=== PATIENT | female | born 1930 | race African-American/Black ===

== ENCOUNTER 2016-06-29 19:37 | Inpatient (IN) | payer OTHER ==
[~2016-06-29] VITALS: Ht 157.5 cm; Wt 61.9 kg
[~2016-06-29 19:37] MED LIST: ACET325T21 PO; ACET500T33 PO; ALBU2.5V14 NEB; AMIO200T2 PO; ASPI-482 PO; ASPI81TA2 PO; ATOR40TA59 PO; BACL10TA PO; BISA10SU2 RC; CARV6.252 PO; CETI10TA16 PO; CETI10TA22 PO; CYAN1CRY MC; CYCL10TA2 PO; DEXT4TAB PO; DICL100G7 TP; DICL1PAT4 TD; DONE5TAB7 PO; ESTR42.53 VG; FLUT16SP2 NS; FLUT1DIS3 IH; FURO-68 PO; FURO40TA4 PO; GABA-585 PO; HYDR-2666 PO; HYDR-2762 PO; INSU100I11 SQ; INSU100I13 SQ; INSU100V8 SQ; LORA0.5T PO; LOSA25TA4 PO; MAG30ORA2 PO; MAG355OR30 PO; MAGN2400 PO; METO2.5T PO; METO5TAB55 PO; MIRA25TA PO; MONT10TA9 PO; MULT-91 PO; NYST1000 PO; OLOP5DRO OP; PANT40TA5 PO; POLY17PO3 PO; POTA20TA12 PO; SIMV20TA3 PO; SPIR25TA3 PO; VENTOLIN HFA18 GM IH; [UNRECOGNIZED DRUG - CODE] PO
[2016-06-29] MEDS ORDERED: PIPERACILLIN/TAZOBACTAM 3.375 GM in IV NORMAL SALINE 50ML 50 ML IV ONE (20:30)
[2016-06-29] MEDS ORDERED: IV NORMAL SALINE 1000ML BAG 1,000 ML IV ONE (20:30)
[2016-06-29] MEDS ORDERED: IPRATRPIUM/ALBUTEROL 0.5/2.5MG 3 ML NEBU. NEB ONE (20:30)
[2016-06-29 20:49] LABS: BASO # 0.1 x10^3/uL (0.0-0.2); BASO % 0 % (0-3); EOS % 0 % (0-3); HEMATOCRIT 42.8 % (36.0-47.0); HEMOGLOBIN 13.6 g/dL (12.0-15.5); LYMPH # 0.7 x10^3/uL (1.0-4.8); LYMPH % 5 % (24-48); MEAN CORPUSCULAR HEMOGLOBIN 27 pg (25-35); MEAN CORPUSCULAR HGB CONC 32 g/dL (31-37); MEAN CORPUSCULAR VOLUME 85 fL (79-100); MONO % 4 % (0-9); NEUT % 91 % (31-73); PLATELET COUNT 141 x10^3/uL (140-400); RED BLOOD COUNT 5.01 x10^6/uL (3.50-5.40); RED CELL DISTRIBUTION WIDTH 17.9 % (11.5-14.5); WHITE BLOOD COUNT 13.9 x10^3/uL (4.0-11.0)
[2016-06-29 20:58] LABS: OBC FLU VALID
[2016-06-29 21:00] LABS: BILIRUBIN,URINE NEGATIVE (NEG); GLUCOSE,URINE NEGATIVE (NEG); NITRITE,URINE NEGATIVE (NEG); PROTEIN,URINE NEGATIVE (NEG-TRACE); UROBILINOGEN,URINE 0.2 mg/dL (0.2 mg/dL)
[2016-06-29 21:07] LABS: BACTERIA,URINE MANY /HPF (0-FEW); RBC,URINE 0 /HPF (0-2); SQUAMOUS EPITHELIAL CELL,UR FEW /LPF; WBC,URINE OCC /HPF (0-4)
[2016-06-29 21:09] LABS: CALCIUM 9.2 mg/dL (8.5-10.1); GFR 28.8; POTASSIUM 4.1 mmol/L (3.5-5.1)
[2016-06-29 21:13] LABS: ALBUMIN/GLOBULIN RATIO 0.7 (1.0-1.7); TOTAL BILIRUBIN 0.8 mg/dL (0.2-1.0); TOTAL PROTEIN 7.1 g/dL (6.4-8.2)
[2016-06-29 21:14] LABS: ANISOCYTOSIS SLIGHT; PLT ESTIMATE ADEQUATE (ADEQUATE); POIKILOCYTOSIS SLIGHT; SPHEROCYTES OCC
[2016-06-29 21:15] LABS: TARGET CELLS OCC; TOXIC GRANULATION SLIGHT; TOXIC VACUOLATION SLIGHT
[2016-06-29] MEDS ORDERED: ONDANSETRON PF 4 MG/2 ML VIAL. IV PRN (21:30)
[2016-06-29] MEDS ORDERED: ACETAMINOPHEN 325 MG TABLET. PO PRN (21:30)
--- NOTE | 2016-06-29 22:19 | PHYS DOC ---
Past Medical History Past Medical History: Anxiety, CHF, COPD, Depression, Diabetes-Type II, GERD, Glaucoma, Hypertension, Hypothyroid, Renal Disease, Other Additional Past Medical Histor: DJD Past Surgical History: Hysterectomy, Pacemaker, Other Additional Past Surgical Histo: thyroidectomy, rotator cuff repair Alcohol Use: None Drug Use: None Adult General Chief Complaint Chief Complaint: MECHANICAL FALL HPI HPI 85-year-old female with multiple medical problems presents with several day history of cough congestion and malaise. Was reported that patient fell today but did not hit her head. She is just been weak. [] Review of Systems Review of Systems Constitutional: Denies fever or chills [] Eyes: Denies change in visual acuity, redness, or eye pain [] HENT: Denies nasal congestion or sore throat [] Respiratory: Per history of present illness [] Cardiovascular: No additional information not addressed in HPI [] GI: Denies abdominal pain, nausea, vomiting, bloody stools or diarrhea [] : Denies dysuria or hematuria [] Musculoskeletal: Denies back pain or joint pain [] Integument: Denies rash or skin lesions [] Neurologic: Denies headache, focal weakness or sensory changes [] Endocrine: Denies polyuria or polydipsia [] Current Medications Current Medications Current Medications Medications (Trade) Dose Ordered Sig/Priscila Start Time Stop Time Status Last Admin Dose Admin Acetaminophen (Tylenol) 650 mg PRN Q4HRS PRN 06/29/16 21:30 06/30/16 21:29 Albuterol/ Ipratropium (Duoneb) 3 ml RTQID 06/30/16 08:00 07/01/16 07:59 Albuterol/ Ipratropium 3 ml 3 ml 1X ONCE 06/29/16 20:30 06/29/16 20:31 DC 06/29/16 21:24 3 ML Methylprednisolone Sodium Succinate (Solu-Medrol 40mg Vial) 40 mg BID 06/30/16 09:00 Ondansetron HCl 4 mg 4 mg PRN Q8HRS PRN 06/29/16 21:30 06/30/16 21:29 Oseltamivir Phosphate (Tamiflu) 30 mg 1X ONCE 06/29/16 22:45 06/29/16 22:46 Piperacillin Sod/ Tazobactam Sod/ Sodium Chloride (Zosyn/Iv Sodium Chloride 0.9% 50ml) 50 ml @ 100 mls/hr 1X ONCE 06/29/16 20:30 06/29/16 20:59 DC 06/29/16 21:09 100 MLS/HR Sodium Chloride (Iv Sodium Chloride 0.9% 1000ml Bag) 1,000 ml @ 125 mls/hr Q8H 06/29/16 21:24 06/30/16 21:23 Allergies Allergies Allergies Coded Allergies Type Severity Reaction Last Updated Verified Sulfa (Sulfonamide Antibiotics) Allergy Severe 11/11/15 Yes Cephalexin Monohydrate Allergy Intermediate 11/11/15 Yes Physical Exam Physical Exam Constitutional: Well developed, well nourished, no acute distress, non-toxic appearance. [] HENT: Normocephalic, atraumatic, bilateral external ears normal, oropharynx moist, no oral exudates, nose normal. [] Eyes: PERRLA, EOMI, conjunctiva normal, no discharge. [] Neck: Normal range of motion, no tenderness, supple, no stridor. [] Cardiovascular:Heart rate regular rhythm, no murmur [] Lungs & Thorax: Bilateral breath sounds clear to auscultation [] Abdomen: Bowel sounds normal, soft, no tenderness, no masses, no pulsatile masses. [] Skin: Warm, dry, no erythema, no rash. [] Back: No tenderness, no CVA tenderness. [] Extremities: No tenderness, no cyanosis, no clubbing, ROM intact, no edema. [] Neurologic: Alert and oriented X 3, normal motor function, normal sensory function, no focal deficits noted. [] Psychologic: Affect normal, judgement normal, mood normal. [] Current Patient Data Vital Signs Vital Signs Date Time Temp Pulse Resp B/P Pulse Ox O2 Delivery O2 Flow Rate FiO2 06/29/16 21:24 95 Nasal Cannula 2.0 06/29/16 19:42 100.7 88 22 118/60 100.7 Lab Values Laboratory Tests Test 06/29/16 20:38 06/29/16 20:50 White Blood Count 13.9x10^3/uL (4.0-11.0) H Red Blood Count 5.01x10^6/uL (3.50-5.40) Hemoglobin 13.6g/dL (12.0-15.5) Hematocrit 42.8% (36.0-47.0) Mean Corpuscular Volume 85fL (79-100) Mean Corpuscular Hemoglobin 27pg (25-35) Mean Corpuscular Hemoglobin Concent 32g/dL (31-37) Red Cell Distribution Width 17.9% (11.5-14.5) H Platelet Count 141x10^3/uL (140-400) Neutrophils (%) (Auto) 91% (31-73) H Lymphocytes (%) (Auto) 5% (24-48) L Monocytes (%) (Auto) 4% (0-9) Eosinophils (%) (Auto) 0% (0-3) Basophils (%) (Auto) 0% (0-3) Neutrophils # (Auto) 12.7x10^3uL (1.8-7.7) H Lymphocytes # (Auto) 0.7x10^3/uL (1.0-4.8) L Monocytes # (Auto) 0.5x10^3/uL (0.0-1.1) Eosinophils # (Auto) 0.0x10^3/uL (0.0-0.7) Basophils # (Auto) 0.1x10^3/uL (0.0-0.2) Segmented Neutrophils % 45% (35-66) Band Neutrophils % 38% (0-9) H Lymphocytes % 12% (24-48) L Monocytes % 3% (0-10) Metamyelocytes % 2% (0-0) H Toxic Granulation Slight Toxic Vacuolation Slight Platelet Estimate Adequate (ADEQUATE) Poikilocytosis Slight Anisocytosis Slight Spherocytes Occ Target Cells Occ Sodium Level 138mmol/L (136-145) Potassium Level 4.1mmol/L (3.5-5.1) Chloride Level 101mmol/L (98-107) Carbon Dioxide Level 22mmol/L (21-32) Anion Gap 15 (6-14) H Blood Urea Nitrogen 54mg/dL (7-20) H Creatinine 2.0mg/dL (0.6-1.0) H Estimated GFR (Cockcroft-Gault) 28.8 BUN/Creatinine Ratio 27 (6-20) H Glucose Level 196mg/dL (70-99) H Calcium Level 9.2mg/dL (8.5-10.1) Total Bilirubin 0.8mg/dL (0.2-1.0) Aspartate Amino Transferase (AST) 159U/L (15-37) H Alanine Aminotransferase (ALT) 155U/L (14-59) H Alkaline Phosphatase 58U/L (46-116) UW-Mzw-D-Type Natriuretic Peptide 9923pg/mL (0-449) H Total Protein 7.1g/dL (6.4-8.2) Albumin 3.0g/dL (3.4-5.0) L Albumin/Globulin Ratio 0.7 (1.0-1.7) L Influenza Type A Antigen Negative (NEGATIVE) Influenza Type B Antigen Positive (NEGATIVE) Urine Collection Type U cath Urine Color Yellow Urine Clarity Clear Urine pH 5.0 Urine Specific [place] 1.015 Urine Protein Negativemg/dL (NEG-TRACE) Urine Glucose (UA) Negativemg/dL (NEG) Urine Ketones (Stick) Negativemg/dL (NEG) Urine Blood Trace (NEG) Urine Nitrite Negative (NEG) Urine Bilirubin Negative (NEG) Urine Urobilinogen Dipstick 0.2mg/dL (0.2 mg/dL) Urine Leukocyte Esterase Negative (NEG) Urine RBC 0/HPF (0-2) Urine WBC Occ/HPF (0-4) Urine Squamous Epithelial Cells Few/LPF Urine Amorphous Sediment Present/HPF Urine Bacteria Many/HPF (0-FEW) Urine Hyaline Casts Few/HPF Urine Mucus Slight/LPF Laboratory Tests 06/29/16 20:38 Laboratory Tests 06/29/16 20:38 EKG EKG [EKG: Normal sinus rhythm rate of 80 interventricular block] Radiology/Procedures Radiology/Procedures [] Impressions: Chest x-ray: Pacemaker in place cardiomegaly no obvious infiltrate as interpreted by wi Course & Med Decision Making Course & Med Decision Making Pertinent Labs and Imaging studies reviewed. (See chart for details) [] Dragon Disclaimer Dragon Disclaimer This electronic medical record was generated, in whole or in part, using a voice recognition dictation system. Departure Departure Impression: Primary Impression: Influenza B Additional Impression: Acute bronchospasm Disposition: 09 ADMITTED INPATIENT Condition: STABLE Referrals: ADALID WRIGHT MD (PCP) Problem Qualifiers ERNIE CRAMEN DO Jun 29, 2016 22:19
[2016-06-29] MEDS: IV NORMAL SALINE 1000ML BAG 1,000 ML IV SCH (22:41)
[2016-06-29] MEDS ORDERED: OSELTAMIVIR 30 MG CAPSULE PO ONE (22:45)
--- NOTE | 2016-06-29 23:25 | ACF ---
Admission Forms Criteria SYSTEMIC OR INFECTIOUS CONDITION Clinical Indications for Admission to Inpatient Care (Place 'X' for any and all applicable criteria): Hospital admission is needed for appropriate care of the patient because of ANY ONE of the following: []I. Hemodynamic instability indicated by ANY ONE of the following(1)(2)(3)(4 )(5): []a. Vital sign abnormality not readily corrected by appropriate treatment within 12 to 24 hours indicated by ANY ONE of the following: []i) Tachycardia that persists despite appropriate treatment []ii) Hypotension that persists despite appropriate treatment []iii) Orthostatic vital sign changes that persist despite appropriate treatment []b. Vital sign abnormality that is severe indicated by ANY ONE of the following: []i. Inadequate perfusion indicated by ANY ONE of the following: []1) Lactic acidosis (greater than 2 mmol/L) []2) New abnormal capillary refill (greater than 3 seconds) []3) Reduced urine output []4) New altered mental status []5) Myocardial Ischemia []ii. Mean arterial pressure [A] less than 60 mm Hg []iii. Mean arterial pressure[A] less than 70 mm Hg after 30 minutes of appropriate treatment (eg, fluid resuscitation) []iv. Sustained heart rate greater than 120 beats per minute in adult []v. IV inotropic or vasopressor medication required to maintain adequate blood pressure or perfusion []II. Systemic or infectious condition causing severe symptoms or findings not responsive to emergency or observation care treatment (as appropriate) indicated by ANY ONE of the following: []a. Cardiac arrhythmias of immediate concern(1)(2)(3) []b. Severe endocrine disorder (eg, thyrotoxicosis, adrenal insufficiency)(4)(5) []c. Seizures (eg, new or recurrent)(6) []d. New-onset end organ failure or dysfunction as indicated by ANY ONE of the following: []i. Acute unexplained hypoxemia (eg, not from lung infection or chronic disease)(7)(8)(9) []ii. Acute renal failure as indicated by new onset of ANY ONE of the following(10)(11)(12)(13)(14): []1) 3-fold rise in serum creatinine from baseline []2) Serum creatinine greater than 4 mg/dL (354 micromoles/L) with acute rise greater than 0.5 mg/dL (44.2 micromoles/L) []3) Reduction of more than 75% in estimated glomerular filtration rate from baseline. []4) Estimated glomerular filtration rate less than 35 mL/min/1.73m2 ( 0.59 mL/sec/1.73m2) in child younger than 18 years. []5) Cessation of urine output indicated by ALL of the following: []A. Adequate volume status []B. Inadequate urine output as indicated by ANY ONE of the following: []a. Urine output less than 0.3 mL/kg/hr for 24 hours []b. Anuria (urine output less than 0.1 mL/kg/hr) for 12 hours []iii. Acute mental status changes(15) []iv. Acute hepatic failure (eg, plasma bilirubin greater than 4 mg/ dL (68 micromoles/L), new INR greater than 2.0)(16)(17) []e. Unmanageable nausea and vomiting(18) []f. New-onset or uncontrolled central diabetes insipidus(19)(20) []g. Clinically significant dehydration(18)(21) []h. Hypoglycemia(22) []i. Acidosis (pH less than 7.35) or alkalosis (pH greater than 7.45)( 22)(23) []j. Toxic drug level that indicates need for specific monitoring or treatment(24)(25) []k. Severe electrolyte abnormalities indicated by ALL of the following( 1)(2)(3): []i. Electrolytes and associated findings are not as expected for patient baseline or acceptable treatment effects. []ii. Severe abnormalities indicated by ANY ONE of the following: []1) Sodium less than 130 mEq/L (mmol/L) (new) []2) Sodium less than 135 mEq/L (mmol/L) with ANY ONE of the following: []A. Uncorrectable (to near normal or chronic baseline) after trial of outpatient and emergency treatment []B. Altered mental status []C. Seizures []D. Severe medical etiology requiring inpatient management (eg , heart failure, hypovolemia) []3) Sodium greater than 155 mEq/L (mmol/L) []4) Sodium greater than 150 mEq/L (mmol/L) with ANY ONE of the following: []A. Uncorrectable (to near normal or chronic baseline) with outpatient and emergency treatment []B. Altered mental status []C. Seizures []D. Severe medical etiology (eg, hypovolemia, diabetes insipidus) []5) Potassium less than 2.5 mEq/L (mmol/L) despite outpatient and emergency treatment []6) Potassium less than 3 mEq/L (mmol/L) with ANY ONE of the following : []A. Weakness []B. Cardiac abnormality (eg, arrhythmia, conduction disturbance ) []C. Cardiac ischemia []D. Ileus []E. Ongoing medical cause requiring inpatient management (eg, acute renal wasting or SIADH) []F. Other severe symptoms []7) Potassium greater than 6.5 mEq/L (mmol/L) []8) Potassium greater than 5 mEq/L (mmol/L) with ANY ONE of the following: []A. Uncorrectable (to near normal or chronic baseline) with outpatient and emergency treatment []B. Severe ECG findings[A] []C. Acute worsening of renal failure (creatinine greater than 2.5 mg/dL (221 micromoles/L) or significant elevation for age and size) []D. Severe weakness []E. Severe medical etiology (eg, hemolysis, infection, drug overdose) []9) Calcium less than 7 mg/dL (1.75 mmol/L) despite outpatient and emergency treatment(5) []10) Calcium less than 8 mg/dL (2 mmol/L) with significant symptoms or findings (eg, altered mental status, muscle spasms, seizures, breathing difficulty, cardiac abnormality (eg, arrhythmia or conduction disturbance))(5) []11) Calcium greater than 14 mg/dL (3.5 mmol/L)(5) []12) Calcium greater than 12 mg/dL (3 mmol/L) with ANY ONE of the following(5): []A. Uncorrectable (to near normal or chronic baseline) with outpatient and emergency treatment []B. Significant dehydration or hypovolemia as indicated by ALL of the following(3)(6)(7): []a. Not resolved with initial treatments []b. Clinically significant dehydration as indicated by ANY ONE of the following: [](1) Vomiting refractory to outpatient treatment (ie, precluding oral rehydration) [](2) Inability to drink [](3) Hypernatremia or other electrolyte abnormality unable to be corrected with outpatient and emergency treatment [](4) Failure to remain hydrated with outpatient therapy [](5) Reduced urine output [](6) Hypotension [](7) Serious cause for dehydration requiring acute hospitalization ( eg, bowel obstruction, increased intracranial pressure, infectious cause) [](8) Child with ANY ONE of the following(8): [](i) Severe abdominal tenderness [](ii) Adequate care not available at home [](iii) Severe dehydration (greater than 9% loss of body weight) []C. Significant symptoms or findings (eg, altered mental status , cardiac abnormality (eg, arrhythmia, conduction disturbance), malignant etiology requiring inpatient treatment) []13) Phosphorus less than 1 mg/dL (0.32 mmol/L) []14) Phosphorus less than 1.5 mg/dL (0.48 mmol/L) with ANY ONE of the following: []A. Patient unresponsive to outpatient and emergency treatment []B. Significant symptoms or findings (eg, weakness, altered mental status, breathing difficulty, seizures, rhabdomyolysis) []15) Phosphorus greater than 10 mg/dL (3.2 mmol/L) []16) Phosphorus greater than 4.5 mg/dL (1.45 mmol/L) (new) with ANY ONE of the following: []A. Severe medical etiology (eg, crush injury, acute renal failure) []B. Associated hypocalcemia with significant findings (eg, neurologic symptoms, altered mental status, muscle spasms, seizures, breathing difficulty, cardiac abnormality (eg, arrhythmia, conduction disturbance)) []16) Magnesium less than 1 mg/dL (0.41 mmol/L) []17) Magnesium less than 1.5 mg/dL (0.62 mmol/L) with ANY ONE of the following: []A. Patient unresponsive to outpatient and emergency treatment []B. Associated hypocalcemia with significant findings (eg, altered mental status, muscle spasms, seizures, breathing difficulty, cardiac abnormality (eg, arrhythmia, conduction disturbance)) []C. Associated hypokalemia (potassium less than 3 mEq/L (mmol/L )) with risk of arrhythmia []18) Magnesium greater than 4 mEq/L (2 mmol/L) []19) Magnesium greater than 2.5 mEq/L (1.25 mmol/L) with significant symptoms or findings (eg, weakness, altered mental status, cardiac abnormality (eg, arrhythmia, conduction disturbance), breathing difficulty, severe medical etiology (eg, renal failure, hypovolemia)) []20) Uric acid greater than 20 mg/dL (1190 micromoles/L)(9) []21) Uric acid greater than 8 mg/dL (476 micromoles/L) with significant symptoms or findings of tumor lysis syndrome (eg, creatinine greater than 1.5 times upper limit of normal, cardiac abnormality (eg , arrhythmia, conduction disturbance), seizure)(9) []III. High fever or other high-risk infection situation as indicated by ANY ONE of the following(26)(27)(28): []a. Outpatient and observation care antimicrobial treatment unavailable, not effective, or not appropriate []b. Documented bacteremia []c. Temperature greater than 104.9 degrees F (40.5 degrees C) (oral) []d. Temperature greater than 103.1 degrees F (39.5 degrees C) (oral) or less than 96.8 degrees F (36 degrees C) (rectal) that does not respond to emergency treatment and observation care []IV. High-risk febrile neutropenia[A] as indicated by ANY ONE of the following(29)(30)(31)(32): []a. Profound neutropenia[B] anticipated to extend for more than 7 days []b. Hemodynamic instability []c. Hypoxemia []d. Tachypnea []e. Altered mental status []f. New-onset abdominal pain []g. New-onset vomiting or diarrhea []h. Oral or gastrointestinal mucositis that interferes with swallowing or causes severe diarrhea []i. Focal infection (eg, cellulitis, pneumonia, central line or catheter infection, perirectal abscess) []j. Renal insufficiency (eg, GFR of less than 30 mL/min/1.73m2 (0.5 mL/sec /1.73m2)). []k. Severe liver dysfunction (transaminase levels greater than 5 times normal) []l. Platelet count less than 50,000/mm3 (50 x109/L)(33) []m. Leukemia or lymphoma induction therapy []n. Leukemia not in complete remission or with evidence of disease progression []o. Bone marrow transplant patient []p. Alemtuzumab being used for therapy []q. [employer]in[employer] Association for Supportive Care in Cancer (MASCC) Risk Index score of less than 21[C](33)(35). []V. Isolation required (eg, tuberculosis that requires isolation, Ebola infection)[D](36)(37)(38)(39)(40) []. Gangrene that requires treatment beyond emergency or observation level care(41)(42) []VII. Antitoxin administration and ongoing observation required (eg, tetanus, botulism)(43)(44) [X]. Suspected infection with rapid progression or severe symptoms as indicated by ANY ONE of the following(45): []a. Streptococcal or staphylococcal toxic shock(46) []b. Diphtheria(47) []c. Hantavirus(48) []d. Severe acute respiratory syndrome(8)(49) []e. Anthrax(50) []f. Ebola[D](36)(37)(38) []g. Necrotizing soft tissue infection(41)(42) []h. Plague(50) [X]i. Other suspected infection that requires care beyond emergency or observation level care []VII. Severe adverse drug or systemic toxin reaction as indicated by ANY ONE of the following(24): []a. Serotonin syndrome(51)(52) []b. Neuroleptic malignant syndrome(51)(52) []c. Cholinergic syndrome with severe symptoms (eg, bronchorrhea, weakness , mental status changes, seizures)(53) []d. Anticholinergic syndrome []e. Sympathetic syndrome with severe symptoms (eg, seizures, mental status changes, cardiac dysrhythmias) []f. Other severe adverse drug or systemic toxin reaction that remains after emergency or observation level care (as appropriate) []VIII. Allergic reaction with severe symptoms (not responsive to emergency or observation care treatment as appropriate), including ANY ONE of the following(54): []a. Airway edema (pharyngeal, epiglottic, or laryngeal edema) []b. Stridor []c. Respiratory failure []d. Bronchospasm []e. Hypotension []IX. Environmental emergency (not responsive to emergency or observation care treatment as appropriate) as indicated by ANY ONE of the following(55)(56): []a. Hyperthermia []b. Heat stroke []c. Heat exhaustion []d. Hypothermia (temperature less than 95 degrees F (35 degrees C) rectal) (57) []e. Electrocution(58) []X. Complications of transplanted organ (ie, not covered elsewhere)[E] indicated by ANY ONE of the following(59): []a. Acute graft rejection (or graft vs. host disease)[F] requiring inpatient management (eg, intravenous immunosuppression)(60)(61)(62)( 63) []b. Acute failure of transplanted organ necessitating inpatient care (eg, cannot be managed in other setting) []c. Infection requiring inpatient management (eg, Hemodynamic instability, need for intravenous antimicrobial treatment)(64)(65) []d. Other complication of transplanted organ requiring inpatient management []XI. Systemic or Infectious Condition condition, symptom, or finding for which emergency and observation care have failed or are not considered appropriate. See General Criteria: Observation Care, General Admission Criteria or Pediatric General Admission Criteria guideline as appropriate. The [facility] content created by [facility] has been revised. The portions of the content which have been revised are identified through the use of italic text or in bold and [facility] has neither reviewed nor approved the modified material. All other unmodified content is copyright [facility]. Please see references footnoted in the original [facility] edition 2016 Admission Criteria Met?: Yes RICHY LR Jun 29, 2016 23:25
[2016-06-29 23:27] VITALS: BP 120/59
[2016-06-30] MEDS ORDERED: SPIR25TA3 PO (00:28)
[2016-06-30] MEDS ORDERED: TORS10TA3 PO (00:28)
[2016-06-30] MEDS ORDERED: OMEP20CA9 PO (00:28)
[2016-06-30] MEDS ORDERED: CHOL500051 PO (00:28)
[2016-06-30] MEDS: IV NORMAL SALINE 1000ML BAG 1,000 ML IV SCH (00:30)
[2016-06-30] MEDS ORDERED: INSU100I17 SQ (00:33)
[2016-06-30] MEDS ORDERED: MONT10TA6 PO (00:33)
[2016-06-30] MEDS ORDERED: CHOL2000 PO (00:33)
[2016-06-30] MEDS ORDERED: ALLO100T PO (00:33)
[2016-06-30] MEDS ORDERED: HYDROCODONE/APAP 7.5/325MG TABLET. PO PRN (00:45)
[2016-06-30] MEDS ORDERED: ACETAMINOPHEN 500 MG TABLET PO PRN (00:45)
[2016-06-30] MEDS ORDERED: DEXTROSE 50% 25 GM / 50ML DISP.SYRIN. IV PRN (00:45)
[2016-06-30] MEDS ORDERED: ALBUTEROL SULFATE 2.5 MG/3 ML NEBU. NEB PRN ×2 (01:00→08:30)
[2016-06-30 03:21] VITALS: BP 112/57
--- NOTE | 2016-06-30 06:25 | EKG ---
[facility] [address] [place] [address] Test Date: 2016-06-29 Test Time: 20:30:30 Pat Name: LESLYE GUEVARA Department: Room: [facility] Gender: F [employer] Supervisor: : [id number] Requested By: ERNIE CARMEN Order Number: [id number] Reading MD: Timothy Vasquez Measurements Intervals [place] Rate: 80 P: 58 NM: 140 QRS: -150 QRSD: 150 T: 71 QT: 456 QTc: 530 Interpretive Statements SINUS RHYTHM V PACED BEATS Electronically Signed On 07-04-2016 13:43:37 SENIOR DATA ARCHITECT by Timothy Vasquez
[2016-06-30] MEDS ORDERED: INSULIN ASPART 300 UNITS/3 ML INSULN.PEN SQ SCH (07:30)
--- NOTE | 2016-06-30 07:35 | RAD ---
Exam performed: One view chest. History: Cough for 2 days. Date of service: 06/29/16. Comparison made to a single view chest from 12/29/15. Single AP upright portable view chest findings: Study somewhat limited due to poor inspiration and positioning. Apparent cardiomegaly and central vascular congestion may be related to poor inspiration. Pacemaker. Small right pleural effusion and probable parenchymal opacity in the right lung base. Impression: 1. Poor inspiratory effort. 2. Apparent cardiomegaly and central vascular congestion. Parenchymal opacity right lung base with a small right pleural effusion. The constellation of findings could be related to infiltrate or early CHF. Correlate clinically
[2016-06-30] MEDS: IPRATRPIUM/ALBUTEROL 0.5/2.5MG 3 ML NEBU. NEB SCH ×4 (07:41→20:56)
[2016-06-30 07:55] VITALS: BP 104/52
[2016-06-30] MEDS: INSULIN ASPART 300 UNITS/3 ML INSULN.PEN SQ SCH ×3 (08:00→18:02)
[2016-06-30] MEDS ORDERED: IPRATRPIUM/ALBUTEROL 0.5/2.5MG 3 ML NEBU. NEB SCH (08:00)
[2016-06-30] MEDS ORDERED: BUDESONIDE 0.5 MG/2 ML NEBU NEB SCH (08:00)
[2016-06-30] MEDS ORDERED: IV NORMAL SALINE 1000ML BAG 1,000 ML IV SCH (08:30)
[2016-06-30] MEDS ORDERED: BISACODYL 10 MG SUPP.RECT RC PRN (08:30)
--- NOTE | 2016-06-30 08:33 | PDOC ---
Provider Note Provider Note critically ill. needs transfer to [facility]. HP pending-will do from office to allow review of EMR for accurate HP. MEL GUNN APRN Jun 30, 2016 08:33
[2016-06-30] MEDS ORDERED: methylPREDNISolone SOD SUCC PF 40 MG/ML VIAL. IV SCH (09:00)
[2016-06-30] MEDS ORDERED: OSELTAMIVIR 75 MG CAPSULE PO SCH (09:00)
[2016-06-30] MEDS ORDERED: NON FORMULARY ITEM (Cholecalciferol (Vitamin D3) (Vitamin D) 1 CAP) PO SCH (09:00)
[2016-06-30] MEDS ORDERED: NON FORMULARY ITEM (Fluticasone/Salmeterol (Advair 250-50 Diskus) 1 EACH) IH SCH (09:00)
[2016-06-30] MEDS: PIPERACILLIN/TAZOBACTAM 2.25 GM in IV NORMAL SALINE 50ML 50 ML IV SCH ×4 (09:00→23:04)
--- NOTE | 2016-06-30 09:14 | PDOC ---
Infectious Disease Note ROS ROS GEN: Denies fevers, chills, sweats HEENT: Denies blurred vision, sore throat CV: Denies chest pain RESP: Denies shortness of air, cough GI: Denies n/v/d NEURO: Denies confusion, dizziness MSK: Denies weakness, joint pain/swelling Vital Sign Vital Signs Vital Signs Date Time Temp Pulse Resp B/P Pulse Ox O2 Delivery O2 Flow Rate FiO2 06/30/16 07:55 98.9 76 22 104/52 95 Nasal Cannula 2.0 98.9 Physical Exam PHYSICAL EXAM GENERAL: NAD, Alert HEENT: PERRL, OC/OP NECK: Supple, no JVD, no LN LUNGS: Clear HEART: S1S2, no gallop, no murmur ABD: Soft, NT, no organomegaly, no rebound EXT: No edema, no cyanosis WINDOWS SYSTEM ADMIN: Alert, oriented x 3, no focal neurologic deficit SKIN: No rash IV: ok Labs Lab Laboratory Tests Test 06/29/16 20:38 06/29/16 20:50 06/30/16 08:05 White Blood Count 13.9x10^3/uL (4.0-11.0) Red Blood Count 5.01x10^6/uL (3.50-5.40) Hemoglobin 13.6g/dL (12.0-15.5) Hematocrit 42.8% (36.0-47.0) Mean Corpuscular Volume 85fL (79-100) Mean Corpuscular Hemoglobin 27pg (25-35) Mean Corpuscular Hemoglobin Concent 32g/dL (31-37) Red Cell Distribution Width 17.9% (11.5-14.5) Platelet Count 141x10^3/uL (140-400) Neutrophils (%) (Auto) 91% (31-73) Lymphocytes (%) (Auto) 5% (24-48) Monocytes (%) (Auto) 4% (0-9) Eosinophils (%) (Auto) 0% (0-3) Basophils (%) (Auto) 0% (0-3) Neutrophils # (Auto) 12.7x10^3uL (1.8-7.7) Lymphocytes # (Auto) 0.7x10^3/uL (1.0-4.8) Monocytes # (Auto) 0.5x10^3/uL (0.0-1.1) Eosinophils # (Auto) 0.0x10^3/uL (0.0-0.7) Basophils # (Auto) 0.1x10^3/uL (0.0-0.2) Segmented Neutrophils % 45% (35-66) Band Neutrophils % 38% (0-9) Lymphocytes % 12% (24-48) Monocytes % 3% (0-10) Metamyelocytes % 2% (0-0) Toxic Granulation Slight Toxic Vacuolation Slight Platelet Estimate Adequate (ADEQUATE) Poikilocytosis Slight Anisocytosis Slight Spherocytes Occ Target Cells Occ Sodium Level 138mmol/L (136-145) Potassium Level 4.1mmol/L (3.5-5.1) Chloride Level 101mmol/L (98-107) Carbon Dioxide Level 22mmol/L (21-32) Anion Gap 15 (6-14) Blood Urea Nitrogen 54mg/dL (7-20) Creatinine 2.0mg/dL (0.6-1.0) Estimated GFR (Cockcroft-Gault) 28.8 BUN/Creatinine Ratio 27 (6-20) Glucose Level 196mg/dL (70-99) Calcium Level 9.2mg/dL (8.5-10.1) Total Bilirubin 0.8mg/dL (0.2-1.0) Aspartate Amino Transf (AST/SGOT) 159U/L (15-37) Alanine Aminotransferase (ALT/SGPT) 155U/L (14-59) Alkaline Phosphatase 58U/L (46-116) VU-Gdt-Z-Type Natriuretic Peptide 9923pg/mL (0-449) Total Protein 7.1g/dL (6.4-8.2) Albumin 3.0g/dL (3.4-5.0) Albumin/Globulin Ratio 0.7 (1.0-1.7) Influenza Type A Antigen Negative (NEGATIVE) Influenza Type B Antigen Positive (NEGATIVE) Urine Collection Type U cath Urine Color Yellow Urine Clarity Clear Urine pH 5.0 Urine Specific [place] 1.015 Urine Protein Negativemg/dL (NEG-TRACE) Urine Glucose (UA) Negativemg/dL (NEG) Urine Ketones (Stick) Negativemg/dL (NEG) Urine Blood Trace (NEG) Urine Nitrite Negative (NEG) Urine Bilirubin Negative (NEG) Urine Urobilinogen Dipstick 0.2mg/dL (0.2 mg/dL) Urine Leukocyte Esterase Negative (NEG) Urine RBC 0/HPF (0-2) Urine WBC Occ/HPF (0-4) Urine Squamous Epithelial Cells Few/LPF Urine Amorphous Sediment Present/HPF Urine Bacteria Many/HPF (0-FEW) Urine Hyaline Casts Few/HPF Urine Mucus Slight/LPF Glucose (Fingerstick) 129mg/dL (70-99) Objective Assessment Fever Encephalopathy Influenza B - Tamiflu started ? UTI- POA Cephalexin/Sulfa allergies - unable to say what happens but appears to have tolerated Zosyn Transaminitis ? congestion/H/o Fatty liver CKD ? aspiration Leukocytosis - on steroids now Plan Plan of Care Cont Zosyn Add Zyvox Would have speech eval when more alert F/u labs and cults Thank you # [id number] YINKA HARDY MD Jun 30, 2016 09:14
[2016-06-30] MEDS: MULTIVITAMIN with MINERAL TABLET. PO SCH (09:23)
[2016-06-30] MEDS: ASPIRIN 81 MG TAB.CHEW PO SCH (09:23)
[2016-06-30] MEDS: PANTOPRAZOLE 40 MG TABLET. PO SCH (09:23)
[2016-06-30] MEDS: CETIRIZINE HCL 10 MG TABLET PO SCH (09:24)
[2016-06-30] MEDS: CHOLECALCIFEROL (VITAMIN D3) 1,000 UNIT TABLET PO SCH (09:24)
[2016-06-30] MEDS: FLUTICASONE 50MCG/NASAL SPRAY 16GM BOTTLE. NS SCH (09:25)
[2016-06-30] MEDS: methylPREDNISolone SOD SUCC PF 40 MG/ML VIAL. IV SCH ×2 (09:26→21:38)
--- NOTE | 2016-06-30 09:27 | PDOC2 ---
GI CONSULT Reason For Consult: Abnormal LFTs HPI: HPI: 85 y/o female from facility brought to ER w/ cough and after fall. Admitted to regular floor but plans to transfer to [facility]. Labs: +influenza B, WBC 13.9, BUN 54, Cr 2, BNP 9923, bili 0.8, AST 159, ALT 155, Alk Phos 55. GI consulted re: LFTs. Not much history from pt. Says she has some pain in her right side and has been coughing. Denies GI complaints. No h/o significant elevation in LFTs. Chart lists h/o fatty liver; normal liver on CT report from 2014. On amiodarone. GI h/o apparently significant for GERD and Lehman's esophagus; she is on PPI. PMH: PMH: from chart - CHF, CAD, HTN, COPD, CKD, hypothyroidism, DM, Lehman's esophagus/ GERD, diverticulosis, fatty liver, gout, DDD, OA, depression/anxiety, dementia, pacemaker, hysterectomy, thyroidectomy, rotator cuff repair, knee surgery, ventral hernia repair, tonsillectomy, ?bladder cancer FH: Family History: No pertinent hx Social History: Smoke: Quit ALCOHOL: none Drugs: None ROS: Difficult to obtain. RESP: +cough GI: Per HPI MSK: +weakness VItals: Vitals: Vital Signs Date Time Temp Pulse Resp B/P Pulse Ox O2 Delivery O2 Flow Rate FiO2 06/30/16 07:55 98.9 76 22 104/52 95 Nasal Cannula 2.0 98.9 Labs: Labs: Laboratory Tests Test 06/29/16 20:38 06/29/16 20:50 06/30/16 08:05 White Blood Count 13.9x10^3/uL (4.0-11.0) Red Blood Count 5.01x10^6/uL (3.50-5.40) Hemoglobin 13.6g/dL (12.0-15.5) Hematocrit 42.8% (36.0-47.0) Mean Corpuscular Volume 85fL (79-100) Mean Corpuscular Hemoglobin 27pg (25-35) Mean Corpuscular Hemoglobin Concent 32g/dL (31-37) Red Cell Distribution Width 17.9% (11.5-14.5) Platelet Count 141x10^3/uL (140-400) Neutrophils (%) (Auto) 91% (31-73) Lymphocytes (%) (Auto) 5% (24-48) Monocytes (%) (Auto) 4% (0-9) Eosinophils (%) (Auto) 0% (0-3) Basophils (%) (Auto) 0% (0-3) Neutrophils # (Auto) 12.7x10^3uL (1.8-7.7) Lymphocytes # (Auto) 0.7x10^3/uL (1.0-4.8) Monocytes # (Auto) 0.5x10^3/uL (0.0-1.1) Eosinophils # (Auto) 0.0x10^3/uL (0.0-0.7) Basophils # (Auto) 0.1x10^3/uL (0.0-0.2) Segmented Neutrophils % 45% (35-66) Band Neutrophils % 38% (0-9) Lymphocytes % 12% (24-48) Monocytes % 3% (0-10) Metamyelocytes % 2% (0-0) Toxic Granulation Slight Toxic Vacuolation Slight Platelet Estimate Adequate (ADEQUATE) Poikilocytosis Slight Anisocytosis Slight Spherocytes Occ Target Cells Occ Sodium Level 138mmol/L (136-145) Potassium Level 4.1mmol/L (3.5-5.1) Chloride Level 101mmol/L (98-107) Carbon Dioxide Level 22mmol/L (21-32) Anion Gap 15 (6-14) Blood Urea Nitrogen 54mg/dL (7-20) Creatinine 2.0mg/dL (0.6-1.0) Estimated GFR (Cockcroft-Gault) 28.8 BUN/Creatinine Ratio 27 (6-20) Glucose Level 196mg/dL (70-99) Calcium Level 9.2mg/dL (8.5-10.1) Total Bilirubin 0.8mg/dL (0.2-1.0) Aspartate Amino Transf (AST/SGOT) 159U/L (15-37) Alanine Aminotransferase (ALT/SGPT) 155U/L (14-59) Alkaline Phosphatase 58U/L (46-116) VD-Igt-F-Type Natriuretic Peptide 9923pg/mL (0-449) Total Protein 7.1g/dL (6.4-8.2) Albumin 3.0g/dL (3.4-5.0) Albumin/Globulin Ratio 0.7 (1.0-1.7) Influenza Type A Antigen Negative (NEGATIVE) Influenza Type B Antigen Positive (NEGATIVE) Urine Collection Type U cath Urine Color Yellow Urine Clarity Clear Urine pH 5.0 Urine Specific [place] 1.015 Urine Protein Negativemg/dL (NEG-TRACE) Urine Glucose (UA) Negativemg/dL (NEG) Urine Ketones (Stick) Negativemg/dL (NEG) Urine Blood Trace (NEG) Urine Nitrite Negative (NEG) Urine Bilirubin Negative (NEG) Urine Urobilinogen Dipstick 0.2mg/dL (0.2 mg/dL) Urine Leukocyte Esterase Negative (NEG) Urine RBC 0/HPF (0-2) Urine WBC Occ/HPF (0-4) Urine Squamous Epithelial Cells Few/LPF Urine Amorphous Sediment Present/HPF Urine Bacteria Many/HPF (0-FEW) Urine Hyaline Casts Few/HPF Urine Mucus Slight/LPF Glucose (Fingerstick) 129mg/dL (70-99) Allergies: Coded Allergies: Sulfa (Sulfonamide Antibiotics) (Verified Allergy, Severe, 11/11/15) Cephalexin Monohydrate (Verified Allergy, Intermediate, 11/11/15) Medications: Current Medications Medications (Trade) Dose Ordered Sig/Priscila Route PRN Reason Start Time Stop Time Status Last Admin Dose Admin Albuterol/ Ipratropium 3 ml 3 ml 1X ONCE NEB 06/29/16 20:30 06/29/16 20:31 DC 06/29/16 21:24 Sodium Chloride 1,000 ml @ 1,000 mls/hr 1X ONCE IV 06/29/16 20:30 06/29/16 21:29 DC 06/29/16 21:10 Piperacillin Sod/ Tazobactam Sod 3.375 gm/Sodium Chloride 50 ml @ 100 mls/hr 1X ONCE IV 06/29/16 20:30 06/29/16 20:59 DC 06/29/16 21:09 Sodium Chloride (Iv Sodium Chloride 0.9% 1000ml Bag) 1,000 ml @ 125 mls/hr Q8H IV 06/29/16 21:24 06/30/16 08:30 DC 06/30/16 00:30 Oseltamivir Phosphate (Tamiflu) 30 mg 1X ONCE PO 06/29/16 22:45 06/29/16 22:46 DC 06/29/16 22:26 Albuterol/ Ipratropium (Duoneb) 3 ml RTQID NEB 06/30/16 08:00 06/30/16 07:41 Budesonide (Pulmicort) 0.5 mg RTBID NEB 06/30/16 08:00 06/30/16 07:41 Imaging: Imaging: CXR 06/30/16 Impression: 1. Poor inspiratory effort. 2. Apparent cardiomegaly and central vascular congestion. Parenchymal opacity right lung base with a small right pleural effusion. The constellation of findings could be related to infiltrate or early CHF. Correlate clinically PE: GEN: NAD, feels warm HEENT: Atraumatic, PERRL LUNGS: decreased anteriorly, coarse HEART: S1S2 ABD: NABS, S/ND/NT SKIN: No rashes, no jaundice NEURO/PSYCH: alert, oriented to self A/P: A/P: Elevated AST and ALT Influenza B, encephalopathy -on Tamiflu Fever, leukocytosis, ?UTI -ID following, on IV atbx Elevated BNP H/o Lehman's esophagus, GERD -per chart, on PPI CKD -- Elevated transaminases w/ elevated BNP. To transfer to [facility] w/ other issues. Will review ?further workup/imaging w/ Dr. Noonan. FRANCIA SHAH Jun 30, 2016 09:27
--- NOTE | 2016-06-30 09:30 | PDOC1 ---
MEL GUNN [employer] 06/30/16 0930: HISTORY AND PHYSICAL Chief Complaint Chief Complaint This 85 year old female has been admitted with a chief complaint of cough, dyspnea, weakness, and malaise. She resides at [facility]. The patient is a poor historian with metabolic encephalopathy present. She reports a fall when getting out of her chair on Monday evening. She has noted increased low back pain. She developed a cough and chest congestion with acute on chronic low back pain. She is under Pain management by Dr. Lopez. She also fell yesterday but did not impact her head per ED report. In the ED: WBC 132.9, BUN 54, Cr 2.0 ALT 155, AST 159, AP 58 and BNP 9923. CXR suggestive vascular changes of CHF. EKG SR no acute changes. Influenzae B positive. CXR also revealed R lung opacity and pleural effusion. UA negative. She has been given zosyn IV x 1, solumedrol 40mg IV x 1 and admitted to medical tele. Currently she is being transferred to [facility]. . Problem List Problems Medical Problems: (1) Acute bronchospasm Status: Acute (2) Influenza B Status: Acute Past Medical History Cardiovascular: CAD (mild. stress test recent [facility] admit: fixed defect inferior wall no significant reversibility ), CHF (systolic EF 35-40 % and diastolic ICM. SCIENTIFIC LINGUIST. 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 Review of Symptoms Review of Symptoms A 14 point ROS was completed with the following noted as positive: per HPI with MS changes, acute on chronic low back pain, weakness. Other systems reviewed and negative. Medications Medications reviewed and reconciled. Allergy Allergies Coded Allergies Type Severity Reaction Last Updated Verified Sulfa (Sulfonamide Antibiotics) Allergy Severe 11/11/15 Yes Cephalexin Monohydrate Allergy Intermediate 11/11/15 Yes Physical Exam Physical Exam General appearance - lethargic, acutely ill appearing, and in no distress Mental Status - alert, oriented to person, place, lethargic Head - normal Chest - wheezing ant and post Heart - S1 and S2 normal Abdomen - soft, nontender, nondistended, BS + Neurological - lethargic no acute focal neurological deficits noted Musculoskeletal - tender LS spine Extremities - no pedal edema Skin - warm and dry VTE Prophylaxis Ordered VTE Prophylaxis Devices: Yes VTE Pharmacological Prophylaxi: No Assessment Labs Laboratory Tests Test 06/29/16 20:38 06/29/16 20:50 06/30/16 08:05 White Blood Count 13.9x10^3/uL (4.0-11.0) Red Blood Count 5.01x10^6/uL (3.50-5.40) Hemoglobin 13.6g/dL (12.0-15.5) Hematocrit 42.8% (36.0-47.0) Mean Corpuscular Volume 85fL (79-100) Mean Corpuscular Hemoglobin 27pg (25-35) Mean Corpuscular Hemoglobin Concent 32g/dL (31-37) Red Cell Distribution Width 17.9% (11.5-14.5) Platelet Count 141x10^3/uL (140-400) Neutrophils (%) (Auto) 91% (31-73) Lymphocytes (%) (Auto) 5% (24-48) Monocytes (%) (Auto) 4% (0-9) Eosinophils (%) (Auto) 0% (0-3) Basophils (%) (Auto) 0% (0-3) Neutrophils # (Auto) 12.7x10^3uL (1.8-7.7) Lymphocytes # (Auto) 0.7x10^3/uL (1.0-4.8) Monocytes # (Auto) 0.5x10^3/uL (0.0-1.1) Eosinophils # (Auto) 0.0x10^3/uL (0.0-0.7) Basophils # (Auto) 0.1x10^3/uL (0.0-0.2) Segmented Neutrophils % 45% (35-66) Band Neutrophils % 38% (0-9) Lymphocytes % 12% (24-48) Monocytes % 3% (0-10) Metamyelocytes % 2% (0-0) Toxic Granulation Slight Toxic Vacuolation Slight Platelet Estimate Adequate (ADEQUATE) Poikilocytosis Slight Anisocytosis Slight Spherocytes Occ Target Cells Occ Sodium Level 138mmol/L (136-145) Potassium Level 4.1mmol/L (3.5-5.1) Chloride Level 101mmol/L (98-107) Carbon Dioxide Level 22mmol/L (21-32) Anion Gap 15 (6-14) Blood Urea Nitrogen 54mg/dL (7-20) Creatinine 2.0mg/dL (0.6-1.0) Estimated GFR (Cockcroft-Gault) 28.8 BUN/Creatinine Ratio 27 (6-20) Glucose Level 196mg/dL (70-99) Calcium Level 9.2mg/dL (8.5-10.1) Total Bilirubin 0.8mg/dL (0.2-1.0) Aspartate Amino Transf (AST/SGOT) 159U/L (15-37) Alanine Aminotransferase (ALT/SGPT) 155U/L (14-59) Alkaline Phosphatase 58U/L (46-116) KK-Jet-Q-Type Natriuretic Peptide 9923pg/mL (0-449) Total Protein 7.1g/dL (6.4-8.2) Albumin 3.0g/dL (3.4-5.0) Albumin/Globulin Ratio 0.7 (1.0-1.7) Influenza Type A Antigen Negative (NEGATIVE) Influenza Type B Antigen Positive (NEGATIVE) Urine Collection Type U cath Urine Color Yellow Urine Clarity Clear Urine pH 5.0 Urine Specific [place] 1.015 Urine Protein Negativemg/dL (NEG-TRACE) Urine Glucose (UA) Negativemg/dL (NEG) Urine Ketones (Stick) Negativemg/dL (NEG) Urine Blood Trace (NEG) Urine Nitrite Negative (NEG) Urine Bilirubin Negative (NEG) Urine Urobilinogen Dipstick 0.2mg/dL (0.2 mg/dL) Urine Leukocyte Esterase Negative (NEG) Urine RBC 0/HPF (0-2) Urine WBC Occ/HPF (0-4) Urine Squamous Epithelial Cells Few/LPF Urine Amorphous Sediment Present/HPF Urine Bacteria Many/HPF (0-FEW) Urine Hyaline Casts Few/HPF Urine Mucus Slight/LPF Glucose (Fingerstick) 129mg/dL (70-99) Laboratory Tests Test 06/29/16 20:38 06/29/16 20:50 06/30/16 08:05 White Blood Count 13.9x10^3/uL (4.0-11.0) Red Blood Count 5.01x10^6/uL (3.50-5.40) Hemoglobin 13.6g/dL (12.0-15.5) Hematocrit 42.8% (36.0-47.0) Mean Corpuscular Volume 85fL (79-100) Mean Corpuscular Hemoglobin 27pg (25-35) Mean Corpuscular Hemoglobin Concent 32g/dL (31-37) Red Cell Distribution Width 17.9% (11.5-14.5) Platelet Count 141x10^3/uL (140-400) Neutrophils (%) (Auto) 91% (31-73) Lymphocytes (%) (Auto) 5% (24-48) Monocytes (%) (Auto) 4% (0-9) Eosinophils (%) (Auto) 0% (0-3) Basophils (%) (Auto) 0% (0-3) Neutrophils # (Auto) 12.7x10^3uL (1.8-7.7) Lymphocytes # (Auto) 0.7x10^3/uL (1.0-4.8) Monocytes # (Auto) 0.5x10^3/uL (0.0-1.1) Eosinophils # (Auto) 0.0x10^3/uL (0.0-0.7) Basophils # (Auto) 0.1x10^3/uL (0.0-0.2) Segmented Neutrophils % 45% (35-66) Band Neutrophils % 38% (0-9) Lymphocytes % 12% (24-48) Monocytes % 3% (0-10) Metamyelocytes % 2% (0-0) Toxic Granulation Slight Toxic Vacuolation Slight Platelet Estimate Adequate (ADEQUATE) Poikilocytosis Slight Anisocytosis Slight Spherocytes Occ Target Cells Occ Sodium Level 138mmol/L (136-145) Potassium Level 4.1mmol/L (3.5-5.1) Chloride Level 101mmol/L (98-107) Carbon Dioxide Level 22mmol/L (21-32) Anion Gap 15 (6-14) Blood Urea Nitrogen 54mg/dL (7-20) Creatinine 2.0mg/dL (0.6-1.0) Estimated GFR (Cockcroft-Gault) 28.8 BUN/Creatinine Ratio 27 (6-20) Glucose Level 196mg/dL (70-99) Calcium Level 9.2mg/dL (8.5-10.1) Total Bilirubin 0.8mg/dL (0.2-1.0) Aspartate Amino Transf (AST/SGOT) 159U/L (15-37) Alanine Aminotransferase (ALT/SGPT) 155U/L (14-59) Alkaline Phosphatase 58U/L (46-116) CV-Mnw-P-Type Natriuretic Peptide 9923pg/mL (0-449) Total Protein 7.1g/dL (6.4-8.2) Albumin 3.0g/dL (3.4-5.0) Albumin/Globulin Ratio 0.7 (1.0-1.7) Influenza Type A Antigen Negative (NEGATIVE) Influenza Type B Antigen Positive (NEGATIVE) Urine Collection Type U cath Urine Color Yellow Urine Clarity Clear Urine pH 5.0 Urine Specific [place] 1.015 Urine Protein Negativemg/dL (NEG-TRACE) Urine Glucose (UA) Negativemg/dL (NEG) Urine Ketones (Stick) Negativemg/dL (NEG) Urine Blood Trace (NEG) Urine Nitrite Negative (NEG) Urine Bilirubin Negative (NEG) Urine Urobilinogen Dipstick 0.2mg/dL (0.2 mg/dL) Urine Leukocyte Esterase Negative (NEG) Urine RBC 0/HPF (0-2) Urine WBC Occ/HPF (0-4) Urine Squamous Epithelial Cells Few/LPF Urine Amorphous Sediment Present/HPF Urine Bacteria Many/HPF (0-FEW) Urine Hyaline Casts Few/HPF Urine Mucus Slight/LPF Glucose (Fingerstick) 129mg/dL (70-99) Plan Plan 1. influenzae B with sepsis 2. suspect pneumonitis 3. a/c systolic diastolic CHF 4. transaminitis 5. ARF with underlying CKD III (Cr 1.59-1.87) 6. ICM systolicCHF functional class II with SCIENTIFIC LINGUIST 7. HTN 8. leukocytosis fever 9. urinary incontinence overlow 10. HH 11. gastritis 12. hyperlipidemia 13. fatty liver 14. CAD mild last eval at [facility] admit 15. hypothyroid with h/o thyroidectomy 16. severe weakness and debility 17. DM II with CKD III 18. severe PCL malnutrition 19. erosive gastritis 20. GERD 21. diverticulosis 22. chronic pain management DDD LS per Dr. Lopez PMC PLAN: Inf B with sepsis ID consult pulmonary consult suspected pneumonia Zosyn/zyvox IV per ID Solumed 40 IV q12hr wheezing nebulizer treatment oxygen supplementation Admit WBC 13.9 T 100.7F admit IV NS 125cc/hr decreased to 75cc/hr Tamiflu A/C CHF cardiology consult BNP 9923-in setting ARF CXR +vascular changes diuretics on hold with IV infusing daily wt/IO Admit wt 132# Home med: torsemide 10mg daily Coreg decreased to 3.125mg bid last appt Dr. Mosley--dizziness. ARF with CKD III nephrology consult Office: BUN 28-35 Cr 1.59-1.87 ADmit BUN 54 Cr 2.0 K 4.1 transaminitis Admit AST 159 ALT 155 AP 58 GI consult DM II FSBS/ low intensity SSI Home Lantus 29u at hs, decrease to 15u with poor oral intake, hold if NPO Hbaic 6.0 less than 3 months ago a/c back pain with recent fall Dr. Vale consult thyroidectomy h/o TSH 0.33 w/o thyroid med urinary incontinence vale for accurate IO severe weakness and debility PT OT severe PCL malnutrition supplements/monitor intake DVT/GI prophylaxis SCD/LEANDRA PPI For more details regarding further plans, please refer to the orders. ADALID WRIGHT MD 06/30/16 1006: HISTORY AND PHYSICAL Plan Plan Acute metabolic encephalopathy- pt is confused. D/w pt,family,. Check Lactic acid level. The patient was seen and examined by me. Chart reviewed and plan of care formulated. Discussed with, reviewed and agree with [employer]'s notes, plan of care and orders with modifications as necessary. For more details regarding further plans, please refer to the orders. MEL GUNN APRN Jun 30, 2016 09:30 ADALID WRIGHT MD Jun 30, 2016 10:06
[2016-06-30] MEDS: SPIRONOLACTONE 25 MG TABLET PO SCH (09:33)
[2016-06-30] MEDS: AMIODARONE HCL 200 MG TABLET PO SCH (09:34)
--- NOTE | 2016-06-30 09:41 | RAD ---
Exam performed: One view chest. History: Shortness of breath, congestion, history of CHF. Date of service: 06/30/16. Comparison: Single view chest from 06/29/16. Single AP upright portable view chest findings: Cardiomegaly. Development of hazy opacity in the right lung base with small right pleural effusion. The left lung is essentially clear. Pacemaker remains in place. Impression: Hazy opacity right lung base with pleural effusion. Findings probably reflect worsening infiltrate with increasing effusion.
[2016-06-30] MEDS ORDERED: POLYVINYL ALCOHOL 1.4% OPHTH SOLUTION 15ML BOTTLE. OU PRN (09:45)
[2016-06-30] MEDS ORDERED: CHOLECALCIFEROL (VITAMIN D3) 1,000 UNIT TABLET PO SCH (10:00)
[2016-06-30 10:20] LABS: CALCIUM 8.6 mg/dL (8.5-10.1); CREATININE 1.5 mg/dL (0.6-1.0); GFR 40.1; POTASSIUM 3.7 mmol/L (3.5-5.1)
[2016-06-30 10:37] LABS: CHOLESTEROL/HDL RATIO 4.6
[2016-06-30 10:50] VITALS: BP 123/59
--- NOTE | 2016-06-30 11:03 | PDOC2 ---
CONSULT Date of Consult Date of Consult DATE: 06/30/16 TIME: 10:58 Reason for Consult Reason for Consult: ANIKET Referring Physician Referring Physician: SINDI Identification/Chief Complaint Chief Complaint THIS IS AN 85 YR OLD ADMITTED WITH SOB AND WEAKNESS, SUBSEQUENTLY DX WITH INFLUENZA. SHE WAS NOTED TO HAVE A CR OF 1.9. OLD RECORDS SHOW CKD STAGE 3 WITH BASELINE CR OF 1.2-1.6. NO HX OF NEPHROTOXINS OR FREQUENT UTI'S, HEMATURIA DYSURIA OR FREQUENCY NOTED. SHE HAS DM II AND HTN AND HER BNP LEVEL IS ELEVATED History of Present Illness Reason for Visit: ABOVE Past Medical History Cardiovascular: CAD (mild. stress test recent [facility] admit: fixed defect inferior wall no significant reversibility ), CHF (systolic EF 35-40 % and diastolic ICM. 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) Pulmonary: COPD GI: Diverticulosis, GERD, Gastritis, Other (h/o barretts esophagus, HH ) Hepatobiliary: Other (fatty liver ) Psych: Anxiety, Depression Musculoskeletal: low back pain (DDD LS, mod spinal stenosis L3-L5), Osteoarthritis (bilateral knee), Other (RTC tear) ENT: Other (gllaucoma ) Renal/: Chronic renal insuff (C KD III ), Urinary Incontinence (overflow incontinence) Endocrine: Diabetes (Type II insulin with CKD III ) Past Surgical History Past Surgical History: Pacemaker (RETAIL MANAGER ), Cataract Removal Family History Family History: Coronary Artery Disease, Diabetes, Hypertension Social History Quit ALCOHOL: none Drugs: None Current Problem List Problem List Problems Medical Problems: (1) Acute bronchospasm Status: Acute (2) Influenza B Status: Acute Current Medications Current Medications Current Medications Albuterol/ Ipratropium 3 ml 3 ml 1X ONCE NEB Last administered on 06/29/16 21: 24; Start 06/29/16 at 20:30; Stop 06/29/16 at 20:31; Status DC Sodium Chloride 1,000 ml @ 1,000 mls/hr 1X ONCE IV Last administered on 21:10; Start 06/29/16 at 20:30; Stop 06/29/16 at 21:29; Status DC Piperacillin Sod/ Tazobactam Sod/ Sodium Chloride (Zosyn/Iv Sodium Chloride 0.9 % 50ml) 50 ml @ 100 mls/hr 1X ONCE IV Last administered on 06/29/16 21:09; Start 06/29/16 at 20:30; Stop 06/29/16 at 20:59; Status DC Ondansetron HCl 4 mg 4 mg PRN Q8HRS PRN IV NAUSEA/VOMITING; Start 06/29/16 at 21 :30; Stop 06/30/16 at 21:29 Sodium Chloride (Iv Sodium Chloride 0.9% 1000ml Bag) 1,000 ml @ 125 mls/hr Q8H IV Last administered on 06/30/16 00:30; Start 06/29/16 at 21:24; Stop 06/30/16 at 08:30; Status DC Acetaminophen (Tylenol) 650 mg PRN Q4HRS PRN PO FEVER; Start 06/29/16 at 21:30; Stop 06/30/16 at 00:52; Status DC Albuterol/ Ipratropium (Duoneb) 3 ml RTQID NEB ; Start 06/30/16 at 08:00; Stop at 08:00; Status DC Oseltamivir Phosphate (Tamiflu) 75 mg BID PO ; Start 06/30/16 at 09:00; Stop 07/05 at 08:59; Status UNV Methylprednisolone Sodium Succinate (Solu-Medrol 40mg Vial) 40 mg BID IV ; Start 06/30/16 at 09:00; Stop 06/30/16 at 09:00; Status DC Oseltamivir Phosphate (Tamiflu) 30 mg 1X ONCE PO Last administered on 22:26; Start 06/29/16 at 22:45; Stop 06/29/16 at 22:46; Status DC Oseltamivir Phosphate (Tamiflu) 30 mg QHS PO ; Start 06/30/16 at 21:00; Stop 07/03 at 21:01 Insulin Detemir (Levemir) 29 units QHS SQ ; Start 06/30/16 at 21:00; Stop at 21:00; Status DC Insulin Aspart (Novolog) 0-5 UNITS TIDWMEALS SQ ; Start 06/30/16 at 08:00 Dextrose 12.5 gm PRN Q15MIN PRN IV SEE COMMENTS; Start 06/30/16 at 00:45 Acetaminophen (Tylenol) 500 mg PRN Q8HRS PRN PO MILD PAIN / TEMP; Start at 00:45 Allopurinol (Zyloprim) 100 mg QHS PO ; Start 06/30/16 at 21:00 Amiodarone HCl (Cordarone) 200 mg DAILY PO Last administered on 06/30/16 09:34 ; Start 06/30/16 at 09:00 Aspirin (Children'S Aspirin) 81 mg DAILY PO Last administered on 06/30/16 09:23 ; Start 06/30/16 at 09:00 Cetirizine HCl (Zyrtec) 10 mg DAILY PO Last administered on 06/30/16 09:24; Start 06/30/16 at 09:00 Vitamin D (Vitamin D3) 2,000 unit DAILY PO Last administered on 06/30/16 09:24 ; Start 06/30/16 at 09:00 Diclofenac Sodium (Voltaren) 1 ld HS TP ; Start 06/30/16 at 21:00; Stop 06/30/16 at 21:00; Status DC Fluticasone Propionate (Flonase) 2 spray DAILY NS Last administered on 09:25; Start 06/30/16 at 09:00 Acetaminophen/ Hydrocodone Bitart (Lortab 7.5/325) 1 tab PRN Q6HRS PRN PO SEVERE PAIN; Start 06/30/16 at 00:45 Insulin Aspart (Novolog) 1 units TIDBFRMEAL SQ ; Start 06/30/16 at 07:30; Status UNV Montelukast Sodium (Singulair) 10 mg HS PO ; Start 06/30/16 at 21:00 Spironolactone (Aldactone) 25 mg DAILY PO Last administered on 06/30/16 09:33; Start 06/30/16 at 09:00 Albuterol Sulfate (Ventolin Neb Soln) 2.5 mg PRN QID PRN NEB SHORTNESS OF BREATH; Start 06/30/16 at 01:00; Stop 06/30/16 at 08:24; Status DC Non-Formulary Medication 1 cap DAILY PO ; Start 06/30/16 at 09:00; Status UNV Non-Formulary Medication 1 each BID IH ; Start 06/30/16 at 09:00; Status UNV Non-Formulary Medication 40 unit HS SQ ; Start 06/30/16 at 21:00; Status UNV Pantoprazole Sodium (Protonix) 40 mg DAILYAC PO Last administered on 06/30/16 09:23; Start 06/30/16 at 07:30 Albuterol/ Ipratropium (Duoneb) 3 ml RTQID NEB Last administered on 06/30/16 07 :41; Start 06/30/16 at 08:00 Budesonide (Pulmicort) 0.5 mg RTBID NEB Last administered on 06/30/16 07:41; Start 06/30/16 at 08:00 Albuterol Sulfate (Ventolin Neb Soln) 2.5 mg PRN Q2HR PRN NEB SHORTNESS OF BREATH; Start 06/30/16 at 08:30 Methylprednisolone Sodium Succinate (Solu-Medrol 40mg Vial) 40 mg Q12HR IV Last administered on 06/30/16 09:26; Start 06/30/16 at 09:00 Bisacodyl (Dulcolax Supp) 10 mg PRN DAILY PRN RC CONSTIPATION; Start 06/30/16 at 08:30 Multivitamins/ Calcium 1 tab 1 tab DAILY PO Last administered on 06/30/16 09:23 ; Start 06/30/16 at 09:00 Sodium Chloride 1,000 ml @ 75 mls/hr [id number] IV ; Start 06/30/16 at 08:30; Stop 06/30/16 at 08:34; Status DC Piperacillin Sod/ Tazobactam Sod 2.25 gm/Sodium Chloride 50 ml @ 100 mls/hr Q6HRS IV ; Start 06/30/16 at 09:00 Linezolid (Zyvox Premix) 300 ml @ 300 mls/hr Q12HR IV ; Start 06/30/16 at 10:00 Diclofenac Sodium (Voltaren) 1 ld QID TP ; Start 06/30/16 at 10:00 Insulin Detemir (Levemir) 15 units QHS SQ ; Start 06/30/16 at 21:00 Cyanocobalamin (Vitamin B-12) 1,000 mcg DAILY PO ; Start 06/30/16 at 10:00 Vitamin D (Vitamin D3) 2,000 unit DAILY PO ; Start 06/30/16 at 10:00; Status Cancel Artificial Tears (Artificial Tears) 2 drop PRN QID PRN OU DRY EYE; Start at 09:45 Carvedilol (Coreg) 3.125 mg BIDWMEALS PO ; Start 06/30/16 at 10:00 Lidocaine (Lidoderm) 1 patch DAILY TD ; Start 06/30/16 at 11:00 Active Scripts Active Lantus (Insulin Glargine,Hum.rec.anlog) 100 Unit/1 Ml Vial 40 Unit SQ HS Potassium Chloride 20 Meq Tab.er.prt 20 Meq PO EVERY OTHER DAY Lasix (Furosemide) 40 Mg Tablet 60 Mg PO DAILY Tylenol Extra Strength (Acetaminophen) 500 Mg Tablet 500 Mg PO PRN Q8HRS PRN Losartan Potassium 25 Mg Tablet 25 Mg PO DAILY Rulox Suspension (Mag Hydrox/Al Hydrox/Simeth) 355 Ml Oral.susp 60 Ml PO PRN Q2HR PRN Glucose (Dextrose) 4 Gm Tab.chew 12 Gm PO PRN PRN Bisacodyl 10 Mg Supp.rect 10 Mg RC PRN DAILY PRN Albuterol Sulfate Conc Neb Soln (Albuterol Sulfate) 2.5 Mg/0.5 Ml Vial.neb 2.5 Mg NEB PRN QID PRN Zyrtec (Cetirizine Hcl) 10 Mg Tablet 0.5 Tab PO DAILY Reported Novolog Flexpen (Insulin Aspart) 100 Unit/1 Ml Insuln.pen 1 Unit SQ Singulair Tablet (Montelukast Sodium) 10 Mg Tablet 10 Mg PO HS Allopurinol 100 Mg Tablet 100 Mg PO QHS Vitamin D (Cholecalciferol (Vitamin D3)) 2,000 Unit Capsule 1 Cap PO DAILY Vitamin D (Cholecalciferol (Vitamin D3)) 5,000 Unit Capsule 2,000 Unit PO Torsemide 10 Mg Tablet 10 Mg PO Spironolactone 25 Mg Tablet 25 Mg PO DAILY Omeprazole 20 Mg Capsule.dr 20 Mg PO DAILY Hydrocodone-Apap 7.5-325 (Hydrocodone Bit/Acetaminophen) 1 Each Tablet 1 Tab PO PRN Q6HRS PRN Aspirin 81 Mg Tab.chew 1 Tab PO DAILY Ventolin Hfa Inhaler (Albuterol Sulfate) 18 Gm Hfa.aer.ad 18 Gm IH PRN Advair 250-50 Diskus (Fluticasone/Salmeterol) 1 Each Disk.w.dev 1 Each IH BID Voltaren (Diclofenac Sodium) 100 Gm Gel..gram. 100 Gm TP One Daily (Multivitamin) 1 Each Tablet 1 Each PO Flonase (Fluticasone Propionate) 16 Gm [place].susp 16 Gm NS Amiodarone Hcl 200 Mg Tablet 200 Mg PO Allergies Allergies: Coded Allergies: Sulfa (Sulfonamide Antibiotics) (Verified Allergy, Severe, 11/11/15) Cephalexin Monohydrate (Verified Allergy, Intermediate, 11/11/15) ROS General: YES: Appetite, Fatigue, Malaise PSYCHOLOGICAL ROS: YES: Anxiety Eyes: Yes Decreased vision HEENT: YES: Heacaches Respiratory: YES: Cough, Shortness of breath Cardiovascular: yes Edema Gastrointestinal: Yes Constipation Genitourinary: YES Other (NOCTURIA) Neurological: Yes Weakness Skin: Yes Dry Skin Physical Exam General: Alert, Cooperative HEENT: Atraumatic, EOMI Lungs: Other (DECEREASE AT BASES) Heart: Regular rate, Normal S1, Normal S2 Abdomen: Normal bowel sounds, Soft Extremities: No clubbing Neuro: Normal speech Psych/Mental Status: Mental status NL, Mood NL MUSCULOSKELETAL: No deformity Vitals VITALS Vital Signs Date Time Temp Pulse Resp B/P Pulse Ox O2 Delivery O2 Flow Rate FiO2 06/30/16 09:34 76 104/52 06/30/16 07:55 98.9 22 95 Nasal Cannula 2.0 98.9 Labs Labs Laboratory Tests Test 06/29/16 20:38 06/29/16 20:50 06/30/16 08:05 06/30/16 09:40 White Blood Count 13.9x10^3/uL (4.0-11.0) Red Blood Count 5.01x10^6/uL (3.50-5.40) Hemoglobin 13.6g/dL (12.0-15.5) Hematocrit 42.8% (36.0-47.0) Mean Corpuscular Volume 85fL (79-100) Mean Corpuscular Hemoglobin 27pg (25-35) Mean Corpuscular Hemoglobin Concent 32g/dL (31-37) Red Cell Distribution Width 17.9% (11.5-14.5) Platelet Count 141x10^3/uL (140-400) Neutrophils (%) (Auto) 91% (31-73) Lymphocytes (%) (Auto) 5% (24-48) Monocytes (%) (Auto) 4% (0-9) Eosinophils (%) (Auto) 0% (0-3) Basophils (%) (Auto) 0% (0-3) Neutrophils # (Auto) 12.7x10^3uL (1.8-7.7) Lymphocytes # (Auto) 0.7x10^3/uL (1.0-4.8) Monocytes # (Auto) 0.5x10^3/uL (0.0-1.1) Eosinophils # (Auto) 0.0x10^3/uL (0.0-0.7) Basophils # (Auto) 0.1x10^3/uL (0.0-0.2) Segmented Neutrophils % 45% (35-66) Band Neutrophils % 38% (0-9) Lymphocytes % 12% (24-48) Monocytes % 3% (0-10) Metamyelocytes % 2% (0-0) Toxic Granulation Slight Toxic Vacuolation Slight Platelet Estimate Adequate (ADEQUATE) Poikilocytosis Slight Anisocytosis Slight Spherocytes Occ Target Cells Occ Sodium Level 138mmol/L (136-145) 145mmol/L (136-145) Potassium Level 4.1mmol/L (3.5-5.1) 3.7mmol/L (3.5-5.1) Chloride Level 101mmol/L (98-107) 110mmol/L (98-107) Carbon Dioxide Level 22mmol/L (21-32) 25mmol/L (21-32) Anion Gap 15 (6-14) 10 (6-14) Blood Urea Nitrogen 54mg/dL (7-20) 42mg/dL (7-20) Creatinine 2.0mg/dL (0.6-1.0) 1.5mg/dL (0.6-1.0) Estimated GFR (Cockcroft-Gault) 28.8 40.1 BUN/Creatinine Ratio 27 (6-20) Glucose Level 196mg/dL (70-99) 127mg/dL (70-99) Calcium Level 9.2mg/dL (8.5-10.1) 8.6mg/dL (8.5-10.1) Total Bilirubin 0.8mg/dL (0.2-1.0) Aspartate Amino Transf (AST/SGOT) 159U/L (15-37) Alanine Aminotransferase (ALT/SGPT) 155U/L (14-59) Alkaline Phosphatase 58U/L (46-116) OM-Vol-G-Type Natriuretic Peptide 9923pg/mL (0-449) Total Protein 7.1g/dL (6.4-8.2) Albumin 3.0g/dL (3.4-5.0) Albumin/Globulin Ratio 0.7 (1.0-1.7) Influenza Type A Antigen Negative (NEGATIVE) Influenza Type B Antigen Positive (NEGATIVE) Urine Collection Type U cath Urine Color Yellow Urine Clarity Clear Urine pH 5.0 Urine Specific [place] 1.015 Urine Protein Negativemg/dL (NEG-TRACE) Urine Glucose (UA) Negativemg/dL (NEG) Urine Ketones (Stick) Negativemg/dL (NEG) Urine Blood Trace (NEG) Urine Nitrite Negative (NEG) Urine Bilirubin Negative (NEG) Urine Urobilinogen Dipstick 0.2mg/dL (0.2 mg/dL) Urine Leukocyte Esterase Negative (NEG) Urine RBC 0/HPF (0-2) Urine WBC Occ/HPF (0-4) Urine Squamous Epithelial Cells Few/LPF Urine Amorphous Sediment Present/HPF Urine Bacteria Many/HPF (0-FEW) Urine Hyaline Casts Few/HPF Urine Mucus Slight/LPF Glucose (Fingerstick) 129mg/dL (70-99) Magnesium Level 2.0mg/dL (1.8-2.4) Triglycerides Level 104mg/dL (0-150) Cholesterol Level 143mg/dL (0-200) LDL Cholesterol, Calculated 91mg/dL (0-100) VLDL Cholesterol, Calculated 21mg/dL (0-40) HDL Cholesterol 31mg/dL (40-60) Cholesterol/HDL Ratio 4.6 Thyroid Stimulating Hormone (TSH) 0.450uIU/mL (0.358-3.74) Laboratory Tests Test 06/29/16 20:38 06/29/16 20:50 06/30/16 08:05 06/30/16 09:40 White Blood Count 13.9x10^3/uL (4.0-11.0) Red Blood Count 5.01x10^6/uL (3.50-5.40) Hemoglobin 13.6g/dL (12.0-15.5) Hematocrit 42.8% (36.0-47.0) Mean Corpuscular Volume 85fL (79-100) Mean Corpuscular Hemoglobin 27pg (25-35) Mean Corpuscular Hemoglobin Concent 32g/dL (31-37) Red Cell Distribution Width 17.9% (11.5-14.5) Platelet Count 141x10^3/uL (140-400) Neutrophils (%) (Auto) 91% (31-73) Lymphocytes (%) (Auto) 5% (24-48) Monocytes (%) (Auto) 4% (0-9) Eosinophils (%) (Auto) 0% (0-3) Basophils (%) (Auto) 0% (0-3) Neutrophils # (Auto) 12.7x10^3uL (1.8-7.7) Lymphocytes # (Auto) 0.7x10^3/uL (1.0-4.8) Monocytes # (Auto) 0.5x10^3/uL (0.0-1.1) Eosinophils # (Auto) 0.0x10^3/uL (0.0-0.7) Basophils # (Auto) 0.1x10^3/uL (0.0-0.2) Segmented Neutrophils % 45% (35-66) Band Neutrophils % 38% (0-9) Lymphocytes % 12% (24-48) Monocytes % 3% (0-10) Metamyelocytes % 2% (0-0) Toxic Granulation Slight Toxic Vacuolation Slight Platelet Estimate Adequate (ADEQUATE) Poikilocytosis Slight Anisocytosis Slight Spherocytes Occ Target Cells Occ Sodium Level 138mmol/L (136-145) 145mmol/L (136-145) Potassium Level 4.1mmol/L (3.5-5.1) 3.7mmol/L (3.5-5.1) Chloride Level 101mmol/L (98-107) 110mmol/L (98-107) Carbon Dioxide Level 22mmol/L (21-32) 25mmol/L (21-32) Anion Gap 15 (6-14) 10 (6-14) Blood Urea Nitrogen 54mg/dL (7-20) 42mg/dL (7-20) Creatinine 2.0mg/dL (0.6-1.0) 1.5mg/dL (0.6-1.0) Estimated GFR (Cockcroft-Gault) 28.8 40.1 BUN/Creatinine Ratio 27 (6-20) Glucose Level 196mg/dL (70-99) 127mg/dL (70-99) Calcium Level 9.2mg/dL (8.5-10.1) 8.6mg/dL (8.5-10.1) Total Bilirubin 0.8mg/dL (0.2-1.0) Aspartate Amino Transf (AST/SGOT) 159U/L (15-37) Alanine Aminotransferase (ALT/SGPT) 155U/L (14-59) Alkaline Phosphatase 58U/L (46-116) QO-Fwu-G-Type Natriuretic Peptide 9923pg/mL (0-449) Total Protein 7.1g/dL (6.4-8.2) Albumin 3.0g/dL (3.4-5.0) Albumin/Globulin Ratio 0.7 (1.0-1.7) Influenza Type A Antigen Negative (NEGATIVE) Influenza Type B Antigen Positive (NEGATIVE) Urine Collection Type U cath Urine Color Yellow Urine Clarity Clear Urine pH 5.0 Urine Specific [place] 1.015 Urine Protein Negativemg/dL (NEG-TRACE) Urine Glucose (UA) Negativemg/dL (NEG) Urine Ketones (Stick) Negativemg/dL (NEG) Urine Blood Trace (NEG) Urine Nitrite Negative (NEG) Urine Bilirubin Negative (NEG) Urine Urobilinogen Dipstick 0.2mg/dL (0.2 mg/dL) Urine Leukocyte Esterase Negative (NEG) Urine RBC 0/HPF (0-2) Urine WBC Occ/HPF (0-4) Urine Squamous Epithelial Cells Few/LPF Urine Amorphous Sediment Present/HPF Urine Bacteria Many/HPF (0-FEW) Urine Hyaline Casts Few/HPF Urine Mucus Slight/LPF Glucose (Fingerstick) 129mg/dL (70-99) Magnesium Level 2.0mg/dL (1.8-2.4) Triglycerides Level 104mg/dL (0-150) Cholesterol Level 143mg/dL (0-200) LDL Cholesterol, Calculated 91mg/dL (0-100) VLDL Cholesterol, Calculated 21mg/dL (0-40) HDL Cholesterol 31mg/dL (40-60) Cholesterol/HDL Ratio 4.6 Thyroid Stimulating Hormone (TSH) 0.450uIU/mL (0.358-3.74) Assessment/Plan Assessment/Plan IMP INFLUENZA MILD ANIKET WITH CR OF 1.9 CKD STAGE 3 WITH CR OF 1.2 TO 1.6 AT BASELINE MILD CHF PLAN CONT CURRENT MEDS CONT ALDACTONE START PO LASIX WILL FOLLOW LEMUEL WILLETT MD Jun 30, 2016 11:03
--- NOTE | 2016-06-30 11:26 | PDOC2 ---
CARDIAC CONSULT DATE OF CONSULT Date of Consult DATE: 06/30/16 TIME: 11:14 REASON FOR CONSULT Reason for Consult: CHF REFERRING PHYSICIAN Referring Physician: Jon Urbina APRN SOURCE Source: Chart review, Patient HISTORY OF PRESENT ILLNESS HISTORY OF PRESENT ILLNESS This is an 85 yo female who presented from [facility] secondary to fall. HPI mainly obtained from daughter as patient is a poor historian. Patient was experiencing left flank pain and nurse wanted to have further evaluate. Patient has experienced cough, weakness, fatigue, and malaise over the last week. Positive for Influenza upon arrival. Routine director of vocational guidance is Dr. Mosley with [facility]. 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 Echo conducted last month. PAST MEDICAL HISTORY Cardiovascular: CAD (stress test recent [facility] admit: fixed defect inferior wall no significant reversibility), CHF (systolic EF 35-40 % and diastolic ICM. 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-P), Hernia Repair, Total knee replacement (right ), Tonsillectomy, Hysterectomy, Other (thyroidectomy ) FAMILY HISTORY Family History: Coronary Artery Disease, Diabetes, Hypertension SOCIAL HISTORY Smoke: Quit ALCOHOL: none Drugs: None Lives: Detention ([facility] ) CURRENT MEDICATIONS CURRENT MEDICATIONS Current Medications Medications (Trade) Dose Ordered Sig/Priscila Route PRN Reason Start Time Stop Time Status Last Admin Dose Admin Albuterol/ Ipratropium 3 ml 3 ml 1X ONCE NEB 06/29/16 20:30 06/29/16 20:31 DC 06/29/16 21:24 Sodium Chloride 1,000 ml @ 1,000 mls/hr 1X ONCE IV 06/29/16 20:30 06/29/16 21:29 DC 06/29/16 21:10 Piperacillin Sod/ Tazobactam Sod 3.375 gm/Sodium Chloride 50 ml @ 100 mls/hr 1X ONCE IV 06/29/16 20:30 06/29/16 20:59 DC 06/29/16 21:09 Sodium Chloride (Iv Sodium Chloride 0.9% 1000ml Bag) 1,000 ml @ 125 mls/hr Q8H IV 06/29/16 21:24 06/30/16 08:30 DC 06/30/16 00:30 Oseltamivir Phosphate (Tamiflu) 30 mg 1X ONCE PO 06/29/16 22:45 06/29/16 22:46 DC 06/29/16 22:26 Amiodarone HCl (Cordarone) 200 mg DAILY PO 06/30/16 09:00 06/30/16 09:34 Aspirin (Children'S Aspirin) 81 mg DAILY PO 06/30/16 09:00 06/30/16 09:23 Cetirizine HCl (Zyrtec) 10 mg DAILY PO 06/30/16 09:00 06/30/16 09:24 Vitamin D (Vitamin D3) 2,000 unit DAILY PO 06/30/16 09:00 06/30/16 09:24 Fluticasone Propionate (Flonase) 2 spray DAILY NS 06/30/16 09:00 06/30/16 09:25 Spironolactone (Aldactone) 25 mg DAILY PO 06/30/16 09:00 06/30/16 09:33 Pantoprazole Sodium (Protonix) 40 mg DAILYAC PO 06/30/16 07:30 06/30/16 09:23 Albuterol/ Ipratropium (Duoneb) 3 ml RTQID NEB 06/30/16 08:00 06/30/16 07:41 Budesonide (Pulmicort) 0.5 mg RTBID NEB 06/30/16 08:00 06/30/16 07:41 Methylprednisolone Sodium Succinate (Solu-Medrol 40mg Vial) 40 mg Q12HR IV 06/30/16 09:00 06/30/16 09:26 Multivitamins/ Calcium (Thera M Plus) 1 tab DAILY PO 06/30/16 09:00 06/30/16 09:23 ALLERGIES ALLERGIES: Coded Allergies: Sulfa (Sulfonamide Antibiotics) (Verified Allergy, Severe, 11/11/15) Cephalexin Monohydrate (Verified Allergy, Intermediate, 11/11/15) ROS Review of System 14 point ROS conducted with pertinent positives noted above in HPI. PHYSICAL EXAM General: Alert, Oriented X3, Cooperative, mild distress HEENT: Atraumatic, Mucous membr. moist/pink Lungs: Other (bibasilar crackles) Heart: Regular rate, Normal S1, Normal S2, Other (2/6 systolic murmur ) Abdomen: Soft, No tenderness Extremities: Normal pulses, Other (1+ bilateral LE edema ) Skin: No breakdown, No significant lesion Neuro: Normal speech, Sensation intact Psych/Mental Status: Other (pleasant, intermittent confusion) MUSCULOSKELETAL: Osteoarthritic changes both hands VITALS VITALS Vital Signs Date Time Temp Pulse Resp B/P Pulse Ox O2 Delivery O2 Flow Rate FiO2 06/30/16 10:50 98.4 75 20 123/59 93 Nasal Cannula 2.0 98.4 LABS Lab: Laboratory Tests Test 06/29/16 20:38 06/29/16 20:50 06/30/16 08:05 06/30/16 09:40 White Blood Count 13.9x10^3/uL (4.0-11.0) Red Blood Count 5.01x10^6/uL (3.50-5.40) Hemoglobin 13.6g/dL (12.0-15.5) Hematocrit 42.8% (36.0-47.0) Mean Corpuscular Volume 85fL (79-100) Mean Corpuscular Hemoglobin 27pg (25-35) Mean Corpuscular Hemoglobin Concent 32g/dL (31-37) Red Cell Distribution Width 17.9% (11.5-14.5) Platelet Count 141x10^3/uL (140-400) Neutrophils (%) (Auto) 91% (31-73) Lymphocytes (%) (Auto) 5% (24-48) Monocytes (%) (Auto) 4% (0-9) Eosinophils (%) (Auto) 0% (0-3) Basophils (%) (Auto) 0% (0-3) Neutrophils # (Auto) 12.7x10^3uL (1.8-7.7) Lymphocytes # (Auto) 0.7x10^3/uL (1.0-4.8) Monocytes # (Auto) 0.5x10^3/uL (0.0-1.1) Eosinophils # (Auto) 0.0x10^3/uL (0.0-0.7) Basophils # (Auto) 0.1x10^3/uL (0.0-0.2) Segmented Neutrophils % 45% (35-66) Band Neutrophils % 38% (0-9) Lymphocytes % 12% (24-48) Monocytes % 3% (0-10) Metamyelocytes % 2% (0-0) Toxic Granulation Slight Toxic Vacuolation Slight Platelet Estimate Adequate (ADEQUATE) Poikilocytosis Slight Anisocytosis Slight Spherocytes Occ Target Cells Occ Sodium Level 138mmol/L (136-145) 145mmol/L (136-145) Potassium Level 4.1mmol/L (3.5-5.1) 3.7mmol/L (3.5-5.1) Chloride Level 101mmol/L (98-107) 110mmol/L (98-107) Carbon Dioxide Level 22mmol/L (21-32) 25mmol/L (21-32) Anion Gap 15 (6-14) 10 (6-14) Blood Urea Nitrogen 54mg/dL (7-20) 42mg/dL (7-20) Creatinine 2.0mg/dL (0.6-1.0) 1.5mg/dL (0.6-1.0) Estimated GFR (Cockcroft-Gault) 28.8 40.1 BUN/Creatinine Ratio 27 (6-20) Glucose Level 196mg/dL (70-99) 127mg/dL (70-99) Calcium Level 9.2mg/dL (8.5-10.1) 8.6mg/dL (8.5-10.1) Total Bilirubin 0.8mg/dL (0.2-1.0) Aspartate Amino Transf (AST/SGOT) 159U/L (15-37) Alanine Aminotransferase (ALT/SGPT) 155U/L (14-59) Alkaline Phosphatase 58U/L (46-116) HE-Kih-K-Type Natriuretic Peptide 9923pg/mL (0-449) Total Protein 7.1g/dL (6.4-8.2) Albumin 3.0g/dL (3.4-5.0) Albumin/Globulin Ratio 0.7 (1.0-1.7) Influenza Type A Antigen Negative (NEGATIVE) Influenza Type B Antigen Positive (NEGATIVE) Urine Collection Type U cath Urine Color Yellow Urine Clarity Clear Urine pH 5.0 Urine Specific [place] 1.015 Urine Protein Negativemg/dL (NEG-TRACE) Urine Glucose (UA) Negativemg/dL (NEG) Urine Ketones (Stick) Negativemg/dL (NEG) Urine Blood Trace (NEG) Urine Nitrite Negative (NEG) Urine Bilirubin Negative (NEG) Urine Urobilinogen Dipstick 0.2mg/dL (0.2 mg/dL) Urine Leukocyte Esterase Negative (NEG) Urine RBC 0/HPF (0-2) Urine WBC Occ/HPF (0-4) Urine Squamous Epithelial Cells Few/LPF Urine Amorphous Sediment Present/HPF Urine Bacteria Many/HPF (0-FEW) Urine Hyaline Casts Few/HPF Urine Mucus Slight/LPF Glucose (Fingerstick) 129mg/dL (70-99) Lactic Acid Level 2.1mmol/L (0.4-2.0) Magnesium Level 2.0mg/dL (1.8-2.4) Triglycerides Level 104mg/dL (0-150) Cholesterol Level 143mg/dL (0-200) LDL Cholesterol, Calculated 91mg/dL (0-100) VLDL Cholesterol, Calculated 21mg/dL (0-40) HDL Cholesterol 31mg/dL (40-60) Cholesterol/HDL Ratio 4.6 Thyroid Stimulating Hormone (TSH) 0.450uIU/mL (0.358-3.74) ASSESSMENT/PLAN ASSESSMENT/PLAN 1. Acute on chronic systolic HF CXR with worsening congestion mild diuresis with monitoring of labs EF 35-40 % with ICM per chart review. Will obtain cardiac records from Dr Mosley's office 2. Acute respiratory failure ? aspiration multifactorial 3. Leukocytosis/fevers/Influenza Tamiflu started per ID 4. ANIKET with CKD per nephrology 5. HTN low-normotensive hold antiHTN therapy as warranted. 6. Encephalopathy 7. Hx AFIB? on Amiodarone. Maintaining SR interrogate PPM 8. Transaminitis 9. Diabetes, II Problems: DEBBIE MOYA APRN Jun 30, 2016 11:26
[2016-06-30] MEDS: DICLOFENAC SODIUM 1% TOPICAL GEL 100GM TUBE. TP SCH ×4 (12:15→21:36)
[2016-06-30] MEDS: CYANOCOBALAMIN (VITAMIN B-12) 1,000 MCG TABLET. PO SCH (12:16)
[2016-06-30] MEDS: CARVEDILOL 3.125 MG TABLET PO SCH ×2 (12:17→17:00)
[2016-06-30] MEDS: FUROSEMIDE 40 MG TABLET PO SCH (12:17)
[2016-06-30] MEDS: LIDOCAINE (700MG/PATCH) PATCH. TD SCH (12:18)
[2016-06-30] MEDS ORDERED: POTASSIUM CHLORIDE 20 MEQ TABLET.ER. PO ONE (13:00)
[2016-06-30] MEDS ORDERED: FUROSEMIDE 40 MG/4 ML VIAL IVP ONE (14:00)
--- NOTE | 2016-06-30 14:17 | RAD ---
Lumbar spine, 3 views, 06/30/2016: History: Back pain, stiffness, limited mobility Comparison is made to a study from 10/25/2013. The lumbar vertebral heights are well-maintained. The intervertebral disc spaces are well preserved. There are mild scattered marginal spurs. There are moderate degenerative changes involving the facet joints bilaterally in the lower lumbar spine. Aortic calcific plaquing is present. IMPRESSION: 1. Moderate facet joint arthropathy in the lower lumbar spine. 2. No acute lumbar spine abnormality is detected. Thoracic spine, 3 views, 06/30/2016: There are moderate hypertrophic spurs throughout the thoracic spine. There is a slight right convexity scoliosis. No fracture or dislocation is evident. There are pulmonary infiltrates as noted on the chest radiograph of earlier today. IMPRESSION: 1. Moderate hypertrophic degenerative change. 2. No acute bony abnormality is detected.
[2016-06-30 15:00] VITALS: BP 113/59
--- NOTE | 2016-06-30 15:28 | PDOC ---
PULMONARY PROGRESS NOTES Vitals Vital Signs Date Time Temp Pulse Resp B/P Pulse Ox O2 Delivery O2 Flow Rate FiO2 06/30/16 12:17 123/59 06/30/16 10:50 98.4 75 20 93 Nasal Cannula 2.0 98.4 Labs Laboratory Tests Test 06/29/16 20:38 06/29/16 20:50 06/30/16 08:05 06/30/16 09:40 White Blood Count 13.9x10^3/uL (4.0-11.0) Red Blood Count 5.01x10^6/uL (3.50-5.40) Hemoglobin 13.6g/dL (12.0-15.5) Hematocrit 42.8% (36.0-47.0) Mean Corpuscular Volume 85fL (79-100) Mean Corpuscular Hemoglobin 27pg (25-35) Mean Corpuscular Hemoglobin Concent 32g/dL (31-37) Red Cell Distribution Width 17.9% (11.5-14.5) Platelet Count 141x10^3/uL (140-400) Neutrophils (%) (Auto) 91% (31-73) Lymphocytes (%) (Auto) 5% (24-48) Monocytes (%) (Auto) 4% (0-9) Eosinophils (%) (Auto) 0% (0-3) Basophils (%) (Auto) 0% (0-3) Neutrophils # (Auto) 12.7x10^3uL (1.8-7.7) Lymphocytes # (Auto) 0.7x10^3/uL (1.0-4.8) Monocytes # (Auto) 0.5x10^3/uL (0.0-1.1) Eosinophils # (Auto) 0.0x10^3/uL (0.0-0.7) Basophils # (Auto) 0.1x10^3/uL (0.0-0.2) Segmented Neutrophils % 45% (35-66) Band Neutrophils % 38% (0-9) Lymphocytes % 12% (24-48) Monocytes % 3% (0-10) Metamyelocytes % 2% (0-0) Toxic Granulation Slight Toxic Vacuolation Slight Platelet Estimate Adequate (ADEQUATE) Poikilocytosis Slight Anisocytosis Slight Spherocytes Occ Target Cells Occ Sodium Level 138mmol/L (136-145) 145mmol/L (136-145) Potassium Level 4.1mmol/L (3.5-5.1) 3.7mmol/L (3.5-5.1) Chloride Level 101mmol/L (98-107) 110mmol/L (98-107) Carbon Dioxide Level 22mmol/L (21-32) 25mmol/L (21-32) Anion Gap 15 (6-14) 10 (6-14) Blood Urea Nitrogen 54mg/dL (7-20) 42mg/dL (7-20) Creatinine 2.0mg/dL (0.6-1.0) 1.5mg/dL (0.6-1.0) Estimated GFR (Cockcroft-Gault) 28.8 40.1 BUN/Creatinine Ratio 27 (6-20) Glucose Level 196mg/dL (70-99) 127mg/dL (70-99) Calcium Level 9.2mg/dL (8.5-10.1) 8.6mg/dL (8.5-10.1) Total Bilirubin 0.8mg/dL (0.2-1.0) Aspartate Amino Transf (AST/SGOT) 159U/L (15-37) Alanine Aminotransferase (ALT/SGPT) 155U/L (14-59) Alkaline Phosphatase 58U/L (46-116) BC-Ame-V-Type Natriuretic Peptide 9923pg/mL (0-449) Total Protein 7.1g/dL (6.4-8.2) Albumin 3.0g/dL (3.4-5.0) Albumin/Globulin Ratio 0.7 (1.0-1.7) Influenza Type A Antigen Negative (NEGATIVE) Influenza Type B Antigen Positive (NEGATIVE) Urine Collection Type U cath Urine Color Yellow Urine Clarity Clear Urine pH 5.0 Urine Specific [place] 1.015 Urine Protein Negativemg/dL (NEG-TRACE) Urine Glucose (UA) Negativemg/dL (NEG) Urine Ketones (Stick) Negativemg/dL (NEG) Urine Blood Trace (NEG) Urine Nitrite Negative (NEG) Urine Bilirubin Negative (NEG) Urine Urobilinogen Dipstick 0.2mg/dL (0.2 mg/dL) Urine Leukocyte Esterase Negative (NEG) Urine RBC 0/HPF (0-2) Urine WBC Occ/HPF (0-4) Urine Squamous Epithelial Cells Few/LPF Urine Amorphous Sediment Present/HPF Urine Bacteria Many/HPF (0-FEW) Urine Hyaline Casts Few/HPF Urine Mucus Slight/LPF Glucose (Fingerstick) 129mg/dL (70-99) Lactic Acid Level 2.1mmol/L (0.4-2.0) Magnesium Level 2.0mg/dL (1.8-2.4) Triglycerides Level 104mg/dL (0-150) Cholesterol Level 143mg/dL (0-200) LDL Cholesterol, Calculated 91mg/dL (0-100) VLDL Cholesterol, Calculated 21mg/dL (0-40) HDL Cholesterol 31mg/dL (40-60) Cholesterol/HDL Ratio 4.6 Thyroid Stimulating Hormone (TSH) 0.450uIU/mL (0.358-3.74) Test 06/30/16 10:56 Glucose (Fingerstick) 133mg/dL (70-99) Laboratory Tests Test 06/29/16 20:38 06/29/16 20:50 06/30/16 08:05 06/30/16 09:40 White Blood Count 13.9x10^3/uL (4.0-11.0) Red Blood Count 5.01x10^6/uL (3.50-5.40) Hemoglobin 13.6g/dL (12.0-15.5) Hematocrit 42.8% (36.0-47.0) Mean Corpuscular Volume 85fL (79-100) Mean Corpuscular Hemoglobin 27pg (25-35) Mean Corpuscular Hemoglobin Concent 32g/dL (31-37) Red Cell Distribution Width 17.9% (11.5-14.5) Platelet Count 141x10^3/uL (140-400) Neutrophils (%) (Auto) 91% (31-73) Lymphocytes (%) (Auto) 5% (24-48) Monocytes (%) (Auto) 4% (0-9) Eosinophils (%) (Auto) 0% (0-3) Basophils (%) (Auto) 0% (0-3) Neutrophils # (Auto) 12.7x10^3uL (1.8-7.7) Lymphocytes # (Auto) 0.7x10^3/uL (1.0-4.8) Monocytes # (Auto) 0.5x10^3/uL (0.0-1.1) Eosinophils # (Auto) 0.0x10^3/uL (0.0-0.7) Basophils # (Auto) 0.1x10^3/uL (0.0-0.2) Segmented Neutrophils % 45% (35-66) Band Neutrophils % 38% (0-9) Lymphocytes % 12% (24-48) Monocytes % 3% (0-10) Metamyelocytes % 2% (0-0) Toxic Granulation Slight Toxic Vacuolation Slight Platelet Estimate Adequate (ADEQUATE) Poikilocytosis Slight Anisocytosis Slight Spherocytes Occ Target Cells Occ Sodium Level 138mmol/L (136-145) 145mmol/L (136-145) Potassium Level 4.1mmol/L (3.5-5.1) 3.7mmol/L (3.5-5.1) Chloride Level 101mmol/L (98-107) 110mmol/L (98-107) Carbon Dioxide Level 22mmol/L (21-32) 25mmol/L (21-32) Anion Gap 15 (6-14) 10 (6-14) Blood Urea Nitrogen 54mg/dL (7-20) 42mg/dL (7-20) Creatinine 2.0mg/dL (0.6-1.0) 1.5mg/dL (0.6-1.0) Estimated GFR (Cockcroft-Gault) 28.8 40.1 BUN/Creatinine Ratio 27 (6-20) Glucose Level 196mg/dL (70-99) 127mg/dL (70-99) Calcium Level 9.2mg/dL (8.5-10.1) 8.6mg/dL (8.5-10.1) Total Bilirubin 0.8mg/dL (0.2-1.0) Aspartate Amino Transf (AST/SGOT) 159U/L (15-37) Alanine Aminotransferase (ALT/SGPT) 155U/L (14-59) Alkaline Phosphatase 58U/L (46-116) FV-Wsy-G-Type Natriuretic Peptide 9923pg/mL (0-449) Total Protein 7.1g/dL (6.4-8.2) Albumin 3.0g/dL (3.4-5.0) Albumin/Globulin Ratio 0.7 (1.0-1.7) Influenza Type A Antigen Negative (NEGATIVE) Influenza Type B Antigen Positive (NEGATIVE) Urine Collection Type U cath Urine Color Yellow Urine Clarity Clear Urine pH 5.0 Urine Specific [place] 1.015 Urine Protein Negativemg/dL (NEG-TRACE) Urine Glucose (UA) Negativemg/dL (NEG) Urine Ketones (Stick) Negativemg/dL (NEG) Urine Blood Trace (NEG) Urine Nitrite Negative (NEG) Urine Bilirubin Negative (NEG) Urine Urobilinogen Dipstick 0.2mg/dL (0.2 mg/dL) Urine Leukocyte Esterase Negative (NEG) Urine RBC 0/HPF (0-2) Urine WBC Occ/HPF (0-4) Urine Squamous Epithelial Cells Few/LPF Urine Amorphous Sediment Present/HPF Urine Bacteria Many/HPF (0-FEW) Urine Hyaline Casts Few/HPF Urine Mucus Slight/LPF Glucose (Fingerstick) 129mg/dL (70-99) Lactic Acid Level 2.1mmol/L (0.4-2.0) Magnesium Level 2.0mg/dL (1.8-2.4) Triglycerides Level 104mg/dL (0-150) Cholesterol Level 143mg/dL (0-200) LDL Cholesterol, Calculated 91mg/dL (0-100) VLDL Cholesterol, Calculated 21mg/dL (0-40) HDL Cholesterol 31mg/dL (40-60) Cholesterol/HDL Ratio 4.6 Thyroid Stimulating Hormone (TSH) 0.450uIU/mL (0.358-3.74) Test 06/30/16 10:56 Glucose (Fingerstick) 133mg/dL (70-99) Medications Active Scripts Medications Dose Route/Sig Days Date Category Novolog Flexpen (Insulin Aspart) 100 Unit/1 Ml Insuln.pen 1 Unit SQ 06/30/16 Reported Singulair Tablet (Montelukast Sodium) 10 Mg Tablet 10 Mg PO HS 06/30/16 Reported Allopurinol 100 Mg Tablet 100 Mg PO QHS 06/30/16 Reported Vitamin D (Cholecalciferol (Vitamin D3)) 2,000 Unit Capsule 1 Cap PO DAILY 06/30/16 Reported Vitamin D (Cholecalciferol (Vitamin D3)) 5,000 Unit Capsule 2,000 Unit PO 06/30/16 Reported Torsemide 10 Mg Tablet 10 Mg PO 06/30/16 Reported Spironolactone 25 Mg Tablet 25 Mg PO DAILY 06/30/16 Reported Omeprazole 20 Mg Capsule.dr 20 Mg PO DAILY 06/30/16 Reported Lantus (Insulin Glargine,Hum.rec.anlog) 100 Unit/1 Ml Vial 40 Unit SQ HS 07/14/14 Rx Potassium Chloride 20 Meq Tab.er.prt 20 Meq PO EVERY OTHER DAY 07/14/14 Rx Lasix (Furosemide) 40 Mg Tablet 60 Mg PO DAILY 07/14/14 Rx Tylenol Extra Strength (Acetaminophen) 500 Mg Tablet 500 Mg PO PRN Q8HRS PRN 07/14/14 Rx Losartan Potassium 25 Mg Tablet 25 Mg PO DAILY 07/14/14 Rx Rulox Suspension (Mag Hydrox/Al Hydrox/Simeth) 355 Ml Oral.susp 60 Ml PO PRN Q2HR PRN 07/14/14 Rx Glucose (Dextrose) 4 Gm Tab.chew 12 Gm PO PRN PRN 07/14/14 Rx Bisacodyl 10 Mg Supp.rect 10 Mg RC PRN DAILY PRN 07/14/14 Rx Albuterol Sulfate Conc Neb Soln (Albuterol Sulfate) 2.5 Mg/0.5 Ml Vial.neb 2.5 Mg NEB PRN QID PRN 07/14/14 Rx Zyrtec (Cetirizine Hcl) 10 Mg Tablet 0.5 Tab PO DAILY 07/14/14 Rx Hydrocodone-Apap 7.5-325 (Hydrocodone Bit/Acetaminophen) 1 Each Tablet 1 Tab PO PRN Q6HRS PRN 02/21/14 Reported Aspirin 81 Mg Tab.chew 1 Tab PO DAILY 02/21/14 Reported Ventolin Hfa Inhaler (Albuterol Sulfate) 18 Gm Hfa.aer.ad 18 Gm IH PRN 06/25/13 Reported Advair 250-50 Diskus (Fluticasone/Salmeterol) 1 Each Disk.w.dev 1 Each IH BID 06/25/13 Reported Voltaren (Diclofenac Sodium) 100 Gm Gel..gram. 100 Gm TP 05/27/13 Reported One Daily (Multivitamin) 1 Each Tablet 1 Each PO 05/27/13 Reported Flonase (Fluticasone Propionate) 16 Gm [place].susp 16 Gm NS 05/27/13 Reported Amiodarone Hcl 200 Mg Tablet 200 Mg PO 05/27/13 Reported OBINNA VICENTE MD Jun 30, 2016 15:28
--- NOTE | 2016-06-30 16:25 | PDOC ---
PULMONARY PROGRESS NOTES Vitals Vital Signs Date Time Temp Pulse Resp B/P Pulse Ox O2 Delivery O2 Flow Rate FiO2 06/30/16 12:17 123/59 06/30/16 10:50 98.4 75 20 93 Nasal Cannula 2.0 98.4 Labs Laboratory Tests Test 06/29/16 20:38 06/29/16 20:50 06/30/16 08:05 06/30/16 09:40 White Blood Count 13.9x10^3/uL (4.0-11.0) Red Blood Count 5.01x10^6/uL (3.50-5.40) Hemoglobin 13.6g/dL (12.0-15.5) Hematocrit 42.8% (36.0-47.0) Mean Corpuscular Volume 85fL (79-100) Mean Corpuscular Hemoglobin 27pg (25-35) Mean Corpuscular Hemoglobin Concent 32g/dL (31-37) Red Cell Distribution Width 17.9% (11.5-14.5) Platelet Count 141x10^3/uL (140-400) Neutrophils (%) (Auto) 91% (31-73) Lymphocytes (%) (Auto) 5% (24-48) Monocytes (%) (Auto) 4% (0-9) Eosinophils (%) (Auto) 0% (0-3) Basophils (%) (Auto) 0% (0-3) Neutrophils # (Auto) 12.7x10^3uL (1.8-7.7) Lymphocytes # (Auto) 0.7x10^3/uL (1.0-4.8) Monocytes # (Auto) 0.5x10^3/uL (0.0-1.1) Eosinophils # (Auto) 0.0x10^3/uL (0.0-0.7) Basophils # (Auto) 0.1x10^3/uL (0.0-0.2) Segmented Neutrophils % 45% (35-66) Band Neutrophils % 38% (0-9) Lymphocytes % 12% (24-48) Monocytes % 3% (0-10) Metamyelocytes % 2% (0-0) Toxic Granulation Slight Toxic Vacuolation Slight Platelet Estimate Adequate (ADEQUATE) Poikilocytosis Slight Anisocytosis Slight Spherocytes Occ Target Cells Occ Sodium Level 138mmol/L (136-145) 145mmol/L (136-145) Potassium Level 4.1mmol/L (3.5-5.1) 3.7mmol/L (3.5-5.1) Chloride Level 101mmol/L (98-107) 110mmol/L (98-107) Carbon Dioxide Level 22mmol/L (21-32) 25mmol/L (21-32) Anion Gap 15 (6-14) 10 (6-14) Blood Urea Nitrogen 54mg/dL (7-20) 42mg/dL (7-20) Creatinine 2.0mg/dL (0.6-1.0) 1.5mg/dL (0.6-1.0) Estimated GFR (Cockcroft-Gault) 28.8 40.1 BUN/Creatinine Ratio 27 (6-20) Glucose Level 196mg/dL (70-99) 127mg/dL (70-99) Calcium Level 9.2mg/dL (8.5-10.1) 8.6mg/dL (8.5-10.1) Total Bilirubin 0.8mg/dL (0.2-1.0) Aspartate Amino Transf (AST/SGOT) 159U/L (15-37) Alanine Aminotransferase (ALT/SGPT) 155U/L (14-59) Alkaline Phosphatase 58U/L (46-116) YF-Ham-Y-Type Natriuretic Peptide 9923pg/mL (0-449) Total Protein 7.1g/dL (6.4-8.2) Albumin 3.0g/dL (3.4-5.0) Albumin/Globulin Ratio 0.7 (1.0-1.7) Influenza Type A Antigen Negative (NEGATIVE) Influenza Type B Antigen Positive (NEGATIVE) Urine Collection Type U cath Urine Color Yellow Urine Clarity Clear Urine pH 5.0 Urine Specific [place] 1.015 Urine Protein Negativemg/dL (NEG-TRACE) Urine Glucose (UA) Negativemg/dL (NEG) Urine Ketones (Stick) Negativemg/dL (NEG) Urine Blood Trace (NEG) Urine Nitrite Negative (NEG) Urine Bilirubin Negative (NEG) Urine Urobilinogen Dipstick 0.2mg/dL (0.2 mg/dL) Urine Leukocyte Esterase Negative (NEG) Urine RBC 0/HPF (0-2) Urine WBC Occ/HPF (0-4) Urine Squamous Epithelial Cells Few/LPF Urine Amorphous Sediment Present/HPF Urine Bacteria Many/HPF (0-FEW) Urine Hyaline Casts Few/HPF Urine Mucus Slight/LPF Glucose (Fingerstick) 129mg/dL (70-99) Lactic Acid Level 2.1mmol/L (0.4-2.0) Magnesium Level 2.0mg/dL (1.8-2.4) Triglycerides Level 104mg/dL (0-150) Cholesterol Level 143mg/dL (0-200) LDL Cholesterol, Calculated 91mg/dL (0-100) VLDL Cholesterol, Calculated 21mg/dL (0-40) HDL Cholesterol 31mg/dL (40-60) Cholesterol/HDL Ratio 4.6 Thyroid Stimulating Hormone (TSH) 0.450uIU/mL (0.358-3.74) Test 06/30/16 10:56 Glucose (Fingerstick) 133mg/dL (70-99) Laboratory Tests Test 06/29/16 20:38 06/29/16 20:50 06/30/16 08:05 06/30/16 09:40 White Blood Count 13.9x10^3/uL (4.0-11.0) Red Blood Count 5.01x10^6/uL (3.50-5.40) Hemoglobin 13.6g/dL (12.0-15.5) Hematocrit 42.8% (36.0-47.0) Mean Corpuscular Volume 85fL (79-100) Mean Corpuscular Hemoglobin 27pg (25-35) Mean Corpuscular Hemoglobin Concent 32g/dL (31-37) Red Cell Distribution Width 17.9% (11.5-14.5) Platelet Count 141x10^3/uL (140-400) Neutrophils (%) (Auto) 91% (31-73) Lymphocytes (%) (Auto) 5% (24-48) Monocytes (%) (Auto) 4% (0-9) Eosinophils (%) (Auto) 0% (0-3) Basophils (%) (Auto) 0% (0-3) Neutrophils # (Auto) 12.7x10^3uL (1.8-7.7) Lymphocytes # (Auto) 0.7x10^3/uL (1.0-4.8) Monocytes # (Auto) 0.5x10^3/uL (0.0-1.1) Eosinophils # (Auto) 0.0x10^3/uL (0.0-0.7) Basophils # (Auto) 0.1x10^3/uL (0.0-0.2) Segmented Neutrophils % 45% (35-66) Band Neutrophils % 38% (0-9) Lymphocytes % 12% (24-48) Monocytes % 3% (0-10) Metamyelocytes % 2% (0-0) Toxic Granulation Slight Toxic Vacuolation Slight Platelet Estimate Adequate (ADEQUATE) Poikilocytosis Slight Anisocytosis Slight Spherocytes Occ Target Cells Occ Sodium Level 138mmol/L (136-145) 145mmol/L (136-145) Potassium Level 4.1mmol/L (3.5-5.1) 3.7mmol/L (3.5-5.1) Chloride Level 101mmol/L (98-107) 110mmol/L (98-107) Carbon Dioxide Level 22mmol/L (21-32) 25mmol/L (21-32) Anion Gap 15 (6-14) 10 (6-14) Blood Urea Nitrogen 54mg/dL (7-20) 42mg/dL (7-20) Creatinine 2.0mg/dL (0.6-1.0) 1.5mg/dL (0.6-1.0) Estimated GFR (Cockcroft-Gault) 28.8 40.1 BUN/Creatinine Ratio 27 (6-20) Glucose Level 196mg/dL (70-99) 127mg/dL (70-99) Calcium Level 9.2mg/dL (8.5-10.1) 8.6mg/dL (8.5-10.1) Total Bilirubin 0.8mg/dL (0.2-1.0) Aspartate Amino Transf (AST/SGOT) 159U/L (15-37) Alanine Aminotransferase (ALT/SGPT) 155U/L (14-59) Alkaline Phosphatase 58U/L (46-116) [place]-Qdm-Q-Type Natriuretic Peptide 9923pg/mL (0-449) Total Protein 7.1g/dL (6.4-8.2) Albumin 3.0g/dL (3.4-5.0) Albumin/Globulin Ratio 0.7 (1.0-1.7) Influenza Type A Antigen Negative (NEGATIVE) Influenza Type B Antigen Positive (NEGATIVE) Urine Collection Type U cath Urine Color Yellow Urine Clarity Clear Urine pH 5.0 Urine Specific [place] 1.015 Urine Protein Negativemg/dL (NEG-TRACE) Urine Glucose (UA) Negativemg/dL (NEG) Urine Ketones (Stick) Negativemg/dL (NEG) Urine Blood Trace (NEG) Urine Nitrite Negative (NEG) Urine Bilirubin Negative (NEG) Urine Urobilinogen Dipstick 0.2mg/dL (0.2 mg/dL) Urine Leukocyte Esterase Negative (NEG) Urine RBC 0/HPF (0-2) Urine WBC Occ/HPF (0-4) Urine Squamous Epithelial Cells Few/LPF Urine Amorphous Sediment Present/HPF Urine Bacteria Many/HPF (0-FEW) Urine Hyaline Casts Few/HPF Urine Mucus Slight/LPF Glucose (Fingerstick) 129mg/dL (70-99) Lactic Acid Level 2.1mmol/L (0.4-2.0) Magnesium Level 2.0mg/dL (1.8-2.4) Triglycerides Level 104mg/dL (0-150) Cholesterol Level 143mg/dL (0-200) LDL Cholesterol, Calculated 91mg/dL (0-100) VLDL Cholesterol, Calculated 21mg/dL (0-40) HDL Cholesterol 31mg/dL (40-60) Cholesterol/HDL Ratio 4.6 Thyroid Stimulating Hormone (TSH) 0.450uIU/mL (0.358-3.74) Test 06/30/16 10:56 Glucose (Fingerstick) 133mg/dL (70-99) Medications Active Scripts Medications Dose Route/Sig Days Date Category Novolog Flexpen (Insulin Aspart) 100 Unit/1 Ml Insuln.pen 1 Unit SQ 06/30/16 Reported Singulair Tablet (Montelukast Sodium) 10 Mg Tablet 10 Mg PO HS 06/30/16 Reported Allopurinol 100 Mg Tablet 100 Mg PO QHS 06/30/16 Reported Vitamin D (Cholecalciferol (Vitamin D3)) 2,000 Unit Capsule 1 Cap PO DAILY 06/30/16 Reported Vitamin D (Cholecalciferol (Vitamin D3)) 5,000 Unit Capsule 2,000 Unit PO 06/30/16 Reported Torsemide 10 Mg Tablet 10 Mg PO 06/30/16 Reported Spironolactone 25 Mg Tablet 25 Mg PO DAILY 06/30/16 Reported Omeprazole 20 Mg Capsule.dr 20 Mg PO DAILY 06/30/16 Reported Lantus (Insulin Glargine,Hum.rec.anlog) 100 Unit/1 Ml Vial 40 Unit SQ HS 07/14/14 Rx Potassium Chloride 20 Meq Tab.er.prt 20 Meq PO EVERY OTHER DAY 07/14/14 Rx Lasix (Furosemide) 40 Mg Tablet 60 Mg PO DAILY 07/14/14 Rx Tylenol Extra Strength (Acetaminophen) 500 Mg Tablet 500 Mg PO PRN Q8HRS PRN 07/14/14 Rx Losartan Potassium 25 Mg Tablet 25 Mg PO DAILY 07/14/14 Rx Rulox Suspension (Mag Hydrox/Al Hydrox/Simeth) 355 Ml Oral.susp 60 Ml PO PRN Q2HR PRN 07/14/14 Rx Glucose (Dextrose) 4 Gm Tab.chew 12 Gm PO PRN PRN 07/14/14 Rx Bisacodyl 10 Mg Supp.rect 10 Mg RC PRN DAILY PRN 07/14/14 Rx Albuterol Sulfate Conc Neb Soln (Albuterol Sulfate) 2.5 Mg/0.5 Ml Vial.neb 2.5 Mg NEB PRN QID PRN 07/14/14 Rx Zyrtec (Cetirizine Hcl) 10 Mg Tablet 0.5 Tab PO DAILY 07/14/14 Rx Hydrocodone-Apap 7.5-325 (Hydrocodone Bit/Acetaminophen) 1 Each Tablet 1 Tab PO PRN Q6HRS PRN 02/21/14 Reported Aspirin 81 Mg Tab.chew 1 Tab PO DAILY 02/21/14 Reported Ventolin Hfa Inhaler (Albuterol Sulfate) 18 Gm Hfa.aer.ad 18 Gm IH PRN 06/25/13 Reported Advair 250-50 Diskus (Fluticasone/Salmeterol) 1 Each Disk.w.dev 1 Each IH BID 06/25/13 Reported Voltaren (Diclofenac Sodium) 100 Gm Gel..gram. 100 Gm TP 05/27/13 Reported One Daily (Multivitamin) 1 Each Tablet 1 Each PO 05/27/13 Reported Flonase (Fluticasone Propionate) 16 Gm [place].susp 16 Gm NS 05/27/13 Reported Amiodarone Hcl 200 Mg Tablet 200 Mg PO 05/27/13 Reported Impression . FULL NOTE DICTATED WILL CHECK CT CHEST TO RULE OUT EMPYEMA MAY NEED THORACENTESIS AGREE WITH CURRENT RX THANKS OBINNA VICENTE MD Jun 30, 2016 16:25
[2016-06-30 17:11] LABS: HCO3 ABG 23 mmol/L (21-28); PCO2 ABG 33 mmHg (35-46); PH ABG 7.45 (7.35-7.45); PO2 ABG 79 mmHg (65-108); SAT O2 ABG 96 % (92-99)
[2016-06-30 17:13] LABS: FIO2 ABG 28
--- NOTE | 2016-06-30 17:18 | RAD ---
CT of the chest without contrast, 06/30/2016: History: Congestive heart failure, pleural effusion Noncontrast scans were obtained and compared to a study from 09/07/2010. 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 The heart is enlarged. There is mild calcific plaquing of the thoracic aorta. Scattered coronary artery calcifications are present. No mediastinal adenopathy is seen. There are areas of dense and patchy consolidation in the right lower lobe with air bronchograms. There is also moderate infiltrate posteriorly in the right upper lobe. There is mild atelectasis/infiltrate posteriorly in the right middle lobe. A moderate volume of right-sided pleural fluid is present. There is mild atelectasis medially in the left lower lobe and in the posterior costophrenic angle. No significant volume of left-sided pleural fluid is seen. The anterior aspects of both lungs are better aerated and show no evidence of interlobular septal thickening or edema. There is material of medium density within the gallbladder. This may represent sludge, calculi or vicarious excretion of IV contrast if the patient has undergone recent contrast studies. There is moderate hypertrophic spurring in the spine. IMPRESSION: 1. Dense consolidation in the right lower lobe into a lesser degree in the posterior aspect of the right upper and middle lobes suggesting pneumonia. Underlying neoplasm in the right lower lobe cannot be excluded. 2. Moderate sized right pleural effusion. 3. Mild left basilar atelectasis. 4. Cardiomegaly with coronary artery calcifications. PQRS Compliance Statement: One or more of the following individualized dose reduction techniques were utilized for this examination: 1. Automated exposure control 2. Adjustment of the mA and/or kV according to patient size 3. Use of iterative reconstruction technique
[2016-06-30 19:59] VITALS: BP 102/58
[2016-06-30] MEDS: INSULIN DETEMIR 300 UNITS/3 ML INSULN.PEN. SQ SCH (21:00)
[2016-06-30] MEDS ORDERED: INSULIN DETEMIR 300 UNITS/3 ML INSULN.PEN. SQ SCH (21:00)
[2016-06-30] MEDS ORDERED: DICLOFENAC SODIUM 1% TOPICAL GEL 100GM TUBE. TP SCH (21:00)
[2016-06-30] MEDS ORDERED: INSULIN GLARGINE HUM REC ANLOG 40 UNIT SQ SCH (21:00)
[2016-06-30] MEDS: MONTELUKAST SODIUM 10 MG TABLET. PO SCH (21:36)
[2016-06-30] MEDS: OSELTAMIVIR 30 MG CAPSULE PO SCH (21:37)
[2016-06-30] MEDS: ALLOPURINOL 100 MG TABLET. PO SCH (21:37)
[2016-06-30 23:08] VITALS: BP 121/59
[2016-07-01 02:04] VITALS: BP 119/73
--- NOTE | 2016-07-01 03:21 | CONS ---
DATE OF CONSULTATION: 06/30/2016 ROOM: 560. REQUESTING PHYSICIAN: Dr. Michel Angel. REASON FOR CONSULTATION: Positive flu. HISTORY OF PRESENT ILLNESS: The patient is an 85-year-old female. Unfortunately, she is somewhat encephalopathic at this point, very weak and unable to provide any accurate history of present illness, review of systems or past medical history. It is obtained mainly from the chart. The patient was brought to [facility] on 06/29/2016 with complaints of cough, congestion and malaise. Apparently, she states she had fallen but did not hit her head according to the Emergency Room notes. On arrival, she had a temperature of 100.7 axillary. White blood cell count was 13.9 with 38% bands. Chest x-ray was obtained and showed some parenchymal opacity in the right lung base and right small effusion. In addition, she was found to have NT-ProBNP of 9923 and a creatinine of 2 with previous baseline of 1.9 back in 11/2015. She also had elevated LFTs with AST of 159, ALT of 55. Urinalysis was obtained, looks questionable for urinary tract infection. Influenza screen was positive for influenza B. She was given a dose of Zosyn and Tamiflu and admitted to the hospital. Currently, the patient is lying in bed. She is awakened. She will mumble at times, but states that she is doing okay. She denies any pain, but does state that she has had a cough. States that she is allergic to CEPHALEXIN and SULFA. She is unable to remember what these are or what reaction she has to them. Currently, she denies any headaches. No gross shortness of air. She denies any abdominal pain, does not remember to have any complications with her urine. PAST MEDICAL HISTORY: According to her note, the previous record is positive for coronary artery disease, congestive heart failure with previous EF of 10% with an AICD in place, hypertension, hyperlipidemia, COPD, gastroesophageal reflux disease, Lehman's esophagitis, fatty liver, history of rotator cuff tear in the left shoulder, glaucoma, chronic kidney disease stage III with history of acute renal failure and diabetes. PAST SURGICAL HISTORY: Positive for thyroid biopsy, cataract surgery, coronary artery disease with PTCA, AICD placement, hernia repair, rotator cuff repair. REVIEW OF SYSTEMS: Difficult to ascertain as mentioned above. ALLERGIES: Again, listed as CEPHALEXIN and SULFA. She is unable to say what happens when she takes this. FAMILY HISTORY: Noncontributory. SOCIAL HISTORY: She lives in assisted living. Does have a history of occasional cigarette. No alcohol or illicit drugs. CURRENT MEDICATIONS: Again, she received Tamiflu. She received a dose of Zosyn, albuterol, Atrovent, allopurinol, amiodarone, aspirin, Zyrtec, ____ and insulin. She is on Solu-Medrol. Other meds are available and reviewed in the chart. PHYSICAL EXAMINATION: VITAL SIGNS: T-max 100.7, currently at 98.9; pulse 76; respirations 22; blood pressure 104/52; satting 95% on 2 liters. CONSTITUTIONAL: She is arousable, does not appear to be in any acute distress. HEENT: Pupils are equal and reactive. She has normal conjunctivae. Oral cavity, pharynx was dry. NECK: Supple, no JVD. LUNGS: She had rhonchi on the right. HEART: S1, S2. AICD without complications. ABDOMEN: Soft, nontender, nondistended with positive bowel sounds. EXTREMITIES: Without clubbing or cyanosis with trace edema. SKIN: Warm to touch without signs of rash. NEUROLOGIC: She again did awaken and moved her extremities. Affect was somewhat flat. LABORATORY VALUES: White count 39, hemoglobin 13.6, and platelets of 141 with 38% bands, 45 segs, 12 lymphs. Creatinine was 2. Glucose was 196, AST 159, ALT 55. BNP again 9923. Influenza screen positive for B. Urinalysis concerning for urinary tract infection. Chest x-ray again with some right-sided findings as documented above. IMPRESSION: 1. Fever. 2. Encephalopathy. 3. Influenza B, Tamiflu started 4. Questionable urinary tract infection on present on admission. 5. CEPHALEXIN and SULFA allergies, unable to say what happens, but appears to have tolerated the Zosyn. 6. Transaminitis, questionable, secondary to congestion and history of fatty liver. 7. Chronic kidney disease. 8. Questionable aspiration. RECOMMENDATIONS: Continue Zosyn, add Zyvox would have speech evaluate her when more alert. Follow up on labs and cultures. Thank you for allowing me participate in this patient's care. If you have any questions, please do not hesitate to contact me. YINKA HARDY MD DR: PAWEL/shahnaz JOB#: [id number] / [id number]
--- NOTE | 2016-07-01 03:38 | CONS ---
DATE OF CONSULTATION: 06/30/2016 ATTENDING PHYSICIAN: Dr. Angel. The patient was seen at the request of Dr. Angel for rehab evaluation. HISTORY OF PRESENT ILLNESS: This is an 85-year-old right-handed female known to me patient with chronic lower back pain and also bilateral rotator cuff lesions with frozen shoulder left, status post left shoulder joint injection by me earlier in the week. The patient was admitted through the Emergency Room last night with back pain, cough, dyspnea, weakness and malaise. She resides at [facility], [place]. Patient had a fall when getting out of her chair. On the evening of 06/28/2016, and since then she had increased lower back pain, developed a cough and chest congestion with acute on chronic back pain. The patient is being followed by Dr. Luís Lopez about her back pain. The patient was noted in the Emergency Room with leukocytosis, BUN of 54 and creatinine of 2. The patient is being treated with a diagnosis of metabolic encephalopathy and chest x-ray showed some vascular changes and this morning, chest x-ray revealed pneumonia and also she had checked positive for influenza B. The patient admits some back pain and left shoulder pain and weakness. The patient with history of coronary artery disease, congestive heart failure, systolic ejection fraction of 35-40%, hypertension, hyperlipidemia, mild aortic and tricuspid regurgitation, chronic obstructive pulmonary disease, diverticulosis, gastroesophageal reflux disease, gastritis, Lehman's esophagus, hiatal hernia, fatty liver, anxiety, depression, degenerative disk disease of lumbar vertebrae with moderate degree of lumbar spinal stenosis, osteoarthritis of knees, status post knee arthroplasty, rotator cuff tear, glaucoma, chronic renal insufficiency, chronic kidney disease stage III, urinary incontinence overflow, diabetes mellitus type 2, status post thyroidectomy, pacemaker placement, total knee arthroplasty, cataract removal. SHE HAS KNOWN ALLERGIC TO CEPHALEXIN, SULFA. Patient usually walks using a roller walker. PHYSICAL EXAMINATION: Today revealed an elderly female, she is alert, oriented to time, place, person and circumstance and follows commands appropriately, moves all 4 extremities voluntarily. She had weakness of left rotator cuff muscles. She had tenderness to palpation at left shoulder and also over lower thoracic and lumbar spine and adjoining paraspinal muscles extending over to sacroiliac joint area and straight leg raising test is negative bilaterally. She had decreased deep tendon reflexes overall with absent knee and ankle jerks and she had equal perception of touch and pinprick sensation bilaterally. She had an indwelling Medina catheter in place and using oxygen by nasal cannula. She requires help with bed mobility. I have not tested her transfers or ambulation skills at this time. Her skin is intact at this time. ASSESSMENT: Subacute lower thoracic and lumbar sprain, superimposed on chronic lower back pain from degenerative disk disease and degenerative joint disease of lumbar vertebrae. The patient with recent fall. No clinical evidence of ongoing thoracic or lumbar radiculopathy, clinical evidence of peripheral neuropathy from her diabetes mellitus and also chronic left rotator cuff tear with associated tendinitis. The patient with known chronic obstructive pulmonary disease, coronary artery disease, gastroesophageal reflux disease, anxiety, depression, chronic renal insufficiency, recent onset pneumonia and influenza B positive. RECOMMENDATIONS: To obtain x-rays of lower thoracic and lumbar vertebrae to make sure she does not have any new compression fractures. Agree with the plan for physical therapy and occupational therapy to get her up as tolerated. Dr. Angel, I appreciate asking me to participate in care of this interesting patient. I will be glad to follow her with you as needed for her rehabilitation. KENNA NORTON MD DR: TUYET/shahnaz JOB#: [id number] / [id number]
[2016-07-01 05:17] LABS: BASO % 0 % (0-3); EOS % 0 % (0-3); HEMATOCRIT 38.9 % (36.0-47.0); HEMOGLOBIN 12.4 g/dL (12.0-15.5); LYMPH # 0.3 x10^3/uL (1.0-4.8); LYMPH % 3 % (24-48); MEAN CORPUSCULAR HEMOGLOBIN 27 pg (25-35); MEAN CORPUSCULAR HGB CONC 32 g/dL (31-37); MEAN CORPUSCULAR VOLUME 86 fL (79-100); MONO % 4 % (0-9); NEUT % 93 % (31-73); PLATELET COUNT 105 x10^3/uL (140-400); RED BLOOD COUNT 4.51 x10^6/uL (3.50-5.40); RED CELL DISTRIBUTION WIDTH 17.5 % (11.5-14.5); WHITE BLOOD COUNT 11.1 x10^3/uL (4.0-11.0)
[2016-07-01 05:23] LABS: CREATININE 1.2 mg/dL (0.6-1.0); GFR 51.9; MAGNESIUM 2.1 mg/dL (1.8-2.4); POTASSIUM 3.7 mmol/L (3.5-5.1)
[2016-07-01] MEDS: PIPERACILLIN/TAZOBACTAM 2.25 GM in IV NORMAL SALINE 50ML 50 ML IV SCH ×2 (05:29→12:39)
[2016-07-01] MEDS: IPRATRPIUM/ALBUTEROL 0.5/2.5MG 3 ML NEBU. NEB SCH ×4 (07:10→20:11)
--- NOTE | 2016-07-01 07:17 | CONS ---
DATE OF CONSULTATION: 06/30/2016 ATTENDING PHYSICIAN: Dr. Bonilla. REASON FOR CONSULTATION: The patient is seen in pulmonary consultation at the request of Dr. Angel for shortness of air and abnormal x-ray. HISTORY OF PRESENT ILLNESS: The patient is an 85-year-old that presents with congestion and malaise; reportedly she fell on the date of admission and did not strike her head. She was just weak. She was seen in the Emergency Department, evaluated and found to have a positive screen for influenza B. Her electrolytes were deranged. BUN and creatinine were elevated. White count was elevated. UA was noted. Chest x-ray was reviewed. She had initially bilateral pulmonary infiltrates. Her x-ray is actually worsened since admission. She now has right lower lobe opacity with an effusion. I was asked to see her in consultation. The patient herself is very sleepy, but arousable, but unable to provide any history. All the history is obtained by reviewing the Emergency Room records. In addition, I reviewed the H and P. She lives in [facility]; had been complaining of cough, dyspnea, weakness, and malaise. She reported she fell again out of her chair on Monday evening. No further additional history is provided by the patient herself. She has been seen by Infectious Disease Service. She is on Tamiflu along with broad-spectrum antibiotics including Zosyn and Zyvox. She has been seen by the respiratory therapist who recommended to continue Aldactone and start Lasix. She was also seen by the Cardiology Service. She has an ejection fraction of 35% to 40%. She has had previous history of ischemic cardiomyopathy. PAST MEDICAL HISTORY: 1. Ischemic cardiomyopathy with ejection fraction of 35% to 40%. 2. Chronic kidney disease. 3. Hypertension. 4. AFib. 5. COPD. 6. Diverticulosis. 7. Gastritis. 8. Anxiety. 9. Depression. 10. Type 2 diabetes. PAST SURGICAL HISTORY: Status post thyroidectomy, pacemaker implantation, and cataract removal. FAMILY HISTORY: Coronary artery disease, diabetes, and hypertension. SOCIAL HISTORY: She resides in [facility], remote history of tobacco. No history of alcoholism. REVIEW OF SYSTEMS: Unobtainable secondary to the patient's condition. PHYSICAL EXAMINATION: VITAL SIGNS: Since admission, the patient has had a T-max of 100.7. GENERAL: She is in no significant respiratory distress, very lethargic and sleepy, but arousable. She opens up her eyes and then falls right back to sleep. I asked her if she was short of breath. She did not respond or shake her head yes or no. HEENT: Eyes, the sclerae were nonicteric. NECK: Jugular venous distention was not elevated. No lymphadenopathy. CHEST: Full expansion. LUNGS: Bilateral rhonchi, diminished breath sounds on the right side of her chest. CARDIOVASCULAR: Regular rate and rhythm with S1, S2, no S3. ABDOMEN: Soft, nontender, nondistended. EXTREMITIES: No clubbing, cyanosis, or edema. NEUROLOGIC: The patient was sleepy, but arousable. A detailed neuro exam was not performed. LABORATORY DATA: Labs were reviewed. White count was elevated. Electrolytes within the range. BUN and creatinine were elevated. Albumin upon admission was low, serology was positive for influenza B. UA was positive. DIAGNOSTIC DATA: Chest x-ray as indicated above. IMPRESSION: 1. Abnormal x-ray compatible with bilateral pulmonary infiltrates compatible with combination of pneumonia and congestive heart failure. 2. Ifdhw-[id number] systolic congestive heart failure. 3. Right lower lobe consolidation and effusion, suspect pneumonia, possibly aspiration. 4. Right lower lobe effusion. 5. Metabolic toxic encephalopathy. 6. Plyig-hq-lemmxui renal failure. 7. Ischemic cardiomyopathy, ejection fraction of 40%. 8. Type 2 diabetes. 9. Protein malnutrition, present upon admission. PLAN: 1. Concur with current broad-spectrum antibiotics for both gram-negative and gram-positive organisms. 2. We will obtain CT chest to better delineate the right lower lobe consolidation and effusion. The patient may require thoracentesis. 3. Diurese per Cardiology and Nephrology. 4. Check arterial blood gas. 5. We will make further recommendations depending on the CT chest review and report. I do appreciate the privilege in sharing in the patient's care. OBINNA VICENTE MD DR: VIVIAN/shahnaz JOB#: [id number] / [id number]
[2016-07-01 07:45] VITALS: BP 121/65
--- NOTE | 2016-07-01 08:20 | PDOC ---
[facility] [employer] HOST 07/01/16 0819: IM PROGRESS NOTES- Subjective Subjective increased alertness, productive cough min/yellow scant blood tinged Objective Objective increased alertness, no distress Vitals Vital Signs Date Time Temp Pulse Resp B/P Pulse Ox O2 Delivery O2 Flow Rate FiO2 07/01/16 07:45 98.9 64 25 121/65 97 Nasal Cannula 2.0 98.9 Input & Output Intake and Output 07/01/16 07:00 Intake Total 0 ml Output Total 2200 ml Balance -2200 ml Intake Oral 0 ml Output Urine Total 2200 ml # Voids 1 Physical Exam Physical Exam General appearance - alert, acutely ill appearing, and in no distress Mental Status - alert, oriented to person, place Head - normal Chest - wheezing subsided, decreased bases Heart - S1 and S2 normal Abdomen - soft, nontender, nondistended, BS + Neurological - alert no acute focal neurological deficits noted Musculoskeletal - tender LS spine Extremities - no pedal edema Skin - warm and dry Labs Laboratory Tests Test 06/29/16 20:38 06/29/16 20:50 06/29/16 23:00 06/30/16 08:05 White Blood Count 13.9x10^3/uL (4.0-11.0) Red Blood Count 5.01x10^6/uL (3.50-5.40) Hemoglobin 13.6g/dL (12.0-15.5) Hematocrit 42.8% (36.0-47.0) Mean Corpuscular Volume 85fL (79-100) Mean Corpuscular Hemoglobin 27pg (25-35) Mean Corpuscular Hemoglobin Concent 32g/dL (31-37) Red Cell Distribution Width 17.9% (11.5-14.5) Platelet Count 141x10^3/uL (140-400) Neutrophils (%) (Auto) 91% (31-73) Lymphocytes (%) (Auto) 5% (24-48) Monocytes (%) (Auto) 4% (0-9) Eosinophils (%) (Auto) 0% (0-3) Basophils (%) (Auto) 0% (0-3) Neutrophils # (Auto) 12.7x10^3uL (1.8-7.7) Lymphocytes # (Auto) 0.7x10^3/uL (1.0-4.8) Monocytes # (Auto) 0.5x10^3/uL (0.0-1.1) Eosinophils # (Auto) 0.0x10^3/uL (0.0-0.7) Basophils # (Auto) 0.1x10^3/uL (0.0-0.2) Segmented Neutrophils % 45% (35-66) Band Neutrophils % 38% (0-9) Lymphocytes % 12% (24-48) Monocytes % 3% (0-10) Metamyelocytes % 2% (0-0) Toxic Granulation Slight Toxic Vacuolation Slight Platelet Estimate Adequate (ADEQUATE) Poikilocytosis Slight Anisocytosis Slight Spherocytes Occ Target Cells Occ Sodium Level 138mmol/L (136-145) Potassium Level 4.1mmol/L (3.5-5.1) Chloride Level 101mmol/L (98-107) Carbon Dioxide Level 22mmol/L (21-32) Anion Gap 15 (6-14) Blood Urea Nitrogen 54mg/dL (7-20) Creatinine 2.0mg/dL (0.6-1.0) Estimated GFR (Cockcroft-Gault) 28.8 BUN/Creatinine Ratio 27 (6-20) Glucose Level 196mg/dL (70-99) Calcium Level 9.2mg/dL (8.5-10.1) Total Bilirubin 0.8mg/dL (0.2-1.0) Aspartate Amino Transf (AST/SGOT) 159U/L (15-37) Alanine Aminotransferase (ALT/SGPT) 155U/L (14-59) Alkaline Phosphatase 58U/L (46-116) SX-Tec-B-Type Natriuretic Peptide 9923pg/mL (0-449) Total Protein 7.1g/dL (6.4-8.2) Albumin 3.0g/dL (3.4-5.0) Albumin/Globulin Ratio 0.7 (1.0-1.7) Influenza Type A Antigen Negative (NEGATIVE) Influenza Type B Antigen Positive (NEGATIVE) Urine Collection Type U cath Urine Color Yellow Urine Clarity Clear Urine pH 5.0 Urine Specific [place] 1.015 Urine Protein Negativemg/dL (NEG-TRACE) Urine Glucose (UA) Negativemg/dL (NEG) Urine Ketones (Stick) Negativemg/dL (NEG) Urine Blood Trace (NEG) Urine Nitrite Negative (NEG) Urine Bilirubin Negative (NEG) Urine Urobilinogen Dipstick 0.2mg/dL (0.2 mg/dL) Urine Leukocyte Esterase Negative (NEG) Urine RBC 0/HPF (0-2) Urine WBC Occ/HPF (0-4) Urine Squamous Epithelial Cells Few/LPF Urine Amorphous Sediment Present/HPF Urine Bacteria Many/HPF (0-FEW) Urine Hyaline Casts Few/HPF Urine Mucus Slight/LPF Nasal Screen MRSA (PCR) Positive (Negative) Glucose (Fingerstick) 129mg/dL (70-99) Test 06/30/16 09:40 06/30/16 10:56 06/30/16 17:00 06/30/16 17:42 Sodium Level 145mmol/L (136-145) Potassium Level 3.7mmol/L (3.5-5.1) Chloride Level 110mmol/L (98-107) Carbon Dioxide Level 25mmol/L (21-32) Anion Gap 10 (6-14) Blood Urea Nitrogen 42mg/dL (7-20) Creatinine 1.5mg/dL (0.6-1.0) Estimated GFR (Cockcroft-Gault) 40.1 Glucose Level 127mg/dL (70-99) Lactic Acid Level 2.1mmol/L (0.4-2.0) Calcium Level 8.6mg/dL (8.5-10.1) Magnesium Level 2.0mg/dL (1.8-2.4) Triglycerides Level 104mg/dL (0-150) Cholesterol Level 143mg/dL (0-200) LDL Cholesterol, Calculated 91mg/dL (0-100) VLDL Cholesterol, Calculated 21mg/dL (0-40) HDL Cholesterol 31mg/dL (40-60) Cholesterol/HDL Ratio 4.6 Thyroid Stimulating Hormone (TSH) 0.450uIU/mL (0.358-3.74) Glucose (Fingerstick) 133mg/dL (70-99) 164mg/dL (70-99) O2 Saturation 96% (92-99) Arterial Blood pH 7.45 (7.35-7.45) Arterial Blood pCO2 at Patient Temp 33mmHg (35-46) Arterial Blood pO2 at Patient Temp 79mmHg (65-108) Arterial Blood HCO3 23mmol/L (21-28) Arterial Blood Base Excess -1mmol/L (-3-3) FiO2 28 Test 06/30/16 21:05 07/01/16 04:31 Glucose (Fingerstick) 145mg/dL (70-99) White Blood Count 11.1x10^3/uL (4.0-11.0) Red Blood Count 4.51x10^6/uL (3.50-5.40) Hemoglobin 12.4g/dL (12.0-15.5) Hematocrit 38.9% (36.0-47.0) Mean Corpuscular Volume 86fL (79-100) Mean Corpuscular Hemoglobin 27pg (25-35) Mean Corpuscular Hemoglobin Concent 32g/dL (31-37) Red Cell Distribution Width 17.5% (11.5-14.5) Platelet Count 105x10^3/uL (140-400) Neutrophils (%) (Auto) 93% (31-73) Lymphocytes (%) (Auto) 3% (24-48) Monocytes (%) (Auto) 4% (0-9) Eosinophils (%) (Auto) 0% (0-3) Basophils (%) (Auto) 0% (0-3) Neutrophils # (Auto) 10.3x10^3uL (1.8-7.7) Lymphocytes # (Auto) 0.3x10^3/uL (1.0-4.8) Monocytes # (Auto) 0.4x10^3/uL (0.0-1.1) Eosinophils # (Auto) 0.0x10^3/uL (0.0-0.7) Basophils # (Auto) 0.0x10^3/uL (0.0-0.2) Sodium Level 146mmol/L (136-145) Potassium Level 3.7mmol/L (3.5-5.1) Chloride Level 110mmol/L (98-107) Carbon Dioxide Level 26mmol/L (21-32) Anion Gap 10 (6-14) Blood Urea Nitrogen 37mg/dL (7-20) Creatinine 1.2mg/dL (0.6-1.0) Estimated GFR (Cockcroft-Gault) 51.9 Glucose Level 190mg/dL (70-99) Calcium Level 9.0mg/dL (8.5-10.1) Magnesium Level 2.1mg/dL (1.8-2.4) Laboratory Tests Test 06/30/16 08:05 06/30/16 09:40 06/30/16 10:56 06/30/16 17:00 Glucose (Fingerstick) 129mg/dL (70-99) 133mg/dL (70-99) Sodium Level 145mmol/L (136-145) Potassium Level 3.7mmol/L (3.5-5.1) Chloride Level 110mmol/L (98-107) Carbon Dioxide Level 25mmol/L (21-32) Anion Gap 10 (6-14) Blood Urea Nitrogen 42mg/dL (7-20) Creatinine 1.5mg/dL (0.6-1.0) Estimated GFR (Cockcroft-Gault) 40.1 Glucose Level 127mg/dL (70-99) Lactic Acid Level 2.1mmol/L (0.4-2.0) Calcium Level 8.6mg/dL (8.5-10.1) Magnesium Level 2.0mg/dL (1.8-2.4) Triglycerides Level 104mg/dL (0-150) Cholesterol Level 143mg/dL (0-200) LDL Cholesterol, Calculated 91mg/dL (0-100) VLDL Cholesterol, Calculated 21mg/dL (0-40) HDL Cholesterol 31mg/dL (40-60) Cholesterol/HDL Ratio 4.6 Thyroid Stimulating Hormone (TSH) 0.450uIU/mL (0.358-3.74) O2 Saturation 96% (92-99) Arterial Blood pH 7.45 (7.35-7.45) Arterial Blood pCO2 at Patient Temp 33mmHg (35-46) Arterial Blood pO2 at Patient Temp 79mmHg (65-108) Arterial Blood HCO3 23mmol/L (21-28) Arterial Blood Base Excess -1mmol/L (-3-3) FiO2 28 Test 06/30/16 17:42 06/30/16 21:05 07/01/16 04:31 Glucose (Fingerstick) 164mg/dL (70-99) 145mg/dL (70-99) White Blood Count 11.1x10^3/uL (4.0-11.0) Red Blood Count 4.51x10^6/uL (3.50-5.40) Hemoglobin 12.4g/dL (12.0-15.5) Hematocrit 38.9% (36.0-47.0) Mean Corpuscular Volume 86fL (79-100) Mean Corpuscular Hemoglobin 27pg (25-35) Mean Corpuscular Hemoglobin Concent 32g/dL (31-37) Red Cell Distribution Width 17.5% (11.5-14.5) Platelet Count 105x10^3/uL (140-400) Neutrophils (%) (Auto) 93% (31-73) Lymphocytes (%) (Auto) 3% (24-48) Monocytes (%) (Auto) 4% (0-9) Eosinophils (%) (Auto) 0% (0-3) Basophils (%) (Auto) 0% (0-3) Neutrophils # (Auto) 10.3x10^3uL (1.8-7.7) Lymphocytes # (Auto) 0.3x10^3/uL (1.0-4.8) Monocytes # (Auto) 0.4x10^3/uL (0.0-1.1) Eosinophils # (Auto) 0.0x10^3/uL (0.0-0.7) Basophils # (Auto) 0.0x10^3/uL (0.0-0.2) Sodium Level 146mmol/L (136-145) Potassium Level 3.7mmol/L (3.5-5.1) Chloride Level 110mmol/L (98-107) Carbon Dioxide Level 26mmol/L (21-32) Anion Gap 10 (6-14) Blood Urea Nitrogen 37mg/dL (7-20) Creatinine 1.2mg/dL (0.6-1.0) Estimated GFR (Cockcroft-Gault) 51.9 Glucose Level 190mg/dL (70-99) Calcium Level 9.0mg/dL (8.5-10.1) Magnesium Level 2.1mg/dL (1.8-2.4) Meds Current Medications Albuterol Sulfate (Ventolin Neb Soln) 2.5 mg PRN Q2HR PRN NEB SHORTNESS OF BREATH; Start 06/30/16 at 08:30 Albuterol/ Ipratropium (Duoneb) 3 ml RTQID NEB ; Start 06/30/16 at 08:00; Stop at 08:00; Status DC Albuterol/ Ipratropium (Duoneb) 3 ml RTQID NEB Last administered on 07/01/16 07 :10; Start 06/30/16 at 08:00 Allopurinol (Zyloprim) 100 mg QHS PO Last administered on 06/30/16 21:37; Start 06/30/16 at 21:00 Amiodarone HCl (Cordarone) 200 mg DAILY PO Last administered on 06/30/16 09:34 ; Start 06/30/16 at 09:00 Artificial Tears (Artificial Tears) 2 drop PRN QID PRN OU DRY EYE; Start at 09:45 Aspirin (Children'S Aspirin) 81 mg DAILY PO Last administered on 06/30/16 09:23 ; Start 06/30/16 at 09:00 Bisacodyl (Dulcolax Supp) 10 mg PRN DAILY PRN RC CONSTIPATION; Start 06/30/16 at 08:30 Budesonide (Pulmicort) 0.5 mg RTBID NEB Last administered on 06/30/16 07:41; Start 06/30/16 at 08:00; Stop 06/30/16 at 16:24; Status DC Carvedilol (Coreg) 3.125 mg BIDWMEALS PO Last administered on 06/30/16 12:17; Start 06/30/16 at 10:00 Cetirizine HCl (Zyrtec) 10 mg DAILY PO Last administered on 06/30/16 09:24; Start 06/30/16 at 09:00 Cyanocobalamin (Vitamin B-12) 1,000 mcg DAILY PO Last administered on 06/30/16 12:16; Start 06/30/16 at 10:00 Diclofenac Sodium (Voltaren) 1 ld HS TP ; Start 06/30/16 at 21:00; Stop 06/30/16 at 21:00; Status DC Diclofenac Sodium (Voltaren) 1 ld QID TP Last administered on 06/30/16 21:36; Start 06/30/16 at 10:00 Fluticasone Propionate (Flonase) 2 spray DAILY NS Last administered on 09:25; Start 06/30/16 at 09:00 Furosemide (Lasix) 40 mg 1X ONCE IVP ; Start 06/30/16 at 14:00; Stop 06/30/16 at 14:01; Status DC Furosemide (Lasix) 40 mg DAILY PO Last administered on 06/30/16 12:17; Start at 12:00 Insulin Aspart (Novolog) 0-5 UNITS TIDWMEALS SQ Last administered on 06/30/16 18:02; Start 06/30/16 at 08:00 Insulin Detemir (Levemir) 15 units QHS SQ ; Start 06/30/16 at 21:00 Insulin Detemir (Levemir) 29 units QHS SQ ; Start 06/30/16 at 21:00; Stop at 21:00; Status DC Lidocaine (Lidoderm) 1 patch DAILY TD Last administered on 06/30/16 12:18; Start 06/30/16 at 11:00 Linezolid (Zyvox Premix) 300 ml @ 300 mls/hr Q12HR IV Last administered on 06/30 21:40; Start 06/30/16 at 10:00 Methylprednisolone Sodium Succinate (Solu-Medrol 40mg Vial) 40 mg BID IV ; Start 06/30/16 at 09:00; Stop 06/30/16 at 09:00; Status DC Methylprednisolone Sodium Succinate (Solu-Medrol 40mg Vial) 40 mg Q12HR IV Last administered on 06/30/16 21:38; Start 06/30/16 at 09:00 Montelukast Sodium (Singulair) 10 mg HS PO Last administered on 06/30/16 21:36 ; Start 06/30/16 at 21:00 Multivitamins/ Calcium 1 tab 1 tab DAILY PO Last administered on 06/30/16 09:23 ; Start 06/30/16 at 09:00 Non-Formulary Medication 1 cap DAILY PO ; Start 06/30/16 at 09:00; Status UNV Non-Formulary Medication 1 each BID IH ; Start 06/30/16 at 09:00; Status UNV Non-Formulary Medication 40 unit HS SQ ; Start 06/30/16 at 21:00; Status UNV Oseltamivir Phosphate (Tamiflu) 30 mg QHS PO Last administered on 06/30/16 21: 37; Start 06/30/16 at 21:00; Stop 07/03/16 at 21:01 Oseltamivir Phosphate (Tamiflu) 75 mg BID PO ; Start 06/30/16 at 09:00; Stop 07/05 at 08:59; Status UNV Piperacillin Sod/ Tazobactam Sod 2.25 gm/Sodium Chloride 50 ml @ 100 mls/hr Q6HRS IV Last administered on 07/01/16 05:29; Start 06/30/16 at 09:00 Potassium Chloride (Klor-Con) 20 meq 1X ONCE PO Last administered on 06/30/16 14:27; Start 06/30/16 at 13:00; Stop 06/30/16 at 13:01; Status DC Sodium Chloride 1,000 ml @ 75 mls/hr [id number] IV ; Start 06/30/16 at 08:30; Stop 06/30/16 at 08:34; Status DC Spironolactone (Aldactone) 25 mg DAILY PO Last administered on 06/30/16 09:33; Start 06/30/16 at 09:00 Vitamin D (Vitamin D3) 2,000 unit DAILY PO Last administered on 06/30/16 09:24 ; Start 06/30/16 at 09:00 Vitamin D (Vitamin D3) 2,000 unit DAILY PO ; Start 06/30/16 at 10:00; Status Cancel Assessment Assessment 1. influenzae B with sepsis 2. Secondary pneumonia gram neg/gram positive 3. a/c systolic diastolic CHF 4. transaminitis 5. ARF with underlying CKD III (Cr 1.2-1.6) 6. 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 HTN 8. leukocytosis fever 9. urinary incontinence overlow 10. HH 11. gastritis 12. hyperlipidemia 13. fatty liver 14. CAD mild last eval at [facility] admit 15. hypothyroid with h/o thyroidectomy 16. severe weakness and debility 17. DM II with CKD III 18. severe PCL malnutrition 19. erosive gastritis 20. GERD 21. diverticulosis 22. chronic pain management DDD LS per Dr. Lopez PMC 23. acute metabolic encephalopathy POA PLAN: Inf B with sepsis ID consult pulmonary consult secondary bacterial pneumonia due to influenzae B Zosyn/zyvox IV per ID Solumed 40 IV q12hr wheezing improved nebulizer treatment oxygen supplementation Admit WBC 13.9 07/01 11.1 T 100.7F admit IV NS 125cc/hr decreased to 75cc/hr-stopped 06/30/16 Tamiflu dose #2 07/01 CT chest: RLL >RML/RUL pneumonia, moderate R pleural effusion mucinex 600mg bid Lactic acid 2.1 MRSA +nares-bactroban x 7day A/C CHF cardiology consult BNP 9923-in setting ARF CXR +vascular changes diuretics on hold with IV infusing daily wt/IO Admit wt 132# 07/01 132.06# Home med: torsemide 10mg daily Lasix 40mg IV 06/30 Lasix 40mg po 07/01 Coreg decreased to 3.125mg bid last appt Dr. Mosley--dizziness. ARF ANIKET with CKD III baseline Cr 1.2-1.6 nephrology consult Office: BUN 28-35 Cr 1.59-1.87 ADmit BUN 54 07/01 37 Cr 2.0 1.2 K 4.1 3.7 KCL 20 meq oral x 1 06/30 transaminitis Admit AST 159 ALT 155 AP 58 GI consult DM II FSBS/ low intensity SSI Home Lantus 29u at hs, decrease to 15u with poor oral intake, hold if NPO Hbaic 6.0 less than 3 months ago BS 133-190 a/c back pain with recent fall Dr. Vale consult Lumbar and thoracic xray negative thyroidectomy h/o TSH 0.33 w/o thyroid med urinary incontinence vale for accurate IO severe weakness and debility PT OT severe PCL malnutrition supplements/monitor intake acute metabolic encephalopathy improved DVT/GI prophylaxis SCD/LEANDRA PPI thrombocytopenia Admit Plt 141 07/01 105 secondary to IV antibiotics monitor For more details regarding further plans, please refer to the orders. May need SNU at discharge for severe weakness/debility. Lives in [place] consult SW for SNU screening Plan Plan For more details regarding further plans, please refer to the orders. ADALID WRIGHT MD 07/01/16 1008: IM PROGRESS NOTES- Assessment Assessment improving. The patient was seen and examined by me. Chart reviewed and plan of care formulated. Discussed with, reviewed and agree with PIPE WRAPPING MACHINE OPERATOR's notes, plan of care and orders with modifications as necessary. For more details regarding further plans, please refer to the orders. MEL GUNN APRN Jul 01, 2016 08:19 ADALID WRIGHT MD Jul 01, 2016 10:08
--- NOTE | 2016-07-01 08:21 | DISCH ---
DISCHARGE FINAL DIAGNOSIS Problems Medical Problems: (1) Acute bronchospasm Status: Acute (2) Influenza B Status: Acute CONDITION ON DISCHARGE: Stable SNF STAY <30 DAYS: Yes (PTOT consult) POST DISCHARGE ORDERS ACTIVITY ORDERS: Activity as tolerated WEIGHT BEARING STATUS: Full weight bearing DIET AFTER DISCHARGE: Cardiac (no concentrated sweets ) CHECKS AFTER DISCHARGE CHECKS AFTER DISCHARGE: Check blood sugar, ac/hs (with SSI ) COMMENTS: VS per routine FOLLOW-UP PHYSICIAN FOLLOW-UP: Admit to Dr. Angel LAB ORDERS FOR FOLLOW-UP: CBC with diff, CMP, prealbumin 1st AM after admit TREATMENT/EQUIPMENT ORDERS ADAPTIVE EQUIPMENT NEEDED: Walker, Wheelchair RESPIRATORY EQUIPMENT NEEDED: Oxygen (2L NC ), Nebulizer (QID ) MEL GUNN APRN Jul 01, 2016 08:21
[2016-07-01] MEDS: ASPIRIN 81 MG TAB.CHEW PO SCH (08:30)
[2016-07-01] MEDS: MULTIVITAMIN with MINERAL TABLET. PO SCH (08:30)
[2016-07-01] MEDS: CHOLECALCIFEROL (VITAMIN D3) 1,000 UNIT TABLET PO SCH (08:30)
[2016-07-01] MEDS: FUROSEMIDE 40 MG TABLET PO SCH (08:31)
[2016-07-01] MEDS: CETIRIZINE HCL 10 MG TABLET PO SCH (08:31)
[2016-07-01] MEDS: CYANOCOBALAMIN (VITAMIN B-12) 1,000 MCG TABLET. PO SCH (08:31)
[2016-07-01] MEDS: SPIRONOLACTONE 25 MG TABLET PO SCH (08:31)
[2016-07-01] MEDS: PANTOPRAZOLE 40 MG TABLET. PO SCH (08:31)
[2016-07-01] MEDS: AMIODARONE HCL 200 MG TABLET PO SCH (08:32)
[2016-07-01] MEDS: CARVEDILOL 3.125 MG TABLET PO SCH ×2 (08:33→17:45)
[2016-07-01] MEDS: methylPREDNISolone SOD SUCC PF 40 MG/ML VIAL. IV SCH ×2 (08:33→21:13)
[2016-07-01] MEDS: FLUTICASONE 50MCG/NASAL SPRAY 16GM BOTTLE. NS SCH (08:34)
[2016-07-01] MEDS: LIDOCAINE (700MG/PATCH) PATCH. TD SCH (08:36)
[2016-07-01] MEDS: GUAIFENESIN ER 600 MG TABLET.ER PO SCH ×2 (08:45→21:14)
[2016-07-01] MEDS: INSULIN ASPART 300 UNITS/3 ML INSULN.PEN SQ SCH ×3 (08:46→17:49)
[2016-07-01] MEDS: MUPIROCIN 2 % NASAL OINTMENT 22GM TUBE. NS SCH ×2 (09:05→21:13)
[2016-07-01] MEDS: DICLOFENAC SODIUM 1% TOPICAL GEL 100GM TUBE. TP SCH ×4 (09:05→21:14)
[2016-07-01 09:13] LABS: DIRECT BILIRUBIN 0.3 mg/dL (0.0-0.2); TOTAL BILIRUBIN 0.6 mg/dL (0.2-1.0); TOTAL PROTEIN 5.9 g/dL (6.4-8.2)
--- NOTE | 2016-07-01 09:45 | PDOC ---
Infectious Disease Note Subjective Subjective Doing ok. Some back pain ROS ROS GEN: Denies fevers, chills, sweats HEENT: Denies blurred vision, sore throat CV: Denies chest pain RESP: Denies shortness of air but has occ cough GI: Denies n/v/d NEURO: Denies confusion, dizziness MSK: Denies weakness, joint pain/swelling Vital Sign Vital Signs Vital Signs Date Time Temp Pulse Resp B/P Pulse Ox O2 Delivery O2 Flow Rate FiO2 07/01/16 08:33 64 121/65 07/01/16 07:45 98.9 25 97 Nasal Cannula 2.0 98.9 Physical Exam PHYSICAL EXAM GENERAL: NAD, Alert, pleasant HEENT: PERRL, OC/OP- dry NECK: Supple, no JVD, no LN LUNGS: Clear but decreased HEART: S1S2, no gallop, no murmur ABD: Soft, NT, no organomegaly, no rebound, obese EXT: Trace edema, no cyanosis LINE STAKER: Alert, oriented, no focal neurologic deficit SKIN: No rash IV: peripheral ok Labs Lab Laboratory Tests Test 06/30/16 09:40 06/30/16 10:56 06/30/16 17:00 06/30/16 17:42 Sodium Level 145mmol/L (136-145) Potassium Level 3.7mmol/L (3.5-5.1) Chloride Level 110mmol/L (98-107) Carbon Dioxide Level 25mmol/L (21-32) Anion Gap 10 (6-14) Blood Urea Nitrogen 42mg/dL (7-20) Creatinine 1.5mg/dL (0.6-1.0) Estimated GFR (Cockcroft-Gault) 40.1 Glucose Level 127mg/dL (70-99) Lactic Acid Level 2.1mmol/L (0.4-2.0) Calcium Level 8.6mg/dL (8.5-10.1) Magnesium Level 2.0mg/dL (1.8-2.4) Triglycerides Level 104mg/dL (0-150) Cholesterol Level 143mg/dL (0-200) LDL Cholesterol, Calculated 91mg/dL (0-100) VLDL Cholesterol, Calculated 21mg/dL (0-40) HDL Cholesterol 31mg/dL (40-60) Cholesterol/HDL Ratio 4.6 Thyroid Stimulating Hormone (TSH) 0.450uIU/mL (0.358-3.74) Glucose (Fingerstick) 133mg/dL (70-99) 164mg/dL (70-99) O2 Saturation 96% (92-99) Arterial Blood pH 7.45 (7.35-7.45) Arterial Blood pCO2 at Patient Temp 33mmHg (35-46) Arterial Blood pO2 at Patient Temp 79mmHg (65-108) Arterial Blood HCO3 23mmol/L (21-28) Arterial Blood Base Excess -1mmol/L (-3-3) FiO2 28 Test 06/30/16 21:05 07/01/16 04:31 07/01/16 08:04 Glucose (Fingerstick) 145mg/dL (70-99) 171mg/dL (70-99) White Blood Count 11.1x10^3/uL (4.0-11.0) Red Blood Count 4.51x10^6/uL (3.50-5.40) Hemoglobin 12.4g/dL (12.0-15.5) Hematocrit 38.9% (36.0-47.0) Mean Corpuscular Volume 86fL (79-100) Mean Corpuscular Hemoglobin 27pg (25-35) Mean Corpuscular Hemoglobin Concent 32g/dL (31-37) Red Cell Distribution Width 17.5% (11.5-14.5) Platelet Count 105x10^3/uL (140-400) Neutrophils (%) (Auto) 93% (31-73) Lymphocytes (%) (Auto) 3% (24-48) Monocytes (%) (Auto) 4% (0-9) Eosinophils (%) (Auto) 0% (0-3) Basophils (%) (Auto) 0% (0-3) Neutrophils # (Auto) 10.3x10^3uL (1.8-7.7) Lymphocytes # (Auto) 0.3x10^3/uL (1.0-4.8) Monocytes # (Auto) 0.4x10^3/uL (0.0-1.1) Eosinophils # (Auto) 0.0x10^3/uL (0.0-0.7) Basophils # (Auto) 0.0x10^3/uL (0.0-0.2) Sodium Level 146mmol/L (136-145) Potassium Level 3.7mmol/L (3.5-5.1) Chloride Level 110mmol/L (98-107) Carbon Dioxide Level 26mmol/L (21-32) Anion Gap 10 (6-14) Blood Urea Nitrogen 37mg/dL (7-20) Creatinine 1.2mg/dL (0.6-1.0) Estimated GFR (Cockcroft-Gault) 51.9 Glucose Level 190mg/dL (70-99) Calcium Level 9.0mg/dL (8.5-10.1) Magnesium Level 2.1mg/dL (1.8-2.4) Total Bilirubin 0.6mg/dL (0.2-1.0) Direct Bilirubin 0.3mg/dL (0.0-0.2) Aspartate Amino Transf (AST/SGOT) 60U/L (15-37) Alanine Aminotransferase (ALT/SGPT) 101U/L (14-59) Alkaline Phosphatase 48U/L (46-116) Total Protein 5.9g/dL (6.4-8.2) Albumin 2.0g/dL (3.4-5.0) Objective Assessment Fever - better Encephalopathy - better Influenza B - Tamiflu started ? UTI- POA -GNR !/2 GPC in blood ? true vs contamination Cephalexin/Sulfa allergies - unable to say what happens but appears to have tolerated Zosyn Transaminitis ? congestion/H/o Fatty liver CKD ? aspiration Leukocytosis - on steroids now Plan Plan of Care Cont Zosyn d/c Zyvox Dose Vanc now Repeat Blood cult in am Needs ECHO - cardiology following Await Pulm f/u ? need for thoracentesis F/u urine cults Would have speech eval when more alert F/u labs YINKA HARDY MD Jul 01, 2016 09:45
[2016-07-01] MEDS ORDERED: VANCOMYCIN 1.5 GM in IV NORMAL SALINE 500ML BAG 500 ML IV ONE (10:30)
--- NOTE | 2016-07-01 10:36 | PDOC ---
PROGRESS NOTES Subjective Subjective She feels better. Objective Objective Vital Signs Date Time Temp Pulse Resp B/P Pulse Ox O2 Delivery O2 Flow Rate FiO2 07/01/16 08:33 64 121/65 07/01/16 07:45 98.9 25 97 Nasal Cannula 2.0 98.9 Intake and Output 07/01/16 07:00 Intake Total 0 ml Output Total 2200 ml Balance -2200 ml Intake Oral 0 ml Output Urine Total 2200 ml # Voids 1 Physical Exam Physical Exam She is supine in bed and seems to be in no acute distress bu continues with pain on ROM of lower thoracic and lumbar spine and left shoulder with weakness of left shoulder girdle muscles and tenderness to palpation at left shoulder and lower thoracic and lumbar paraspinal muscles and sacroiliac joints. SLR test is negative bilaterally. Assessment Assessment Problems Medical Problems: (1) Acute bronchospasm Status: Acute (2) Influenza B Status: Acute Plan Plan of Care To get her up as tolerated using lumbar corset. Comment Review of Relevant I have reviewed the following items janae (where applicable) has been applied. Labs Laboratory Tests Test 06/29/16 20:38 06/29/16 20:50 06/29/16 23:00 06/30/16 08:05 White Blood Count 13.9x10^3/uL (4.0-11.0) Red Blood Count 5.01x10^6/uL (3.50-5.40) Hemoglobin 13.6g/dL (12.0-15.5) Hematocrit 42.8% (36.0-47.0) Mean Corpuscular Volume 85fL (79-100) Mean Corpuscular Hemoglobin 27pg (25-35) Mean Corpuscular Hemoglobin Concent 32g/dL (31-37) Red Cell Distribution Width 17.9% (11.5-14.5) Platelet Count 141x10^3/uL (140-400) Neutrophils (%) (Auto) 91% (31-73) Lymphocytes (%) (Auto) 5% (24-48) Monocytes (%) (Auto) 4% (0-9) Eosinophils (%) (Auto) 0% (0-3) Basophils (%) (Auto) 0% (0-3) Neutrophils # (Auto) 12.7x10^3uL (1.8-7.7) Lymphocytes # (Auto) 0.7x10^3/uL (1.0-4.8) Monocytes # (Auto) 0.5x10^3/uL (0.0-1.1) Eosinophils # (Auto) 0.0x10^3/uL (0.0-0.7) Basophils # (Auto) 0.1x10^3/uL (0.0-0.2) Segmented Neutrophils % 45% (35-66) Band Neutrophils % 38% (0-9) Lymphocytes % 12% (24-48) Monocytes % 3% (0-10) Metamyelocytes % 2% (0-0) Toxic Granulation Slight Toxic Vacuolation Slight Platelet Estimate Adequate (ADEQUATE) Poikilocytosis Slight Anisocytosis Slight Spherocytes Occ Target Cells Occ Sodium Level 138mmol/L (136-145) Potassium Level 4.1mmol/L (3.5-5.1) Chloride Level 101mmol/L (98-107) Carbon Dioxide Level 22mmol/L (21-32) Anion Gap 15 (6-14) Blood Urea Nitrogen 54mg/dL (7-20) Creatinine 2.0mg/dL (0.6-1.0) Estimated GFR (Cockcroft-Gault) 28.8 BUN/Creatinine Ratio 27 (6-20) Glucose Level 196mg/dL (70-99) Calcium Level 9.2mg/dL (8.5-10.1) Total Bilirubin 0.8mg/dL (0.2-1.0) Aspartate Amino Transf (AST/SGOT) 159U/L (15-37) Alanine Aminotransferase (ALT/SGPT) 155U/L (14-59) Alkaline Phosphatase 58U/L (46-116) [id number]-Type Natriuretic Peptide 9923pg/mL (0-449) Total Protein 7.1g/dL (6.4-8.2) Albumin 3.0g/dL (3.4-5.0) Albumin/Globulin Ratio 0.7 (1.0-1.7) Influenza Type A Antigen Negative (NEGATIVE) Influenza Type B Antigen Positive (NEGATIVE) Urine Collection Type U cath Urine Color Yellow Urine Clarity Clear Urine pH 5.0 Urine Specific [place] 1.015 Urine Protein Negativemg/dL (NEG-TRACE) Urine Glucose (UA) Negativemg/dL (NEG) Urine Ketones (Stick) Negativemg/dL (NEG) Urine Blood Trace (NEG) Urine Nitrite Negative (NEG) Urine Bilirubin Negative (NEG) Urine Urobilinogen Dipstick 0.2mg/dL (0.2 mg/dL) Urine Leukocyte Esterase Negative (NEG) Urine RBC 0/HPF (0-2) Urine WBC Occ/HPF (0-4) Urine Squamous Epithelial Cells Few/LPF Urine Amorphous Sediment Present/HPF Urine Bacteria Many/HPF (0-FEW) Urine Hyaline Casts Few/HPF Urine Mucus Slight/LPF Nasal Screen MRSA (PCR) Positive (Negative) Glucose (Fingerstick) 129mg/dL (70-99) Test 06/30/16 09:40 06/30/16 10:56 06/30/16 17:00 06/30/16 17:42 Sodium Level 145mmol/L (136-145) Potassium Level 3.7mmol/L (3.5-5.1) Chloride Level 110mmol/L (98-107) Carbon Dioxide Level 25mmol/L (21-32) Anion Gap 10 (6-14) Blood Urea Nitrogen 42mg/dL (7-20) Creatinine 1.5mg/dL (0.6-1.0) Estimated GFR (Cockcroft-Gault) 40.1 Glucose Level 127mg/dL (70-99) Lactic Acid Level 2.1mmol/L (0.4-2.0) Calcium Level 8.6mg/dL (8.5-10.1) Magnesium Level 2.0mg/dL (1.8-2.4) Triglycerides Level 104mg/dL (0-150) Cholesterol Level 143mg/dL (0-200) LDL Cholesterol, Calculated 91mg/dL (0-100) VLDL Cholesterol, Calculated 21mg/dL (0-40) HDL Cholesterol 31mg/dL (40-60) Cholesterol/HDL Ratio 4.6 Thyroid Stimulating Hormone (TSH) 0.450uIU/mL (0.358-3.74) Glucose (Fingerstick) 133mg/dL (70-99) 164mg/dL (70-99) O2 Saturation 96% (92-99) Arterial Blood pH 7.45 (7.35-7.45) Arterial Blood pCO2 at Patient Temp 33mmHg (35-46) Arterial Blood pO2 at Patient Temp 79mmHg (65-108) Arterial Blood HCO3 23mmol/L (21-28) Arterial Blood Base Excess -1mmol/L (-3-3) FiO2 28 Test 06/30/16 21:05 07/01/16 04:31 07/01/16 08:04 Glucose (Fingerstick) 145mg/dL (70-99) 171mg/dL (70-99) White Blood Count 11.1x10^3/uL (4.0-11.0) Red Blood Count 4.51x10^6/uL (3.50-5.40) Hemoglobin 12.4g/dL (12.0-15.5) Hematocrit 38.9% (36.0-47.0) Mean Corpuscular Volume 86fL (79-100) Mean Corpuscular Hemoglobin 27pg (25-35) Mean Corpuscular Hemoglobin Concent 32g/dL (31-37) Red Cell Distribution Width 17.5% (11.5-14.5) Platelet Count 105x10^3/uL (140-400) Neutrophils (%) (Auto) 93% (31-73) Lymphocytes (%) (Auto) 3% (24-48) Monocytes (%) (Auto) 4% (0-9) Eosinophils (%) (Auto) 0% (0-3) Basophils (%) (Auto) 0% (0-3) Neutrophils # (Auto) 10.3x10^3uL (1.8-7.7) Lymphocytes # (Auto) 0.3x10^3/uL (1.0-4.8) Monocytes # (Auto) 0.4x10^3/uL (0.0-1.1) Eosinophils # (Auto) 0.0x10^3/uL (0.0-0.7) Basophils # (Auto) 0.0x10^3/uL (0.0-0.2) Sodium Level 146mmol/L (136-145) Potassium Level 3.7mmol/L (3.5-5.1) Chloride Level 110mmol/L (98-107) Carbon Dioxide Level 26mmol/L (21-32) Anion Gap 10 (6-14) Blood Urea Nitrogen 37mg/dL (7-20) Creatinine 1.2mg/dL (0.6-1.0) Estimated GFR (Cockcroft-Gault) 51.9 Glucose Level 190mg/dL (70-99) Calcium Level 9.0mg/dL (8.5-10.1) Magnesium Level 2.1mg/dL (1.8-2.4) Total Bilirubin 0.6mg/dL (0.2-1.0) Direct Bilirubin 0.3mg/dL (0.0-0.2) Aspartate Amino Transf (AST/SGOT) 60U/L (15-37) Alanine Aminotransferase (ALT/SGPT) 101U/L (14-59) Alkaline Phosphatase 48U/L (46-116) Total Protein 5.9g/dL (6.4-8.2) Albumin 2.0g/dL (3.4-5.0) Laboratory Tests Test 06/30/16 10:56 06/30/16 17:00 06/30/16 17:42 06/30/16 21:05 Glucose (Fingerstick) 133mg/dL (70-99) 164mg/dL (70-99) 145mg/dL (70-99) O2 Saturation 96% (92-99) Arterial Blood pH 7.45 (7.35-7.45) Arterial Blood pCO2 at Patient Temp 33mmHg (35-46) Arterial Blood pO2 at Patient Temp 79mmHg (65-108) Arterial Blood HCO3 23mmol/L (21-28) Arterial Blood Base Excess -1mmol/L (-3-3) FiO2 28 Test 07/01/16 04:31 07/01/16 08:04 White Blood Count 11.1x10^3/uL (4.0-11.0) Red Blood Count 4.51x10^6/uL (3.50-5.40) Hemoglobin 12.4g/dL (12.0-15.5) Hematocrit 38.9% (36.0-47.0) Mean Corpuscular Volume 86fL (79-100) Mean Corpuscular Hemoglobin 27pg (25-35) Mean Corpuscular Hemoglobin Concent 32g/dL (31-37) Red Cell Distribution Width 17.5% (11.5-14.5) Platelet Count 105x10^3/uL (140-400) Neutrophils (%) (Auto) 93% (31-73) Lymphocytes (%) (Auto) 3% (24-48) Monocytes (%) (Auto) 4% (0-9) Eosinophils (%) (Auto) 0% (0-3) Basophils (%) (Auto) 0% (0-3) Neutrophils # (Auto) 10.3x10^3uL (1.8-7.7) Lymphocytes # (Auto) 0.3x10^3/uL (1.0-4.8) Monocytes # (Auto) 0.4x10^3/uL (0.0-1.1) Eosinophils # (Auto) 0.0x10^3/uL (0.0-0.7) Basophils # (Auto) 0.0x10^3/uL (0.0-0.2) Sodium Level 146mmol/L (136-145) Potassium Level 3.7mmol/L (3.5-5.1) Chloride Level 110mmol/L (98-107) Carbon Dioxide Level 26mmol/L (21-32) Anion Gap 10 (6-14) Blood Urea Nitrogen 37mg/dL (7-20) Creatinine 1.2mg/dL (0.6-1.0) Estimated GFR (Cockcroft-Gault) 51.9 Glucose Level 190mg/dL (70-99) Calcium Level 9.0mg/dL (8.5-10.1) Magnesium Level 2.1mg/dL (1.8-2.4) Total Bilirubin 0.6mg/dL (0.2-1.0) Direct Bilirubin 0.3mg/dL (0.0-0.2) Aspartate Amino Transf (AST/SGOT) 60U/L (15-37) Alanine Aminotransferase (ALT/SGPT) 101U/L (14-59) Alkaline Phosphatase 48U/L (46-116) Total Protein 5.9g/dL (6.4-8.2) Albumin 2.0g/dL (3.4-5.0) Glucose (Fingerstick) 171mg/dL (70-99) Microbiology 06/29/16 Blood Culture - Preliminary, Resulted 06/29/16 Blood Culture Result 1 (MAIKOL) - Preliminary, Resulted 06/29/16 Urine Culture - Final, Complete 06/29/16 Urine Culture Result 1 (MAIKOL) - Final, Complete 06/29/16 Antimicrobic Susceptibility - Final, Complete Medications Current Medications Albuterol/ Ipratropium 3 ml 3 ml 1X ONCE NEB Last administered on 06/29/16 21: 24; Start 06/29/16 at 20:30; Stop 06/29/16 at 20:31; Status DC Sodium Chloride 1,000 ml @ 1,000 mls/hr 1X ONCE IV Last administered on 21:10; Start 06/29/16 at 20:30; Stop 06/29/16 at 21:29; Status DC Piperacillin Sod/ Tazobactam Sod/ Sodium Chloride (Zosyn/Iv Sodium Chloride 0.9 % 50ml) 50 ml @ 100 mls/hr 1X ONCE IV Last administered on 06/29/16 21:09; Start 06/29/16 at 20:30; Stop 06/29/16 at 20:59; Status DC Ondansetron HCl 4 mg 4 mg PRN Q8HRS PRN IV NAUSEA/VOMITING; Start 06/29/16 at 21 :30; Stop 06/30/16 at 21:29; Status DC Sodium Chloride (Iv Sodium Chloride 0.9% 1000ml Bag) 1,000 ml @ 125 mls/hr Q8H IV Last administered on 06/30/16 00:30; Start 06/29/16 at 21:24; Stop 06/30/16 at 08:30; Status DC Acetaminophen (Tylenol) 650 mg PRN Q4HRS PRN PO FEVER; Start 06/29/16 at 21:30; Stop 06/30/16 at 00:52; Status DC Albuterol/ Ipratropium (Duoneb) 3 ml RTQID NEB ; Start 06/30/16 at 08:00; Stop at 08:00; Status DC Oseltamivir Phosphate (Tamiflu) 75 mg BID PO ; Start 06/30/16 at 09:00; Stop 07/05 at 08:59; Status UNV Methylprednisolone Sodium Succinate (Solu-Medrol 40mg Vial) 40 mg BID IV ; Start 06/30/16 at 09:00; Stop 06/30/16 at 09:00; Status DC Oseltamivir Phosphate (Tamiflu) 30 mg 1X ONCE PO Last administered on 22:26; Start 06/29/16 at 22:45; Stop 06/29/16 at 22:46; Status DC Oseltamivir Phosphate (Tamiflu) 30 mg QHS PO Last administered on 06/30/16 21: 37; Start 06/30/16 at 21:00; Stop 07/03/16 at 21:01 Insulin Detemir (Levemir) 29 units QHS SQ ; Start 06/30/16 at 21:00; Stop at 21:00; Status DC Insulin Aspart (Novolog) 0-5 UNITS TIDWMEALS SQ Last administered on 07/01/16 08:46; Start 06/30/16 at 08:00 Dextrose 12.5 gm PRN Q15MIN PRN IV SEE COMMENTS; Start 06/30/16 at 00:45 Acetaminophen (Tylenol) 500 mg PRN Q8HRS PRN PO MILD PAIN / TEMP; Start at 00:45 Allopurinol (Zyloprim) 100 mg QHS PO Last administered on 06/30/16 21:37; Start 06/30/16 at 21:00 Amiodarone HCl (Cordarone) 200 mg DAILY PO Last administered on 07/01/16 08:32 ; Start 06/30/16 at 09:00 Aspirin (Children'S Aspirin) 81 mg DAILY PO Last administered on 07/01/16 08:30 ; Start 06/30/16 at 09:00 Cetirizine HCl (Zyrtec) 10 mg DAILY PO Last administered on 07/01/16 08:31; Start 06/30/16 at 09:00 Vitamin D (Vitamin D3) 2,000 unit DAILY PO Last administered on 07/01/16 08:30 ; Start 06/30/16 at 09:00 Diclofenac Sodium (Voltaren) 1 ld HS TP ; Start 06/30/16 at 21:00; Stop 06/30/16 at 21:00; Status DC Fluticasone Propionate (Flonase) 2 spray DAILY NS Last administered on 08:34; Start 06/30/16 at 09:00 Acetaminophen/ Hydrocodone Bitart (Lortab 7.5/325) 1 tab PRN Q6HRS PRN PO SEVERE PAIN; Start 06/30/16 at 00:45 Insulin Aspart (Novolog) 1 units TIDBFRMEAL SQ ; Start 06/30/16 at 07:30; Status UNV Montelukast Sodium (Singulair) 10 mg HS PO Last administered on 06/30/16 21:36 ; Start 06/30/16 at 21:00 Spironolactone (Aldactone) 25 mg DAILY PO Last administered on 07/01/16 08:31; Start 06/30/16 at 09:00 Albuterol Sulfate (Ventolin Neb Soln) 2.5 mg PRN QID PRN NEB SHORTNESS OF BREATH; Start 06/30/16 at 01:00; Stop 06/30/16 at 08:24; Status DC Non-Formulary Medication 1 cap DAILY PO ; Start 06/30/16 at 09:00; Status UNV Non-Formulary Medication 1 each BID IH ; Start 06/30/16 at 09:00; Status UNV Non-Formulary Medication 40 unit HS SQ ; Start 06/30/16 at 21:00; Status UNV Pantoprazole Sodium (Protonix) 40 mg DAILYAC PO Last administered on 07/01/16 08:31; Start 06/30/16 at 07:30 Albuterol/ Ipratropium (Duoneb) 3 ml RTQID NEB Last administered on 07/01/16 07 :10; Start 06/30/16 at 08:00 Budesonide (Pulmicort) 0.5 mg RTBID NEB Last administered on 06/30/16 07:41; Start 06/30/16 at 08:00; Stop 06/30/16 at 16:24; Status DC Albuterol Sulfate (Ventolin Neb Soln) 2.5 mg PRN Q2HR PRN NEB SHORTNESS OF BREATH; Start 06/30/16 at 08:30 Methylprednisolone Sodium Succinate (Solu-Medrol 40mg Vial) 40 mg Q12HR IV Last administered on 07/01/16 08:33; Start 06/30/16 at 09:00 Bisacodyl (Dulcolax Supp) 10 mg PRN DAILY PRN RC CONSTIPATION; Start 06/30/16 at 08:30 Multivitamins/ Calcium 1 tab 1 tab DAILY PO Last administered on 07/01/16 08:30 ; Start 06/30/16 at 09:00 Sodium Chloride 1,000 ml @ 75 mls/hr [id number] IV ; Start 06/30/16 at 08:30; Stop 06/30/16 at 08:34; Status DC Piperacillin Sod/ Tazobactam Sod 2.25 gm/Sodium Chloride 50 ml @ 100 mls/hr Q6HRS IV Last administered on 07/01/16 05:29; Start 06/30/16 at 09:00 Linezolid (Zyvox Premix) 300 ml @ 300 mls/hr Q12HR IV Last administered on 07/01 08:36; Start 06/30/16 at 10:00; Stop 07/01/16 at 09:44; Status DC Diclofenac Sodium (Voltaren) 1 ld QID TP Last administered on 07/01/16 09:05; Start 06/30/16 at 10:00 Insulin Detemir (Levemir) 15 units QHS SQ ; Start 06/30/16 at 21:00 Cyanocobalamin (Vitamin B-12) 1,000 mcg DAILY PO Last administered on 07/01/16 08:31; Start 06/30/16 at 10:00 Vitamin D (Vitamin D3) 2,000 unit DAILY PO ; Start 06/30/16 at 10:00; Status Cancel Artificial Tears (Artificial Tears) 2 drop PRN QID PRN OU DRY EYE; Start at 09:45 Carvedilol (Coreg) 3.125 mg BIDWMEALS PO Last administered on 07/01/16 08:33; Start 06/30/16 at 10:00 Lidocaine (Lidoderm) 1 patch DAILY TD Last administered on 07/01/16 08:36; Start 06/30/16 at 11:00 Furosemide (Lasix) 40 mg DAILY PO Last administered on 07/01/16 08:31; Start at 12:00 Furosemide (Lasix) 40 mg 1X ONCE IVP ; Start 06/30/16 at 14:00; Stop 06/30/16 at 14:01; Status DC Potassium Chloride (Klor-Con) 20 meq 1X ONCE PO Last administered on 06/30/16 14:27; Start 06/30/16 at 13:00; Stop 06/30/16 at 13:01; Status DC Guaifenesin (Mucinex) 600 mg BID PO Last administered on 07/01/16 08:45; Start 07/01/16 at 09:00 Mupirocin (Bactroban) 1 ld BID NS Last administered on 07/01/16 09:05; Start 07/01/16 at 09:00 Vancomycin HCl 1 each 1 each PRN DAILY PRN MC SEE COMMENTS; Start 07/01/16 at 09 :45 Vancomycin HCl/ Sodium Chloride (Iv Sodium Chloride 0.9% 500ml Bag) 500 ml @ 250 mls/hr 1X ONCE IV ; Start 07/01/16 at 10:30; Stop 07/01/16 at 12:29 Active Scripts Active Lantus (Insulin Glargine,Hum.rec.anlog) 100 Unit/1 Ml Vial 40 Unit SQ HS Potassium Chloride 20 Meq Tab.er.prt 20 Meq PO EVERY OTHER DAY Lasix (Furosemide) 40 Mg Tablet 60 Mg PO DAILY Tylenol Extra Strength (Acetaminophen) 500 Mg Tablet 500 Mg PO PRN Q8HRS PRN Losartan Potassium 25 Mg Tablet 25 Mg PO DAILY Rulox Suspension (Mag Hydrox/Al Hydrox/Simeth) 355 Ml Oral.susp 60 Ml PO PRN Q2HR PRN Glucose (Dextrose) 4 Gm Tab.chew 12 Gm PO PRN PRN Bisacodyl 10 Mg Supp.rect 10 Mg RC PRN DAILY PRN Albuterol Sulfate Conc Neb Soln (Albuterol Sulfate) 2.5 Mg/0.5 Ml Vial.neb 2.5 Mg NEB PRN QID PRN Zyrtec (Cetirizine Hcl) 10 Mg Tablet 0.5 Tab PO DAILY Reported Novolog Flexpen (Insulin Aspart) 100 Unit/1 Ml Insuln.pen 1 Unit SQ Singulair Tablet (Montelukast Sodium) 10 Mg Tablet 10 Mg PO HS Allopurinol 100 Mg Tablet 100 Mg PO QHS Vitamin D (Cholecalciferol (Vitamin D3)) 2,000 Unit Capsule 1 Cap PO DAILY Vitamin D (Cholecalciferol (Vitamin D3)) 5,000 Unit Capsule 2,000 Unit PO Torsemide 10 Mg Tablet 10 Mg PO Spironolactone 25 Mg Tablet 25 Mg PO DAILY Omeprazole 20 Mg Capsule.dr 20 Mg PO DAILY Hydrocodone-Apap 7.5-325 (Hydrocodone Bit/Acetaminophen) 1 Each Tablet 1 Tab PO PRN Q6HRS PRN Aspirin 81 Mg Tab.chew 1 Tab PO DAILY Ventolin Hfa Inhaler (Albuterol Sulfate) 18 Gm Hfa.aer.ad 18 Gm IH PRN Advair 250-50 Diskus (Fluticasone/Salmeterol) 1 Each Disk.w.dev 1 Each IH BID Voltaren (Diclofenac Sodium) 100 Gm Gel..gram. 100 Gm TP One Daily (Multivitamin) 1 Each Tablet 1 Each PO Flonase (Fluticasone Propionate) 16 Gm Lindsay.susp 16 Gm NS Amiodarone Hcl 200 Mg Tablet 200 Mg PO Vitals/I & O Vital Sign - Last 24 Hours 06/30/16 06/30/16 06/30/16 06/30/16 10:50 11:45 12:17 15:00 Temp 98.4 98.4 98.4 98.4 Pulse 75 64 Resp 20 20 B/P 123/59 123/59 113/59 Pulse Ox 93 O2 Delivery Nasal Cannula Nasal Cannula Nasal Cannula O2 Flow Rate 2.0 2.0 06/30/16 06/30/16 06/30/16 06/30/16 16:14 17:00 19:59 20:00 Temp 98.7 98.7 Pulse 62 63 Resp 16 B/P 104/56 102/58 Pulse Ox 96 100 O2 Delivery Nasal Cannula Nasal Cannula Nasal Cannula O2 Flow Rate 2.0 2.0 2.0 06/30/16 06/30/16 07/01/16 07/01/16 20:59 23:08 02:04 07:12 Temp 98.5 98.1 98.5 98.1 Pulse 61 64 Resp 20 16 B/P 121/59 119/73 Pulse Ox 96 94 99 98 O2 Delivery Nasal Cannula Venturi Mask Nasal Cannula Nasal Cannula O2 Flow Rate 1.0 10.0 2.0 1.0 07/01/16 07/01/16 07/01/16 07:45 08:32 08:33 Temp 98.9 98.9 Pulse 64 64 64 Resp 25 B/P 121/65 121/65 121/65 Pulse Ox 97 O2 Delivery Nasal Cannula O2 Flow Rate 2.0 Intake and Output 06/30/16 06/30/16 07/01/16 15:00 23:00 07:00 Intake Total 0 ml 0 ml Output Total 1500 ml 700 ml Balance -1500 ml -700 ml KENNA NORTON MD Jul 01, 2016 10:36
[2016-07-01 11:07] VITALS: BP 124/74
--- NOTE | 2016-07-01 11:13 | PDOC ---
CARDIO Progress Notes Date and Time Date of Service 07/01/16 Time of Evaluation 1100 Subjective Subjective: No Chest Pain, No Palpitations, No Dizziness, Other (feeling better but tired) Vitals Vitals Vital Signs Date Time Temp Pulse Resp B/P Pulse Ox O2 Delivery O2 Flow Rate FiO2 07/01/16 11:07 97.9 69 20 124/74 98 Nasal Cannula 2.0 97.9 Weight Weight [ ] Input and Output Intake and Output Intake and Output 07/01/16 07:00 Intake Total 0 ml Output Total 2200 ml Balance -2200 ml Intake Oral 0 ml Output Urine Total 2200 ml # Voids 1 Laboratory Labs Laboratory Tests Test 06/30/16 17:00 06/30/16 17:42 06/30/16 21:05 07/01/16 04:31 O2 Saturation 96% (92-99) Arterial Blood pH 7.45 (7.35-7.45) Arterial Blood pCO2 at Patient Temp 33mmHg (35-46) Arterial Blood pO2 at Patient Temp 79mmHg (65-108) Arterial Blood HCO3 23mmol/L (21-28) Arterial Blood Base Excess -1mmol/L (-3-3) FiO2 28 Glucose (Fingerstick) 164mg/dL (70-99) 145mg/dL (70-99) White Blood Count 11.1x10^3/uL (4.0-11.0) Red Blood Count 4.51x10^6/uL (3.50-5.40) Hemoglobin 12.4g/dL (12.0-15.5) Hematocrit 38.9% (36.0-47.0) Mean Corpuscular Volume 86fL (79-100) Mean Corpuscular Hemoglobin 27pg (25-35) Mean Corpuscular Hemoglobin Concent 32g/dL (31-37) Red Cell Distribution Width 17.5% (11.5-14.5) Platelet Count 105x10^3/uL (140-400) Neutrophils (%) (Auto) 93% (31-73) Lymphocytes (%) (Auto) 3% (24-48) Monocytes (%) (Auto) 4% (0-9) Eosinophils (%) (Auto) 0% (0-3) Basophils (%) (Auto) 0% (0-3) Neutrophils # (Auto) 10.3x10^3uL (1.8-7.7) Lymphocytes # (Auto) 0.3x10^3/uL (1.0-4.8) Monocytes # (Auto) 0.4x10^3/uL (0.0-1.1) Eosinophils # (Auto) 0.0x10^3/uL (0.0-0.7) Basophils # (Auto) 0.0x10^3/uL (0.0-0.2) Sodium Level 146mmol/L (136-145) Potassium Level 3.7mmol/L (3.5-5.1) Chloride Level 110mmol/L (98-107) Carbon Dioxide Level 26mmol/L (21-32) Anion Gap 10 (6-14) Blood Urea Nitrogen 37mg/dL (7-20) Creatinine 1.2mg/dL (0.6-1.0) Estimated GFR (Cockcroft-Gault) 51.9 Glucose Level 190mg/dL (70-99) Calcium Level 9.0mg/dL (8.5-10.1) Magnesium Level 2.1mg/dL (1.8-2.4) Total Bilirubin 0.6mg/dL (0.2-1.0) Direct Bilirubin 0.3mg/dL (0.0-0.2) Aspartate Amino Transf (AST/SGOT) 60U/L (15-37) Alanine Aminotransferase (ALT/SGPT) 101U/L (14-59) Alkaline Phosphatase 48U/L (46-116) Total Protein 5.9g/dL (6.4-8.2) Albumin 2.0g/dL (3.4-5.0) Test 07/01/16 08:04 Glucose (Fingerstick) 171mg/dL (70-99) Microbiology Micro Microbiology 06/29/16 Blood Culture - Preliminary, Resulted 06/29/16 Blood Culture Result 1 (MAIKOL) - Preliminary, Resulted 06/29/16 Urine Culture - Final, Complete 06/29/16 Urine Culture Result 1 (MAIKOL) - Final, Complete 06/29/16 Antimicrobic Susceptibility - Final, Complete Physical Exam HEENT: Neck Supple W Full Motion Chest: Symmetric LUNGS: Other (bibasilar crackles) Heart: S1S2, RRR, other (2/6 systolic murmur ) Abdomen: Soft N/T Extremities: No Calf Tenderness, Other (trace LE edema ) Neurology: alert, follow commands Assessment Assessment 1. Acute on chronic systolic HF received oral lasix 3/2- IV dose held. Continue diuresis with monitoring of labs EF 35-40 % with ICM per chart review. echo (complete last month) report pending from Dr. Mosley 2. Acute respiratory failure ? aspiration PNA multifactorial 3. Leukocytosis/fevers/Influenza Tamiflu started per ID 4. ANIKET with CKD per nephrology 5. HTN low-normotensive hold antiHTN therapy as warranted. 6. Encephalopathy 7. Hx AFIB Maintaining SR. Continue Amio interrogate PPM 8. Transaminitis GI consulted 9. Diabetes, II DEBBIE MOYA APRN Jul 01, 2016 11:13
--- NOTE | 2016-07-01 12:40 | PDOC ---
Renal-Progress Notes Subjective Notes Notes NONE History of Present Illness Hx of present illness LESS CONFUSED Vitals Vitals Vital Signs Date Time Temp Pulse Resp B/P Pulse Ox O2 Delivery O2 Flow Rate FiO2 07/01/16 11:30 100 Nasal Cannula 1.0 07/01/16 11:07 97.9 69 20 124/74 97.9 Weight Weight [ ] I.O. Intake and Output Intake and Output 07/01/16 07:00 Intake Total 0 ml Output Total 2200 ml Balance -2200 ml Intake Oral 0 ml Output Urine Total 2200 ml # Voids 1 Labs Labs Laboratory Tests Test 06/30/16 17:00 06/30/16 17:42 06/30/16 21:05 07/01/16 04:31 O2 Saturation 96% (92-99) Arterial Blood pH 7.45 (7.35-7.45) Arterial Blood pCO2 at Patient Temp 33mmHg (35-46) Arterial Blood pO2 at Patient Temp 79mmHg (65-108) Arterial Blood HCO3 23mmol/L (21-28) Arterial Blood Base Excess -1mmol/L (-3-3) FiO2 28 Glucose (Fingerstick) 164mg/dL (70-99) 145mg/dL (70-99) White Blood Count 11.1x10^3/uL (4.0-11.0) Red Blood Count 4.51x10^6/uL (3.50-5.40) Hemoglobin 12.4g/dL (12.0-15.5) Hematocrit 38.9% (36.0-47.0) Mean Corpuscular Volume 86fL (79-100) Mean Corpuscular Hemoglobin 27pg (25-35) Mean Corpuscular Hemoglobin Concent 32g/dL (31-37) Red Cell Distribution Width 17.5% (11.5-14.5) Platelet Count 105x10^3/uL (140-400) Neutrophils (%) (Auto) 93% (31-73) Lymphocytes (%) (Auto) 3% (24-48) Monocytes (%) (Auto) 4% (0-9) Eosinophils (%) (Auto) 0% (0-3) Basophils (%) (Auto) 0% (0-3) Neutrophils # (Auto) 10.3x10^3uL (1.8-7.7) Lymphocytes # (Auto) 0.3x10^3/uL (1.0-4.8) Monocytes # (Auto) 0.4x10^3/uL (0.0-1.1) Eosinophils # (Auto) 0.0x10^3/uL (0.0-0.7) Basophils # (Auto) 0.0x10^3/uL (0.0-0.2) Sodium Level 146mmol/L (136-145) Potassium Level 3.7mmol/L (3.5-5.1) Chloride Level 110mmol/L (98-107) Carbon Dioxide Level 26mmol/L (21-32) Anion Gap 10 (6-14) Blood Urea Nitrogen 37mg/dL (7-20) Creatinine 1.2mg/dL (0.6-1.0) Estimated GFR (Cockcroft-Gault) 51.9 Glucose Level 190mg/dL (70-99) Calcium Level 9.0mg/dL (8.5-10.1) Magnesium Level 2.1mg/dL (1.8-2.4) Total Bilirubin 0.6mg/dL (0.2-1.0) Direct Bilirubin 0.3mg/dL (0.0-0.2) Aspartate Amino Transf (AST/SGOT) 60U/L (15-37) Alanine Aminotransferase (ALT/SGPT) 101U/L (14-59) Alkaline Phosphatase 48U/L (46-116) Total Protein 5.9g/dL (6.4-8.2) Albumin 2.0g/dL (3.4-5.0) Test 07/01/16 08:04 Glucose (Fingerstick) 171mg/dL (70-99) Micro Micro Microbiology 06/29/16 Blood Culture - Preliminary, Resulted 06/29/16 Blood Culture Result 1 (MAIKOL) - Preliminary, Resulted 06/29/16 Urine Culture - Final, Complete 06/29/16 Urine Culture Result 1 (MAIKOL) - Final, Complete 06/29/16 Antimicrobic Susceptibility - Final, Complete Review of Systems Constitutional: yes: no symptom reported Ears/Nose/Throat: Yes: no symptom reported Eyes: Yes: no symptom reported Pulmonary: Yes no symptom reported Cardiovascular: Yes no symptom reported Gastrointestional: Yes: no symptom reported Genitourinary: Yes: no symptom reported Skin: Yes no symptom reported Physical Exam General Appearance: no apparent distress Skin: warm Respiratory: decreased breath sounds Heart: S1S2, RRR Abdomen: soft, bowel sounds present Extremities: pulses present Neurology: alert Musculoskeletal: low back pain, Osteoarthritis, Other (DDD) Assessment Assessment IMP INFLUENZA ANIKET-IMPROVED CKD STAGE 3 WITH CR OF ABOUT 1.5 CHF-MILD MET ENCEPHALOPATHY LEUCOCYTOSIS PLAN SUPPORTIVE CARE CONT DIURETICS LEMUEL WILLETT MD Jul 01, 2016 12:40
--- NOTE | 2016-07-01 13:32 | PDOC ---
Subjective: Subjective: Offers no GI complaints. Wants to turn up the tv and watch [facility]. Objective: Objective: No GI issues per RN. Vital Signs: Vital Signs Date Time Temp Pulse Resp B/P Pulse Ox O2 Delivery O2 Flow Rate FiO2 07/01/16 11:30 100 Nasal Cannula 1.0 07/01/16 11:07 97.9 69 20 124/74 97.9 Labs: Laboratory Tests Test 06/30/16 17:42 06/30/16 21:05 07/01/16 08:04 Glucose (Fingerstick) 164mg/dL (70-99) 145mg/dL (70-99) 171mg/dL (70-99) Imaging: Chest CT 06/30/16 IMPRESSION: 1. Dense consolidation in the right lower lobe into a lesser degree in the posterior aspect of the right upper and middle lobes suggesting pneumonia. Underlying neoplasm in the right lower lobe cannot be excluded. 2. Moderate sized right pleural effusion. 3. Mild left basilar atelectasis. 4. Cardiomegaly with coronary artery calcifications. PE: GEN: NAD, sitting up in bed eating lunch LUNGS: decreased anteriorly, nasal cannula HEART: RRR ABD: S/ND/NT NEURO/PSYCH: probably a bit confused A/P: Transaminitis - improving CHF, Influenza B, encephalopathy, fever, leukocytosis -CT chest suggestive of pneumonia (?aspiration) -followed by pulm, ID, cardiology H/o Lehman's esophagus, GERD -per chart, on PPI -- LFTs improved. Continue same per GI. FRANCIA SHAH Jul 01, 2016 13:32
[2016-07-01] MEDS: VANCOMYCIN PER PHARMACY MC PRN (14:24)
[2016-07-01 15:50] VITALS: BP 113/59
[2016-07-01] MEDS ORDERED: FUROSEMIDE 40 MG/4 ML VIAL IVP ONE (16:00)
--- NOTE | 2016-07-01 16:24 | PDOC ---
PULMONARY PROGRESS NOTES Subjective PT MORE AWAKE AND ALERT SICK FOR A WEEK Vitals Vital Signs Date Time Temp Pulse Resp B/P Pulse Ox O2 Delivery O2 Flow Rate FiO2 07/01/16 16:19 98 Nasal Cannula 1.0 07/01/16 15:50 66 20 113/59 07/01/16 11:07 97.9 97.9 ROS: No Nausea, No Chest Pain, No Abdominal Pain General: Alert Lungs: Clear Cardiovascular: S1, S2, Other (DECREASE BS ON RIGHT) Abdomen: Soft Neuro Exam: Alert Extremities: No Edema Skin: Warm Labs Laboratory Tests Test 06/29/16 20:38 06/29/16 20:50 06/29/16 23:00 06/30/16 08:05 White Blood Count 13.9x10^3/uL (4.0-11.0) Red Blood Count 5.01x10^6/uL (3.50-5.40) Hemoglobin 13.6g/dL (12.0-15.5) Hematocrit 42.8% (36.0-47.0) Mean Corpuscular Volume 85fL (79-100) Mean Corpuscular Hemoglobin 27pg (25-35) Mean Corpuscular Hemoglobin Concent 32g/dL (31-37) Red Cell Distribution Width 17.9% (11.5-14.5) Platelet Count 141x10^3/uL (140-400) Neutrophils (%) (Auto) 91% (31-73) Lymphocytes (%) (Auto) 5% (24-48) Monocytes (%) (Auto) 4% (0-9) Eosinophils (%) (Auto) 0% (0-3) Basophils (%) (Auto) 0% (0-3) Neutrophils # (Auto) 12.7x10^3uL (1.8-7.7) Lymphocytes # (Auto) 0.7x10^3/uL (1.0-4.8) Monocytes # (Auto) 0.5x10^3/uL (0.0-1.1) Eosinophils # (Auto) 0.0x10^3/uL (0.0-0.7) Basophils # (Auto) 0.1x10^3/uL (0.0-0.2) Segmented Neutrophils % 45% (35-66) Band Neutrophils % 38% (0-9) Lymphocytes % 12% (24-48) Monocytes % 3% (0-10) Metamyelocytes % 2% (0-0) Toxic Granulation Slight Toxic Vacuolation Slight Platelet Estimate Adequate (ADEQUATE) Poikilocytosis Slight Anisocytosis Slight Spherocytes Occ Target Cells Occ Sodium Level 138mmol/L (136-145) Potassium Level 4.1mmol/L (3.5-5.1) Chloride Level 101mmol/L (98-107) Carbon Dioxide Level 22mmol/L (21-32) Anion Gap 15 (6-14) Blood Urea Nitrogen 54mg/dL (7-20) Creatinine 2.0mg/dL (0.6-1.0) Estimated GFR (Cockcroft-Gault) 28.8 BUN/Creatinine Ratio 27 (6-20) Glucose Level 196mg/dL (70-99) Calcium Level 9.2mg/dL (8.5-10.1) Total Bilirubin 0.8mg/dL (0.2-1.0) Aspartate Amino Transf (AST/SGOT) 159U/L (15-37) Alanine Aminotransferase (ALT/SGPT) 155U/L (14-59) Alkaline Phosphatase 58U/L (46-116) PJ-Imi-R-Type Natriuretic Peptide 9923pg/mL (0-449) Total Protein 7.1g/dL (6.4-8.2) Albumin 3.0g/dL (3.4-5.0) Albumin/Globulin Ratio 0.7 (1.0-1.7) Influenza Type A Antigen Negative (NEGATIVE) Influenza Type B Antigen Positive (NEGATIVE) Urine Collection Type U cath Urine Color Yellow Urine Clarity Clear Urine pH 5.0 Urine Specific [place] 1.015 Urine Protein Negativemg/dL (NEG-TRACE) Urine Glucose (UA) Negativemg/dL (NEG) Urine Ketones (Stick) Negativemg/dL (NEG) Urine Blood Trace (NEG) Urine Nitrite Negative (NEG) Urine Bilirubin Negative (NEG) Urine Urobilinogen Dipstick 0.2mg/dL (0.2 mg/dL) Urine Leukocyte Esterase Negative (NEG) Urine RBC 0/HPF (0-2) Urine WBC Occ/HPF (0-4) Urine Squamous Epithelial Cells Few/LPF Urine Amorphous Sediment Present/HPF Urine Bacteria Many/HPF (0-FEW) Urine Hyaline Casts Few/HPF Urine Mucus Slight/LPF Nasal Screen MRSA (PCR) Positive (Negative) Glucose (Fingerstick) 129mg/dL (70-99) Test 06/30/16 09:40 06/30/16 10:56 06/30/16 17:00 06/30/16 17:42 Sodium Level 145mmol/L (136-145) Potassium Level 3.7mmol/L (3.5-5.1) Chloride Level 110mmol/L (98-107) Carbon Dioxide Level 25mmol/L (21-32) Anion Gap 10 (6-14) Blood Urea Nitrogen 42mg/dL (7-20) Creatinine 1.5mg/dL (0.6-1.0) Estimated GFR (Cockcroft-Gault) 40.1 Glucose Level 127mg/dL (70-99) Lactic Acid Level 2.1mmol/L (0.4-2.0) Calcium Level 8.6mg/dL (8.5-10.1) Magnesium Level 2.0mg/dL (1.8-2.4) Triglycerides Level 104mg/dL (0-150) Cholesterol Level 143mg/dL (0-200) LDL Cholesterol, Calculated 91mg/dL (0-100) VLDL Cholesterol, Calculated 21mg/dL (0-40) HDL Cholesterol 31mg/dL (40-60) Cholesterol/HDL Ratio 4.6 Thyroid Stimulating Hormone (TSH) 0.450uIU/mL (0.358-3.74) Glucose (Fingerstick) 133mg/dL (70-99) 164mg/dL (70-99) O2 Saturation 96% (92-99) Arterial Blood pH 7.45 (7.35-7.45) Arterial Blood pCO2 at Patient Temp 33mmHg (35-46) Arterial Blood pO2 at Patient Temp 79mmHg (65-108) Arterial Blood HCO3 23mmol/L (21-28) Arterial Blood Base Excess -1mmol/L (-3-3) FiO2 28 Test 06/30/16 21:05 07/01/16 04:31 07/01/16 08:04 Glucose (Fingerstick) 145mg/dL (70-99) 171mg/dL (70-99) White Blood Count 11.1x10^3/uL (4.0-11.0) Red Blood Count 4.51x10^6/uL (3.50-5.40) Hemoglobin 12.4g/dL (12.0-15.5) Hematocrit 38.9% (36.0-47.0) Mean Corpuscular Volume 86fL (79-100) Mean Corpuscular Hemoglobin 27pg (25-35) Mean Corpuscular Hemoglobin Concent 32g/dL (31-37) Red Cell Distribution Width 17.5% (11.5-14.5) Platelet Count 105x10^3/uL (140-400) Neutrophils (%) (Auto) 93% (31-73) Lymphocytes (%) (Auto) 3% (24-48) Monocytes (%) (Auto) 4% (0-9) Eosinophils (%) (Auto) 0% (0-3) Basophils (%) (Auto) 0% (0-3) Neutrophils # (Auto) 10.3x10^3uL (1.8-7.7) Lymphocytes # (Auto) 0.3x10^3/uL (1.0-4.8) Monocytes # (Auto) 0.4x10^3/uL (0.0-1.1) Eosinophils # (Auto) 0.0x10^3/uL (0.0-0.7) Basophils # (Auto) 0.0x10^3/uL (0.0-0.2) Sodium Level 146mmol/L (136-145) Potassium Level 3.7mmol/L (3.5-5.1) Chloride Level 110mmol/L (98-107) Carbon Dioxide Level 26mmol/L (21-32) Anion Gap 10 (6-14) Blood Urea Nitrogen 37mg/dL (7-20) Creatinine 1.2mg/dL (0.6-1.0) Estimated GFR (Cockcroft-Gault) 51.9 Glucose Level 190mg/dL (70-99) Calcium Level 9.0mg/dL (8.5-10.1) Magnesium Level 2.1mg/dL (1.8-2.4) Total Bilirubin 0.6mg/dL (0.2-1.0) Direct Bilirubin 0.3mg/dL (0.0-0.2) Aspartate Amino Transf (AST/SGOT) 60U/L (15-37) Alanine Aminotransferase (ALT/SGPT) 101U/L (14-59) Alkaline Phosphatase 48U/L (46-116) Total Protein 5.9g/dL (6.4-8.2) Albumin 2.0g/dL (3.4-5.0) Laboratory Tests Test 06/30/16 17:00 06/30/16 17:42 06/30/16 21:05 07/01/16 04:31 O2 Saturation 96% (92-99) Arterial Blood pH 7.45 (7.35-7.45) Arterial Blood pCO2 at Patient Temp 33mmHg (35-46) Arterial Blood pO2 at Patient Temp 79mmHg (65-108) Arterial Blood HCO3 23mmol/L (21-28) Arterial Blood Base Excess -1mmol/L (-3-3) FiO2 28 Glucose (Fingerstick) 164mg/dL (70-99) 145mg/dL (70-99) White Blood Count 11.1x10^3/uL (4.0-11.0) Red Blood Count 4.51x10^6/uL (3.50-5.40) Hemoglobin 12.4g/dL (12.0-15.5) Hematocrit 38.9% (36.0-47.0) Mean Corpuscular Volume 86fL (79-100) Mean Corpuscular Hemoglobin 27pg (25-35) Mean Corpuscular Hemoglobin Concent 32g/dL (31-37) Red Cell Distribution Width 17.5% (11.5-14.5) Platelet Count 105x10^3/uL (140-400) Neutrophils (%) (Auto) 93% (31-73) Lymphocytes (%) (Auto) 3% (24-48) Monocytes (%) (Auto) 4% (0-9) Eosinophils (%) (Auto) 0% (0-3) Basophils (%) (Auto) 0% (0-3) Neutrophils # (Auto) 10.3x10^3uL (1.8-7.7) Lymphocytes # (Auto) 0.3x10^3/uL (1.0-4.8) Monocytes # (Auto) 0.4x10^3/uL (0.0-1.1) Eosinophils # (Auto) 0.0x10^3/uL (0.0-0.7) Basophils # (Auto) 0.0x10^3/uL (0.0-0.2) Sodium Level 146mmol/L (136-145) Potassium Level 3.7mmol/L (3.5-5.1) Chloride Level 110mmol/L (98-107) Carbon Dioxide Level 26mmol/L (21-32) Anion Gap 10 (6-14) Blood Urea Nitrogen 37mg/dL (7-20) Creatinine 1.2mg/dL (0.6-1.0) Estimated GFR (Cockcroft-Gault) 51.9 Glucose Level 190mg/dL (70-99) Calcium Level 9.0mg/dL (8.5-10.1) Magnesium Level 2.1mg/dL (1.8-2.4) Total Bilirubin 0.6mg/dL (0.2-1.0) Direct Bilirubin 0.3mg/dL (0.0-0.2) Aspartate Amino Transf (AST/SGOT) 60U/L (15-37) Alanine Aminotransferase (ALT/SGPT) 101U/L (14-59) Alkaline Phosphatase 48U/L (46-116) Total Protein 5.9g/dL (6.4-8.2) Albumin 2.0g/dL (3.4-5.0) Test 07/01/16 08:04 Glucose (Fingerstick) 171mg/dL (70-99) Medications Active Scripts Medications Dose Route/Sig Days Date Category Novolog Flexpen (Insulin Aspart) 100 Unit/1 Ml Insuln.pen 1 Unit SQ 06/30/16 Reported Singulair Tablet (Montelukast Sodium) 10 Mg Tablet 10 Mg PO HS 06/30/16 Reported Allopurinol 100 Mg Tablet 100 Mg PO QHS 06/30/16 Reported Vitamin D (Cholecalciferol (Vitamin D3)) 2,000 Unit Capsule 1 Cap PO DAILY 06/30/16 Reported Vitamin D (Cholecalciferol (Vitamin D3)) 5,000 Unit Capsule 2,000 Unit PO 06/30/16 Reported Torsemide 10 Mg Tablet 10 Mg PO 06/30/16 Reported Spironolactone 25 Mg Tablet 25 Mg PO DAILY 06/30/16 Reported Omeprazole 20 Mg Capsule.dr 20 Mg PO DAILY 06/30/16 Reported Lantus (Insulin Glargine,Hum.rec.anlog) 100 Unit/1 Ml Vial 40 Unit SQ HS 07/14/14 Rx Potassium Chloride 20 Meq Tab.er.prt 20 Meq PO EVERY OTHER DAY 07/14/14 Rx Lasix (Furosemide) 40 Mg Tablet 60 Mg PO DAILY 07/14/14 Rx Tylenol Extra Strength (Acetaminophen) 500 Mg Tablet 500 Mg PO PRN Q8HRS PRN 07/14/14 Rx Losartan Potassium 25 Mg Tablet 25 Mg PO DAILY 07/14/14 Rx Rulox Suspension (Mag Hydrox/Al Hydrox/Simeth) 355 Ml Oral.susp 60 Ml PO PRN Q2HR PRN 07/14/14 Rx Glucose (Dextrose) 4 Gm Tab.chew 12 Gm PO PRN PRN 07/14/14 Rx Bisacodyl 10 Mg Supp.rect 10 Mg RC PRN DAILY PRN 07/14/14 Rx Albuterol Sulfate Conc Neb Soln (Albuterol Sulfate) 2.5 Mg/0.5 Ml Vial.neb 2.5 Mg NEB PRN QID PRN 07/14/14 Rx Zyrtec (Cetirizine Hcl) 10 Mg Tablet 0.5 Tab PO DAILY 07/14/14 Rx Hydrocodone-Apap 7.5-325 (Hydrocodone Bit/Acetaminophen) 1 Each Tablet 1 Tab PO PRN Q6HRS PRN 02/21/14 Reported Aspirin 81 Mg Tab.chew 1 Tab PO DAILY 02/21/14 Reported Ventolin Hfa Inhaler (Albuterol Sulfate) 18 Gm Hfa.aer.ad 18 Gm IH PRN 06/25/13 Reported Advair 250-50 Diskus (Fluticasone/Salmeterol) 1 Each Disk.w.dev 1 Each IH BID 06/25/13 Reported Voltaren (Diclofenac Sodium) 100 Gm Gel..gram. 100 Gm TP 05/27/13 Reported One Daily (Multivitamin) 1 Each Tablet 1 Each PO 05/27/13 Reported Flonase (Fluticasone Propionate) 16 Gm Watkins.susp 16 Gm NS 05/27/13 Reported Amiodarone Hcl 200 Mg Tablet 200 Mg PO 05/27/13 Reported Impression . 1. Abnormal x-ray compatible with bilateral pulmonary infiltrates compatible with combination of pneumonia and congestive heart failure. 2. Aazzu-cl-rpqrcur systolic congestive heart failure. 3. Right lower lobe consolidation and effusion, suspect pneumonia, possibly aspiration. 4. Right lower lobe effusion. 5. Metabolic toxic encephalopathy. 6. Jcwsh-sb-rtejcks renal failure. 7. Ischemic cardiomyopathy, ejection fraction of 40%. 8. Type 2 diabetes. 9. Protein malnutrition, present upon admission. CT REPORT IMPRESSION: 1. Dense consolidation in the right lower lobe into a lesser degree in the posterior aspect of the right upper and middle lobes suggesting pneumonia. Underlying neoplasm in the right lower lobe cannot be excluded. 2. Moderate sized right pleural effusion. 3. Mild left basilar atelectasis. 4. Cardiomegaly with coronary artery calcifications. Plan . 1. Concur with current broad-spectrum antibiotics for both gram-negative and gram-positive organisms. 2. Reviewed Ct not enough for fluid to drain, mostly pneumonia and atelectasis 3. Diurese per Cardiology and Nephrology. 4. ABG noted OBINNA VICENTE MD Jul 01, 2016 16:24
[2016-07-01] MEDS: CEFTRIAXONE SODIUM 1 GM in IV NORMAL SALINE 50ML 50 ML IV SCH (16:32)
[2016-07-01 19:15] VITALS: BP 107/60
[2016-07-01] MEDS: OSELTAMIVIR 30 MG CAPSULE PO SCH (21:14)
[2016-07-01] MEDS: MONTELUKAST SODIUM 10 MG TABLET. PO SCH (21:14)
[2016-07-01] MEDS: ALLOPURINOL 100 MG TABLET. PO SCH (21:14)
[2016-07-01] MEDS: INSULIN DETEMIR 300 UNITS/3 ML INSULN.PEN. SQ SCH (21:21)
[2016-07-01 23:15] VITALS: BP 127/63
[2016-07-02 03:20] VITALS: BP 135/79
[2016-07-02 04:43] LABS: BASO % 0 % (0-3); EOS % 0 % (0-3); HEMATOCRIT 38.9 % (36.0-47.0); HEMOGLOBIN 12.5 g/dL (12.0-15.5); LYMPH # 0.4 x10^3/uL (1.0-4.8); LYMPH % 4 % (24-48); MEAN CORPUSCULAR HEMOGLOBIN 28 pg (25-35); MEAN CORPUSCULAR HGB CONC 32 g/dL (31-37); MEAN CORPUSCULAR VOLUME 86 fL (79-100); MONO % 4 % (0-9); NEUT % 92 % (31-73); PLATELET COUNT 121 x10^3/uL (140-400); RED BLOOD COUNT 4.53 x10^6/uL (3.50-5.40); RED CELL DISTRIBUTION WIDTH 17.2 % (11.5-14.5); WHITE BLOOD COUNT 10.2 x10^3/uL (4.0-11.0)
[2016-07-02 05:38] LABS: ALBUMIN 1.9 g/dL (3.4-5.0); ALBUMIN/GLOBULIN RATIO 0.6 (1.0-1.7); CALCIUM 8.5 mg/dL (8.5-10.1); CREATININE 1.1 mg/dL (0.6-1.0); GFR 57.4; POTASSIUM 3.3 mmol/L (3.5-5.1); TOTAL BILIRUBIN 0.4 mg/dL (0.2-1.0); TOTAL PROTEIN 5.1 g/dL (6.4-8.2)
[2016-07-02] MEDS: IPRATRPIUM/ALBUTEROL 0.5/2.5MG 3 ML NEBU. NEB SCH ×4 (06:59→20:15)
[2016-07-02 07:00] VITALS: BP 140/71
[2016-07-02] MEDS: FLUTICASONE 50MCG/NASAL SPRAY 16GM BOTTLE. NS SCH (09:00)
[2016-07-02] MEDS: CETIRIZINE HCL 10 MG TABLET PO SCH (09:15)
[2016-07-02] MEDS: MULTIVITAMIN with MINERAL TABLET. PO SCH (09:16)
[2016-07-02] MEDS: PANTOPRAZOLE 40 MG TABLET. PO SCH (09:16)
[2016-07-02] MEDS: AMIODARONE HCL 200 MG TABLET PO SCH (09:16)
[2016-07-02] MEDS: SPIRONOLACTONE 25 MG TABLET PO SCH (09:17)
[2016-07-02] MEDS: FUROSEMIDE 40 MG TABLET PO SCH (09:17)
[2016-07-02] MEDS: GUAIFENESIN ER 600 MG TABLET.ER PO SCH ×2 (09:17→21:59)
[2016-07-02] MEDS: CYANOCOBALAMIN (VITAMIN B-12) 1,000 MCG TABLET. PO SCH (09:17)
[2016-07-02] MEDS: ASPIRIN 81 MG TAB.CHEW PO SCH (09:17)
[2016-07-02] MEDS: CHOLECALCIFEROL (VITAMIN D3) 1,000 UNIT TABLET PO SCH (09:17)
[2016-07-02] MEDS: methylPREDNISolone SOD SUCC PF 40 MG/ML VIAL. IV SCH ×2 (09:18→21:58)
[2016-07-02] MEDS: CARVEDILOL 3.125 MG TABLET PO SCH ×2 (09:18→17:51)
[2016-07-02] MEDS: MUPIROCIN 2 % NASAL OINTMENT 22GM TUBE. NS SCH ×2 (09:18→21:00)
[2016-07-02] MEDS: DICLOFENAC SODIUM 1% TOPICAL GEL 100GM TUBE. TP SCH ×4 (09:19→22:13)
[2016-07-02] MEDS: INSULIN ASPART 300 UNITS/3 ML INSULN.PEN SQ SCH ×3 (09:26→17:56)
[2016-07-02] MEDS: VANCOMYCIN PER PHARMACY MC PRN (09:47)
--- NOTE | 2016-07-02 09:49 | PDOC ---
PROGRESS NOTES Subjective Subjective She feels better.She admits some low back pain. Objective Objective Vital Signs Date Time Temp Pulse Resp B/P Pulse Ox O2 Delivery O2 Flow Rate FiO2 07/02/16 09:18 64 127/62 07/02/16 07:00 98.4 20 96 2.0 98.4 07/02/16 06:59 Nasal Cannula Intake and Output 07/02/16 07:00 Intake Total 1100 ml Output Total 1300 ml Balance -200 ml Intake Oral 1100 ml Output Urine Total 1300 ml Physical Exam Physical Exam She is alert and eating breakfast and she is having cough while eating and no obvious signs of aspiration.She did not have back support at home. Assessment Assessment Problems Medical Problems: (1) Acute bronchospasm Status: Acute (2) Influenza B Status: Acute Plan Plan of Care To ask speech pathology to check her swallowing. Comment Review of Relevant I have reviewed the following items janae (where applicable) has been applied. Labs Laboratory Tests Test 06/30/16 10:56 06/30/16 17:00 06/30/16 17:42 06/30/16 21:05 Glucose (Fingerstick) 133mg/dL (70-99) 164mg/dL (70-99) 145mg/dL (70-99) O2 Saturation 96% (92-99) Arterial Blood pH 7.45 (7.35-7.45) Arterial Blood pCO2 at Patient Temp 33mmHg (35-46) Arterial Blood pO2 at Patient Temp 79mmHg (65-108) Arterial Blood HCO3 23mmol/L (21-28) Arterial Blood Base Excess -1mmol/L (-3-3) FiO2 28 Test 07/01/16 04:31 07/01/16 08:04 07/01/16 11:09 07/02/16 04:30 White Blood Count 11.1x10^3/uL (4.0-11.0) 10.2x10^3/uL (4.0-11.0) Red Blood Count 4.51x10^6/uL (3.50-5.40) 4.53x10^6/uL (3.50-5.40) Hemoglobin 12.4g/dL (12.0-15.5) 12.5g/dL (12.0-15.5) Hematocrit 38.9% (36.0-47.0) 38.9% (36.0-47.0) Mean Corpuscular Volume 86fL (79-100) 86fL (79-100) Mean Corpuscular Hemoglobin 27pg (25-35) 28pg (25-35) Mean Corpuscular Hemoglobin Concent 32g/dL (31-37) 32g/dL (31-37) Red Cell Distribution Width 17.5% (11.5-14.5) 17.2% (11.5-14.5) Platelet Count 105x10^3/uL (140-400) 121x10^3/uL (140-400) Neutrophils (%) (Auto) 93% (31-73) 92% (31-73) Lymphocytes (%) (Auto) 3% (24-48) 4% (24-48) Monocytes (%) (Auto) 4% (0-9) 4% (0-9) Eosinophils (%) (Auto) 0% (0-3) 0% (0-3) Basophils (%) (Auto) 0% (0-3) 0% (0-3) Neutrophils # (Auto) 10.3x10^3uL (1.8-7.7) 9.3x10^3uL (1.8-7.7) Lymphocytes # (Auto) 0.3x10^3/uL (1.0-4.8) 0.4x10^3/uL (1.0-4.8) Monocytes # (Auto) 0.4x10^3/uL (0.0-1.1) 0.4x10^3/uL (0.0-1.1) Eosinophils # (Auto) 0.0x10^3/uL (0.0-0.7) 0.0x10^3/uL (0.0-0.7) Basophils # (Auto) 0.0x10^3/uL (0.0-0.2) 0.0x10^3/uL (0.0-0.2) Sodium Level 146mmol/L (136-145) 147mmol/L (136-145) Potassium Level 3.7mmol/L (3.5-5.1) 3.3mmol/L (3.5-5.1) Chloride Level 110mmol/L (98-107) 110mmol/L (98-107) Carbon Dioxide Level 26mmol/L (21-32) 24mmol/L (21-32) Anion Gap 10 (6-14) 13 (6-14) Blood Urea Nitrogen 37mg/dL (7-20) 43mg/dL (7-20) Creatinine 1.2mg/dL (0.6-1.0) 1.1mg/dL (0.6-1.0) Estimated GFR (Cockcroft-Gault) 51.9 57.4 Glucose Level 190mg/dL (70-99) 161mg/dL (70-99) Calcium Level 9.0mg/dL (8.5-10.1) 8.5mg/dL (8.5-10.1) Magnesium Level 2.1mg/dL (1.8-2.4) Total Bilirubin 0.6mg/dL (0.2-1.0) 0.4mg/dL (0.2-1.0) Direct Bilirubin 0.3mg/dL (0.0-0.2) Aspartate Amino Transf (AST/SGOT) 60U/L (15-37) 26U/L (15-37) Alanine Aminotransferase (ALT/SGPT) 101U/L (14-59) 70U/L (14-59) Alkaline Phosphatase 48U/L (46-116) 44U/L (46-116) Total Protein 5.9g/dL (6.4-8.2) 5.1g/dL (6.4-8.2) Albumin 2.0g/dL (3.4-5.0) 1.9g/dL (3.4-5.0) Glucose (Fingerstick) 171mg/dL (70-99) 273mg/dL (70-99) BUN/Creatinine Ratio 39 (6-20) Albumin/Globulin Ratio 0.6 (1.0-1.7) Test 07/02/16 08:14 Glucose (Fingerstick) 323mg/dL (70-99) Laboratory Tests Test 07/01/16 11:09 07/02/16 04:30 07/02/16 08:14 Glucose (Fingerstick) 273mg/dL (70-99) 323mg/dL (70-99) White Blood Count 10.2x10^3/uL (4.0-11.0) Red Blood Count 4.53x10^6/uL (3.50-5.40) Hemoglobin 12.5g/dL (12.0-15.5) Hematocrit 38.9% (36.0-47.0) Mean Corpuscular Volume 86fL (79-100) Mean Corpuscular Hemoglobin 28pg (25-35) Mean Corpuscular Hemoglobin Concent 32g/dL (31-37) Red Cell Distribution Width 17.2% (11.5-14.5) Platelet Count 121x10^3/uL (140-400) Neutrophils (%) (Auto) 92% (31-73) Lymphocytes (%) (Auto) 4% (24-48) Monocytes (%) (Auto) 4% (0-9) Eosinophils (%) (Auto) 0% (0-3) Basophils (%) (Auto) 0% (0-3) Neutrophils # (Auto) 9.3x10^3uL (1.8-7.7) Lymphocytes # (Auto) 0.4x10^3/uL (1.0-4.8) Monocytes # (Auto) 0.4x10^3/uL (0.0-1.1) Eosinophils # (Auto) 0.0x10^3/uL (0.0-0.7) Basophils # (Auto) 0.0x10^3/uL (0.0-0.2) Sodium Level 147mmol/L (136-145) Potassium Level 3.3mmol/L (3.5-5.1) Chloride Level 110mmol/L (98-107) Carbon Dioxide Level 24mmol/L (21-32) Anion Gap 13 (6-14) Blood Urea Nitrogen 43mg/dL (7-20) Creatinine 1.1mg/dL (0.6-1.0) Estimated GFR (Cockcroft-Gault) 57.4 BUN/Creatinine Ratio 39 (6-20) Glucose Level 161mg/dL (70-99) Calcium Level 8.5mg/dL (8.5-10.1) Total Bilirubin 0.4mg/dL (0.2-1.0) Aspartate Amino Transf (AST/SGOT) 26U/L (15-37) Alanine Aminotransferase (ALT/SGPT) 70U/L (14-59) Alkaline Phosphatase 44U/L (46-116) Total Protein 5.1g/dL (6.4-8.2) Albumin 1.9g/dL (3.4-5.0) Albumin/Globulin Ratio 0.6 (1.0-1.7) Microbiology 06/29/16 Blood Culture - Final, Complete 06/29/16 Blood Culture Result 1 (MAIKOL) - Final, Complete 06/29/16 Antimicrobic Susceptibility - Final, Complete 06/29/16 Urine Culture - Final, Complete 06/29/16 Urine Culture Result 1 (MAIKOL) - Final, Complete 06/29/16 Antimicrobic Susceptibility - Final, Complete Medications Current Medications Albuterol/ Ipratropium 3 ml 3 ml 1X ONCE NEB Last administered on 06/29/16 21: 24; Start 06/29/16 at 20:30; Stop 06/29/16 at 20:31; Status DC Sodium Chloride 1,000 ml @ 1,000 mls/hr 1X ONCE IV Last administered on 21:10; Start 06/29/16 at 20:30; Stop 06/29/16 at 21:29; Status DC Piperacillin Sod/ Tazobactam Sod/ Sodium Chloride (Zosyn/Iv Sodium Chloride 0.9 % 50ml) 50 ml @ 100 mls/hr 1X ONCE IV Last administered on 06/29/16 21:09; Start 06/29/16 at 20:30; Stop 06/29/16 at 20:59; Status DC Ondansetron HCl 4 mg 4 mg PRN Q8HRS PRN IV NAUSEA/VOMITING; Start 06/29/16 at 21 :30; Stop 06/30/16 at 21:29; Status DC Sodium Chloride (Iv Sodium Chloride 0.9% 1000ml Bag) 1,000 ml @ 125 mls/hr Q8H IV Last administered on 06/30/16 00:30; Start 06/29/16 at 21:24; Stop 06/30/16 at 08:30; Status DC Acetaminophen (Tylenol) 650 mg PRN Q4HRS PRN PO FEVER; Start 06/29/16 at 21:30; Stop 06/30/16 at 00:52; Status DC Albuterol/ Ipratropium (Duoneb) 3 ml RTQID NEB ; Start 06/30/16 at 08:00; Stop at 08:00; Status DC Oseltamivir Phosphate (Tamiflu) 75 mg BID PO ; Start 06/30/16 at 09:00; Stop 07/05 at 08:59; Status UNV Methylprednisolone Sodium Succinate (Solu-Medrol 40mg Vial) 40 mg BID IV ; Start 06/30/16 at 09:00; Stop 06/30/16 at 09:00; Status DC Oseltamivir Phosphate (Tamiflu) 30 mg 1X ONCE PO Last administered on 22:26; Start 06/29/16 at 22:45; Stop 06/29/16 at 22:46; Status DC Oseltamivir Phosphate (Tamiflu) 30 mg QHS PO Last administered on 07/01/16 21: 14; Start 06/30/16 at 21:00; Stop 07/03/16 at 21:01 Insulin Detemir (Levemir) 29 units QHS SQ ; Start 06/30/16 at 21:00; Stop at 21:00; Status DC Insulin Aspart (Novolog) 0-5 UNITS TIDWMEALS SQ Last administered on 07/02/16 09:26; Start 06/30/16 at 08:00 Dextrose 12.5 gm PRN Q15MIN PRN IV SEE COMMENTS; Start 06/30/16 at 00:45 Acetaminophen (Tylenol) 500 mg PRN Q8HRS PRN PO MILD PAIN / TEMP; Start at 00:45 Allopurinol (Zyloprim) 100 mg QHS PO Last administered on 07/01/16 21:14; Start 06/30/16 at 21:00 Amiodarone HCl (Cordarone) 200 mg DAILY PO Last administered on 07/02/16 09:16 ; Start 06/30/16 at 09:00 Aspirin (Children'S Aspirin) 81 mg DAILY PO Last administered on 07/02/16 09:17 ; Start 06/30/16 at 09:00 Cetirizine HCl (Zyrtec) 10 mg DAILY PO Last administered on 07/02/16 09:15; Start 06/30/16 at 09:00 Vitamin D (Vitamin D3) 2,000 unit DAILY PO Last administered on 07/02/16 09:17 ; Start 06/30/16 at 09:00 Diclofenac Sodium (Voltaren) 1 ld HS TP ; Start 06/30/16 at 21:00; Stop 06/30/16 at 21:00; Status DC Fluticasone Propionate (Flonase) 2 spray DAILY NS Last administered on 08:34; Start 06/30/16 at 09:00 Acetaminophen/ Hydrocodone Bitart (Lortab 7.5/325) 1 tab PRN Q6HRS PRN PO SEVERE PAIN; Start 06/30/16 at 00:45 Insulin Aspart (Novolog) 1 units TIDBFRMEAL SQ ; Start 06/30/16 at 07:30; Status UNV Montelukast Sodium (Singulair) 10 mg HS PO Last administered on 07/01/16 21:14 ; Start 06/30/16 at 21:00 Spironolactone (Aldactone) 25 mg DAILY PO Last administered on 07/02/16 09:17; Start 06/30/16 at 09:00 Albuterol Sulfate (Ventolin Neb Soln) 2.5 mg PRN QID PRN NEB SHORTNESS OF BREATH; Start 06/30/16 at 01:00; Stop 06/30/16 at 08:24; Status DC Non-Formulary Medication 1 cap DAILY PO ; Start 06/30/16 at 09:00; Status UNV Non-Formulary Medication 1 each BID IH ; Start 06/30/16 at 09:00; Status UNV Non-Formulary Medication 40 unit HS SQ ; Start 06/30/16 at 21:00; Status UNV Pantoprazole Sodium (Protonix) 40 mg DAILYAC PO Last administered on 07/02/16 09:16; Start 06/30/16 at 07:30 Albuterol/ Ipratropium (Duoneb) 3 ml RTQID NEB Last administered on 07/02/16 06 :59; Start 06/30/16 at 08:00 Budesonide (Pulmicort) 0.5 mg RTBID NEB Last administered on 06/30/16 07:41; Start 06/30/16 at 08:00; Stop 06/30/16 at 16:24; Status DC Albuterol Sulfate (Ventolin Neb Soln) 2.5 mg PRN Q2HR PRN NEB SHORTNESS OF BREATH; Start 06/30/16 at 08:30 Methylprednisolone Sodium Succinate (Solu-Medrol 40mg Vial) 40 mg Q12HR IV Last administered on 07/02/16 09:18; Start 06/30/16 at 09:00 Bisacodyl (Dulcolax Supp) 10 mg PRN DAILY PRN RC CONSTIPATION; Start 06/30/16 at 08:30 Multivitamins/ Calcium 1 tab 1 tab DAILY PO Last administered on 07/02/16 09:16 ; Start 06/30/16 at 09:00 Sodium Chloride 1,000 ml @ 75 mls/hr [id number] IV ; Start 06/30/16 at 08:30; Stop 06/30/16 at 08:34; Status DC Piperacillin Sod/ Tazobactam Sod 2.25 gm/Sodium Chloride 50 ml @ 100 mls/hr Q6HRS IV Last administered on 07/01/16 12:39; Start 06/30/16 at 09:00; Stop 07/01 at 14:46; Status DC Linezolid (Zyvox Premix) 300 ml @ 300 mls/hr Q12HR IV Last administered on 07/01 08:36; Start 06/30/16 at 10:00; Stop 07/01/16 at 09:44; Status DC Diclofenac Sodium (Voltaren) 1 ld QID TP Last administered on 07/02/16 09:19; Start 06/30/16 at 10:00 Insulin Detemir (Levemir) 15 units QHS SQ Last administered on 07/01/16 21:21; Start 06/30/16 at 21:00 Cyanocobalamin (Vitamin B-12) 1,000 mcg DAILY PO Last administered on 07/02/16 09:17; Start 06/30/16 at 10:00 Vitamin D (Vitamin D3) 2,000 unit DAILY PO ; Start 06/30/16 at 10:00; Status Cancel Artificial Tears (Artificial Tears) 2 drop PRN QID PRN OU DRY EYE; Start at 09:45 Carvedilol (Coreg) 3.125 mg BIDWMEALS PO Last administered on 07/02/16 09:18; Start 06/30/16 at 10:00 Lidocaine (Lidoderm) 1 patch DAILY TD Last administered on 07/01/16 08:36; Start 06/30/16 at 11:00 Furosemide (Lasix) 40 mg DAILY PO Last administered on 07/02/16 09:17; Start at 12:00 Furosemide (Lasix) 40 mg 1X ONCE IVP ; Start 06/30/16 at 14:00; Stop 06/30/16 at 14:01; Status DC Potassium Chloride (Klor-Con) 20 meq 1X ONCE PO Last administered on 06/30/16 14:27; Start 06/30/16 at 13:00; Stop 06/30/16 at 13:01; Status DC Guaifenesin (Mucinex) 600 mg BID PO Last administered on 07/02/16 09:17; Start 07/01/16 at 09:00 Mupirocin (Bactroban) 1 ld BID NS Last administered on 07/02/16 09:18; Start 07/01/16 at 09:00 Vancomycin HCl 1 each 1 each PRN DAILY PRN MC SEE COMMENTS Last administered on 07/01/16 14:24; Start 07/01/16 at 09:45 Vancomycin HCl/ Sodium Chloride (Iv Sodium Chloride 0.9% 500ml Bag) 500 ml @ 250 mls/hr 1X ONCE IV Last administered on 07/01/16 10:53; Start 07/01/16 at 10 :30; Stop 07/01/16 at 12:29; Status DC Furosemide 40 mg 40 mg 1X ONCE IVP Last administered on 07/01/16 16:32; Start 07/01/16 at 16:00; Stop 07/01/16 at 16:01; Status DC Vancomycin HCl/ Sodium Chloride (Iv Sodium Chloride 0.9% 250ml) 250 ml @ 250 mls/hr Q24H IV ; Start 07/02/16 at 11:00 Vancomycin HCl 1 each 1 each 1X ONCE MC ; Start 07/03/16 at 10:30; Stop 07/03/16 at 10:31 Ceftriaxone Sodium/Sodium Chloride (Rocephin/Iv Sodium Chloride 0.9% 50ml) 50 ml @ 100 mls/hr Q24H IV Last administered on 3/3/17at 16:32; Start 07/01/16 at 15:00 Active Scripts Active Lantus (Insulin Glargine,Hum.rec.anlog) 100 Unit/1 Ml Vial 40 Unit SQ HS Potassium Chloride 20 Meq Tab.er.prt 20 Meq PO EVERY OTHER DAY Lasix (Furosemide) 40 Mg Tablet 60 Mg PO DAILY Tylenol Extra Strength (Acetaminophen) 500 Mg Tablet 500 Mg PO PRN Q8HRS PRN Losartan Potassium 25 Mg Tablet 25 Mg PO DAILY Rulox Suspension (Mag Hydrox/Al Hydrox/Simeth) 355 Ml Oral.susp 60 Ml PO PRN Q2HR PRN Glucose (Dextrose) 4 Gm Tab.chew 12 Gm PO PRN PRN Bisacodyl 10 Mg Supp.rect 10 Mg RC PRN DAILY PRN Albuterol Sulfate Conc Neb Soln (Albuterol Sulfate) 2.5 Mg/0.5 Ml Vial.neb 2.5 Mg NEB PRN QID PRN Zyrtec (Cetirizine Hcl) 10 Mg Tablet 0.5 Tab PO DAILY Reported Novolog Flexpen (Insulin Aspart) 100 Unit/1 Ml Insuln.pen 1 Unit SQ Singulair Tablet (Montelukast Sodium) 10 Mg Tablet 10 Mg PO HS Allopurinol 100 Mg Tablet 100 Mg PO QHS Vitamin D (Cholecalciferol (Vitamin D3)) 2,000 Unit Capsule 1 Cap PO DAILY Vitamin D (Cholecalciferol (Vitamin D3)) 5,000 Unit Capsule 2,000 Unit PO Torsemide 10 Mg Tablet 10 Mg PO Spironolactone 25 Mg Tablet 25 Mg PO DAILY Omeprazole 20 Mg Capsule.dr 20 Mg PO DAILY Hydrocodone-Apap 7.5-325 (Hydrocodone Bit/Acetaminophen) 1 Each Tablet 1 Tab PO PRN Q6HRS PRN Aspirin 81 Mg Tab.chew 1 Tab PO DAILY Ventolin Hfa Inhaler (Albuterol Sulfate) 18 Gm Hfa.aer.ad 18 Gm IH PRN Advair 250-50 Diskus (Fluticasone/Salmeterol) 1 Each Disk.w.dev 1 Each IH BID Voltaren (Diclofenac Sodium) 100 Gm Gel..gram. 100 Gm TP One Daily (Multivitamin) 1 Each Tablet 1 Each PO Flonase (Fluticasone Propionate) 16 Gm [place].susp 16 Gm NS Amiodarone Hcl 200 Mg Tablet 200 Mg PO Vitals/I & O Vital Sign - Last 24 Hours 07/01/16 07/01/16 07/01/16 07/01/16 11:07 11:30 15:50 16:19 Temp 97.9 97.9 Pulse 69 66 Resp 20 20 B/P 124/74 113/59 Pulse Ox 98 100 99 98 O2 Delivery Nasal Cannula Nasal Cannula Nasal Cannula Nasal Cannula O2 Flow Rate 2.0 1.0 2.0 1.0 07/01/16 07/01/16 07/01/16 07/01/16 17:45 19:15 20:04 20:13 Temp 98.7 98.7 Pulse 63 64 Resp 34 B/P 107/60 Pulse Ox 98 99 O2 Delivery Nasal Cannula Nasal Cannula Nasal Cannula O2 Flow Rate 2.0 2.0 1.0 07/01/16 07/02/16 07/02/16 07/02/16 23:15 03:20 06:59 07:00 Temp 98.1 98.7 98.4 98.1 98.7 98.4 Pulse 61 60 66 Resp 16 20 20 B/P 127/63 135/79 140/71 Pulse Ox 97 98 99 96 O2 Delivery Nasal Cannula O2 Flow Rate 2.0 2.0 1.0 2.0 07/02/16 07/02/16 09:16 09:18 Pulse 66 64 B/P 127/62 127/62 Intake and Output 07/01/16 07/01/16 07/02/16 15:00 23:00 07:00 Intake Total 800 ml 300 ml Output Total 1000 ml 300 ml Balance -200 ml 0 ml KENNA NORTON MD Jul 02, 2016 09:49
[2016-07-02] MEDS: LIDOCAINE (700MG/PATCH) PATCH. TD SCH (10:06)
[2016-07-02] MEDS: OSELTAMIVIR 30 MG CAPSULE PO SCH ×2 (10:07→21:59)
[2016-07-02 11:00] VITALS: BP 140/72
[2016-07-02] MEDS ORDERED: VANCOMYCIN 1 GM in IV NORMAL SALINE 250ML 250 ML IV SCH (11:00)
--- NOTE | 2016-07-02 11:03 | PDOC ---
PROGRESS NOTES Subjective Subjective feels slightly better Objective Objective Vital Signs Date Time Temp Pulse Resp B/P Pulse Ox O2 Delivery O2 Flow Rate FiO2 07/02/16 09:18 64 127/62 07/02/16 07:00 98.4 20 96 2.0 98.4 07/02/16 06:59 Nasal Cannula Intake and Output 07/02/16 07:00 Intake Total 1100 ml Output Total 1300 ml Balance -200 ml Intake Oral 1100 ml Output Urine Total 1300 ml Physical Exam Abdomen: Soft, No tenderness Heart: Regular rate, Normal S1, Normal S2, Other (2/6 systolic murmur ) Extremities: Normal pulses, Other (1+ bilateral LE edema ) General: Alert, Oriented X3, Cooperative, mild distress HEENT: Atraumatic, Mucous membr. moist/pink Lungs: Other (bibasilar crackles) MUSCULOSKELETAL: Osteoarthritic changes both hands Neuro: Normal speech, Sensation intact Psych/Mental Status: Other (pleasant, intermittent confusion) Skin: No breakdown, No significant lesion Diagnosis Problem List Problems Medical Problems: (1) Acute bronchospasm Status: Acute (2) Influenza B Status: Acute Assessment Assessment Assessment 1. influenzae B with sepsis 2. Secondary pneumonia gram neg/gram positive 3. a/c systolic diastolic CHF 4. transaminitis 5. 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 HTN 8. leukocytosis fever 9. urinary incontinence overlow 10. HH 11. gastritis 12. hyperlipidemia 13. fatty liver 14. CAD mild last eval at [facility] admit 15. hypothyroid with h/o thyroidectomy 16. severe weakness and debility 17. DM II with CKD III 18. severe PCL malnutrition 19. erosive gastritis 20. GERD 21. diverticulosis 22. chronic pain management DDD LS per Dr. Lopez PMC 23. acute metabolic encephalopathy POA PLAN: iv zosyn+zyvox. pot 3.[address] scan noted pneumonia mrsa in blood +e coli in urine Inf B with sepsis ID consult pulmonary consult secondary bacterial pneumonia due to influenzae B Zosyn/zyvox IV per ID Solumed 40 IV q12hr wheezing improved nebulizer treatment oxygen supplementation Admit WBC 13.9 07/01 11.1 T 100.7F admit IV NS 125cc/hr decreased to 75cc/hr-stopped 06/30/16 Tamiflu dose #2 07/01 CT chest: RLL >RML/RUL pneumonia, moderate R pleural effusion mucinex 600mg bid Lactic acid 2.1 MRSA +nares-bactroban x 7day A/C CHF cardiology consult BNP 9923-in setting ARF CXR +vascular changes diuretics on hold with IV infusing daily wt/IO Admit wt 132# 07/01 132.06# Home med: torsemide 10mg daily Lasix 40mg IV 06/30 Lasix 40mg po 07/01 Coreg decreased to 3.125mg bid last appt Dr. Mosley--dizziness. ARF ANIKET with CKD III baseline Cr 1.2-1.6 nephrology consult Office: BUN 28-35 Cr 1.59-1.87 ADmit BUN 54 07/01 37 Cr 2.0 1.2 K 4.1 3.7 KCL 20 meq oral x 1 06/30 transaminitis Admit AST 159 ALT 155 AP 58 GI consult DM II FSBS/ low intensity SSI Home Lantus 29u at hs, decrease to 15u with poor oral intake, hold if NPO Hbaic 6.0 less than 3 months ago BS 133-190 a/c back pain with recent fall Dr. Vale consult Lumbar and thoracic xray negative thyroidectomy h/o TSH 0.33 w/o thyroid med urinary incontinence vale for accurate IO severe weakness and debility PT OT severe PCL malnutrition supplements/monitor intake acute metabolic encephalopathy Problems: Plan Plan of Care Problems Medical Problems: (1) Acute bronchospasm Status: Acute (2) Influenza B Status: Acute Comment Review of Relevant I have reviewed the following items janae (where applicable) has been applied. Labs Laboratory Tests Test 07/01/16 11:09 07/02/16 04:30 07/02/16 08:14 Glucose (Fingerstick) 273mg/dL (70-99) 323mg/dL (70-99) White Blood Count 10.2x10^3/uL (4.0-11.0) Red Blood Count 4.53x10^6/uL (3.50-5.40) Hemoglobin 12.5g/dL (12.0-15.5) Hematocrit 38.9% (36.0-47.0) Mean Corpuscular Volume 86fL (79-100) Mean Corpuscular Hemoglobin 28pg (25-35) Mean Corpuscular Hemoglobin Concent 32g/dL (31-37) Red Cell Distribution Width 17.2% (11.5-14.5) Platelet Count 121x10^3/uL (140-400) Neutrophils (%) (Auto) 92% (31-73) Lymphocytes (%) (Auto) 4% (24-48) Monocytes (%) (Auto) 4% (0-9) Eosinophils (%) (Auto) 0% (0-3) Basophils (%) (Auto) 0% (0-3) Neutrophils # (Auto) 9.3x10^3uL (1.8-7.7) Lymphocytes # (Auto) 0.4x10^3/uL (1.0-4.8) Monocytes # (Auto) 0.4x10^3/uL (0.0-1.1) Eosinophils # (Auto) 0.0x10^3/uL (0.0-0.7) Basophils # (Auto) 0.0x10^3/uL (0.0-0.2) Sodium Level 147mmol/L (136-145) Potassium Level 3.3mmol/L (3.5-5.1) Chloride Level 110mmol/L (98-107) Carbon Dioxide Level 24mmol/L (21-32) Anion Gap 13 (6-14) Blood Urea Nitrogen 43mg/dL (7-20) Creatinine 1.1mg/dL (0.6-1.0) Estimated GFR (Cockcroft-Gault) 57.4 BUN/Creatinine Ratio 39 (6-20) Glucose Level 161mg/dL (70-99) Calcium Level 8.5mg/dL (8.5-10.1) Total Bilirubin 0.4mg/dL (0.2-1.0) Aspartate Amino Transf (AST/SGOT) 26U/L (15-37) Alanine Aminotransferase (ALT/SGPT) 70U/L (14-59) Alkaline Phosphatase 44U/L (46-116) Total Protein 5.1g/dL (6.4-8.2) Albumin 1.9g/dL (3.4-5.0) Albumin/Globulin Ratio 0.6 (1.0-1.7) Microbiology 06/29/16 Blood Culture - Final, Complete 06/29/16 Blood Culture Result 1 (MAIKOL) - Final, Complete 06/29/16 Antimicrobic Susceptibility - Final, Complete 06/29/16 Urine Culture - Final, Complete 06/29/16 Urine Culture Result 1 (MAIKOL) - Final, Complete 06/29/16 Antimicrobic Susceptibility - Final, Complete Medications Current Medications Ceftriaxone Sodium/Sodium Chloride (Rocephin/Iv Sodium Chloride 0.9% 50ml) 50 ml @ 100 mls/hr Q24H IV Last administered on 07/01/16 16:32; Start 07/01/16 at 15:00 Furosemide 40 mg 40 mg 1X ONCE IVP Last administered on 07/01/16 16:32; Start 07/01/16 at 16:00; Stop 07/01/16 at 16:01; Status DC Oseltamivir Phosphate (Tamiflu) 30 mg BID PO Last administered on 07/02/16 10: 07; Start 07/02/16 at 10:00; Stop 07/03/16 at 21:01 Vancomycin HCl 1 each 1 each 1X ONCE MC ; Start 07/03/16 at 10:30; Stop 07/03/16 at 10:31 Vancomycin HCl/ Sodium Chloride (Iv Sodium Chloride 0.9% 250ml) 250 ml @ 250 mls/hr Q24H IV ; Start 07/02/16 at 11:00 Vitals/I & O Vital Sign - Last 24 Hours 07/01/16 07/01/16 07/01/16 07/01/16 11:07 11:30 15:50 16:19 Temp 97.9 97.9 Pulse 69 66 Resp 20 20 B/P 124/74 113/59 Pulse Ox 98 100 99 98 O2 Delivery Nasal Cannula Nasal Cannula Nasal Cannula Nasal Cannula O2 Flow Rate 2.0 1.0 2.0 1.0 07/01/16 07/01/16 07/01/16 07/01/16 17:45 19:15 20:04 20:13 Temp 98.7 98.7 Pulse 63 64 Resp 34 B/P 107/60 Pulse Ox 98 99 O2 Delivery Nasal Cannula Nasal Cannula Nasal Cannula O2 Flow Rate 2.0 2.0 1.0 07/01/16 07/02/16 07/02/16 07/02/16 23:15 03:20 06:59 07:00 Temp 98.1 98.7 98.4 98.1 98.7 98.4 Pulse 61 60 66 Resp 16 20 20 B/P 127/63 135/79 140/71 Pulse Ox 97 98 99 96 O2 Delivery Nasal Cannula O2 Flow Rate 2.0 2.0 1.0 2.0 07/02/16 07/02/16 09:16 09:18 Pulse 66 64 B/P 127/62 127/62 Intake and Output 07/01/16 07/01/16 07/02/16 15:00 23:00 07:00 Intake Total 800 ml 300 ml Output Total 1000 ml 300 ml Balance -200 ml 0 ml MARIVEL DELONG MD Jul 02, 2016 11:03
[2016-07-02] MEDS ORDERED: POTASSIUM CHLORIDE 20 MEQ TABLET.ER. PO ONE (11:15)
--- NOTE | 2016-07-02 11:22 | PDOC ---
Infectious Disease Note Subjective Subjective + cough. Denies difficulty breathing. 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 appropriately SKIN: No rash IV: ok Labs Lab Laboratory Tests Test 07/02/16 04:30 07/02/16 08:14 White Blood Count 10.2x10^3/uL (4.0-11.0) Red Blood Count 4.53x10^6/uL (3.50-5.40) Hemoglobin 12.5g/dL (12.0-15.5) Hematocrit 38.9% (36.0-47.0) Mean Corpuscular Volume 86fL (79-100) Mean Corpuscular Hemoglobin 28pg (25-35) Mean Corpuscular Hemoglobin Concent 32g/dL (31-37) Red Cell Distribution Width 17.2% (11.5-14.5) Platelet Count 121x10^3/uL (140-400) Neutrophils (%) (Auto) 92% (31-73) Lymphocytes (%) (Auto) 4% (24-48) Monocytes (%) (Auto) 4% (0-9) Eosinophils (%) (Auto) 0% (0-3) Basophils (%) (Auto) 0% (0-3) Neutrophils # (Auto) 9.3x10^3uL (1.8-7.7) Lymphocytes # (Auto) 0.4x10^3/uL (1.0-4.8) Monocytes # (Auto) 0.4x10^3/uL (0.0-1.1) Eosinophils # (Auto) 0.0x10^3/uL (0.0-0.7) Basophils # (Auto) 0.0x10^3/uL (0.0-0.2) Sodium Level 147mmol/L (136-145) Potassium Level 3.3mmol/L (3.5-5.1) Chloride Level 110mmol/L (98-107) Carbon Dioxide Level 24mmol/L (21-32) Anion Gap 13 (6-14) Blood Urea Nitrogen 43mg/dL (7-20) Creatinine 1.1mg/dL (0.6-1.0) Estimated GFR (Cockcroft-Gault) 57.4 BUN/Creatinine Ratio 39 (6-20) Glucose Level 161mg/dL (70-99) Calcium Level 8.5mg/dL (8.5-10.1) Total Bilirubin 0.4mg/dL (0.2-1.0) Aspartate Amino Transf (AST/SGOT) 26U/L (15-37) Alanine Aminotransferase (ALT/SGPT) 70U/L (14-59) Alkaline Phosphatase 44U/L (46-116) Total Protein 5.1g/dL (6.4-8.2) Albumin 1.9g/dL (3.4-5.0) Albumin/Globulin Ratio 0.6 (1.0-1.7) Glucose (Fingerstick) 323mg/dL (70-99) Micro 3/1. BLOOD CULT RESULT 1 Final Staphylococcus aureus. MRSA MICS are expressed in micrograms per mL Antibiotic RSLT#1 Ciprofloxacin S<=0.5 Gentamicin S<=0.5 Levofloxacin S<=0.12 Linezolid S =2 Nitrofurantoin S<=16 Oxacillin R>=4 Penicillin R>=0.5 Rifampin S<=0.5 Tetracycline S<=1 Trimethoprim/Sulfa S<=10 Vancomycin S<=0.5 3/1. URINE CULTURE RES 1 Final Escherichia coli MICS are expressed in micrograms per mL Antibiotic RSLT#1 Amoxicillin/Clavulanic Acid I =16 Ampicillin R>=32 Cefepime S<=1 Ceftriaxone S<=1 Cefuroxime S =8 Cephalothin I =16 Ciprofloxacin S<=0.25 Ertapenem S<=0.5 Gentamicin S<=1 Imipenem S<=1 Levofloxacin S<=0.12 Nitrofurantoin S<=16 Piperacillin R>=128 Tetracycline R>=16 Tobramycin S<=1 Trimethoprim/Sulfa S<=20 Objective Assessment MRSA bacteremia, POA -Repeat BC 07/02 pending E. coli UTI. POA Influenza B Encephalopathy - better Cephalexin/Sulfa allergies Leukocytosis - on steroids now Transaminitis ? congestion/H/o Fatty liver CKD ? aspiration Plan Plan of Care Vanc and Rocephin f/u repeat BC Needs ECHO - cardiology following Rec speech eval Monitor labs Attending Co-Sign The patient was seen and interviewed as well as examined at the bedside. The chart was reviewed. The case was discussed. Agree with the plan of care. KATHY CONTRERAS APRN Jul 02, 2016 11:22 HAYDEN LAKHANI MD Jul 02, 2016 14:38
[2016-07-02 15:00] VITALS: BP 105/55
[2016-07-02] MEDS: CEFTRIAXONE SODIUM 1 GM in IV NORMAL SALINE 50ML 50 ML IV SCH (15:24)
--- NOTE | 2016-07-02 16:59 | PDOC ---
PULMONARY PROGRESS NOTES Subjective PT NOT MORE SOA Vitals Vital Signs Date Time Temp Pulse Resp B/P Pulse Ox O2 Delivery O2 Flow Rate FiO2 07/02/16 16:02 Nasal Cannula 1.0 07/02/16 15:00 97.9 60 20 105/55 94 97.9 ROS: No Nausea, No Chest Pain, No Abdominal Pain General: Alert Lungs: Clear Cardiovascular: S1, S2, Other (DECREASE BS ON RIGHT) Abdomen: Soft Neuro Exam: Alert Extremities: No Edema Skin: Warm Labs Laboratory Tests Test 06/30/16 17:00 06/30/16 17:42 06/30/16 21:05 07/01/16 04:31 O2 Saturation 96% (92-99) Arterial Blood pH 7.45 (7.35-7.45) Arterial Blood pCO2 at Patient Temp 33mmHg (35-46) Arterial Blood pO2 at Patient Temp 79mmHg (65-108) Arterial Blood HCO3 23mmol/L (21-28) Arterial Blood Base Excess -1mmol/L (-3-3) FiO2 28 Glucose (Fingerstick) 164mg/dL (70-99) 145mg/dL (70-99) White Blood Count 11.1x10^3/uL (4.0-11.0) Red Blood Count 4.51x10^6/uL (3.50-5.40) Hemoglobin 12.4g/dL (12.0-15.5) Hematocrit 38.9% (36.0-47.0) Mean Corpuscular Volume 86fL (79-100) Mean Corpuscular Hemoglobin 27pg (25-35) Mean Corpuscular Hemoglobin Concent 32g/dL (31-37) Red Cell Distribution Width 17.5% (11.5-14.5) Platelet Count 105x10^3/uL (140-400) Neutrophils (%) (Auto) 93% (31-73) Lymphocytes (%) (Auto) 3% (24-48) Monocytes (%) (Auto) 4% (0-9) Eosinophils (%) (Auto) 0% (0-3) Basophils (%) (Auto) 0% (0-3) Neutrophils # (Auto) 10.3x10^3uL (1.8-7.7) Lymphocytes # (Auto) 0.3x10^3/uL (1.0-4.8) Monocytes # (Auto) 0.4x10^3/uL (0.0-1.1) Eosinophils # (Auto) 0.0x10^3/uL (0.0-0.7) Basophils # (Auto) 0.0x10^3/uL (0.0-0.2) Sodium Level 146mmol/L (136-145) Potassium Level 3.7mmol/L (3.5-5.1) Chloride Level 110mmol/L (98-107) Carbon Dioxide Level 26mmol/L (21-32) Anion Gap 10 (6-14) Blood Urea Nitrogen 37mg/dL (7-20) Creatinine 1.2mg/dL (0.6-1.0) Estimated GFR (Cockcroft-Gault) 51.9 Glucose Level 190mg/dL (70-99) Calcium Level 9.0mg/dL (8.5-10.1) Magnesium Level 2.1mg/dL (1.8-2.4) Total Bilirubin 0.6mg/dL (0.2-1.0) Direct Bilirubin 0.3mg/dL (0.0-0.2) Aspartate Amino Transf (AST/SGOT) 60U/L (15-37) Alanine Aminotransferase (ALT/SGPT) 101U/L (14-59) Alkaline Phosphatase 48U/L (46-116) Total Protein 5.9g/dL (6.4-8.2) Albumin 2.0g/dL (3.4-5.0) Test 07/01/16 08:04 07/01/16 11:09 07/02/16 04:30 07/02/16 08:14 Glucose (Fingerstick) 171mg/dL (70-99) 273mg/dL (70-99) 323mg/dL (70-99) White Blood Count 10.2x10^3/uL (4.0-11.0) Red Blood Count 4.53x10^6/uL (3.50-5.40) Hemoglobin 12.5g/dL (12.0-15.5) Hematocrit 38.9% (36.0-47.0) Mean Corpuscular Volume 86fL (79-100) Mean Corpuscular Hemoglobin 28pg (25-35) Mean Corpuscular Hemoglobin Concent 32g/dL (31-37) Red Cell Distribution Width 17.2% (11.5-14.5) Platelet Count 121x10^3/uL (140-400) Neutrophils (%) (Auto) 92% (31-73) Lymphocytes (%) (Auto) 4% (24-48) Monocytes (%) (Auto) 4% (0-9) Eosinophils (%) (Auto) 0% (0-3) Basophils (%) (Auto) 0% (0-3) Neutrophils # (Auto) 9.3x10^3uL (1.8-7.7) Lymphocytes # (Auto) 0.4x10^3/uL (1.0-4.8) Monocytes # (Auto) 0.4x10^3/uL (0.0-1.1) Eosinophils # (Auto) 0.0x10^3/uL (0.0-0.7) Basophils # (Auto) 0.0x10^3/uL (0.0-0.2) Sodium Level 147mmol/L (136-145) Potassium Level 3.3mmol/L (3.5-5.1) Chloride Level 110mmol/L (98-107) Carbon Dioxide Level 24mmol/L (21-32) Anion Gap 13 (6-14) Blood Urea Nitrogen 43mg/dL (7-20) Creatinine 1.1mg/dL (0.6-1.0) Estimated GFR (Cockcroft-Gault) 57.4 BUN/Creatinine Ratio 39 (6-20) Glucose Level 161mg/dL (70-99) Calcium Level 8.5mg/dL (8.5-10.1) Total Bilirubin 0.4mg/dL (0.2-1.0) Aspartate Amino Transf (AST/SGOT) 26U/L (15-37) Alanine Aminotransferase (ALT/SGPT) 70U/L (14-59) Alkaline Phosphatase 44U/L (46-116) Total Protein 5.1g/dL (6.4-8.2) Albumin 1.9g/dL (3.4-5.0) Albumin/Globulin Ratio 0.6 (1.0-1.7) Test 07/02/16 11:55 Glucose (Fingerstick) 183mg/dL (70-99) Laboratory Tests Test 07/02/16 04:30 07/02/16 08:14 07/02/16 11:55 White Blood Count 10.2x10^3/uL (4.0-11.0) Red Blood Count 4.53x10^6/uL (3.50-5.40) Hemoglobin 12.5g/dL (12.0-15.5) Hematocrit 38.9% (36.0-47.0) Mean Corpuscular Volume 86fL (79-100) Mean Corpuscular Hemoglobin 28pg (25-35) Mean Corpuscular Hemoglobin Concent 32g/dL (31-37) Red Cell Distribution Width 17.2% (11.5-14.5) Platelet Count 121x10^3/uL (140-400) Neutrophils (%) (Auto) 92% (31-73) Lymphocytes (%) (Auto) 4% (24-48) Monocytes (%) (Auto) 4% (0-9) Eosinophils (%) (Auto) 0% (0-3) Basophils (%) (Auto) 0% (0-3) Neutrophils # (Auto) 9.3x10^3uL (1.8-7.7) Lymphocytes # (Auto) 0.4x10^3/uL (1.0-4.8) Monocytes # (Auto) 0.4x10^3/uL (0.0-1.1) Eosinophils # (Auto) 0.0x10^3/uL (0.0-0.7) Basophils # (Auto) 0.0x10^3/uL (0.0-0.2) Sodium Level 147mmol/L (136-145) Potassium Level 3.3mmol/L (3.5-5.1) Chloride Level 110mmol/L (98-107) Carbon Dioxide Level 24mmol/L (21-32) Anion Gap 13 (6-14) Blood Urea Nitrogen 43mg/dL (7-20) Creatinine 1.1mg/dL (0.6-1.0) Estimated GFR (Cockcroft-Gault) 57.4 BUN/Creatinine Ratio 39 (6-20) Glucose Level 161mg/dL (70-99) Calcium Level 8.5mg/dL (8.5-10.1) Total Bilirubin 0.4mg/dL (0.2-1.0) Aspartate Amino Transf (AST/SGOT) 26U/L (15-37) Alanine Aminotransferase (ALT/SGPT) 70U/L (14-59) Alkaline Phosphatase 44U/L (46-116) Total Protein 5.1g/dL (6.4-8.2) Albumin 1.9g/dL (3.4-5.0) Albumin/Globulin Ratio 0.6 (1.0-1.7) Glucose (Fingerstick) 323mg/dL (70-99) 183mg/dL (70-99) Medications Active Scripts Medications Dose Route/Sig Days Date Category Novolog Flexpen (Insulin Aspart) 100 Unit/1 Ml Insuln.pen 1 Unit SQ 06/30/16 Reported Singulair Tablet (Montelukast Sodium) 10 Mg Tablet 10 Mg PO HS 06/30/16 Reported Allopurinol 100 Mg Tablet 100 Mg PO QHS 06/30/16 Reported Vitamin D (Cholecalciferol (Vitamin D3)) 2,000 Unit Capsule 1 Cap PO DAILY 06/30/16 Reported Vitamin D (Cholecalciferol (Vitamin D3)) 5,000 Unit Capsule 2,000 Unit PO 06/30/16 Reported Torsemide 10 Mg Tablet 10 Mg PO 06/30/16 Reported Spironolactone 25 Mg Tablet 25 Mg PO DAILY 06/30/16 Reported Omeprazole 20 Mg Capsule.dr 20 Mg PO DAILY 06/30/16 Reported Lantus (Insulin Glargine,Hum.rec.anlog) 100 Unit/1 Ml Vial 40 Unit SQ HS 07/14/14 Rx Potassium Chloride 20 Meq Tab.er.prt 20 Meq PO EVERY OTHER DAY 07/14/14 Rx Lasix (Furosemide) 40 Mg Tablet 60 Mg PO DAILY 07/14/14 Rx Tylenol Extra Strength (Acetaminophen) 500 Mg Tablet 500 Mg PO PRN Q8HRS PRN 07/14/14 Rx Losartan Potassium 25 Mg Tablet 25 Mg PO DAILY 07/14/14 Rx Rulox Suspension (Mag Hydrox/Al Hydrox/Simeth) 355 Ml Oral.susp 60 Ml PO PRN Q2HR PRN 07/14/14 Rx Glucose (Dextrose) 4 Gm Tab.chew 12 Gm PO PRN PRN 07/14/14 Rx Bisacodyl 10 Mg Supp.rect 10 Mg RC PRN DAILY PRN 07/14/14 Rx Albuterol Sulfate Conc Neb Soln (Albuterol Sulfate) 2.5 Mg/0.5 Ml Vial.neb 2.5 Mg NEB PRN QID PRN 07/14/14 Rx Zyrtec (Cetirizine Hcl) 10 Mg Tablet 0.5 Tab PO DAILY 07/14/14 Rx Hydrocodone-Apap 7.5-325 (Hydrocodone Bit/Acetaminophen) 1 Each Tablet 1 Tab PO PRN Q6HRS PRN 02/21/14 Reported Aspirin 81 Mg Tab.chew 1 Tab PO DAILY 02/21/14 Reported Ventolin Hfa Inhaler (Albuterol Sulfate) 18 Gm Hfa.aer.ad 18 Gm IH PRN 06/25/13 Reported Advair 250-50 Diskus (Fluticasone/Salmeterol) 1 Each Disk.w.dev 1 Each IH BID 06/25/13 Reported Voltaren (Diclofenac Sodium) 100 Gm Gel..gram. 100 Gm TP 05/27/13 Reported One Daily (Multivitamin) 1 Each Tablet 1 Each PO 05/27/13 Reported Flonase (Fluticasone Propionate) 16 Gm [place].susp 16 Gm NS 05/27/13 Reported Amiodarone Hcl 200 Mg Tablet 200 Mg PO 05/27/13 Reported Impression . 1. Abnormal x-ray compatible with bilateral pulmonary infiltrates compatible with combination of pneumonia and congestive heart failure. 2. Huuoh-[id number] systolic congestive heart failure. 3. Right lower lobe consolidation and effusion, suspect pneumonia, possibly aspiration. 4. Right lower lobe effusion. 5. Metabolic toxic encephalopathy. 6. [id number] renal failure. 7. Ischemic cardiomyopathy, ejection fraction of 40%. 8. Type 2 diabetes. 9. Protein malnutrition, present upon admission. CT REPORT IMPRESSION: 1. Dense consolidation in the right lower lobe into a lesser degree in the posterior aspect of the right upper and middle lobes suggesting pneumonia. Underlying neoplasm in the right lower lobe cannot be excluded. 2. Moderate sized right pleural effusion. 3. Mild left basilar atelectasis. 4. Cardiomegaly with coronary artery calcifications. Plan . IMPROVING 1. Concur with current broad-spectrum antibiotics for both gram-negative and gram-positive organisms. 2. Reviewed Ct not enough for fluid to drain, mostly pneumonia and atelectasis 3. Diurese per Cardiology and Nephrology. 4. ABG noted OBINNA VICENTE MD Jul 02, 2016 16:59
[2016-07-02 19:30] VITALS: BP 131/75
[2016-07-02] MEDS: MONTELUKAST SODIUM 10 MG TABLET. PO SCH (21:59)
[2016-07-02] MEDS: ALLOPURINOL 100 MG TABLET. PO SCH (21:59)
[2016-07-02] MEDS: INSULIN DETEMIR 300 UNITS/3 ML INSULN.PEN. SQ SCH (22:12)
[2016-07-02 23:30] VITALS: BP 131/74
[2016-07-03 03:20] VITALS: BP 128/64
[2016-07-03 07:53] VITALS: BP 131/73
[2016-07-03] MEDS: INSULIN ASPART 300 UNITS/3 ML INSULN.PEN SQ SCH ×3 (08:00→17:41)
--- NOTE | 2016-07-03 08:01 | PDOC ---
PROGRESS NOTES Subjective Subjective Patient seen and examined Objective Objective Vital Signs Date Time Temp Pulse Resp B/P Pulse Ox O2 Delivery O2 Flow Rate FiO2 07/03/16 07:53 98.1 60 23 131/73 95 Nasal Cannula 2.0 98.1 Intake and Output 07/03/16 07:00 Intake Total 935 ml Output Total 1300 ml Balance -365 ml Intake Oral 935 ml Output Urine Total 1300 ml Stool Total 0 ml # Bowel Movements 1 Physical Exam Abdomen: Normal bowel sounds Heart: Regular rate General: mild distress Lungs: Other (decreased breath sounds) Assessment Assessment Problems Medical Problems: (1) Acute bronchospasm Status: Acute (2) Influenza B Status: Acute Assessment 1. Acute on chronic systolic HF Improved. Continue diuresis with monitoring of labs EF 35-40 % with ICM per chart review. echo (complete last month) report pending from Dr. Mosley 2. Acute respiratory failure ? aspiration PNA multifactorial 3. Leukocytosis/fevers/Influenza Tamiflu started per ID 4. ANIKET with CKD per nephrology 5. HTN low-normotensive hold antiHTN therapy as warranted. 6. Encephalopathy 7. Hx AFIB Maintaining SR. Continue Amio interrogate PPM Comment Review of Relevant I have reviewed the following items janae (where applicable) has been applied. Labs Laboratory Tests Test 07/01/16 08:04 07/01/16 11:09 07/02/16 04:30 07/02/16 08:14 Glucose (Fingerstick) 171mg/dL (70-99) 273mg/dL (70-99) 323mg/dL (70-99) White Blood Count 10.2x10^3/uL (4.0-11.0) Red Blood Count 4.53x10^6/uL (3.50-5.40) Hemoglobin 12.5g/dL (12.0-15.5) Hematocrit 38.9% (36.0-47.0) Mean Corpuscular Volume 86fL (79-100) Mean Corpuscular Hemoglobin 28pg (25-35) Mean Corpuscular Hemoglobin Concent 32g/dL (31-37) Red Cell Distribution Width 17.2% (11.5-14.5) Platelet Count 121x10^3/uL (140-400) Neutrophils (%) (Auto) 92% (31-73) Lymphocytes (%) (Auto) 4% (24-48) Monocytes (%) (Auto) 4% (0-9) Eosinophils (%) (Auto) 0% (0-3) Basophils (%) (Auto) 0% (0-3) Neutrophils # (Auto) 9.3x10^3uL (1.8-7.7) Lymphocytes # (Auto) 0.4x10^3/uL (1.0-4.8) Monocytes # (Auto) 0.4x10^3/uL (0.0-1.1) Eosinophils # (Auto) 0.0x10^3/uL (0.0-0.7) Basophils # (Auto) 0.0x10^3/uL (0.0-0.2) Sodium Level 147mmol/L (136-145) Potassium Level 3.3mmol/L (3.5-5.1) Chloride Level 110mmol/L (98-107) Carbon Dioxide Level 24mmol/L (21-32) Anion Gap 13 (6-14) Blood Urea Nitrogen 43mg/dL (7-20) Creatinine 1.1mg/dL (0.6-1.0) Estimated GFR (Cockcroft-Gault) 57.4 BUN/Creatinine Ratio 39 (6-20) Glucose Level 161mg/dL (70-99) Calcium Level 8.5mg/dL (8.5-10.1) Total Bilirubin 0.4mg/dL (0.2-1.0) Aspartate Amino Transf (AST/SGOT) 26U/L (15-37) Alanine Aminotransferase (ALT/SGPT) 70U/L (14-59) Alkaline Phosphatase 44U/L (46-116) Total Protein 5.1g/dL (6.4-8.2) Albumin 1.9g/dL (3.4-5.0) Albumin/Globulin Ratio 0.6 (1.0-1.7) Test 07/02/16 11:55 07/02/16 17:00 07/02/16 20:58 Glucose (Fingerstick) 183mg/dL (70-99) 234mg/dL (70-99) 111mg/dL (70-99) Laboratory Tests Test 07/02/16 08:14 07/02/16 11:55 07/02/16 17:00 07/02/16 20:58 Glucose (Fingerstick) 323mg/dL (70-99) 183mg/dL (70-99) 234mg/dL (70-99) 111mg/dL (70-99) Microbiology 07/02/16 Blood Culture - Preliminary, Resulted NO GROWTH AFTER 1 DAY 06/29/16 Urine Culture - Final, Complete 06/29/16 Urine Culture Result 1 (MAIKOL) - Final, Complete 06/29/16 Antimicrobic Susceptibility - Final, Complete Medications Current Medications Albuterol/ Ipratropium 3 ml 3 ml 1X ONCE NEB Last administered on 06/29/16 21: 24; Start 06/29/16 at 20:30; Stop 06/29/16 at 20:31; Status DC Sodium Chloride 1,000 ml @ 1,000 mls/hr 1X ONCE IV Last administered on 21:10; Start 06/29/16 at 20:30; Stop 06/29/16 at 21:29; Status DC Piperacillin Sod/ Tazobactam Sod/ Sodium Chloride (Zosyn/Iv Sodium Chloride 0.9 % 50ml) 50 ml @ 100 mls/hr 1X ONCE IV Last administered on 06/29/16 21:09; Start 06/29/16 at 20:30; Stop 06/29/16 at 20:59; Status DC Ondansetron HCl 4 mg 4 mg PRN Q8HRS PRN IV NAUSEA/VOMITING; Start 06/29/16 at 21 :30; Stop 06/30/16 at 21:29; Status DC Sodium Chloride (Iv Sodium Chloride 0.9% 1000ml Bag) 1,000 ml @ 125 mls/hr Q8H IV Last administered on 06/30/16 00:30; Start 06/29/16 at 21:24; Stop 06/30/16 at 08:30; Status DC Acetaminophen (Tylenol) 650 mg PRN Q4HRS PRN PO FEVER; Start 06/29/16 at 21:30; Stop 06/30/16 at 00:52; Status DC Albuterol/ Ipratropium (Duoneb) 3 ml RTQID NEB ; Start 06/30/16 at 08:00; Stop at 08:00; Status DC Oseltamivir Phosphate (Tamiflu) 75 mg BID PO ; Start 06/30/16 at 09:00; Stop 07/05 at 08:59; Status UNV Methylprednisolone Sodium Succinate (Solu-Medrol 40mg Vial) 40 mg BID IV ; Start 06/30/16 at 09:00; Stop 06/30/16 at 09:00; Status DC Oseltamivir Phosphate (Tamiflu) 30 mg 1X ONCE PO Last administered on 22:26; Start 06/29/16 at 22:45; Stop 06/29/16 at 22:46; Status DC Oseltamivir Phosphate (Tamiflu) 30 mg QHS PO Last administered on 07/01/16 21: 14; Start 06/30/16 at 21:00; Stop 07/02/16 at 09:44; Status DC Insulin Detemir (Levemir) 29 units QHS SQ ; Start 06/30/16 at 21:00; Stop at 21:00; Status DC Insulin Aspart (Novolog) 0-5 UNITS TIDWMEALS SQ Last administered on 07/02/16 17:56; Start 06/30/16 at 08:00 Dextrose 12.5 gm PRN Q15MIN PRN IV SEE COMMENTS; Start 06/30/16 at 00:45 Acetaminophen (Tylenol) 500 mg PRN Q8HRS PRN PO MILD PAIN / TEMP; Start at 00:45 Allopurinol (Zyloprim) 100 mg QHS PO Last administered on 07/02/16 21:59; Start 06/30/16 at 21:00 Amiodarone HCl (Cordarone) 200 mg DAILY PO Last administered on 07/02/16 09:16 ; Start 06/30/16 at 09:00 Aspirin (Children'S Aspirin) 81 mg DAILY PO Last administered on 07/02/16 09:17 ; Start 06/30/16 at 09:00 Cetirizine HCl (Zyrtec) 10 mg DAILY PO Last administered on 07/02/16 09:15; Start 06/30/16 at 09:00 Vitamin D (Vitamin D3) 2,000 unit DAILY PO Last administered on 07/02/16 09:17 ; Start 06/30/16 at 09:00 Diclofenac Sodium (Voltaren) 1 ld HS TP ; Start 06/30/16 at 21:00; Stop 06/30/16 at 21:00; Status DC Fluticasone Propionate (Flonase) 2 spray DAILY NS Last administered on 09:00; Start 06/30/16 at 09:00 Acetaminophen/ Hydrocodone Bitart (Lortab 7.5/325) 1 tab PRN Q6HRS PRN PO SEVERE PAIN; Start 06/30/16 at 00:45 Insulin Aspart (Novolog) 1 units TIDBFRMEAL SQ ; Start 06/30/16 at 07:30; Status UNV Montelukast Sodium (Singulair) 10 mg HS PO Last administered on 07/02/16 21:59 ; Start 06/30/16 at 21:00 Spironolactone (Aldactone) 25 mg DAILY PO Last administered on 07/02/16 09:17; Start 06/30/16 at 09:00 Albuterol Sulfate (Ventolin Neb Soln) 2.5 mg PRN QID PRN NEB SHORTNESS OF BREATH; Start 06/30/16 at 01:00; Stop 06/30/16 at 08:24; Status DC Non-Formulary Medication 1 cap DAILY PO ; Start 06/30/16 at 09:00; Status UNV Non-Formulary Medication 1 each BID IH ; Start 06/30/16 at 09:00; Status UNV Non-Formulary Medication 40 unit HS SQ ; Start 06/30/16 at 21:00; Status UNV Pantoprazole Sodium (Protonix) 40 mg DAILYAC PO Last administered on 07/02/16 09:16; Start 06/30/16 at 07:30 Albuterol/ Ipratropium (Duoneb) 3 ml RTQID NEB Last administered on 07/02/16 20 :15; Start 06/30/16 at 08:00 Budesonide (Pulmicort) 0.5 mg RTBID NEB Last administered on 06/30/16 07:41; Start 06/30/16 at 08:00; Stop 06/30/16 at 16:24; Status DC Albuterol Sulfate (Ventolin Neb Soln) 2.5 mg PRN Q2HR PRN NEB SHORTNESS OF BREATH; Start 06/30/16 at 08:30 Methylprednisolone Sodium Succinate (Solu-Medrol 40mg Vial) 40 mg Q12HR IV Last administered on 07/02/16 21:58; Start 06/30/16 at 09:00 Bisacodyl (Dulcolax Supp) 10 mg PRN DAILY PRN RC CONSTIPATION; Start 06/30/16 at 08:30 Multivitamins/ Calcium 1 tab 1 tab DAILY PO Last administered on 07/02/16 09:16 ; Start 06/30/16 at 09:00 Sodium Chloride 1,000 ml @ 75 mls/hr [id number] IV ; Start 06/30/16 at 08:30; Stop 06/30/16 at 08:34; Status DC Piperacillin Sod/ Tazobactam Sod 2.25 gm/Sodium Chloride 50 ml @ 100 mls/hr Q6HRS IV Last administered on 07/01/16 12:39; Start 06/30/16 at 09:00; Stop 07/01 at 14:46; Status DC Linezolid (Zyvox Premix) 300 ml @ 300 mls/hr Q12HR IV Last administered on 07/01 08:36; Start 06/30/16 at 10:00; Stop 07/01/16 at 09:44; Status DC Diclofenac Sodium (Voltaren) 1 ld QID TP Last administered on 07/02/16 22:13; Start 06/30/16 at 10:00 Insulin Detemir (Levemir) 15 units QHS SQ Last administered on 07/02/16 22:12; Start 06/30/16 at 21:00 Cyanocobalamin (Vitamin B-12) 1,000 mcg DAILY PO Last administered on 07/02/16 09:17; Start 06/30/16 at 10:00 Vitamin D (Vitamin D3) 2,000 unit DAILY PO ; Start 06/30/16 at 10:00; Status Cancel Artificial Tears (Artificial Tears) 2 drop PRN QID PRN OU DRY EYE; Start at 09:45 Carvedilol (Coreg) 3.125 mg BIDWMEALS PO Last administered on 07/02/16 17:51; Start 06/30/16 at 10:00 Lidocaine (Lidoderm) 1 patch DAILY TD Last administered on 07/02/16 10:06; Start 06/30/16 at 11:00 Furosemide (Lasix) 40 mg DAILY PO Last administered on 07/02/16 09:17; Start at 12:00 Furosemide (Lasix) 40 mg 1X ONCE IVP ; Start 06/30/16 at 14:00; Stop 06/30/16 at 14:01; Status DC Potassium Chloride (Klor-Con) 20 meq 1X ONCE PO Last administered on 06/30/16 14:27; Start 06/30/16 at 13:00; Stop 06/30/16 at 13:01; Status DC Guaifenesin (Mucinex) 600 mg BID PO Last administered on 07/02/16 21:59; Start 07/01/16 at 09:00 Mupirocin (Bactroban) 1 ld BID NS Last administered on 07/02/16 21:00; Start 07/01/16 at 09:00 Vancomycin HCl 1 each 1 each PRN DAILY PRN MC SEE COMMENTS Last administered on 07/02/16 09:47; Start 07/01/16 at 09:45 Vancomycin HCl/ Sodium Chloride (Iv Sodium Chloride 0.9% 500ml Bag) 500 ml @ 250 mls/hr 1X ONCE IV Last administered on 07/01/16 10:53; Start 07/01/16 at 10 :30; Stop 07/01/16 at 12:29; Status DC Furosemide 40 mg 40 mg 1X ONCE IVP Last administered on 07/01/16 16:32; Start 07/01/16 at 16:00; Stop 07/01/16 at 16:01; Status DC Vancomycin HCl/ Sodium Chloride (Iv Sodium Chloride 0.9% 250ml) 250 ml @ 250 mls/hr Q24H IV Last administered on 07/02/16 11:52; Start 07/02/16 at 11:00 Vancomycin HCl 1 each 1 each 1X ONCE MC ; Start 07/03/16 at 10:30; Stop 07/03/16 at 10:31 Ceftriaxone Sodium/Sodium Chloride (Rocephin/Iv Sodium Chloride 0.9% 50ml) 50 ml @ 100 mls/hr Q24H IV Last administered on 07/02/16 15:24; Start 07/01/16 at 15:00 Oseltamivir Phosphate (Tamiflu) 30 mg BID PO Last administered on 07/02/16 21: 59; Start 07/02/16 at 10:00; Stop 07/03/16 at 21:01 Potassium Chloride (Klor-Con) 40 meq 1X ONCE PO Last administered on 07/02/16t 11:53; Start 07/02/16 at 11:15; Stop 07/02/16 at 11:16; Status DC Active Scripts Active Lantus (Insulin Glargine,Hum.rec.anlog) 100 Unit/1 Ml Vial 40 Unit SQ HS Potassium Chloride 20 Meq Tab.er.prt 20 Meq PO EVERY OTHER DAY Lasix (Furosemide) 40 Mg Tablet 60 Mg PO DAILY Tylenol Extra Strength (Acetaminophen) 500 Mg Tablet 500 Mg PO PRN Q8HRS PRN Losartan Potassium 25 Mg Tablet 25 Mg PO DAILY Rulox Suspension (Mag Hydrox/Al Hydrox/Simeth) 355 Ml Oral.susp 60 Ml PO PRN Q2HR PRN Glucose (Dextrose) 4 Gm Tab.chew 12 Gm PO PRN PRN Bisacodyl 10 Mg Supp.rect 10 Mg RC PRN DAILY PRN Albuterol Sulfate Conc Neb Soln (Albuterol Sulfate) 2.5 Mg/0.5 Ml Vial.neb 2.5 Mg NEB PRN QID PRN Zyrtec (Cetirizine Hcl) 10 Mg Tablet 0.5 Tab PO DAILY Reported Novolog Flexpen (Insulin Aspart) 100 Unit/1 Ml Insuln.pen 1 Unit SQ Singulair Tablet (Montelukast Sodium) 10 Mg Tablet 10 Mg PO HS Allopurinol 100 Mg Tablet 100 Mg PO QHS Vitamin D (Cholecalciferol (Vitamin D3)) 2,000 Unit Capsule 1 Cap PO DAILY Vitamin D (Cholecalciferol (Vitamin D3)) 5,000 Unit Capsule 2,000 Unit PO Torsemide 10 Mg Tablet 10 Mg PO Spironolactone 25 Mg Tablet 25 Mg PO DAILY Omeprazole 20 Mg Capsule.dr 20 Mg PO DAILY Hydrocodone-Apap 7.5-325 (Hydrocodone Bit/Acetaminophen) 1 Each Tablet 1 Tab PO PRN Q6HRS PRN Aspirin 81 Mg Tab.chew 1 Tab PO DAILY Ventolin Hfa Inhaler (Albuterol Sulfate) 18 Gm Hfa.aer.ad 18 Gm IH PRN Advair 250-50 Diskus (Fluticasone/Salmeterol) 1 Each Disk.w.dev 1 Each IH BID Voltaren (Diclofenac Sodium) 100 Gm Gel..gram. 100 Gm TP One Daily (Multivitamin) 1 Each Tablet 1 Each PO Flonase (Fluticasone Propionate) 16 Gm Godd[place].susp 16 Gm NS Amiodarone Hcl 200 Mg Tablet 200 Mg PO Vitals/I & O Vital Sign - Last 24 Hours 07/02/16 07/02/16 07/02/16 07/02/16 08:00 09:16 09:18 11:00 Temp 98.6 98.6 Pulse 66 64 66 Resp 20 B/P 127/62 127/62 140/72 Pulse Ox 94 O2 Delivery Nasal Cannula O2 Flow Rate 2.0 2.0 07/02/16 07/02/16 07/02/16 07/02/16 11:02 15:00 16:02 17:51 Temp 97.9 97.9 Pulse 60 60 Resp 20 B/P 105/55 105/55 Pulse Ox 99 94 O2 Delivery Nasal Cannula Nasal Cannula O2 Flow Rate 1.0 2.0 1.0 07/02/16 07/02/16 07/02/16 07/02/16 19:30 20:00 20:15 23:30 Temp 96.7 97.0 96.7 97.0 Pulse 60 60 Resp 22 20 B/P 131/75 131/74 Pulse Ox 98 98 98 O2 Delivery Nasal Cannula Nasal Cannula Nasal Cannula Nasal Cannula O2 Flow Rate 1.0 2.0 1.0 1.0 07/03/16 07/03/16 03:20 07:53 Temp 98.7 98.1 98.7 98.1 Pulse 66 60 Resp 17 23 B/P 128/64 131/73 Pulse Ox 98 95 O2 Delivery Nasal Cannula Nasal Cannula O2 Flow Rate 2.0 2.0 Intake and Output 07/02/16 07/02/16 07/03/16 15:00 23:00 07:00 Intake Total 875 ml 60 ml Output Total 1000 ml 300 ml Balance -125 ml -240 ml IRMA GUNTER MD Jul 03, 2016 08:01
[2016-07-03] MEDS: CYANOCOBALAMIN (VITAMIN B-12) 1,000 MCG TABLET. PO SCH (08:49)
[2016-07-03] MEDS: LIDOCAINE (700MG/PATCH) PATCH. TD SCH (08:49)
[2016-07-03] MEDS: OSELTAMIVIR 30 MG CAPSULE PO SCH ×2 (08:49→20:48)
[2016-07-03] MEDS: CARVEDILOL 3.125 MG TABLET PO SCH ×2 (08:50→17:37)
[2016-07-03] MEDS: GUAIFENESIN ER 600 MG TABLET.ER PO SCH ×2 (08:50→20:48)
[2016-07-03] MEDS: FUROSEMIDE 40 MG TABLET PO SCH (08:50)
[2016-07-03] MEDS: CETIRIZINE HCL 10 MG TABLET PO SCH (08:50)
[2016-07-03] MEDS: AMIODARONE HCL 200 MG TABLET PO SCH (08:51)
[2016-07-03] MEDS: SPIRONOLACTONE 25 MG TABLET PO SCH (08:51)
[2016-07-03] MEDS: ASPIRIN 81 MG TAB.CHEW PO SCH (08:51)
[2016-07-03] MEDS: PANTOPRAZOLE 40 MG TABLET. PO SCH (08:51)
[2016-07-03] MEDS: MULTIVITAMIN with MINERAL TABLET. PO SCH (08:51)
[2016-07-03] MEDS: CHOLECALCIFEROL (VITAMIN D3) 1,000 UNIT TABLET PO SCH (08:52)
[2016-07-03] MEDS: FLUTICASONE 50MCG/NASAL SPRAY 16GM BOTTLE. NS SCH (08:52)
[2016-07-03] MEDS: methylPREDNISolone SOD SUCC PF 40 MG/ML VIAL. IV SCH ×2 (08:52→20:46)
[2016-07-03] MEDS: DICLOFENAC SODIUM 1% TOPICAL GEL 100GM TUBE. TP SCH ×4 (08:53→20:48)
[2016-07-03] MEDS: MUPIROCIN 2 % NASAL OINTMENT 22GM TUBE. NS SCH ×2 (08:53→20:47)
[2016-07-03] MEDS: IPRATRPIUM/ALBUTEROL 0.5/2.5MG 3 ML NEBU. NEB SCH ×4 (09:19→19:35)
--- NOTE | 2016-07-03 09:22 | PDOC ---
Infectious Disease Note Subjective Subjective + cough. Denies difficulty breathing. O2 supplementation, 1LNC c/o RUQ/flank discomfort and mild nausea ROS ROS GEN: Denies fevers, chills, sweats CV: Denies chest pain RESP: Denies shortness of air GI: Denies n/v/d Vital Sign Vital Signs Vital Signs Date Time Temp Pulse Resp B/P Pulse Ox O2 Delivery O2 Flow Rate FiO2 07/03/16 08:51 60 131/73 07/03/16 07:53 98.1 23 95 Nasal Cannula 2.0 98.1 Physical Exam PHYSICAL EXAM GENERAL: Propped up in bed, NAD LUNGS: Clear anteriorly, nonlabored HEART: S1S2 ABD: BS present, soft, NT, no rebound EXT: No edema, no cyanosis BENEFITS SPECIALIST: Alert, responds appropriately SKIN: No rash IV: ok Labs Lab Laboratory Tests Test 07/02/16 11:55 07/02/16 17:00 07/02/16 20:58 Glucose (Fingerstick) 183mg/dL (70-99) 234mg/dL (70-99) 111mg/dL (70-99) Micro 07/02. BLOOD CULTURE Preliminary NO GROWTH AFTER 1 DAY 06/29. BLOOD CULT RESULT 1 Final Staphylococcus aureus. MRSA 06/29. URINE CULTURE RES 1 Final Escherichia coli Objective Assessment MRSA bacteremia, POA -Repeat BC 07/02 NGTD E. coli UTI. POA Influenza B Encephalopathy - better Cephalexin/Sulfa allergies Leukocytosis - on steroids now Transaminitis ? congestion/H/o Fatty liver CKD ? aspiration Dysphagia. Plan Plan of Care Vanc and Rocephin Repeat BC NGTD Await ECHO - cardiology following Monitor labs Hold PICC Attending Co-Sign The patient was seen and interviewed as well as examined at the bedside. The chart was reviewed. The case was discussed. Agree with the plan of care. KATHY CONTRERAS APRN Jul 03, 2016 09:22 HAYDEN LAKHANI MD Jul 03, 2016 13:09
[2016-07-03 10:39] VITALS: BP 126/84
[2016-07-03 11:03] LABS: BASO % 0 % (0-3); EOS % 0 % (0-3); HEMATOCRIT 39.3 % (36.0-47.0); HEMOGLOBIN 12.9 g/dL (12.0-15.5); LYMPH # 0.4 x10^3/uL (1.0-4.8); LYMPH % 4 % (24-48); MEAN CORPUSCULAR HEMOGLOBIN 28 pg (25-35); MEAN CORPUSCULAR HGB CONC 33 g/dL (31-37); MEAN CORPUSCULAR VOLUME 85 fL (79-100); MONO % 4 % (0-9); NEUT % 92 % (31-73); PLATELET COUNT 129 x10^3/uL (140-400); RED BLOOD COUNT 4.65 x10^6/uL (3.50-5.40); RED CELL DISTRIBUTION WIDTH 16.9 % (11.5-14.5); WHITE BLOOD COUNT 8.6 x10^3/uL (4.0-11.0)
[2016-07-03 11:19] LABS: ALBUMIN 1.8 g/dL (3.4-5.0); ALBUMIN/GLOBULIN RATIO 0.5 (1.0-1.7); CALCIUM 8.8 mg/dL (8.5-10.1); CREATININE 1.1 mg/dL (0.6-1.0); GFR 57.4; TOTAL BILIRUBIN 0.4 mg/dL (0.2-1.0); TOTAL PROTEIN 5.7 g/dL (6.4-8.2)
[2016-07-03] MEDS: VANCOMYCIN PER PHARMACY MC PRN (11:52)
[2016-07-03] MEDS: VANCOMYCIN 1.25 GM in IV NORMAL SALINE 250ML 250 ML IV SCH (12:06)
--- NOTE | 2016-07-03 12:59 | PDOC ---
PROGRESS NOTES Subjective Subjective feels better Objective Objective Vital Signs Date Time Temp Pulse Resp B/P Pulse Ox O2 Delivery O2 Flow Rate FiO2 07/03/16 11:24 Nasal Cannula 1.0 07/03/16 10:39 97.7 59 24 126/84 95 97.7 Intake and Output 07/03/16 07:00 Intake Total 935 ml Output Total 1300 ml Balance -365 ml Intake Oral 935 ml Output Urine Total 1300 ml Stool Total 0 ml # Bowel Movements 1 Physical Exam Abdomen: Normal bowel sounds Heart: Regular rate Extremities: Normal pulses, Other (1+ bilateral LE edema ) General: mild distress HEENT: Atraumatic, Mucous membr. moist/pink Lungs: Other (decreased breath sounds) MUSCULOSKELETAL: Osteoarthritic changes both hands Neuro: Normal speech, Sensation intact Psych/Mental Status: Other (pleasant, intermittent confusion) Skin: No breakdown, No significant lesion Diagnosis Problem List Problems Medical Problems: (1) Acute bronchospasm Status: Acute (2) Influenza B Status: Acute Assessment Assessment Assessment 1. influenzae B with sepsis 2. Secondary pneumonia gram neg/gram positive 3. a/c systolic diastolic CHF 4. transaminitis 5. ARF with underlying CKD III (Cr 1.2-1.6) 6. 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 HTN 8. leukocytosis fever 9. urinary incontinence overlow 10. HH 11. gastritis 12. hyperlipidemia 13. fatty liver PLAN:doing well. d/c vale iv zosyn+zyvox. pot replaced. ct scan noted pneumonia mrsa in blood +e coli in urine Inf B with sepsis Problems: Plan Plan of Care Problems Medical Problems: (1) Acute bronchospasm Status: Acute (2) Influenza B Status: Acute Comment Review of Relevant I have reviewed the following items janae (where applicable) has been applied. Labs Laboratory Tests Test 07/02/16 17:00 07/02/16 20:58 07/03/16 10:30 Glucose (Fingerstick) 234mg/dL (70-99) 111mg/dL (70-99) White Blood Count 8.6x10^3/uL (4.0-11.0) Red Blood Count 4.65x10^6/uL (3.50-5.40) Hemoglobin 12.9g/dL (12.0-15.5) Hematocrit 39.3% (36.0-47.0) Mean Corpuscular Volume 85fL (79-100) Mean Corpuscular Hemoglobin 28pg (25-35) Mean Corpuscular Hemoglobin Concent 33g/dL (31-37) Red Cell Distribution Width 16.9% (11.5-14.5) Platelet Count 129x10^3/uL (140-400) Neutrophils (%) (Auto) 92% (31-73) Lymphocytes (%) (Auto) 4% (24-48) Monocytes (%) (Auto) 4% (0-9) Eosinophils (%) (Auto) 0% (0-3) Basophils (%) (Auto) 0% (0-3) Neutrophils # (Auto) 7.9x10^3uL (1.8-7.7) Lymphocytes # (Auto) 0.4x10^3/uL (1.0-4.8) Monocytes # (Auto) 0.3x10^3/uL (0.0-1.1) Eosinophils # (Auto) 0.0x10^3/uL (0.0-0.7) Basophils # (Auto) 0.0x10^3/uL (0.0-0.2) Sodium Level 148mmol/L (136-145) Potassium Level 4.0mmol/L (3.5-5.1) Chloride Level 112mmol/L (98-107) Carbon Dioxide Level 27mmol/L (21-32) Anion Gap 9 (6-14) Blood Urea Nitrogen 42mg/dL (7-20) Creatinine 1.1mg/dL (0.6-1.0) Estimated GFR (Cockcroft-Gault) 57.4 BUN/Creatinine Ratio 38 (6-20) Glucose Level 178mg/dL (70-99) Calcium Level 8.8mg/dL (8.5-10.1) Total Bilirubin 0.4mg/dL (0.2-1.0) Aspartate Amino Transf (AST/SGOT) 17U/L (15-37) Alanine Aminotransferase (ALT/SGPT) 45U/L (14-59) Alkaline Phosphatase 46U/L (46-116) Total Protein 5.7g/dL (6.4-8.2) Albumin 1.8g/dL (3.4-5.0) Albumin/Globulin Ratio 0.5 (1.0-1.7) Vancomycin Level Trough 10.4mcg/mL (10.0-20.0) Vancomycin Last Dose Date 07/02/16 Vancomycin Last Dose Time 1100 Microbiology 07/02/16 Blood Culture - Preliminary, Resulted NO GROWTH AFTER 1 DAY 06/29/16 Urine Culture - Final, Complete 06/29/16 Urine Culture Result 1 (MAIKOL) - Final, Complete 06/29/16 Antimicrobic Susceptibility - Final, Complete Medications Current Medications Vancomycin HCl 1 each 1 each 1X ONCE MC Last administered on 07/03/16 10:30; Start 07/03/16 at 10:30; Stop 07/03/16 at 10:31; Status DC Vancomycin HCl/ Sodium Chloride (Iv Sodium Chloride 0.9% 250ml) 250 ml @ 167 mls/hr Q24H IV Last administered on 07/03/16 12:06; Start 07/03/16 at 12:00 Vitals/I & O Vital Sign - Last 24 Hours 07/02/16 07/02/16 07/02/16 07/02/16 15:00 16:02 17:51 19:30 Temp 97.9 96.7 97.9 96.7 Pulse 60 60 60 Resp 20 22 B/P 105/55 105/55 131/75 Pulse Ox 94 98 O2 Delivery Nasal Cannula Nasal Cannula O2 Flow Rate 2.0 1.0 1.0 07/02/16 07/02/16 07/02/16 07/03/16 20:00 20:15 23:30 03:20 Temp 97.0 98.7 97.0 98.7 Pulse 60 66 Resp 20 17 B/P 131/74 128/64 Pulse Ox 98 98 98 O2 Delivery Nasal Cannula Nasal Cannula Nasal Cannula Nasal Cannula O2 Flow Rate 2.0 1.0 1.0 2.0 07/03/16 07/03/16 07/03/16 07/03/16 07:53 08:00 08:50 08:51 Temp 98.1 98.1 Pulse 60 60 60 Resp 23 B/P 131/73 131/73 131/73 Pulse Ox 95 O2 Delivery Nasal Cannula Nasal Cannula O2 Flow Rate 2.0 1.0 07/03/16 07/03/16 07/03/16 09:21 10:39 11:24 Temp 97.7 97.7 Pulse 59 Resp 24 B/P 126/84 Pulse Ox 98 95 O2 Delivery Nasal Cannula Nasal Cannula Nasal Cannula O2 Flow Rate 1.0 2.0 1.0 Intake and Output 07/02/16 07/02/16 07/03/16 15:00 23:00 07:00 Intake Total 875 ml 60 ml Output Total 1000 ml 300 ml Balance -125 ml -240 ml MARIVEL DELONG MD Jul 03, 2016 12:58
--- NOTE | 2016-07-03 14:18 | PDOC ---
PULMONARY PROGRESS NOTES Subjective PT NOT MORE SOA, MORE ALERT Vitals Vital Signs Date Time Temp Pulse Resp B/P Pulse Ox O2 Delivery O2 Flow Rate FiO2 07/03/16 11:24 Nasal Cannula 1.0 07/03/16 10:39 97.7 59 24 126/84 95 97.7 ROS: No Nausea, No Chest Pain, No Abdominal Pain General: Alert Lungs: Clear Cardiovascular: S1, S2, Other (DECREASE BS ON RIGHT) Abdomen: Soft Neuro Exam: Alert Extremities: No Edema Skin: Warm Labs Laboratory Tests Test 07/02/16 04:30 07/02/16 08:14 07/02/16 11:55 07/02/16 17:00 White Blood Count 10.2x10^3/uL (4.0-11.0) Red Blood Count 4.53x10^6/uL (3.50-5.40) Hemoglobin 12.5g/dL (12.0-15.5) Hematocrit 38.9% (36.0-47.0) Mean Corpuscular Volume 86fL (79-100) Mean Corpuscular Hemoglobin 28pg (25-35) Mean Corpuscular Hemoglobin Concent 32g/dL (31-37) Red Cell Distribution Width 17.2% (11.5-14.5) Platelet Count 121x10^3/uL (140-400) Neutrophils (%) (Auto) 92% (31-73) Lymphocytes (%) (Auto) 4% (24-48) Monocytes (%) (Auto) 4% (0-9) Eosinophils (%) (Auto) 0% (0-3) Basophils (%) (Auto) 0% (0-3) Neutrophils # (Auto) 9.3x10^3uL (1.8-7.7) Lymphocytes # (Auto) 0.4x10^3/uL (1.0-4.8) Monocytes # (Auto) 0.4x10^3/uL (0.0-1.1) Eosinophils # (Auto) 0.0x10^3/uL (0.0-0.7) Basophils # (Auto) 0.0x10^3/uL (0.0-0.2) Sodium Level 147mmol/L (136-145) Potassium Level 3.3mmol/L (3.5-5.1) Chloride Level 110mmol/L (98-107) Carbon Dioxide Level 24mmol/L (21-32) Anion Gap 13 (6-14) Blood Urea Nitrogen 43mg/dL (7-20) Creatinine 1.1mg/dL (0.6-1.0) Estimated GFR (Cockcroft-Gault) 57.4 BUN/Creatinine Ratio 39 (6-20) Glucose Level 161mg/dL (70-99) Calcium Level 8.5mg/dL (8.5-10.1) Total Bilirubin 0.4mg/dL (0.2-1.0) Aspartate Amino Transf (AST/SGOT) 26U/L (15-37) Alanine Aminotransferase (ALT/SGPT) 70U/L (14-59) Alkaline Phosphatase 44U/L (46-116) Total Protein 5.1g/dL (6.4-8.2) Albumin 1.9g/dL (3.4-5.0) Albumin/Globulin Ratio 0.6 (1.0-1.7) Glucose (Fingerstick) 323mg/dL (70-99) 183mg/dL (70-99) 234mg/dL (70-99) Test 07/02/16 20:58 07/03/16 10:30 Glucose (Fingerstick) 111mg/dL (70-99) White Blood Count 8.6x10^3/uL (4.0-11.0) Red Blood Count 4.65x10^6/uL (3.50-5.40) Hemoglobin 12.9g/dL (12.0-15.5) Hematocrit 39.3% (36.0-47.0) Mean Corpuscular Volume 85fL (79-100) Mean Corpuscular Hemoglobin 28pg (25-35) Mean Corpuscular Hemoglobin Concent 33g/dL (31-37) Red Cell Distribution Width 16.9% (11.5-14.5) Platelet Count 129x10^3/uL (140-400) Neutrophils (%) (Auto) 92% (31-73) Lymphocytes (%) (Auto) 4% (24-48) Monocytes (%) (Auto) 4% (0-9) Eosinophils (%) (Auto) 0% (0-3) Basophils (%) (Auto) 0% (0-3) Neutrophils # (Auto) 7.9x10^3uL (1.8-7.7) Lymphocytes # (Auto) 0.4x10^3/uL (1.0-4.8) Monocytes # (Auto) 0.3x10^3/uL (0.0-1.1) Eosinophils # (Auto) 0.0x10^3/uL (0.0-0.7) Basophils # (Auto) 0.0x10^3/uL (0.0-0.2) Sodium Level 148mmol/L (136-145) Potassium Level 4.0mmol/L (3.5-5.1) Chloride Level 112mmol/L (98-107) Carbon Dioxide Level 27mmol/L (21-32) Anion Gap 9 (6-14) Blood Urea Nitrogen 42mg/dL (7-20) Creatinine 1.1mg/dL (0.6-1.0) Estimated GFR (Cockcroft-Gault) 57.4 BUN/Creatinine Ratio 38 (6-20) Glucose Level 178mg/dL (70-99) Calcium Level 8.8mg/dL (8.5-10.1) Total Bilirubin 0.4mg/dL (0.2-1.0) Aspartate Amino Transf (AST/SGOT) 17U/L (15-37) Alanine Aminotransferase (ALT/SGPT) 45U/L (14-59) Alkaline Phosphatase 46U/L (46-116) Total Protein 5.7g/dL (6.4-8.2) Albumin 1.8g/dL (3.4-5.0) Albumin/Globulin Ratio 0.5 (1.0-1.7) Vancomycin Level Trough 10.4mcg/mL (10.0-20.0) Vancomycin Last Dose Date 07/02/16 Vancomycin Last Dose Time 1100 Laboratory Tests Test 07/02/16 17:00 07/02/16 20:58 07/03/16 10:30 Glucose (Fingerstick) 234mg/dL (70-99) 111mg/dL (70-99) White Blood Count 8.6x10^3/uL (4.0-11.0) Red Blood Count 4.65x10^6/uL (3.50-5.40) Hemoglobin 12.9g/dL (12.0-15.5) Hematocrit 39.3% (36.0-47.0) Mean Corpuscular Volume 85fL (79-100) Mean Corpuscular Hemoglobin 28pg (25-35) Mean Corpuscular Hemoglobin Concent 33g/dL (31-37) Red Cell Distribution Width 16.9% (11.5-14.5) Platelet Count 129x10^3/uL (140-400) Neutrophils (%) (Auto) 92% (31-73) Lymphocytes (%) (Auto) 4% (24-48) Monocytes (%) (Auto) 4% (0-9) Eosinophils (%) (Auto) 0% (0-3) Basophils (%) (Auto) 0% (0-3) Neutrophils # (Auto) 7.9x10^3uL (1.8-7.7) Lymphocytes # (Auto) 0.4x10^3/uL (1.0-4.8) Monocytes # (Auto) 0.3x10^3/uL (0.0-1.1) Eosinophils # (Auto) 0.0x10^3/uL (0.0-0.7) Basophils # (Auto) 0.0x10^3/uL (0.0-0.2) Sodium Level 148mmol/L (136-145) Potassium Level 4.0mmol/L (3.5-5.1) Chloride Level 112mmol/L (98-107) Carbon Dioxide Level 27mmol/L (21-32) Anion Gap 9 (6-14) Blood Urea Nitrogen 42mg/dL (7-20) Creatinine 1.1mg/dL (0.6-1.0) Estimated GFR (Cockcroft-Gault) 57.4 BUN/Creatinine Ratio 38 (6-20) Glucose Level 178mg/dL (70-99) Calcium Level 8.8mg/dL (8.5-10.1) Total Bilirubin 0.4mg/dL (0.2-1.0) Aspartate Amino Transf (AST/SGOT) 17U/L (15-37) Alanine Aminotransferase (ALT/SGPT) 45U/L (14-59) Alkaline Phosphatase 46U/L (46-116) Total Protein 5.7g/dL (6.4-8.2) Albumin 1.8g/dL (3.4-5.0) Albumin/Globulin Ratio 0.5 (1.0-1.7) Vancomycin Level Trough 10.4mcg/mL (10.0-20.0) Vancomycin Last Dose Date 07/02/16 Vancomycin Last Dose Time 1100 Medications Active Scripts Medications Dose Route/Sig Days Date Category Novolog Flexpen (Insulin Aspart) 100 Unit/1 Ml Insuln.pen 1 Unit SQ 06/30/16 Reported Singulair Tablet (Montelukast Sodium) 10 Mg Tablet 10 Mg PO HS 06/30/16 Reported Allopurinol 100 Mg Tablet 100 Mg PO QHS 06/30/16 Reported Vitamin D (Cholecalciferol (Vitamin D3)) 2,000 Unit Capsule 1 Cap PO DAILY 06/30/16 Reported Vitamin D (Cholecalciferol (Vitamin D3)) 5,000 Unit Capsule 2,000 Unit PO 06/30/16 Reported Torsemide 10 Mg Tablet 10 Mg PO 06/30/16 Reported Spironolactone 25 Mg Tablet 25 Mg PO DAILY 06/30/16 Reported Omeprazole 20 Mg Capsule.dr 20 Mg PO DAILY 06/30/16 Reported Lantus (Insulin Glargine,Hum.rec.anlog) 100 Unit/1 Ml Vial 40 Unit SQ HS 07/14/14 Rx Potassium Chloride 20 Meq Tab.er.prt 20 Meq PO EVERY OTHER DAY 07/14/14 Rx Lasix (Furosemide) 40 Mg Tablet 60 Mg PO DAILY 07/14/14 Rx Tylenol Extra Strength (Acetaminophen) 500 Mg Tablet 500 Mg PO PRN Q8HRS PRN 07/14/14 Rx Losartan Potassium 25 Mg Tablet 25 Mg PO DAILY 07/14/14 Rx Rulox Suspension (Mag Hydrox/Al Hydrox/Simeth) 355 Ml Oral.susp 60 Ml PO PRN Q2HR PRN 07/14/14 Rx Glucose (Dextrose) 4 Gm Tab.chew 12 Gm PO PRN PRN 07/14/14 Rx Bisacodyl 10 Mg Supp.rect 10 Mg RC PRN DAILY PRN 07/14/14 Rx Albuterol Sulfate Conc Neb Soln (Albuterol Sulfate) 2.5 Mg/0.5 Ml Vial.neb 2.5 Mg NEB PRN QID PRN 07/14/14 Rx Zyrtec (Cetirizine Hcl) 10 Mg Tablet 0.5 Tab PO DAILY 07/14/14 Rx Hydrocodone-Apap 7.5-325 (Hydrocodone Bit/Acetaminophen) 1 Each Tablet 1 Tab PO PRN Q6HRS PRN 02/21/14 Reported Aspirin 81 Mg Tab.chew 1 Tab PO DAILY 02/21/14 Reported Ventolin Hfa Inhaler (Albuterol Sulfate) 18 Gm Hfa.aer.ad 18 Gm IH PRN 06/25/13 Reported Advair 250-50 Diskus (Fluticasone/Salmeterol) 1 Each Disk.w.dev 1 Each IH BID 06/25/13 Reported Voltaren (Diclofenac Sodium) 100 Gm Gel..gram. 100 Gm TP 05/27/13 Reported One Daily (Multivitamin) 1 Each Tablet 1 Each PO 05/27/13 Reported Flonase (Fluticasone Propionate) 16 Gm Rowdy.susp 16 Gm NS 05/27/13 Reported Amiodarone Hcl 200 Mg Tablet 200 Mg PO 05/27/13 Reported Impression . 1. Abnormal x-ray compatible with bilateral pulmonary infiltrates compatible with combination of pneumonia and congestive heart failure. 2. Mcxfw-xz-dlotenn systolic congestive heart failure. 3. Right lower lobe consolidation and effusion, suspect pneumonia, possibly aspiration. 4. Right lower lobe effusion. 5. Metabolic toxic encephalopathy. 6. Xzjhv-oa-udwfmqc renal failure. 7. Ischemic cardiomyopathy, ejection fraction of 40%. 8. Type 2 diabetes. 9. Protein malnutrition, present upon admission. CT REPORT IMPRESSION: 1. Dense consolidation in the right lower lobe into a lesser degree in the posterior aspect of the right upper and middle lobes suggesting pneumonia. Underlying neoplasm in the right lower lobe cannot be excluded. 2. Moderate sized right pleural effusion. 3. Mild left basilar atelectasis. 4. Cardiomegaly with coronary artery calcifications. Plan . AGREE WITH CURRENT RX HOME WHEN OK TO SWITCH TO ORAL ANTIBX 1. Concur with current broad-spectrum antibiotics for both gram-negative and gram-positive organisms., PER ID 2. Reviewed Ct not enough for fluid to drain, mostly pneumonia and atelectasis 3. Diurese per Cardiology and Nephrology. 4. ABG noted OBINNA VICENTE MD Jul 03, 2016 14:18
[2016-07-03 14:33] VITALS: BP 128/66
[2016-07-03] MEDS: CEFTRIAXONE SODIUM 1 GM in IV NORMAL SALINE 50ML 50 ML IV SCH (16:13)
[2016-07-03 19:40] VITALS: BP 119/64
[2016-07-03] MEDS: ALLOPURINOL 100 MG TABLET. PO SCH (20:48)
[2016-07-03] MEDS: MONTELUKAST SODIUM 10 MG TABLET. PO SCH (20:48)
[2016-07-03] MEDS: INSULIN DETEMIR 300 UNITS/3 ML INSULN.PEN. SQ SCH (21:05)
[2016-07-03 22:10] VITALS: BP 123/66
[2016-07-04 03:35] VITALS: BP 146/80
[2016-07-04 03:47] LABS: BASO % 0 % (0-3); EOS % 0 % (0-3); HEMATOCRIT 38.5 % (36.0-47.0); HEMOGLOBIN 12.3 g/dL (12.0-15.5); LYMPH # 0.3 x10^3/uL (1.0-4.8); LYMPH % 3 % (24-48); MEAN CORPUSCULAR HEMOGLOBIN 28 pg (25-35); MEAN CORPUSCULAR HGB CONC 32 g/dL (31-37); MEAN CORPUSCULAR VOLUME 86 fL (79-100); MONO % 3 % (0-9); NEUT % 94 % (31-73); PLATELET COUNT 132 x10^3/uL (140-400); RED BLOOD COUNT 4.48 x10^6/uL (3.50-5.40); RED CELL DISTRIBUTION WIDTH 17.2 % (11.5-14.5); WHITE BLOOD COUNT 9.4 x10^3/uL (4.0-11.0)
[2016-07-04 04:20] LABS: ALBUMIN 1.8 g/dL (3.4-5.0); ALBUMIN/GLOBULIN RATIO 0.5 (1.0-1.7); CALCIUM 8.8 mg/dL (8.5-10.1); CREATININE 1.1 mg/dL (0.6-1.0); GFR 57.4; TOTAL BILIRUBIN 0.4 mg/dL (0.2-1.0); TOTAL PROTEIN 5.7 g/dL (6.4-8.2)
[2016-07-04 07:00] VITALS: BP 158/87
[2016-07-04 07:19] LABS: ANISOCYTOSIS SLIGHT; PLT ESTIMATE DECREASED (ADEQUATE); TOXIC VACUOLATION PRESENT
[2016-07-04] MEDS: IPRATRPIUM/ALBUTEROL 0.5/2.5MG 3 ML NEBU. NEB SCH ×4 (08:13→19:55)
--- NOTE | 2016-07-04 08:20 | PDOC3 ---
MEL GUNN STITCH WHEELER 07/04/16 0820: IM DISCHARGE & PROGRESS NOTES Date of Admission Date of Admission Date of Admission: Jun 29, 2016 at 22:05 Date of Discharge Date of Discharge 07/04/16 Primary Diagnosis Primary Diagnosis Assessment 1. influenzae B with sepsis 2. Secondary pneumonia gram neg/gram positive 3. a/c systolic diastolic CHF 4. transaminitis 5. ARF with underlying CKD III (Cr 1.2-1.6) 6. ICM systolicCHF functional class II with [employer] 7. HTN 8. leukocytosis fever 9. urinary incontinence overlow 10. HH 11. gastritis 12. hyperlipidemia 13. fatty liver 14. CAD mild last eval at [facility] admit 15. hypothyroid with h/o thyroidectomy 16. severe weakness and debility 17. DM II with CKD III 18. severe PCL malnutrition 19. erosive gastritis 20. GERD 21. diverticulosis 22. chronic pain management DDD LS per Dr. Lopez PMC 23. acute metabolic encephalopathy POA 24. UTI E coli POA 25. MRSA bacteremia POA Consults Consults Bishop Shankar MD, Dr., Dr., Dr., Dr., Dr. Procedures Procedures None Labs Labs Laboratory Tests Test 07/01/16 11:09 07/01/16 17:26 07/01/16 20:39 07/02/16 04:30 Glucose (Fingerstick) 273mg/dL (70-99) 234mg/dL (70-99) 212mg/dL (70-99) White Blood Count 10.2x10^3/uL (4.0-11.0) Red Blood Count 4.53x10^6/uL (3.50-5.40) Hemoglobin 12.5g/dL (12.0-15.5) Hematocrit 38.9% (36.0-47.0) Mean Corpuscular Volume 86fL (79-100) Mean Corpuscular Hemoglobin 28pg (25-35) Mean Corpuscular Hemoglobin Concent 32g/dL (31-37) Red Cell Distribution Width 17.2% (11.5-14.5) Platelet Count 121x10^3/uL (140-400) Neutrophils (%) (Auto) 92% (31-73) Lymphocytes (%) (Auto) 4% (24-48) Monocytes (%) (Auto) 4% (0-9) Eosinophils (%) (Auto) 0% (0-3) Basophils (%) (Auto) 0% (0-3) Neutrophils # (Auto) 9.3x10^3uL (1.8-7.7) Lymphocytes # (Auto) 0.4x10^3/uL (1.0-4.8) Monocytes # (Auto) 0.4x10^3/uL (0.0-1.1) Eosinophils # (Auto) 0.0x10^3/uL (0.0-0.7) Basophils # (Auto) 0.0x10^3/uL (0.0-0.2) Sodium Level 147mmol/L (136-145) Potassium Level 3.3mmol/L (3.5-5.1) Chloride Level 110mmol/L (98-107) Carbon Dioxide Level 24mmol/L (21-32) Anion Gap 13 (6-14) Blood Urea Nitrogen 43mg/dL (7-20) Creatinine 1.1mg/dL (0.6-1.0) Estimated GFR (Cockcroft-Gault) 57.4 BUN/Creatinine Ratio 39 (6-20) Glucose Level 161mg/dL (70-99) Calcium Level 8.5mg/dL (8.5-10.1) Total Bilirubin 0.4mg/dL (0.2-1.0) Aspartate Amino Transf (AST/SGOT) 26U/L (15-37) Alanine Aminotransferase (ALT/SGPT) 70U/L (14-59) Alkaline Phosphatase 44U/L (46-116) Total Protein 5.1g/dL (6.4-8.2) Albumin 1.9g/dL (3.4-5.0) Albumin/Globulin Ratio 0.6 (1.0-1.7) Test 07/02/16 08:14 07/02/16 11:55 07/02/16 17:00 07/02/16 20:58 Glucose (Fingerstick) 323mg/dL (70-99) 183mg/dL (70-99) 234mg/dL (70-99) 111mg/dL (70-99) Test 07/03/16 07:55 07/03/16 10:30 07/03/16 12:00 07/03/16 17:09 Glucose (Fingerstick) 143mg/dL (70-99) 153mg/dL (70-99) 164mg/dL (70-99) White Blood Count 8.6x10^3/uL (4.0-11.0) Red Blood Count 4.65x10^6/uL (3.50-5.40) Hemoglobin 12.9g/dL (12.0-15.5) Hematocrit 39.3% (36.0-47.0) Mean Corpuscular Volume 85fL (79-100) Mean Corpuscular Hemoglobin 28pg (25-35) Mean Corpuscular Hemoglobin Concent 33g/dL (31-37) Red Cell Distribution Width 16.9% (11.5-14.5) Platelet Count 129x10^3/uL (140-400) Neutrophils (%) (Auto) 92% (31-73) Lymphocytes (%) (Auto) 4% (24-48) Monocytes (%) (Auto) 4% (0-9) Eosinophils (%) (Auto) 0% (0-3) Basophils (%) (Auto) 0% (0-3) Neutrophils # (Auto) 7.9x10^3uL (1.8-7.7) Lymphocytes # (Auto) 0.4x10^3/uL (1.0-4.8) Monocytes # (Auto) 0.3x10^3/uL (0.0-1.1) Eosinophils # (Auto) 0.0x10^3/uL (0.0-0.7) Basophils # (Auto) 0.0x10^3/uL (0.0-0.2) Sodium Level 148mmol/L (136-145) Potassium Level 4.0mmol/L (3.5-5.1) Chloride Level 112mmol/L (98-107) Carbon Dioxide Level 27mmol/L (21-32) Anion Gap 9 (6-14) Blood Urea Nitrogen 42mg/dL (7-20) Creatinine 1.1mg/dL (0.6-1.0) Estimated GFR (Cockcroft-Gault) 57.4 BUN/Creatinine Ratio 38 (6-20) Glucose Level 178mg/dL (70-99) Calcium Level 8.8mg/dL (8.5-10.1) Total Bilirubin 0.4mg/dL (0.2-1.0) Aspartate Amino Transf (AST/SGOT) 17U/L (15-37) Alanine Aminotransferase (ALT/SGPT) 45U/L (14-59) Alkaline Phosphatase 46U/L (46-116) Total Protein 5.7g/dL (6.4-8.2) Albumin 1.8g/dL (3.4-5.0) Albumin/Globulin Ratio 0.5 (1.0-1.7) Vancomycin Level Trough 10.4mcg/mL (10.0-20.0) Vancomycin Last Dose Date 07/02/16 Vancomycin Last Dose Time 1100 Test 07/03/16 20:42 07/04/16 02:52 07/04/16 07:39 Glucose (Fingerstick) 265mg/dL (70-99) 188mg/dL (70-99) White Blood Count 9.4x10^3/uL (4.0-11.0) Red Blood Count 4.48x10^6/uL (3.50-5.40) Hemoglobin 12.3g/dL (12.0-15.5) Hematocrit 38.5% (36.0-47.0) Mean Corpuscular Volume 86fL (79-100) Mean Corpuscular Hemoglobin 28pg (25-35) Mean Corpuscular Hemoglobin Concent 32g/dL (31-37) Red Cell Distribution Width 17.2% (11.5-14.5) Platelet Count 132x10^3/uL (140-400) Neutrophils (%) (Auto) 94% (31-73) Lymphocytes (%) (Auto) 3% (24-48) Monocytes (%) (Auto) 3% (0-9) Eosinophils (%) (Auto) 0% (0-3) Basophils (%) (Auto) 0% (0-3) Neutrophils # (Auto) 8.8x10^3uL (1.8-7.7) Lymphocytes # (Auto) 0.3x10^3/uL (1.0-4.8) Monocytes # (Auto) 0.3x10^3/uL (0.0-1.1) Eosinophils # (Auto) 0.0x10^3/uL (0.0-0.7) Basophils # (Auto) 0.0x10^3/uL (0.0-0.2) Segmented Neutrophils % 87% (35-66) Band Neutrophils % 5% (0-9) Lymphocytes % 4% (24-48) Monocytes % 4% (0-10) Toxic Vacuolation Present Platelet Estimate Decreased (ADEQUATE) Anisocytosis Slight Sodium Level 146mmol/L (136-145) Potassium Level 4.0mmol/L (3.5-5.1) Chloride Level 110mmol/L (98-107) Carbon Dioxide Level 27mmol/L (21-32) Anion Gap 9 (6-14) Blood Urea Nitrogen 39mg/dL (7-20) Creatinine 1.1mg/dL (0.6-1.0) Estimated GFR (Cockcroft-Gault) 57.4 BUN/Creatinine Ratio 35 (6-20) Glucose Level 254mg/dL (70-99) Calcium Level 8.8mg/dL (8.5-10.1) Total Bilirubin 0.4mg/dL (0.2-1.0) Aspartate Amino Transf (AST/SGOT) 22U/L (15-37) Alanine Aminotransferase (ALT/SGPT) 42U/L (14-59) Alkaline Phosphatase 46U/L (46-116) Total Protein 5.7g/dL (6.4-8.2) Albumin 1.8g/dL (3.4-5.0) Albumin/Globulin Ratio 0.5 (1.0-1.7) Medications Medications Medications reviewed and reconciled for discharge. Brief hospital course Brief hospital course This 85 year old female who presented with influenzae B was admitted. The following is summary of her treatment: PLAN: Inf B with sepsis ID consult pulmonary consult secondary bacterial pneumonia due to influenzae B Zosyn/zyvox IV per ID DC Solumed 40 IV q12hr wheezing improved nebulizer treatment oxygen supplementation Admit WBC 13.9 07/04 7.4 T 100.7F admit IV NS 125cc/hr decreased to 75cc/hr-stopped 06/30/16 Tamiflu completed 07/03 CT chest: RLL >RML/RUL pneumonia, moderate R pleural effusion mucinex 600mg bid Lactic acid 2.1 MRSA +nares-bactroban x 7day-ends 07/08 UTI Ecoli MRSA bacteremia IV antibiotics changed to Rocephin/ Vanco IV Prednisone oral initiated 07/04 ID to order antibiotics at discharge A/C CHF cardiology consult BNP 9923-in setting ARF CXR +vascular changes diuretics on hold with IV infusing daily wt/IO Admit wt 132# 07/04 135.44 Home med: torsemide 10mg daily Lasix 40mg IV 06/30 Lasix 40mg po 07/01 Coreg decreased to 3.125mg bid last appt Dr. Mosley--dizziness. ARF ANIKET ATN with CKD III baseline Cr 1.2-1.6 dehydration/diuretic nephrology consult Office: BUN 28-35 Cr 1.59-1.87 ADmit BUN 54 07/04 39 Cr 2.0 1.0 K 4.1 4.0 KCL 20 meq oral x 1 06/30 transaminitis congestive secondary to a/c systolic CHF Admit AST 159 07/04 22 ALT 155 42 AP 58 46 GI consult DM II steroid induced hyperglycemia FSBS/ low intensity SSI Home Lantus 29u at hs, decrease to 15u with poor oral intake, hold if NPO-07/04 Lantus increased to 20 U at hs. Hbaic 6.0 less than 3 months ago BS 153-254 a/c back pain with recent fall Dr. Vale consult Lumbar and thoracic xray negative Lidoderm patch thyroidectomy h/o TSH 0.33 w/o thyroid med urinary incontinence vale for accurate IO severe weakness and debility PT OT severe PCL malnutrition supplements/monitor intake acute metabolic encephalopathy improved DVT/GI prophylaxis SCD/LEANDRA PPI thrombocytopenia Admit Plt 141 07/04 132 secondary to IV antibiotics monitor dysphagia speech eval dysphagia II diet, thin liquids, no straws For more details regarding the past history, family history, social history, surgical history and other details, please refer to History and Physical. Remains very weak. Mental status improved but not at baseline regarding alertness. Agrees to SNU at discharge. Please see discharge orders. Subjective sleepy today Objective no distress, sleepy Vitals Vital Signs Date Time Temp Pulse Resp B/P Pulse Ox O2 Delivery O2 Flow Rate FiO2 07/04/16 03:35 98.0 62 22 146/80 99 Nasal Cannula 2.0 98.0 Physical Exam General appearance - alert, ill appearing, and in no distress Mental Status - sleepy, oriented x 3 Head - normal Chest - CTA decreased in bases Heart - S1 and S2 normal Abdomen - soft, nontender, nondistended, BS + Neurological - sleepy no acute focal neurological deficits noted Musculoskeletal - tender LS spine Extremities - no pedal edema Skin - warm and dry Medications Medications reviewed. Allergy Allergies Coded Allergies Type Severity Reaction Last Updated Verified Sulfa (Sulfonamide Antibiotics) Allergy Severe 11/11/15 Yes Cephalexin Monohydrate Allergy Intermediate 11/11/15 Yes I S O L A T I O N *CONTACT* Allergy Unknown 07/01/16 Yes Follow up Admit to Dr. Angel Disposition: Longterm facility (PT OT consult. ) Comments Discharge Management - 35 minutes. For other details please refer to discharge instructions ADALID ANGEL MD 07/04/16 0958: IM DISCHARGE & PROGRESS NOTES Brief hospital course Brief hospital course The patient was seen and examined by me. Chart reviewed and plan of care formulated. Discussed with, reviewed and agree with [employer]'s notes, plan of care and orders with modifications as necessary. For more details regarding further plans, please refer to the orders. Start new PICC line,IV Vancomycin for 4 more weeks. MEL GUNN APRN Jul 04, 2016 08:20 ADALID ANGEL MD Jul 04, 2016 09:58
[2016-07-04] MEDS ORDERED: POLY15DR27 OU (08:40)
[2016-07-04] MEDS ORDERED: HYDR-2762 PO (08:40)
[2016-07-04] MEDS ORDERED: GUAI600T38 PO (08:40)
[2016-07-04] MEDS ORDERED: Bisacodyl RC (08:40)
[2016-07-04] MEDS ORDERED: PRED20TA PO (08:40)
[2016-07-04] MEDS ORDERED: MUPI22OI2 NS (08:40)
[2016-07-04] MEDS ORDERED: CYAN10005 PO (08:40)
[2016-07-04] MEDS ORDERED: LIDO700A4 TD (08:40)
[2016-07-04] MEDS ORDERED: IPRA3AMP NEB (08:40)
[2016-07-04] MEDS ORDERED: CARV3.122 PO (08:40)
[2016-07-04] MEDS ORDERED: DICL100G7 TP (08:40)
[2016-07-04] MEDS ORDERED: CHOL10002 PO (08:40)
[2016-07-04] MEDS ORDERED: MULT1TAB90 PO (08:40)
[2016-07-04] MEDS ORDERED: FURO40TA4 PO (08:40)
[2016-07-04] MEDS ORDERED: INSU100I17 SQ (08:40)
[2016-07-04] MEDS ORDERED: INSU100I27 SQ (08:40)
--- NOTE | 2016-07-04 08:40 | PDOC ---
Infectious Disease Note Subjective Subjective + cough. Denies difficulty breathing. O2 supplementation, 1LNC c/o RUQ/flank discomfort and mild nausea ROS ROS GEN: Denies fevers, chills, sweats HEENT: Denies blurred vision, sore throat CV: Denies chest pain RESP: Denies shortness of air, cough GI: Denies n/v/d NEURO: Denies confusion, dizziness MSK: Denies weakness, joint pain/swelling Vital Sign Vital Signs Vital Signs Date Time Temp Pulse Resp B/P Pulse Ox O2 Delivery O2 Flow Rate FiO2 07/04/16 08:15 99 Nasal Cannula 1.0 07/04/16 03:35 98.0 62 22 146/80 98.0 Physical Exam PHYSICAL EXAM GENERAL: NAD, Alert HEENT: PERRL, OC/OP NECK: Supple, no JVD, no LN LUNGS: Clear HEART: S1S2, no gallop, no murmur ABD: Soft, NT, no organomegaly, no rebound EXT: No edema, no cyanosis 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: Alert, oriented x 3, no focal neurologic deficit SKIN: No rash IV: ok Labs Lab Laboratory Tests Test 07/03/16 10:30 07/03/16 12:00 07/03/16 17:09 07/03/16 20:42 White Blood Count 8.6x10^3/uL (4.0-11.0) Red Blood Count 4.65x10^6/uL (3.50-5.40) Hemoglobin 12.9g/dL (12.0-15.5) Hematocrit 39.3% (36.0-47.0) Mean Corpuscular Volume 85fL (79-100) Mean Corpuscular Hemoglobin 28pg (25-35) Mean Corpuscular Hemoglobin Concent 33g/dL (31-37) Red Cell Distribution Width 16.9% (11.5-14.5) Platelet Count 129x10^3/uL (140-400) Neutrophils (%) (Auto) 92% (31-73) Lymphocytes (%) (Auto) 4% (24-48) Monocytes (%) (Auto) 4% (0-9) Eosinophils (%) (Auto) 0% (0-3) Basophils (%) (Auto) 0% (0-3) Neutrophils # (Auto) 7.9x10^3uL (1.8-7.7) Lymphocytes # (Auto) 0.4x10^3/uL (1.0-4.8) Monocytes # (Auto) 0.3x10^3/uL (0.0-1.1) Eosinophils # (Auto) 0.0x10^3/uL (0.0-0.7) Basophils # (Auto) 0.0x10^3/uL (0.0-0.2) Sodium Level 148mmol/L (136-145) Potassium Level 4.0mmol/L (3.5-5.1) Chloride Level 112mmol/L (98-107) Carbon Dioxide Level 27mmol/L (21-32) Anion Gap 9 (6-14) Blood Urea Nitrogen 42mg/dL (7-20) Creatinine 1.1mg/dL (0.6-1.0) Estimated GFR (Cockcroft-Gault) 57.4 BUN/Creatinine Ratio 38 (6-20) Glucose Level 178mg/dL (70-99) Calcium Level 8.8mg/dL (8.5-10.1) Total Bilirubin 0.4mg/dL (0.2-1.0) Aspartate Amino Transf (AST/SGOT) 17U/L (15-37) Alanine Aminotransferase (ALT/SGPT) 45U/L (14-59) Alkaline Phosphatase 46U/L (46-116) Total Protein 5.7g/dL (6.4-8.2) Albumin 1.8g/dL (3.4-5.0) Albumin/Globulin Ratio 0.5 (1.0-1.7) Vancomycin Level Trough 10.4mcg/mL (10.0-20.0) Vancomycin Last Dose Date 07/02/16 Vancomycin Last Dose Time 1100 Glucose (Fingerstick) 153mg/dL (70-99) 164mg/dL (70-99) 265mg/dL (70-99) Test 07/04/16 02:52 07/04/16 07:39 White Blood Count 9.4x10^3/uL (4.0-11.0) Red Blood Count 4.48x10^6/uL (3.50-5.40) Hemoglobin 12.3g/dL (12.0-15.5) Hematocrit 38.5% (36.0-47.0) Mean Corpuscular Volume 86fL (79-100) Mean Corpuscular Hemoglobin 28pg (25-35) Mean Corpuscular Hemoglobin Concent 32g/dL (31-37) Red Cell Distribution Width 17.2% (11.5-14.5) Platelet Count 132x10^3/uL (140-400) Neutrophils (%) (Auto) 94% (31-73) Lymphocytes (%) (Auto) 3% (24-48) Monocytes (%) (Auto) 3% (0-9) Eosinophils (%) (Auto) 0% (0-3) Basophils (%) (Auto) 0% (0-3) Neutrophils # (Auto) 8.8x10^3uL (1.8-7.7) Lymphocytes # (Auto) 0.3x10^3/uL (1.0-4.8) Monocytes # (Auto) 0.3x10^3/uL (0.0-1.1) Eosinophils # (Auto) 0.0x10^3/uL (0.0-0.7) Basophils # (Auto) 0.0x10^3/uL (0.0-0.2) Segmented Neutrophils % 87% (35-66) Band Neutrophils % 5% (0-9) Lymphocytes % 4% (24-48) Monocytes % 4% (0-10) Toxic Vacuolation Present Platelet Estimate Decreased (ADEQUATE) Anisocytosis Slight Sodium Level 146mmol/L (136-145) Potassium Level 4.0mmol/L (3.5-5.1) Chloride Level 110mmol/L (98-107) Carbon Dioxide Level 27mmol/L (21-32) Anion Gap 9 (6-14) Blood Urea Nitrogen 39mg/dL (7-20) Creatinine 1.1mg/dL (0.6-1.0) Estimated GFR (Cockcroft-Gault) 57.4 BUN/Creatinine Ratio 35 (6-20) Glucose Level 254mg/dL (70-99) Calcium Level 8.8mg/dL (8.5-10.1) Total Bilirubin 0.4mg/dL (0.2-1.0) Aspartate Amino Transf (AST/SGOT) 22U/L (15-37) Alanine Aminotransferase (ALT/SGPT) 42U/L (14-59) Alkaline Phosphatase 46U/L (46-116) Total Protein 5.7g/dL (6.4-8.2) Albumin 1.8g/dL (3.4-5.0) Albumin/Globulin Ratio 0.5 (1.0-1.7) Glucose (Fingerstick) 188mg/dL (70-99) Objective Assessment MRSA bacteremia, POA -Repeat BC 3/4 NGTD E. coli UTI. POA Influenza B Encephalopathy - better Cephalexin/Sulfa allergies Leukocytosis - on steroids now Transaminitis ? congestion/H/o Fatty liver CKD ? aspiration Dysphagia. Plan Plan of Care Vanc and d/c Rocephin Repeat BC NGTD Await ECHO - cardiology following Monitor labs PICC d/w Primary HAYDEN BONE MD Jul 04, 2016 08:40
[2016-07-04] MEDS ORDERED: PRED-220 PO (08:48)
[2016-07-04] MEDS: ASPIRIN 81 MG TAB.CHEW PO SCH (09:51)
[2016-07-04] MEDS: MULTIVITAMIN with MINERAL TABLET. PO SCH (09:53)
[2016-07-04] MEDS: FUROSEMIDE 40 MG TABLET PO SCH (09:54)
[2016-07-04] MEDS: PANTOPRAZOLE 40 MG TABLET. PO SCH (09:55)
[2016-07-04] MEDS: CARVEDILOL 3.125 MG TABLET PO SCH ×2 (09:58→17:25)
[2016-07-04] MEDS: CHOLECALCIFEROL (VITAMIN D3) 1,000 UNIT TABLET PO SCH (09:59)
[2016-07-04] MEDS: SPIRONOLACTONE 25 MG TABLET PO SCH (09:59)
[2016-07-04] MEDS: CETIRIZINE HCL 10 MG TABLET PO SCH (09:59)
--- NOTE | 2016-07-04 09:59 | PDOC ---
PROGRESS NOTES Subjective Subjective She still admits low back and left shoulder pain and stiffness. 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 Assessment Assessment Problems Medical Problems: (1) Acute bronchospasm Status: Acute (2) Influenza B Status: Acute Plan Plan of Care Agree with plans for transfer to SNF when medically stable. Comment Review of Relevant I have reviewed the following items janae (where applicable) has been applied. Labs Laboratory Tests Test 07/02/16 11:55 07/02/16 17:00 07/02/16 20:58 07/03/16 07:55 Glucose (Fingerstick) 183mg/dL (70-99) 234mg/dL (70-99) 111mg/dL (70-99) 143mg/dL (70-99) Test 07/03/16 10:30 07/03/16 12:00 07/03/16 17:09 07/03/16 20:42 White Blood Count 8.6x10^3/uL (4.0-11.0) Red Blood Count 4.65x10^6/uL (3.50-5.40) Hemoglobin 12.9g/dL (12.0-15.5) Hematocrit 39.3% (36.0-47.0) Mean Corpuscular Volume 85fL (79-100) Mean Corpuscular Hemoglobin 28pg (25-35) Mean Corpuscular Hemoglobin Concent 33g/dL (31-37) Red Cell Distribution Width 16.9% (11.5-14.5) Platelet Count 129x10^3/uL (140-400) Neutrophils (%) (Auto) 92% (31-73) Lymphocytes (%) (Auto) 4% (24-48) Monocytes (%) (Auto) 4% (0-9) Eosinophils (%) (Auto) 0% (0-3) Basophils (%) (Auto) 0% (0-3) Neutrophils # (Auto) 7.9x10^3uL (1.8-7.7) Lymphocytes # (Auto) 0.4x10^3/uL (1.0-4.8) Monocytes # (Auto) 0.3x10^3/uL (0.0-1.1) Eosinophils # (Auto) 0.0x10^3/uL (0.0-0.7) Basophils # (Auto) 0.0x10^3/uL (0.0-0.2) Sodium Level 148mmol/L (136-145) Potassium Level 4.0mmol/L (3.5-5.1) Chloride Level 112mmol/L (98-107) Carbon Dioxide Level 27mmol/L (21-32) Anion Gap 9 (6-14) Blood Urea Nitrogen 42mg/dL (7-20) Creatinine 1.1mg/dL (0.6-1.0) Estimated GFR (Cockcroft-Gault) 57.4 BUN/Creatinine Ratio 38 (6-20) Glucose Level 178mg/dL (70-99) Calcium Level 8.8mg/dL (8.5-10.1) Total Bilirubin 0.4mg/dL (0.2-1.0) Aspartate Amino Transf (AST/SGOT) 17U/L (15-37) Alanine Aminotransferase (ALT/SGPT) 45U/L (14-59) Alkaline Phosphatase 46U/L (46-116) Total Protein 5.7g/dL (6.4-8.2) Albumin 1.8g/dL (3.4-5.0) Albumin/Globulin Ratio 0.5 (1.0-1.7) Vancomycin Level Trough 10.4mcg/mL (10.0-20.0) Vancomycin Last Dose Date 07/02/16 Vancomycin Last Dose Time 1100 Glucose (Fingerstick) 153mg/dL (70-99) 164mg/dL (70-99) 265mg/dL (70-99) Test 07/04/16 02:52 07/04/16 07:39 White Blood Count 9.4x10^3/uL (4.0-11.0) Red Blood Count 4.48x10^6/uL (3.50-5.40) Hemoglobin 12.3g/dL (12.0-15.5) Hematocrit 38.5% (36.0-47.0) Mean Corpuscular Volume 86fL (79-100) Mean Corpuscular Hemoglobin 28pg (25-35) Mean Corpuscular Hemoglobin Concent 32g/dL (31-37) Red Cell Distribution Width 17.2% (11.5-14.5) Platelet Count 132x10^3/uL (140-400) Neutrophils (%) (Auto) 94% (31-73) Lymphocytes (%) (Auto) 3% (24-48) Monocytes (%) (Auto) 3% (0-9) Eosinophils (%) (Auto) 0% (0-3) Basophils (%) (Auto) 0% (0-3) Neutrophils # (Auto) 8.8x10^3uL (1.8-7.7) Lymphocytes # (Auto) 0.3x10^3/uL (1.0-4.8) Monocytes # (Auto) 0.3x10^3/uL (0.0-1.1) Eosinophils # (Auto) 0.0x10^3/uL (0.0-0.7) Basophils # (Auto) 0.0x10^3/uL (0.0-0.2) Segmented Neutrophils % 87% (35-66) Band Neutrophils % 5% (0-9) Lymphocytes % 4% (24-48) Monocytes % 4% (0-10) Toxic Vacuolation Present Platelet Estimate Decreased (ADEQUATE) Anisocytosis Slight Sodium Level 146mmol/L (136-145) Potassium Level 4.0mmol/L (3.5-5.1) Chloride Level 110mmol/L (98-107) Carbon Dioxide Level 27mmol/L (21-32) Anion Gap 9 (6-14) Blood Urea Nitrogen 39mg/dL (7-20) Creatinine 1.1mg/dL (0.6-1.0) Estimated GFR (Cockcroft-Gault) 57.4 BUN/Creatinine Ratio 35 (6-20) Glucose Level 254mg/dL (70-99) Calcium Level 8.8mg/dL (8.5-10.1) Total Bilirubin 0.4mg/dL (0.2-1.0) Aspartate Amino Transf (AST/SGOT) 22U/L (15-37) Alanine Aminotransferase (ALT/SGPT) 42U/L (14-59) Alkaline Phosphatase 46U/L (46-116) Total Protein 5.7g/dL (6.4-8.2) Albumin 1.8g/dL (3.4-5.0) Albumin/Globulin Ratio 0.5 (1.0-1.7) Glucose (Fingerstick) 188mg/dL (70-99) Laboratory Tests Test 07/03/16 10:30 07/03/16 12:00 07/03/16 17:09 07/03/16 20:42 White Blood Count 8.6x10^3/uL (4.0-11.0) Red Blood Count 4.65x10^6/uL (3.50-5.40) Hemoglobin 12.9g/dL (12.0-15.5) Hematocrit 39.3% (36.0-47.0) Mean Corpuscular Volume 85fL (79-100) Mean Corpuscular Hemoglobin 28pg (25-35) Mean Corpuscular Hemoglobin Concent 33g/dL (31-37) Red Cell Distribution Width 16.9% (11.5-14.5) Platelet Count 129x10^3/uL (140-400) Neutrophils (%) (Auto) 92% (31-73) Lymphocytes (%) (Auto) 4% (24-48) Monocytes (%) (Auto) 4% (0-9) Eosinophils (%) (Auto) 0% (0-3) Basophils (%) (Auto) 0% (0-3) Neutrophils # (Auto) 7.9x10^3uL (1.8-7.7) Lymphocytes # (Auto) 0.4x10^3/uL (1.0-4.8) Monocytes # (Auto) 0.3x10^3/uL (0.0-1.1) Eosinophils # (Auto) 0.0x10^3/uL (0.0-0.7) Basophils # (Auto) 0.0x10^3/uL (0.0-0.2) Sodium Level 148mmol/L (136-145) Potassium Level 4.0mmol/L (3.5-5.1) Chloride Level 112mmol/L (98-107) Carbon Dioxide Level 27mmol/L (21-32) Anion Gap 9 (6-14) Blood Urea Nitrogen 42mg/dL (7-20) Creatinine 1.1mg/dL (0.6-1.0) Estimated GFR (Cockcroft-Gault) 57.4 BUN/Creatinine Ratio 38 (6-20) Glucose Level 178mg/dL (70-99) Calcium Level 8.8mg/dL (8.5-10.1) Total Bilirubin 0.4mg/dL (0.2-1.0) Aspartate Amino Transf (AST/SGOT) 17U/L (15-37) Alanine Aminotransferase (ALT/SGPT) 45U/L (14-59) Alkaline Phosphatase 46U/L (46-116) Total Protein 5.7g/dL (6.4-8.2) Albumin 1.8g/dL (3.4-5.0) Albumin/Globulin Ratio 0.5 (1.0-1.7) Vancomycin Level Trough 10.4mcg/mL (10.0-20.0) Vancomycin Last Dose Date 07/02/16 Vancomycin Last Dose Time 1100 Glucose (Fingerstick) 153mg/dL (70-99) 164mg/dL (70-99) 265mg/dL (70-99) Test 07/04/16 02:52 07/04/16 07:39 White Blood Count 9.4x10^3/uL (4.0-11.0) Red Blood Count 4.48x10^6/uL (3.50-5.40) Hemoglobin 12.3g/dL (12.0-15.5) Hematocrit 38.5% (36.0-47.0) Mean Corpuscular Volume 86fL (79-100) Mean Corpuscular Hemoglobin 28pg (25-35) Mean Corpuscular Hemoglobin Concent 32g/dL (31-37) Red Cell Distribution Width 17.2% (11.5-14.5) Platelet Count 132x10^3/uL (140-400) Neutrophils (%) (Auto) 94% (31-73) Lymphocytes (%) (Auto) 3% (24-48) Monocytes (%) (Auto) 3% (0-9) Eosinophils (%) (Auto) 0% (0-3) Basophils (%) (Auto) 0% (0-3) Neutrophils # (Auto) 8.8x10^3uL (1.8-7.7) Lymphocytes # (Auto) 0.3x10^3/uL (1.0-4.8) Monocytes # (Auto) 0.3x10^3/uL (0.0-1.1) Eosinophils # (Auto) 0.0x10^3/uL (0.0-0.7) Basophils # (Auto) 0.0x10^3/uL (0.0-0.2) Segmented Neutrophils % 87% (35-66) Band Neutrophils % 5% (0-9) Lymphocytes % 4% (24-48) Monocytes % 4% (0-10) Toxic Vacuolation Present Platelet Estimate Decreased (ADEQUATE) Anisocytosis Slight Sodium Level 146mmol/L (136-145) Potassium Level 4.0mmol/L (3.5-5.1) Chloride Level 110mmol/L (98-107) Carbon Dioxide Level 27mmol/L (21-32) Anion Gap 9 (6-14) Blood Urea Nitrogen 39mg/dL (7-20) Creatinine 1.1mg/dL (0.6-1.0) Estimated GFR (Cockcroft-Gault) 57.4 BUN/Creatinine Ratio 35 (6-20) Glucose Level 254mg/dL (70-99) Calcium Level 8.8mg/dL (8.5-10.1) Total Bilirubin 0.4mg/dL (0.2-1.0) Aspartate Amino Transf (AST/SGOT) 22U/L (15-37) Alanine Aminotransferase (ALT/SGPT) 42U/L (14-59) Alkaline Phosphatase 46U/L (46-116) Total Protein 5.7g/dL (6.4-8.2) Albumin 1.8g/dL (3.4-5.0) Albumin/Globulin Ratio 0.5 (1.0-1.7) Glucose (Fingerstick) 188mg/dL (70-99) Microbiology 07/02/16 Blood Culture - Preliminary, Resulted NO GROWTH AFTER 2 DAYS 06/29/16 Urine Culture - Final, Complete 06/29/16 Urine Culture Result 1 (MAIKOL) - Final, Complete 06/29/16 Antimicrobic Susceptibility - Final, Complete Medications Current Medications Albuterol/ Ipratropium 3 ml 3 ml 1X ONCE NEB Last administered on 06/29/16 21: 24; Start 06/29/16 at 20:30; Stop 06/29/16 at 20:31; Status DC Sodium Chloride 1,000 ml @ 1,000 mls/hr 1X ONCE IV Last administered on 21:10; Start 06/29/16 at 20:30; Stop 06/29/16 at 21:29; Status DC Piperacillin Sod/ Tazobactam Sod/ Sodium Chloride (Zosyn/Iv Sodium Chloride 0.9 % 50ml) 50 ml @ 100 mls/hr 1X ONCE IV Last administered on 06/29/16 21:09; Start 06/29/16 at 20:30; Stop 06/29/16 at 20:59; Status DC Ondansetron HCl 4 mg 4 mg PRN Q8HRS PRN IV NAUSEA/VOMITING; Start 06/29/16 at 21 :30; Stop 06/30/16 at 21:29; Status DC Sodium Chloride (Iv Sodium Chloride 0.9% 1000ml Bag) 1,000 ml @ 125 mls/hr Q8H IV Last administered on 06/30/16 00:30; Start 06/29/16 at 21:24; Stop 06/30/16 at 08:30; Status DC Acetaminophen (Tylenol) 650 mg PRN Q4HRS PRN PO FEVER; Start 06/29/16 at 21:30; Stop 06/30/16 at 00:52; Status DC Albuterol/ Ipratropium (Duoneb) 3 ml RTQID NEB ; Start 06/30/16 at 08:00; Stop at 08:00; Status DC Oseltamivir Phosphate (Tamiflu) 75 mg BID PO ; Start 06/30/16 at 09:00; Stop 07/05 at 08:59; Status UNV Methylprednisolone Sodium Succinate (Solu-Medrol 40mg Vial) 40 mg BID IV ; Start 06/30/16 at 09:00; Stop 06/30/16 at 09:00; Status DC Oseltamivir Phosphate (Tamiflu) 30 mg 1X ONCE PO Last administered on 22:26; Start 06/29/16 at 22:45; Stop 06/29/16 at 22:46; Status DC Oseltamivir Phosphate (Tamiflu) 30 mg QHS PO Last administered on 07/01/16 21: 14; Start 06/30/16 at 21:00; Stop 07/02/16 at 09:44; Status DC Insulin Detemir (Levemir) 29 units QHS SQ ; Start 06/30/16 at 21:00; Stop at 21:00; Status DC Insulin Aspart (Novolog) 0-5 UNITS TIDWMEALS SQ Last administered on 07/03/16 17:41; Start 06/30/16 at 08:00 Dextrose 12.5 gm PRN Q15MIN PRN IV SEE COMMENTS; Start 06/30/16 at 00:45 Acetaminophen (Tylenol) 500 mg PRN Q8HRS PRN PO MILD PAIN / TEMP; Start at 00:45 Allopurinol (Zyloprim) 100 mg QHS PO Last administered on 07/03/16 20:48; Start 06/30/16 at 21:00 Amiodarone HCl (Cordarone) 200 mg DAILY PO Last administered on 07/03/16 08:51 ; Start 06/30/16 at 09:00 Aspirin (Children'S Aspirin) 81 mg DAILY PO Last administered on 07/03/16 08:51 ; Start 06/30/16 at 09:00 Cetirizine HCl (Zyrtec) 10 mg DAILY PO Last administered on 07/03/16 08:50; Start 06/30/16 at 09:00 Vitamin D (Vitamin D3) 2,000 unit DAILY PO Last administered on 07/03/16 08:52 ; Start 06/30/16 at 09:00 Diclofenac Sodium (Voltaren) 1 nohemy HS TP ; Start 06/30/16 at 21:00; Stop 06/30/16 at 21:00; Status DC Fluticasone Propionate (Flonase) 2 spray DAILY NS Last administered on 08:52; Start 06/30/16 at 09:00 Acetaminophen/ Hydrocodone Bitart (Lortab 7.5/325) 1 tab PRN Q6HRS PRN PO SEVERE PAIN; Start 06/30/16 at 00:45 Insulin Aspart (Novolog) 1 units TIDBFRMEAL SQ ; Start 06/30/16 at 07:30; Status UNV Montelukast Sodium (Singulair) 10 mg HS PO Last administered on 07/03/16 20:48 ; Start 06/30/16 at 21:00 Spironolactone (Aldactone) 25 mg DAILY PO Last administered on 07/03/16 08:51; Start 06/30/16 at 09:00 Albuterol Sulfate (Ventolin Neb Soln) 2.5 mg PRN QID PRN NEB SHORTNESS OF BREATH; Start 06/30/16 at 01:00; Stop 06/30/16 at 08:24; Status DC Non-Formulary Medication 1 cap DAILY PO ; Start 06/30/16 at 09:00; Status UNV Non-Formulary Medication 1 each BID IH ; Start 06/30/16 at 09:00; Status UNV Non-Formulary Medication 40 unit HS SQ ; Start 06/30/16 at 21:00; Status UNV Pantoprazole Sodium (Protonix) 40 mg DAILYAC PO Last administered on 07/03/16 08:51; Start 06/30/16 at 07:30 Albuterol/ Ipratropium (Duoneb) 3 ml RTQID NEB Last administered on 07/04/16 08 :13; Start 06/30/16 at 08:00 Budesonide (Pulmicort) 0.5 mg RTBID NEB Last administered on 06/30/16 07:41; Start 06/30/16 at 08:00; Stop 06/30/16 at 16:24; Status DC Albuterol Sulfate (Ventolin Neb Soln) 2.5 mg PRN Q2HR PRN NEB SHORTNESS OF BREATH; Start 06/30/16 at 08:30 Methylprednisolone Sodium Succinate (Solu-Medrol 40mg Vial) 40 mg Q12HR IV Last administered on 07/03/16 20:46; Start 06/30/16 at 09:00; Stop 07/04/16 at 08: 25; Status DC Bisacodyl (Dulcolax Supp) 10 mg PRN DAILY PRN RC CONSTIPATION; Start 06/30/16 at 08:30 Multivitamins/ Calcium 1 tab 1 tab DAILY PO Last administered on 07/03/16 08:51 ; Start 06/30/16 at 09:00 Sodium Chloride 1,000 ml @ 75 mls/hr [id number] IV ; Start 06/30/16 at 08:30; Stop 06/30/16 at 08:34; Status DC Piperacillin Sod/ Tazobactam Sod 2.25 gm/Sodium Chloride 50 ml @ 100 mls/hr Q6HRS IV Last administered on 07/01/16 12:39; Start 06/30/16 at 09:00; Stop 07/01 at 14:46; Status DC Linezolid (Zyvox Premix) 300 ml @ 300 mls/hr Q12HR IV Last administered on 07/01 08:36; Start 06/30/16 at 10:00; Stop 07/01/16 at 09:44; Status DC Diclofenac Sodium (Voltaren) 1 nohemy QID TP Last administered on 07/03/16 20:48; Start 06/30/16 at 10:00 Insulin Detemir (Levemir) 15 units QHS SQ Last administered on 07/03/16 21:05; Start 06/30/16 at 21:00; Stop 07/04/16 at 08:25; Status DC Cyanocobalamin (Vitamin B-12) 1,000 mcg DAILY PO Last administered on 07/03/16 08:49; Start 06/30/16 at 10:00 Vitamin D (Vitamin D3) 2,000 unit DAILY PO ; Start 06/30/16 at 10:00; Status Cancel Artificial Tears (Artificial Tears) 2 drop PRN QID PRN OU DRY EYE; Start at 09:45 Carvedilol (Coreg) 3.125 mg BIDWMEALS PO Last administered on 07/03/16 17:37; Start 06/30/16 at 10:00 Lidocaine (Lidoderm) 1 patch DAILY TD Last administered on 07/03/16 08:49; Start 06/30/16 at 11:00 Furosemide (Lasix) 40 mg DAILY PO Last administered on 07/03/16 08:50; Start at 12:00 Furosemide (Lasix) 40 mg 1X ONCE IVP ; Start 06/30/16 at 14:00; Stop 06/30/16 at 14:01; Status DC Potassium Chloride (Klor-Con) 20 meq 1X ONCE PO Last administered on 06/30/16 14:27; Start 06/30/16 at 13:00; Stop 06/30/16 at 13:01; Status DC Guaifenesin (Mucinex) 600 mg BID PO Last administered on 07/03/16 20:48; Start 07/01/16 at 09:00 Mupirocin (Bactroban) 1 nohemy BID NS Last administered on 07/03/16 20:47; Start 07/01/16 at 09:00 Vancomycin HCl 1 each 1 each PRN DAILY PRN MC SEE COMMENTS Last administered on 07/03/16 11:52; Start 07/01/16 at 09:45 Vancomycin HCl/ Sodium Chloride (Iv Sodium Chloride 0.9% 500ml Bag) 500 ml @ 250 mls/hr 1X ONCE IV Last administered on 07/01/16 10:53; Start 07/01/16 at 10 :30; Stop 07/01/16 at 12:29; Status DC Furosemide 40 mg 40 mg 1X ONCE IVP Last administered on 07/01/16 16:32; Start 07/01/16 at 16:00; Stop 07/01/16 at 16:01; Status DC Vancomycin HCl/ Sodium Chloride (Iv Sodium Chloride 0.9% 250ml) 250 ml @ 250 mls/hr Q24H IV Last administered on 07/02/16 11:52; Start 07/02/16 at 11:00; Stop 07/03/16 at 11:36; Status DC Vancomycin HCl 1 each 1 each 1X ONCE MC Last administered on 07/03/16 10:30; Start 07/03/16 at 10:30; Stop 07/03/16 at 10:31; Status DC Ceftriaxone Sodium/Sodium Chloride (Rocephin/Iv Sodium Chloride 0.9% 50ml) 50 ml @ 100 mls/hr Q24H IV Last administered on 07/03/16 16:13; Start 07/01/16 at 15:00 Oseltamivir Phosphate (Tamiflu) 30 mg BID PO Last administered on 07/03/16 20: 48; Start 07/02/16 at 10:00; Stop 07/03/16 at 21:01; Status DC Potassium Chloride 40 meq 40 meq 1X ONCE PO Last administered on 07/02/16 11: 53; Start 07/02/16 at 11:15; Stop 07/02/16 at 11:16; Status DC Vancomycin HCl/ Sodium Chloride (Iv Sodium Chloride 0.9% 250ml) 250 ml @ 167 mls/hr Q24H IV Last administered on 07/03/16 12:06; Start 07/03/16 at 12:00 Insulin Detemir (Levemir) 20 units QHS SQ ; Start 07/04/16 at 21:00 Prednisone (Prednisone) 40 mg DAILY PO ; Start 07/04/16 at 09:00 Active Scripts Active Prednisone 10 Mg Tablet 10 Mg PO DIRECTED Prednisone 20 Mg Tablet 40 Mg PO DAILY Artificial Tears (Polyvinyl Alcohol) 15 Ml Drops 2 Drop OU PRN QID PRN Mupirocin Ointment (Mupirocin) 22 Gm Oint...g. 1 Nohemy NS BID Thera-M Tablet (Multivits,Ca,Minerals/Iron/Fa) 1 Each Tablet 1 Tab PO DAILY Lidoderm (Lidocaine) 700 Mg Adh..patch 1 Patch TD DAILY Levemir Flextouch (Insulin Detemir) 100 Unit/1 Ml Insuln.pen 20 Units SQ QHS Duoneb 0.5-3(2.5) Mg/3 Ml (Albuterol/Ipratropium) 3 Ml Ampul.neb 3 Ml NEB RTQID Novolog Flexpen (Insulin Aspart) 100 Unit/1 Ml Insuln.pen 0 Units SQ TIDWMEALS Hydrocodone-Apap 7.5-325 (Hydrocodone Bit/Acetaminophen) 1 Each Tablet 1 Tab PO PRN Q6HRS PRN Mucinex (Guaifenesin) 600 Mg Tablet.er 600 Mg PO BID Furosemide 40 Mg Tablet 40 Mg PO DAILY Voltaren (Diclofenac Sodium) 100 Gm Gel..gram. 1 Nohemy TP QID Vitamin B-12 (Cyanocobalamin (Vitamin B-12)) 1,000 Mcg Tablet 1,000 Mcg PO DAILY Vitamin D (Cholecalciferol (Vitamin D3)) 1,000 Unit Tablet 2,000 Unit PO DAILY Carvedilol 3.125 Mg Tablet 3.125 Mg PO BIDWMEALS [Bisacodyl] 10 MG Supp.rect 10 Mg RC PRN DAILY PRN Tylenol Extra Strength (Acetaminophen) 500 Mg Tablet 500 Mg PO PRN Q8HRS PRN Glucose (Dextrose) 4 Gm Tab.chew 12 Gm PO PRN PRN Zyrtec (Cetirizine Hcl) 10 Mg Tablet 0.5 Tab PO DAILY Reported Singulair Tablet (Montelukast Sodium) 10 Mg Tablet 10 Mg PO HS Allopurinol 100 Mg Tablet 100 Mg PO QHS Spironolactone 25 Mg Tablet 25 Mg PO DAILY Omeprazole 20 Mg Capsule.dr 20 Mg PO DAILY Aspirin 81 Mg Tab.chew 1 Tab PO DAILY Ventolin Hfa Inhaler (Albuterol Sulfate) 18 Gm Hfa.aer.ad 18 Gm IH PRN Advair 250-50 Diskus (Fluticasone/Salmeterol) 1 Each Disk.w.dev 1 Each IH BID Flonase (Fluticasone Propionate) 16 Gm Hazen.susp 16 Gm NS Amiodarone Hcl 200 Mg Tablet 200 Mg PO Vitals/I & O Vital Sign - Last 24 Hours 07/03/16 07/03/16 07/03/16 07/03/16 10:39 11:24 14:33 15:43 Temp 97.7 98.3 97.7 98.3 Pulse 59 60 Resp 25 B/P 126/84 128/66 Pulse Ox 95 96 O2 Delivery Nasal Cannula Nasal Cannula Nasal Cannula Nasal Cannula O2 Flow Rate 2.0 1.0 2.0 1.0 07/03/16 07/03/16 07/03/16 07/03/16 17:37 19:37 19:40 20:00 Temp 97.4 97.4 Pulse 60 59 Resp 22 B/P 128/66 119/64 Pulse Ox 100 100 O2 Delivery Nasal Cannula Nasal Cannula Nasal Cannula O2 Flow Rate 1.0 2.0 2.0 07/03/16 07/04/16 07/04/16 07/04/16 22:10 03:35 07:00 08:15 Temp 98.1 98.0 98.5 98.1 98.0 98.5 Pulse 61 62 64 Resp 22 18 B/P 123/66 146/80 158/87 Pulse Ox 98 99 100 99 O2 Delivery Nasal Cannula Nasal Cannula Nasal Cannula Nasal Cannula O2 Flow Rate 2.0 2.0 2.0 1.0 Intake and Output 07/03/16 07/03/16 07/04/16 15:00 23:00 07:00 Intake Total 980 ml 450 ml Output Total 200 ml Balance 780 ml 450 ml KENNA NORTON MD Jul 04, 2016 09:59
[2016-07-04] MEDS: CYANOCOBALAMIN (VITAMIN B-12) 1,000 MCG TABLET. PO SCH (10:01)
[2016-07-04] MEDS: LIDOCAINE (700MG/PATCH) PATCH. TD SCH (10:01)
[2016-07-04] MEDS: PREDNISONE 20 MG TABLET PO SCH (10:02)
[2016-07-04] MEDS: GUAIFENESIN ER 600 MG TABLET.ER PO SCH ×2 (10:02→20:11)
[2016-07-04] MEDS: AMIODARONE HCL 200 MG TABLET PO SCH (10:03)
[2016-07-04] MEDS: INSULIN ASPART 300 UNITS/3 ML INSULN.PEN SQ SCH ×3 (10:26→17:26)
--- NOTE | 2016-07-04 11:58 | PDOC ---
Objective: Objective: Was having PICC placed when I came by. Per RN, no GI issues, possible DC today. Vital Signs: Vital Signs Date Time Temp Pulse Resp B/P Pulse Ox O2 Delivery O2 Flow Rate FiO2 07/04/16 10:03 65 158/87 07/04/16 08:15 99 Nasal Cannula 1.0 07/04/16 07:00 98.5 18 98.5 Labs: Laboratory Tests Test 07/03/16 12:00 07/03/16 17:09 07/03/16 20:42 07/04/16 02:52 Glucose (Fingerstick) 153mg/dL 164mg/dL 265mg/dL White Blood Count 9.4x10^3/uL Red Blood Count 4.48x10^6/uL Hemoglobin 12.3g/dL Hematocrit 38.5% Mean Corpuscular Volume 86fL Mean Corpuscular Hemoglobin 28pg Mean Corpuscular Hemoglobin Concent 32g/dL Red Cell Distribution Width 17.2% Platelet Count 132x10^3/uL Neutrophils (%) (Auto) 94% Lymphocytes (%) (Auto) 3% Monocytes (%) (Auto) 3% Eosinophils (%) (Auto) 0% Basophils (%) (Auto) 0% Neutrophils # (Auto) 8.8x10^3uL Lymphocytes # (Auto) 0.3x10^3/uL Monocytes # (Auto) 0.3x10^3/uL Eosinophils # (Auto) 0.0x10^3/uL Basophils # (Auto) 0.0x10^3/uL Segmented Neutrophils % 87% Band Neutrophils % 5% Lymphocytes % 4% Monocytes % 4% Toxic Vacuolation Present Platelet Estimate Decreased Anisocytosis Slight Sodium Level 146mmol/L Potassium Level 4.0mmol/L Chloride Level 110mmol/L Carbon Dioxide Level 27mmol/L Anion Gap 9 Blood Urea Nitrogen 39mg/dL Creatinine 1.1mg/dL Estimated GFR (Cockcroft-Gault) 57.4 BUN/Creatinine Ratio 35 Glucose Level 254mg/dL Calcium Level 8.8mg/dL Total Bilirubin 0.4mg/dL Aspartate Amino Transf (AST/SGOT) 22U/L Alanine Aminotransferase (ALT/SGPT) 42U/L Alkaline Phosphatase 46U/L Total Protein 5.7g/dL Albumin 1.8g/dL Albumin/Globulin Ratio 0.5 Test 07/04/16 07:39 Glucose (Fingerstick) 188mg/dL PE: no exam A/P: Transaminitis - resolved H/o Lehman's esophagus, GERD -per chart, on PPI -- Possible DC today. No new GI recs. FRANCIA SHAH Jul 04, 2016 11:58
[2016-07-04] MEDS: DICLOFENAC SODIUM 1% TOPICAL GEL 100GM TUBE. TP SCH ×4 (13:00→20:11)
--- NOTE | 2016-07-04 13:18 | PDOC ---
PULMONARY PROGRESS NOTES Subjective PT NOT MORE SOA, MORE ALERT Vitals Vital Signs Date Time Temp Pulse Resp B/P Pulse Ox O2 Delivery O2 Flow Rate FiO2 07/04/16 12:20 Nasal Cannula 1.0 07/04/16 10:03 65 158/87 07/04/16 08:15 99 07/04/16 07:00 98.5 18 98.5 ROS: No Nausea, No Chest Pain, No Abdominal Pain General: Alert Lungs: Clear Cardiovascular: S1, S2, Other (DECREASE BS ON RIGHT) Abdomen: Soft Neuro Exam: Alert Extremities: No Edema Skin: Warm Labs Laboratory Tests Test 07/02/16 17:00 07/02/16 20:58 07/03/16 07:55 07/03/16 10:30 Glucose (Fingerstick) 234mg/dL (70-99) 111mg/dL (70-99) 143mg/dL (70-99) White Blood Count 8.6x10^3/uL (4.0-11.0) Red Blood Count 4.65x10^6/uL (3.50-5.40) Hemoglobin 12.9g/dL (12.0-15.5) Hematocrit 39.3% (36.0-47.0) Mean Corpuscular Volume 85fL (79-100) Mean Corpuscular Hemoglobin 28pg (25-35) Mean Corpuscular Hemoglobin Concent 33g/dL (31-37) Red Cell Distribution Width 16.9% (11.5-14.5) Platelet Count 129x10^3/uL (140-400) Neutrophils (%) (Auto) 92% (31-73) Lymphocytes (%) (Auto) 4% (24-48) Monocytes (%) (Auto) 4% (0-9) Eosinophils (%) (Auto) 0% (0-3) Basophils (%) (Auto) 0% (0-3) Neutrophils # (Auto) 7.9x10^3uL (1.8-7.7) Lymphocytes # (Auto) 0.4x10^3/uL (1.0-4.8) Monocytes # (Auto) 0.3x10^3/uL (0.0-1.1) Eosinophils # (Auto) 0.0x10^3/uL (0.0-0.7) Basophils # (Auto) 0.0x10^3/uL (0.0-0.2) Sodium Level 148mmol/L (136-145) Potassium Level 4.0mmol/L (3.5-5.1) Chloride Level 112mmol/L (98-107) Carbon Dioxide Level 27mmol/L (21-32) Anion Gap 9 (6-14) Blood Urea Nitrogen 42mg/dL (7-20) Creatinine 1.1mg/dL (0.6-1.0) Estimated GFR (Cockcroft-Gault) 57.4 BUN/Creatinine Ratio 38 (6-20) Glucose Level 178mg/dL (70-99) Calcium Level 8.8mg/dL (8.5-10.1) Total Bilirubin 0.4mg/dL (0.2-1.0) Aspartate Amino Transf (AST/SGOT) 17U/L (15-37) Alanine Aminotransferase (ALT/SGPT) 45U/L (14-59) Alkaline Phosphatase 46U/L (46-116) Total Protein 5.7g/dL (6.4-8.2) Albumin 1.8g/dL (3.4-5.0) Albumin/Globulin Ratio 0.5 (1.0-1.7) Vancomycin Level Trough 10.4mcg/mL (10.0-20.0) Vancomycin Last Dose Date 07/02/16 Vancomycin Last Dose Time 1100 Test 07/03/16 12:00 07/03/16 17:09 07/03/16 20:42 07/04/16 02:52 Glucose (Fingerstick) 153mg/dL (70-99) 164mg/dL (70-99) 265mg/dL (70-99) White Blood Count 9.4x10^3/uL (4.0-11.0) Red Blood Count 4.48x10^6/uL (3.50-5.40) Hemoglobin 12.3g/dL (12.0-15.5) Hematocrit 38.5% (36.0-47.0) Mean Corpuscular Volume 86fL (79-100) Mean Corpuscular Hemoglobin 28pg (25-35) Mean Corpuscular Hemoglobin Concent 32g/dL (31-37) Red Cell Distribution Width 17.2% (11.5-14.5) Platelet Count 132x10^3/uL (140-400) Neutrophils (%) (Auto) 94% (31-73) Lymphocytes (%) (Auto) 3% (24-48) Monocytes (%) (Auto) 3% (0-9) Eosinophils (%) (Auto) 0% (0-3) Basophils (%) (Auto) 0% (0-3) Neutrophils # (Auto) 8.8x10^3uL (1.8-7.7) Lymphocytes # (Auto) 0.3x10^3/uL (1.0-4.8) Monocytes # (Auto) 0.3x10^3/uL (0.0-1.1) Eosinophils # (Auto) 0.0x10^3/uL (0.0-0.7) Basophils # (Auto) 0.0x10^3/uL (0.0-0.2) Segmented Neutrophils % 87% (35-66) Band Neutrophils % 5% (0-9) Lymphocytes % 4% (24-48) Monocytes % 4% (0-10) Toxic Vacuolation Present Platelet Estimate Decreased (ADEQUATE) Anisocytosis Slight Sodium Level 146mmol/L (136-145) Potassium Level 4.0mmol/L (3.5-5.1) Chloride Level 110mmol/L (98-107) Carbon Dioxide Level 27mmol/L (21-32) Anion Gap 9 (6-14) Blood Urea Nitrogen 39mg/dL (7-20) Creatinine 1.1mg/dL (0.6-1.0) Estimated GFR (Cockcroft-Gault) 57.4 BUN/Creatinine Ratio 35 (6-20) Glucose Level 254mg/dL (70-99) Calcium Level 8.8mg/dL (8.5-10.1) Total Bilirubin 0.4mg/dL (0.2-1.0) Aspartate Amino Transf (AST/SGOT) 22U/L (15-37) Alanine Aminotransferase (ALT/SGPT) 42U/L (14-59) Alkaline Phosphatase 46U/L (46-116) Total Protein 5.7g/dL (6.4-8.2) Albumin 1.8g/dL (3.4-5.0) Albumin/Globulin Ratio 0.5 (1.0-1.7) Test 07/04/16 07:39 07/04/16 13:03 Glucose (Fingerstick) 188mg/dL (70-99) 199mg/dL (70-99) Laboratory Tests Test 07/03/16 17:09 07/03/16 20:42 07/04/16 02:52 07/04/16 07:39 Glucose (Fingerstick) 164mg/dL (70-99) 265mg/dL (70-99) 188mg/dL (70-99) White Blood Count 9.4x10^3/uL (4.0-11.0) Red Blood Count 4.48x10^6/uL (3.50-5.40) Hemoglobin 12.3g/dL (12.0-15.5) Hematocrit 38.5% (36.0-47.0) Mean Corpuscular Volume 86fL (79-100) Mean Corpuscular Hemoglobin 28pg (25-35) Mean Corpuscular Hemoglobin Concent 32g/dL (31-37) Red Cell Distribution Width 17.2% (11.5-14.5) Platelet Count 132x10^3/uL (140-400) Neutrophils (%) (Auto) 94% (31-73) Lymphocytes (%) (Auto) 3% (24-48) Monocytes (%) (Auto) 3% (0-9) Eosinophils (%) (Auto) 0% (0-3) Basophils (%) (Auto) 0% (0-3) Neutrophils # (Auto) 8.8x10^3uL (1.8-7.7) Lymphocytes # (Auto) 0.3x10^3/uL (1.0-4.8) Monocytes # (Auto) 0.3x10^3/uL (0.0-1.1) Eosinophils # (Auto) 0.0x10^3/uL (0.0-0.7) Basophils # (Auto) 0.0x10^3/uL (0.0-0.2) Segmented Neutrophils % 87% (35-66) Band Neutrophils % 5% (0-9) Lymphocytes % 4% (24-48) Monocytes % 4% (0-10) Toxic Vacuolation Present Platelet Estimate Decreased (ADEQUATE) Anisocytosis Slight Sodium Level 146mmol/L (136-145) Potassium Level 4.0mmol/L (3.5-5.1) Chloride Level 110mmol/L (98-107) Carbon Dioxide Level 27mmol/L (21-32) Anion Gap 9 (6-14) Blood Urea Nitrogen 39mg/dL (7-20) Creatinine 1.1mg/dL (0.6-1.0) Estimated GFR (Cockcroft-Gault) 57.4 BUN/Creatinine Ratio 35 (6-20) Glucose Level 254mg/dL (70-99) Calcium Level 8.8mg/dL (8.5-10.1) Total Bilirubin 0.4mg/dL (0.2-1.0) Aspartate Amino Transf (AST/SGOT) 22U/L (15-37) Alanine Aminotransferase (ALT/SGPT) 42U/L (14-59) Alkaline Phosphatase 46U/L (46-116) Total Protein 5.7g/dL (6.4-8.2) Albumin 1.8g/dL (3.4-5.0) Albumin/Globulin Ratio 0.5 (1.0-1.7) Test 07/04/16 13:03 Glucose (Fingerstick) 199mg/dL (70-99) Medications Active Scripts Medications Dose Route/Sig Days Date Category Novolog Flexpen (Insulin Aspart) 100 Unit/1 Ml Insuln.pen 1 Unit SQ 06/30/16 Reported Singulair Tablet (Montelukast Sodium) 10 Mg Tablet 10 Mg PO HS 06/30/16 Reported Allopurinol 100 Mg Tablet 100 Mg PO QHS 06/30/16 Reported Vitamin D (Cholecalciferol (Vitamin D3)) 2,000 Unit Capsule 1 Cap PO DAILY 06/30/16 Reported Vitamin D (Cholecalciferol (Vitamin D3)) 5,000 Unit Capsule 2,000 Unit PO 06/30/16 Reported Torsemide 10 Mg Tablet 10 Mg PO 06/30/16 Reported Spironolactone 25 Mg Tablet 25 Mg PO DAILY 06/30/16 Reported Omeprazole 20 Mg Capsule.dr 20 Mg PO DAILY 06/30/16 Reported Lantus (Insulin Glargine,Hum.rec.anlog) 100 Unit/1 Ml Vial 40 Unit SQ HS 07/14/14 Rx Potassium Chloride 20 Meq Tab.er.prt 20 Meq PO EVERY OTHER DAY 07/14/14 Rx Lasix (Furosemide) 40 Mg Tablet 60 Mg PO DAILY 07/14/14 Rx Tylenol Extra Strength (Acetaminophen) 500 Mg Tablet 500 Mg PO PRN Q8HRS PRN 07/14/14 Rx Losartan Potassium 25 Mg Tablet 25 Mg PO DAILY 07/14/14 Rx Rulox Suspension (Mag Hydrox/Al Hydrox/Simeth) 355 Ml Oral.susp 60 Ml PO PRN Q2HR PRN 07/14/14 Rx Glucose (Dextrose) 4 Gm Tab.chew 12 Gm PO PRN PRN 07/14/14 Rx Bisacodyl 10 Mg Supp.rect 10 Mg RC PRN DAILY PRN 07/14/14 Rx Albuterol Sulfate Conc Neb Soln (Albuterol Sulfate) 2.5 Mg/0.5 Ml Vial.neb 2.5 Mg NEB PRN QID PRN 07/14/14 Rx Zyrtec (Cetirizine Hcl) 10 Mg Tablet 0.5 Tab PO DAILY 07/14/14 Rx Hydrocodone-Apap 7.5-325 (Hydrocodone Bit/Acetaminophen) 1 Each Tablet 1 Tab PO PRN Q6HRS PRN 02/21/14 Reported Aspirin 81 Mg Tab.chew 1 Tab PO DAILY 02/21/14 Reported Ventolin Hfa Inhaler (Albuterol Sulfate) 18 Gm Hfa.aer.ad 18 Gm IH PRN 06/25/13 Reported Advair 250-50 Diskus (Fluticasone/Salmeterol) 1 Each Disk.w.dev 1 Each IH BID 06/25/13 Reported Voltaren (Diclofenac Sodium) 100 Gm Gel..gram. 100 Gm TP 05/27/13 Reported One Daily (Multivitamin) 1 Each Tablet 1 Each PO 05/27/13 Reported Flonase (Fluticasone Propionate) 16 Gm [place].susp 16 Gm NS 05/27/13 Reported Amiodarone Hcl 200 Mg Tablet 200 Mg PO 05/27/13 Reported Impression . 1. Abnormal x-ray compatible with bilateral pulmonary infiltrates compatible with combination of pneumonia and congestive heart failure. 2. Jsuaw-zh-jwavdqf systolic congestive heart failure. 3. Right lower lobe consolidation and effusion, due to pneumonia, 4. Right lower lobe effusion. 5. Metabolic toxic encephalopathy. 6. Dxjac-ny-txovwns renal failure. 7. Ischemic cardiomyopathy, ejection fraction of 40%. 8. Type 2 diabetes. 9. Protein malnutrition, present upon admission. 10. MRSA bacteremia Plan . 1. Concur with current broad-spectrum antibiotics PER ID 2. Reviewed Ct not enough for fluid to drain, mostly pneumonia and atelectasis 3. Diurese per Cardiology and Nephrology. 4. ABG noted 5. ok with transfer to LTAC for 4 weeks of antibiotics PJ SANDERS MD Jul 04, 2016 13:18
--- NOTE | 2016-07-04 13:27 | CARD ---
APPROVED REPORT EXAM: Two-dimensional and M-mode echocardiogram with Doppler and color Doppler. Other Information Quality : Good INDICATION Cardiomyopathy 2D DIMENSIONS RVDd2.2 (2.9-3.5cm)Left Atrium(2D)2.5 (1.6-4.0cm) IVSd0.8 (0.7-1.1cm)Aortic Root(2D)2.3 (2.0-3.7cm) LVDd5.1 (3.9-5.9cm)LVOT Diameter2.0 (1.8-2.4cm) PWd0.8 (0.7-1.1cm)LVDs4.4 (2.5-4.0cm) FS (%) 7.5 %SV35.6 ml M-Mode DIMENSIONS MV EPSS2.1 (<0.5cm) Aortic Valve AoV Peak Garfield.142.4cm/sAoV VTI26.5cm AO Peak GR.8.1mmHgLVOT VTI 10.97cm AO Mean GR.4mmHg Mitral Valve MV E Tiwoebnk61.2cm/sMV E Peak Gr.7mmHg MV DECEL [id number] A Eexorars879.2cm/s MV E Mean Gr.2mmHgE/A Ratio0.7 TDI Lateral E' P. V3.54cm/sMedial E' P. V7.79cm/s E/Lateral E'25.2E/Medial E'11.5 Tricuspid Valve TR P. [id number]/sRAP [id number] TR Peak Gr.[id number] LEFT VENTRICLE The Left Ventricle is mildly dilated. There is normal left ventricular wall thickness. Left ventricle systolic function is severely impaired. The Ejection Fraction is estimated at 20%. There is severe g lobal hypokinesis of the left ventricle. Transmitral Doppler flow pattern is Grade I-abnormal relaxat ion pattern. RIGHT VENTRICLE The right ventricle is normal size. The right ventricular systolic function is normal. There are patricia ce leads in the right heart. ATRIA The left atrium size is normal. The right atrium size is normal. The interatrial septum is intact wit h no evidence for an atrial septal defect or patent foramen ovale as noted on 2-D or Doppler imaging. AORTIC VALVE The aortic valve is calcified but opens well. Doppler and Color Flow revealed mild aortic regurgitati on. There is no significant aortic valvular stenosis. MITRAL VALVE The mitral valve is calcified but opens well. There is no evidence of mitral valve prolapse. There is no mitral valve stenosis. Doppler and Color-flow revealed mild mitral regurgitation. TRICUSPID VALVE The tricuspid valve is normal in structure and function. Doppler and Color Flow revealed mild tricusp id regurgitation. The PA pressure was estimated at 36 mmHg. There is no tricuspid valve stenosis. PULMONIC VALVE The pulmonary valve is normal in structure and function. Doppler and Color Flow revealed trace to mil d pulmonic valvular regurgitation. There is no pulmonic valvular stenosis. GREAT VESSELS The aortic root is normal in size. The ascending aorta is normal in size. The IVC is normal in size a nd collapses >50% with inspiration. PERICARDIAL EFFUSION There is no evidence of significant pericardial effusion. Critical Notification Critical Value: No <Conclusion> The Left Ventricle is mildly dilated. Left ventricle systolic function is severely impaired. The Ejection Fraction is estimated at 20%. There is no significant aortic valvular stenosis. Doppler and Color Flow revealed mild aortic regurgitation. Doppler and Color-flow revealed mild mitral regurgitation. Doppler and Color Flow revealed mild tricuspid regurgitation. The PA pressure was estimated at 36 mmHg.
--- NOTE | 2016-07-04 13:36 | PDOC ---
SUBJECTIVE ROS F/up for Aniket/ CKD III with^ Na doing oK OBJECTIVE Vital Signs Vital Signs Date Time Temp Pulse Resp B/P Pulse Ox O2 Delivery O2 Flow Rate FiO2 07/04/16 12:20 Nasal Cannula 1.0 07/04/16 10:03 65 158/87 07/04/16 08:15 99 07/04/16 07:00 98.5 18 98.5 I & 0 Intake and Output 07/04/16 07:00 Intake Total 1430 ml Output Total 200 ml Balance 1230 ml Intake Oral 1430 ml Output Urine Total 200 ml # Voids 3 PHYSICAL EXAM Physical Exam General Appearance: Awake: Alert Oriented x 1 Neck: No JVD or JVP Chest: CTA Sarath Heart: S1 S2 Abdomen - Soft NTND Extremities - No Edema DIAGNOSIS/ASSESSMENT Assessment & Plan ANIKET - now improved ^Na - encourage Free water as nighat PO or IV if needed. Did not start IVF pending D/c today Problems: COMMENT/RELEVANT DATA Meds Current Medications Medications (Trade) Dose Ordered Sig/Priscila Start Time Stop Time Status Last Admin Dose Admin Acetaminophen (Tylenol) 500 mg PRN Q8HRS PRN 06/30/16 00:45 Acetaminophen/ Hydrocodone Bitart (Lortab 7.5/325) 1 tab PRN Q6HRS PRN 06/30/16 00:45 Albuterol Sulfate (Ventolin Neb Soln) 2.5 mg PRN Q2HR PRN 06/30/16 08:30 Albuterol/ Ipratropium (Duoneb) 3 ml RTQID 06/30/16 08:00 07/04/16 12:17 3 ML Albuterol/ Ipratropium 3 ml 3 ml 1X ONCE 06/29/16 20:30 06/29/16 20:31 DC 06/29/16 21:24 3 ML Allopurinol (Zyloprim) 100 mg QHS 06/30/16 21:00 07/03/16 20:48 100 MG Amiodarone HCl (Cordarone) 200 mg DAILY 06/30/16 09:00 07/04/16 10:03 200 MG Artificial Tears (Artificial Tears) 2 drop PRN QID PRN 06/30/16 09:45 Aspirin (Children'S Aspirin) 81 mg DAILY 06/30/16 09:00 07/04/16 09:51 81 MG Bisacodyl (Dulcolax Supp) 10 mg PRN DAILY PRN 06/30/16 08:30 Budesonide (Pulmicort) 0.5 mg RTBID 06/30/16 08:00 06/30/16 16:24 DC 06/30/16 07:41 0.5 MG Carvedilol (Coreg) 3.125 mg BIDWMEALS 06/30/16 10:00 07/04/16 09:58 3.125 MG Ceftriaxone Sodium/Sodium Chloride (Rocephin/Iv Sodium Chloride 0.9% 50ml) 50 ml @ 100 mls/hr Q24H 07/01/16 15:00 07/04/16 11:14 DC 07/03/16 16:13 100 MLS/HR Cetirizine HCl (Zyrtec) 10 mg DAILY 06/30/16 09:00 07/04/16 09:59 10 MG Cyanocobalamin (Vitamin B-12) 1,000 mcg DAILY 06/30/16 10:00 07/04/16 10:01 1,000 MCG Dextrose 12.5 gm PRN Q15MIN PRN 06/30/16 00:45 Diclofenac Sodium (Voltaren) 1 ld QID 06/30/16 10:00 07/03/16 20:48 1 LD Fluticasone Propionate (Flonase) 2 spray DAILY 06/30/16 09:00 07/03/16 08:52 2 SPRAY Furosemide (Lasix) 40 mg 1X ONCE 07/01/16 16:00 07/01/16 16:01 DC 07/01/16 16:32 40 MG Guaifenesin (Mucinex) 600 mg BID 07/01/16 09:00 07/04/16 10:02 600 MG Insulin Aspart (Novolog) 1 units [id number] 06/30/16 07:30 UNV Insulin Detemir (Levemir) 20 units QHS 07/04/16 21:00 Lidocaine (Lidoderm) 1 patch DAILY 06/30/16 11:00 07/04/16 10:01 1 PATCH Linezolid (Zyvox Premix) 300 ml @ 300 mls/hr Q12HR 06/30/16 10:00 07/01/16 09:44 DC 07/01/16 08:36 300 MLS/HR Methylprednisolone Sodium Succinate (Solu-Medrol 40mg Vial) 40 mg Q12HR 06/30/16 09:00 07/04/16 08:25 DC 07/03/16 20:46 40 MG Montelukast Sodium (Singulair) 10 mg HS 06/30/16 21:00 07/03/16 20:48 10 MG Multivitamins/ Calcium 1 tab 1 tab DAILY 06/30/16 09:00 07/04/16 09:53 1 TAB Mupirocin 1 ld 1 ld BID 07/01/16 09:00 07/03/16 20:47 1 LD Non-Formulary Medication 40 unit HS 06/30/16 21:00 UNV Ondansetron HCl 4 mg 4 mg PRN Q8HRS PRN 06/29/16 21:30 06/30/16 21:29 DC Oseltamivir Phosphate (Tamiflu) 30 mg BID 07/02/16 10:00 07/03/16 21:01 DC 07/03/16 20:48 30 MG Pantoprazole Sodium (Protonix) 40 mg DAILYAC 06/30/16 07:30 07/04/16 09:55 40 MG Piperacillin Sod/ Tazobactam Sod 2.25 gm/Sodium Chloride 50 ml @ 100 mls/hr Q6HRS 06/30/16 09:00 07/01/16 14:46 DC 07/01/16 12:39 100 MLS/HR Piperacillin Sod/ Tazobactam Sod/ Sodium Chloride (Zosyn/Iv Sodium Chloride 0.9% 50ml) 50 ml @ 100 mls/hr 1X ONCE 06/29/16 20:30 06/29/16 20:59 DC 06/29/16 21:09 100 MLS/HR Potassium Chloride 40 meq 40 meq 1X ONCE 07/02/16 11:15 07/02/16 11:16 DC 07/02/16 11:53 40 MEQ Potassium Chloride (Klor-Con) 20 meq 1X ONCE 06/30/16 13:00 06/30/16 13:01 DC 06/30/16 14:27 20 MEQ Prednisone (Prednisone) 40 mg DAILY 07/04/16 09:00 07/04/16 10:02 40 MG Sodium Chloride 1,000 ml @ 75 mls/hr [id number] 06/30/16 08:30 06/30/16 08:34 DC Sodium Chloride (Iv Sodium Chloride 0.9% 1000ml Bag) 1,000 ml @ 125 mls/hr Q8H 06/29/16 21:24 06/30/16 08:30 DC 06/30/16 00:30 125 MLS/HR Spironolactone (Aldactone) 25 mg DAILY 06/30/16 09:00 07/04/16 09:59 25 MG Vancomycin HCl 1 each 1 each 1X ONCE 07/03/16 10:30 07/03/16 10:31 DC 07/03/16 10:30 1 EACH Vancomycin HCl/ Sodium Chloride (Iv Sodium Chloride 0.9% 250ml) 250 ml @ 167 mls/hr Q24H 07/03/16 12:00 07/03/16 12:06 167 MLS/HR Vancomycin HCl/ Sodium Chloride (Iv Sodium Chloride 0.9% 500ml Bag) 500 ml @ 250 mls/hr 1X ONCE 07/01/16 10:30 07/01/16 12:29 DC 07/01/16 10:53 250 MLS/HR Vitamin D (Vitamin D3) 2,000 unit DAILY 06/30/16 10:00 Cancel Lab Laboratory Tests Test 07/03/16 17:09 07/03/16 20:42 07/04/16 02:52 07/04/16 07:39 Glucose (Fingerstick) 164mg/dL (70-99) 265mg/dL (70-99) 188mg/dL (70-99) White Blood Count 9.4x10^3/uL (4.0-11.0) Red Blood Count 4.48x10^6/uL (3.50-5.40) Hemoglobin 12.3g/dL (12.0-15.5) Hematocrit 38.5% (36.0-47.0) Mean Corpuscular Volume 86fL (79-100) Mean Corpuscular Hemoglobin 28pg (25-35) Mean Corpuscular Hemoglobin Concent 32g/dL (31-37) Red Cell Distribution Width 17.2% (11.5-14.5) Platelet Count 132x10^3/uL (140-400) Neutrophils (%) (Auto) 94% (31-73) Lymphocytes (%) (Auto) 3% (24-48) Monocytes (%) (Auto) 3% (0-9) Eosinophils (%) (Auto) 0% (0-3) Basophils (%) (Auto) 0% (0-3) Neutrophils # (Auto) 8.8x10^3uL (1.8-7.7) Lymphocytes # (Auto) 0.3x10^3/uL (1.0-4.8) Monocytes # (Auto) 0.3x10^3/uL (0.0-1.1) Eosinophils # (Auto) 0.0x10^3/uL (0.0-0.7) Basophils # (Auto) 0.0x10^3/uL (0.0-0.2) Segmented Neutrophils % 87% (35-66) Band Neutrophils % 5% (0-9) Lymphocytes % 4% (24-48) Monocytes % 4% (0-10) Toxic Vacuolation Present Platelet Estimate Decreased (ADEQUATE) Anisocytosis Slight Sodium Level 146mmol/L (136-145) Potassium Level 4.0mmol/L (3.5-5.1) Chloride Level 110mmol/L (98-107) Carbon Dioxide Level 27mmol/L (21-32) Anion Gap 9 (6-14) Blood Urea Nitrogen 39mg/dL (7-20) Creatinine 1.1mg/dL (0.6-1.0) Estimated GFR (Cockcroft-Gault) 57.4 BUN/Creatinine Ratio 35 (6-20) Glucose Level 254mg/dL (70-99) Calcium Level 8.8mg/dL (8.5-10.1) Total Bilirubin 0.4mg/dL (0.2-1.0) Aspartate Amino Transf (AST/SGOT) 22U/L (15-37) Alanine Aminotransferase (ALT/SGPT) 42U/L (14-59) Alkaline Phosphatase 46U/L (46-116) Total Protein 5.7g/dL (6.4-8.2) Albumin 1.8g/dL (3.4-5.0) Albumin/Globulin Ratio 0.5 (1.0-1.7) Test 07/04/16 13:03 Glucose (Fingerstick) 199mg/dL (70-99) GERMAIN LAKHANI MD Jul 04, 2016 13:36
[2016-07-04] MEDS: FLUTICASONE 50MCG/NASAL SPRAY 16GM BOTTLE. NS SCH (13:48)
[2016-07-04] MEDS: MUPIROCIN 2 % NASAL OINTMENT 22GM TUBE. NS SCH ×2 (13:48→20:11)
[2016-07-04] MEDS: VANCOMYCIN 1.25 GM in IV NORMAL SALINE 250ML 250 ML IV SCH (13:49)
[2016-07-04 15:00] VITALS: BP 119/62
[2016-07-04 20:00] VITALS: BP 119/62
[2016-07-04] MEDS: MONTELUKAST SODIUM 10 MG TABLET. PO SCH (20:10)
[2016-07-04] MEDS: ALLOPURINOL 100 MG TABLET. PO SCH (20:11)
[2016-07-04] MEDS ORDERED: INSULIN DETEMIR 300 UNITS/3 ML INSULN.PEN. SQ SCH (21:00)
[2016-07-04 23:05] VITALS: BP 140/70
[2016-07-05 03:45] VITALS: BP 124/70
[2016-07-05 05:38] LABS: ALBUMIN 1.6 g/dL (3.4-5.0); ALBUMIN/GLOBULIN RATIO 0.4 (1.0-1.7); CALCIUM 8.4 mg/dL (8.5-10.1); CREATININE 0.9 mg/dL (0.6-1.0); GFR 72.4; TOTAL BILIRUBIN 0.4 mg/dL (0.2-1.0); TOTAL PROTEIN 5.3 g/dL (6.4-8.2)
[2016-07-05 07:00] VITALS: BP 140/70
[2016-07-05] MEDS: IPRATRPIUM/ALBUTEROL 0.5/2.5MG 3 ML NEBU. NEB SCH ×2 (07:41→11:43)
--- NOTE | 2016-07-05 08:36 | PDOC ---
Infectious Disease Note Subjective Subjective says feeling ok, ready to go to rehab ROS ROS no n/v/d/pain Vital Sign Vital Signs Vital Signs Date Time Temp Pulse Resp B/P Pulse Ox O2 Delivery O2 Flow Rate FiO2 07/05/16 07:45 97 Nasal Cannula 1.0 07/05/16 07:00 98.3 60 20 140/70 98.3 Physical Exam PHYSICAL EXAM GENERAL: NAD, Alert HEENT: PERRL, OC/OP NECK: Supple, no JVD, no LN LUNGS: Clear HEART: S1S2, no gallop, no murmur ABD: Soft, NT, no organomegaly, no rebound EXT: No edema, no cyanosis E [employer]ER[employer] STRATEGIST: Alert, oriented x 3, no focal neurologic deficit SKIN: No rash IV: ok Labs Lab Laboratory Tests Test 07/04/16 13:03 07/04/16 16:51 07/04/16 20:54 07/05/16 05:00 Glucose (Fingerstick) 199mg/dL (70-99) 245mg/dL (70-99) 323mg/dL (70-99) Sodium Level 145mmol/L (136-145) Potassium Level 4.0mmol/L (3.5-5.1) Chloride Level 110mmol/L (98-107) Carbon Dioxide Level 30mmol/L (21-32) Anion Gap 5 (6-14) Blood Urea Nitrogen 32mg/dL (7-20) Creatinine 0.9mg/dL (0.6-1.0) Estimated GFR (Cockcroft-Gault) 72.4 BUN/Creatinine Ratio 36 (6-20) Glucose Level 203mg/dL (70-99) Calcium Level 8.4mg/dL (8.5-10.1) Total Bilirubin 0.4mg/dL (0.2-1.0) Aspartate Amino Transf (AST/SGOT) 25U/L (15-37) Alanine Aminotransferase (ALT/SGPT) 38U/L (14-59) Alkaline Phosphatase 44U/L (46-116) Total Protein 5.3g/dL (6.4-8.2) Albumin 1.6g/dL (3.4-5.0) Albumin/Globulin Ratio 0.4 (1.0-1.7) Micro repeat culture neg Objective Assessment MRSA bacteremia, POA -Repeat BC 07/02 NGTD E. coli UTI. POA Influenza B Encephalopathy - better CKD ? aspiration Dysphagia. Plan Plan of Care Vanc Repeat BC NGTD echo done ? neg Monitor labs PICC HAYDEN LAKHANI MD Jul 05, 2016 08:36
[2016-07-05] MEDS: SPIRONOLACTONE 25 MG TABLET PO SCH (09:13)
[2016-07-05] MEDS: AMIODARONE HCL 200 MG TABLET PO SCH (09:13)
[2016-07-05] MEDS: PREDNISONE 20 MG TABLET PO SCH (09:13)
[2016-07-05] MEDS: ASPIRIN 81 MG TAB.CHEW PO SCH (09:13)
[2016-07-05] MEDS: MULTIVITAMIN with MINERAL TABLET. PO SCH (09:13)
[2016-07-05] MEDS: PANTOPRAZOLE 40 MG TABLET. PO SCH (09:13)
[2016-07-05] MEDS: CETIRIZINE HCL 10 MG TABLET PO SCH (09:13)
[2016-07-05] MEDS: FUROSEMIDE 40 MG TABLET PO SCH (09:13)
[2016-07-05] MEDS: GUAIFENESIN ER 600 MG TABLET.ER PO SCH (09:13)
[2016-07-05] MEDS: CYANOCOBALAMIN (VITAMIN B-12) 1,000 MCG TABLET. PO SCH (09:13)
[2016-07-05] MEDS: CARVEDILOL 3.125 MG TABLET PO SCH (09:14)
[2016-07-05] MEDS: CHOLECALCIFEROL (VITAMIN D3) 1,000 UNIT TABLET PO SCH (09:14)
[2016-07-05] MEDS: DICLOFENAC SODIUM 1% TOPICAL GEL 100GM TUBE. TP SCH ×2 (09:16→12:46)
[2016-07-05] MEDS: LIDOCAINE (700MG/PATCH) PATCH. TD SCH (09:21)
[2016-07-05] MEDS: FLUTICASONE 50MCG/NASAL SPRAY 16GM BOTTLE. NS SCH (09:22)
[2016-07-05] MEDS: MUPIROCIN 2 % NASAL OINTMENT 22GM TUBE. NS SCH (09:22)
[2016-07-05] MEDS: INSULIN ASPART 300 UNITS/3 ML INSULN.PEN SQ SCH ×2 (09:31→13:01)
--- NOTE | 2016-07-05 10:27 | PDOC ---
PROGRESS NOTES Subjective Subjective No new complaints. 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 Assessment Assessment Problems Medical Problems: (1) Acute bronchospasm Status: Acute (2) Influenza B Status: Acute Plan Plan of Care Agree with plans for transfer to SNF when stable and she needs to have abdominal binder as lumbar corset while up. Comment Review of Relevant I have reviewed the following items janae (where applicable) has been applied. Labs Laboratory Tests Test 07/03/16 10:30 07/03/16 12:00 07/03/16 17:09 07/03/16 20:42 White Blood Count 8.6x10^3/uL (4.0-11.0) Red Blood Count 4.65x10^6/uL (3.50-5.40) Hemoglobin 12.9g/dL (12.0-15.5) Hematocrit 39.3% (36.0-47.0) Mean Corpuscular Volume 85fL (79-100) Mean Corpuscular Hemoglobin 28pg (25-35) Mean Corpuscular Hemoglobin Concent 33g/dL (31-37) Red Cell Distribution Width 16.9% (11.5-14.5) Platelet Count 129x10^3/uL (140-400) Neutrophils (%) (Auto) 92% (31-73) Lymphocytes (%) (Auto) 4% (24-48) Monocytes (%) (Auto) 4% (0-9) Eosinophils (%) (Auto) 0% (0-3) Basophils (%) (Auto) 0% (0-3) Neutrophils # (Auto) 7.9x10^3uL (1.8-7.7) Lymphocytes # (Auto) 0.4x10^3/uL (1.0-4.8) Monocytes # (Auto) 0.3x10^3/uL (0.0-1.1) Eosinophils # (Auto) 0.0x10^3/uL (0.0-0.7) Basophils # (Auto) 0.0x10^3/uL (0.0-0.2) Sodium Level 148mmol/L (136-145) Potassium Level 4.0mmol/L (3.5-5.1) Chloride Level 112mmol/L (98-107) Carbon Dioxide Level 27mmol/L (21-32) Anion Gap 9 (6-14) Blood Urea Nitrogen 42mg/dL (7-20) Creatinine 1.1mg/dL (0.6-1.0) Estimated GFR (Cockcroft-Gault) 57.4 BUN/Creatinine Ratio 38 (6-20) Glucose Level 178mg/dL (70-99) Calcium Level 8.8mg/dL (8.5-10.1) Total Bilirubin 0.4mg/dL (0.2-1.0) Aspartate Amino Transf (AST/SGOT) 17U/L (15-37) Alanine Aminotransferase (ALT/SGPT) 45U/L (14-59) Alkaline Phosphatase 46U/L (46-116) Total Protein 5.7g/dL (6.4-8.2) Albumin 1.8g/dL (3.4-5.0) Albumin/Globulin Ratio 0.5 (1.0-1.7) Vancomycin Level Trough 10.4mcg/mL (10.0-20.0) Vancomycin Last Dose Date 07/02/16 Vancomycin Last Dose Time 1100 Glucose (Fingerstick) 153mg/dL (70-99) 164mg/dL (70-99) 265mg/dL (70-99) Test 07/04/16 02:52 07/04/16 07:39 07/04/16 13:03 07/04/16 16:51 White Blood Count 9.4x10^3/uL (4.0-11.0) Red Blood Count 4.48x10^6/uL (3.50-5.40) Hemoglobin 12.3g/dL (12.0-15.5) Hematocrit 38.5% (36.0-47.0) Mean Corpuscular Volume 86fL (79-100) Mean Corpuscular Hemoglobin 28pg (25-35) Mean Corpuscular Hemoglobin Concent 32g/dL (31-37) Red Cell Distribution Width 17.2% (11.5-14.5) Platelet Count 132x10^3/uL (140-400) Neutrophils (%) (Auto) 94% (31-73) Lymphocytes (%) (Auto) 3% (24-48) Monocytes (%) (Auto) 3% (0-9) Eosinophils (%) (Auto) 0% (0-3) Basophils (%) (Auto) 0% (0-3) Neutrophils # (Auto) 8.8x10^3uL (1.8-7.7) Lymphocytes # (Auto) 0.3x10^3/uL (1.0-4.8) Monocytes # (Auto) 0.3x10^3/uL (0.0-1.1) Eosinophils # (Auto) 0.0x10^3/uL (0.0-0.7) Basophils # (Auto) 0.0x10^3/uL (0.0-0.2) Segmented Neutrophils % 87% (35-66) Band Neutrophils % 5% (0-9) Lymphocytes % 4% (24-48) Monocytes % 4% (0-10) Toxic Vacuolation Present Platelet Estimate Decreased (ADEQUATE) Anisocytosis Slight Sodium Level 146mmol/L (136-145) Potassium Level 4.0mmol/L (3.5-5.1) Chloride Level 110mmol/L (98-107) Carbon Dioxide Level 27mmol/L (21-32) Anion Gap 9 (6-14) Blood Urea Nitrogen 39mg/dL (7-20) Creatinine 1.1mg/dL (0.6-1.0) Estimated GFR (Cockcroft-Gault) 57.4 BUN/Creatinine Ratio 35 (6-20) Glucose Level 254mg/dL (70-99) Calcium Level 8.8mg/dL (8.5-10.1) Total Bilirubin 0.4mg/dL (0.2-1.0) Aspartate Amino Transf (AST/SGOT) 22U/L (15-37) Alanine Aminotransferase (ALT/SGPT) 42U/L (14-59) Alkaline Phosphatase 46U/L (46-116) Total Protein 5.7g/dL (6.4-8.2) Albumin 1.8g/dL (3.4-5.0) Albumin/Globulin Ratio 0.5 (1.0-1.7) Glucose (Fingerstick) 188mg/dL (70-99) 199mg/dL (70-99) 245mg/dL (70-99) Test 07/04/16 20:54 07/05/16 05:00 Glucose (Fingerstick) 323mg/dL (70-99) Sodium Level 145mmol/L (136-145) Potassium Level 4.0mmol/L (3.5-5.1) Chloride Level 110mmol/L (98-107) Carbon Dioxide Level 30mmol/L (21-32) Anion Gap 5 (6-14) Blood Urea Nitrogen 32mg/dL (7-20) Creatinine 0.9mg/dL (0.6-1.0) Estimated GFR (Cockcroft-Gault) 72.4 BUN/Creatinine Ratio 36 (6-20) Glucose Level 203mg/dL (70-99) Calcium Level 8.4mg/dL (8.5-10.1) Total Bilirubin 0.4mg/dL (0.2-1.0) Aspartate Amino Transf (AST/SGOT) 25U/L (15-37) Alanine Aminotransferase (ALT/SGPT) 38U/L (14-59) Alkaline Phosphatase 44U/L (46-116) Total Protein 5.3g/dL (6.4-8.2) Albumin 1.6g/dL (3.4-5.0) Albumin/Globulin Ratio 0.4 (1.0-1.7) Laboratory Tests Test 07/04/16 13:03 07/04/16 16:51 07/04/16 20:54 07/05/16 05:00 Glucose (Fingerstick) 199mg/dL (70-99) 245mg/dL (70-99) 323mg/dL (70-99) Sodium Level 145mmol/L (136-145) Potassium Level 4.0mmol/L (3.5-5.1) Chloride Level 110mmol/L (98-107) Carbon Dioxide Level 30mmol/L (21-32) Anion Gap 5 (6-14) Blood Urea Nitrogen 32mg/dL (7-20) Creatinine 0.9mg/dL (0.6-1.0) Estimated GFR (Cockcroft-Gault) 72.4 BUN/Creatinine Ratio 36 (6-20) Glucose Level 203mg/dL (70-99) Calcium Level 8.4mg/dL (8.5-10.1) Total Bilirubin 0.4mg/dL (0.2-1.0) Aspartate Amino Transf (AST/SGOT) 25U/L (15-37) Alanine Aminotransferase (ALT/SGPT) 38U/L (14-59) Alkaline Phosphatase 44U/L (46-116) Total Protein 5.3g/dL (6.4-8.2) Albumin 1.6g/dL (3.4-5.0) Albumin/Globulin Ratio 0.4 (1.0-1.7) Microbiology 07/02/16 Blood Culture - Preliminary, Resulted NO GROWTH AFTER 3 DAYS 06/29/16 Urine Culture - Final, Complete 06/29/16 Urine Culture Result 1 (MAIKOL) - Final, Complete 06/29/16 Antimicrobic Susceptibility - Final, Complete Medications Current Medications Albuterol/ Ipratropium 3 ml 3 ml 1X ONCE NEB Last administered on 06/29/16 21: 24; Start 06/29/16 at 20:30; Stop 06/29/16 at 20:31; Status DC Sodium Chloride 1,000 ml @ 1,000 mls/hr 1X ONCE IV Last administered on 21:10; Start 06/29/16 at 20:30; Stop 06/29/16 at 21:29; Status DC Piperacillin Sod/ Tazobactam Sod/ Sodium Chloride (Zosyn/Iv Sodium Chloride 0.9 % 50ml) 50 ml @ 100 mls/hr 1X ONCE IV Last administered on 06/29/16 21:09; Start 06/29/16 at 20:30; Stop 06/29/16 at 20:59; Status DC Ondansetron HCl 4 mg 4 mg PRN Q8HRS PRN IV NAUSEA/VOMITING; Start 06/29/16 at 21 :30; Stop 06/30/16 at 21:29; Status DC Sodium Chloride (Iv Sodium Chloride 0.9% 1000ml Bag) 1,000 ml @ 125 mls/hr Q8H IV Last administered on 06/30/16 00:30; Start 06/29/16 at 21:24; Stop 06/30/16 at 08:30; Status DC Acetaminophen (Tylenol) 650 mg PRN Q4HRS PRN PO FEVER; Start 06/29/16 at 21:30; Stop 06/30/16 at 00:52; Status DC Albuterol/ Ipratropium (Duoneb) 3 ml RTQID NEB ; Start 06/30/16 at 08:00; Stop at 08:00; Status DC Oseltamivir Phosphate (Tamiflu) 75 mg BID PO ; Start 06/30/16 at 09:00; Stop 07/05 at 08:59; Status UNV Methylprednisolone Sodium Succinate (Solu-Medrol 40mg Vial) 40 mg BID IV ; Start 06/30/16 at 09:00; Stop 06/30/16 at 09:00; Status DC Oseltamivir Phosphate (Tamiflu) 30 mg 1X ONCE PO Last administered on 22:26; Start 06/29/16 at 22:45; Stop 06/29/16 at 22:46; Status DC Oseltamivir Phosphate (Tamiflu) 30 mg QHS PO Last administered on 07/01/16 21: 14; Start 06/30/16 at 21:00; Stop 07/02/16 at 09:44; Status DC Insulin Detemir (Levemir) 29 units QHS SQ ; Start 06/30/16 at 21:00; Stop at 21:00; Status DC Insulin Aspart (Novolog) 0-5 UNITS TIDWMEALS SQ Last administered on 07/05/16 09:31; Start 06/30/16 at 08:00 Dextrose 12.5 gm PRN Q15MIN PRN IV SEE COMMENTS; Start 06/30/16 at 00:45 Acetaminophen (Tylenol) 500 mg PRN Q8HRS PRN PO MILD PAIN / TEMP; Start at 00:45 Allopurinol (Zyloprim) 100 mg QHS PO Last administered on 07/04/16 20:11; Start 06/30/16 at 21:00 Amiodarone HCl (Cordarone) 200 mg DAILY PO Last administered on 07/05/16 09:13 ; Start 06/30/16 at 09:00 Aspirin (Children'S Aspirin) 81 mg DAILY PO Last administered on 07/05/16 09:13 ; Start 06/30/16 at 09:00 Cetirizine HCl (Zyrtec) 10 mg DAILY PO Last administered on 07/05/16 09:13; Start 06/30/16 at 09:00 Vitamin D (Vitamin D3) 2,000 unit DAILY PO Last administered on 07/05/16 09:14 ; Start 06/30/16 at 09:00 Diclofenac Sodium (Voltaren) 1 nohemy HS TP ; Start 06/30/16 at 21:00; Stop 06/30/16 at 21:00; Status DC Fluticasone Propionate (Flonase) 2 spray DAILY NS Last administered on 09:22; Start 06/30/16 at 09:00 Acetaminophen/ Hydrocodone Bitart (Lortab 7.5/325) 1 tab PRN Q6HRS PRN PO SEVERE PAIN; Start 06/30/16 at 00:45 Insulin Aspart (Novolog) 1 units TIDBFRMEAL SQ ; Start 06/30/16 at 07:30; Status UNV Montelukast Sodium (Singulair) 10 mg HS PO Last administered on 07/04/16 20:10 ; Start 06/30/16 at 21:00 Spironolactone (Aldactone) 25 mg DAILY PO Last administered on 07/05/16 09:13; Start 06/30/16 at 09:00 Albuterol Sulfate (Ventolin Neb Soln) 2.5 mg PRN QID PRN NEB SHORTNESS OF BREATH; Start 06/30/16 at 01:00; Stop 06/30/16 at 08:24; Status DC Non-Formulary Medication 1 cap DAILY PO ; Start 06/30/16 at 09:00; Status UNV Non-Formulary Medication 1 each BID IH ; Start 06/30/16 at 09:00; Status UNV Non-Formulary Medication 40 unit HS SQ ; Start 06/30/16 at 21:00; Status UNV Pantoprazole Sodium (Protonix) 40 mg DAILYAC PO Last administered on 07/05/16 09:13; Start 06/30/16 at 07:30 Albuterol/ Ipratropium (Duoneb) 3 ml RTQID NEB Last administered on 07/05/16 07 :41; Start 06/30/16 at 08:00 Budesonide (Pulmicort) 0.5 mg RTBID NEB Last administered on 06/30/16 07:41; Start 06/30/16 at 08:00; Stop 06/30/16 at 16:24; Status DC Albuterol Sulfate (Ventolin Neb Soln) 2.5 mg PRN Q2HR PRN NEB SHORTNESS OF BREATH; Start 06/30/16 at 08:30 Methylprednisolone Sodium Succinate (Solu-Medrol 40mg Vial) 40 mg Q12HR IV Last administered on 07/03/16 20:46; Start 06/30/16 at 09:00; Stop 07/04/16 at 08: 25; Status DC Bisacodyl (Dulcolax Supp) 10 mg PRN DAILY PRN RC CONSTIPATION; Start 06/30/16 at 08:30 Multivitamins/ Calcium 1 tab 1 tab DAILY PO Last administered on 07/05/16 09:13 ; Start 06/30/16 at 09:00 Sodium Chloride 1,000 ml @ 75 mls/hr [id number] IV ; Start 06/30/16 at 08:30; Stop 06/30/16 at 08:34; Status DC Piperacillin Sod/ Tazobactam Sod 2.25 gm/Sodium Chloride 50 ml @ 100 mls/hr Q6HRS IV Last administered on 07/01/16 12:39; Start 06/30/16 at 09:00; Stop 07/01 at 14:46; Status DC Linezolid (Zyvox Premix) 300 ml @ 300 mls/hr Q12HR IV Last administered on 07/01 08:36; Start 06/30/16 at 10:00; Stop 07/01/16 at 09:44; Status DC Diclofenac Sodium (Voltaren) 1 nohemy QID TP Last administered on 07/05/16 09:16; Start 06/30/16 at 10:00 Insulin Detemir (Levemir) 15 units QHS SQ Last administered on 07/03/16 21:05; Start 06/30/16 at 21:00; Stop 07/04/16 at 08:25; Status DC Cyanocobalamin (Vitamin B-12) 1,000 mcg DAILY PO Last administered on 07/05/16 09:13; Start 06/30/16 at 10:00 Vitamin D (Vitamin D3) 2,000 unit DAILY PO ; Start 06/30/16 at 10:00; Status Cancel Artificial Tears (Artificial Tears) 2 drop PRN QID PRN OU DRY EYE; Start at 09:45 Carvedilol (Coreg) 3.125 mg BIDWMEALS PO Last administered on 07/05/16 09:14; Start 06/30/16 at 10:00 Lidocaine (Lidoderm) 1 patch DAILY TD Last administered on 07/05/16 09:21; Start 06/30/16 at 11:00 Furosemide (Lasix) 40 mg DAILY PO Last administered on 07/05/16 09:13; Start at 12:00 Furosemide (Lasix) 40 mg 1X ONCE IVP ; Start 06/30/16 at 14:00; Stop 06/30/16 at 14:01; Status DC Potassium Chloride (Klor-Con) 20 meq 1X ONCE PO Last administered on 06/30/16 14:27; Start 06/30/16 at 13:00; Stop 06/30/16 at 13:01; Status DC Guaifenesin (Mucinex) 600 mg BID PO Last administered on 07/05/16 09:13; Start 07/01/16 at 09:00 Mupirocin (Bactroban) 1 nohemy BID NS Last administered on 07/05/16 09:22; Start 07/01/16 at 09:00 Vancomycin HCl 1 each 1 each PRN DAILY PRN MC SEE COMMENTS Last administered on 07/03/16 11:52; Start 07/01/16 at 09:45 Vancomycin HCl/ Sodium Chloride (Iv Sodium Chloride 0.9% 500ml Bag) 500 ml @ 250 mls/hr 1X ONCE IV Last administered on 07/01/16 10:53; Start 07/01/16 at 10 :30; Stop 07/01/16 at 12:29; Status DC Furosemide 40 mg 40 mg 1X ONCE IVP Last administered on 07/01/16 16:32; Start 07/01/16 at 16:00; Stop 07/01/16 at 16:01; Status DC Vancomycin HCl/ Sodium Chloride (Iv Sodium Chloride 0.9% 250ml) 250 ml @ 250 mls/hr Q24H IV Last administered on 07/02/16 11:52; Start 07/02/16 at 11:00; Stop 07/03/16 at 11:36; Status DC Vancomycin HCl 1 each 1 each 1X ONCE MC Last administered on 07/03/16 10:30; Start 07/03/16 at 10:30; Stop 07/03/16 at 10:31; Status DC Ceftriaxone Sodium/Sodium Chloride (Rocephin/Iv Sodium Chloride 0.9% 50ml) 50 ml @ 100 mls/hr Q24H IV Last administered on 07/03/16 16:13; Start 07/01/16 at 15:00; Stop 07/04/16 at 11:14; Status DC Oseltamivir Phosphate (Tamiflu) 30 mg BID PO Last administered on 07/03/16 20: 48; Start 07/02/16 at 10:00; Stop 07/03/16 at 21:01; Status DC Potassium Chloride 40 meq 40 meq 1X ONCE PO Last administered on 07/02/16 11: 53; Start 07/02/16 at 11:15; Stop 07/02/16 at 11:16; Status DC Vancomycin HCl/ Sodium Chloride (Iv Sodium Chloride 0.9% 250ml) 250 ml @ 167 mls/hr Q24H IV Last administered on 07/04/16 13:49; Start 07/03/16 at 12:00 Insulin Detemir (Levemir) 20 units QHS SQ Last administered on 07/04/16 21:23; Start 07/04/16 at 21:00 Prednisone (Prednisone) 40 mg DAILY PO Last administered on 07/05/16 09:13; Start 07/04/16 at 09:00 Active Scripts Active Prednisone 10 Mg Tablet 10 Mg PO DIRECTED Prednisone 20 Mg Tablet 40 Mg PO DAILY Artificial Tears (Polyvinyl Alcohol) 15 Ml Drops 2 Drop OU PRN QID PRN Mupirocin Ointment (Mupirocin) 22 Gm Oint...g. 1 Nohemy NS BID Thera-M Tablet (Multivits,Ca,Minerals/Iron/Fa) 1 Each Tablet 1 Tab PO DAILY Lidoderm (Lidocaine) 700 Mg Adh..patch 1 Patch TD DAILY Levemir Flextouch (Insulin Detemir) 100 Unit/1 Ml Insuln.pen 20 Units SQ QHS Duoneb 0.5-3(2.5) Mg/3 Ml (Albuterol/Ipratropium) 3 Ml Ampul.neb 3 Ml NEB RTQID Novolog Flexpen (Insulin Aspart) 100 Unit/1 Ml Insuln.pen 0 Units SQ TIDWMEALS Hydrocodone-Apap 7.5-325 (Hydrocodone Bit/Acetaminophen) 1 Each Tablet 1 Tab PO PRN Q6HRS PRN Mucinex (Guaifenesin) 600 Mg Tablet.er 600 Mg PO BID Furosemide 40 Mg Tablet 40 Mg PO DAILY Voltaren (Diclofenac Sodium) 100 Gm Gel..gram. 1 Nohemy TP QID Vitamin B-12 (Cyanocobalamin (Vitamin B-12)) 1,000 Mcg Tablet 1,000 Mcg PO DAILY Vitamin D (Cholecalciferol (Vitamin D3)) 1,000 Unit Tablet 2,000 Unit PO DAILY Carvedilol 3.125 Mg Tablet 3.125 Mg PO BIDWMEALS [Bisacodyl] 10 MG Supp.rect 10 Mg RC PRN DAILY PRN Tylenol Extra Strength (Acetaminophen) 500 Mg Tablet 500 Mg PO PRN Q8HRS PRN Glucose (Dextrose) 4 Gm Tab.chew 12 Gm PO PRN PRN Zyrtec (Cetirizine Hcl) 10 Mg Tablet 0.5 Tab PO DAILY Reported Singulair Tablet (Montelukast Sodium) 10 Mg Tablet 10 Mg PO HS Allopurinol 100 Mg Tablet 100 Mg PO QHS Spironolactone 25 Mg Tablet 25 Mg PO DAILY Omeprazole 20 Mg Capsule.dr 20 Mg PO DAILY Aspirin 81 Mg Tab.chew 1 Tab PO DAILY Ventolin Hfa Inhaler (Albuterol Sulfate) 18 Gm Hfa.aer.ad 18 Gm IH PRN Advair 250-50 Diskus (Fluticasone/Salmeterol) 1 Each Disk.w.dev 1 Each IH BID Flonase (Fluticasone Propionate) 16 Gm Barrow.susp 16 Gm NS Amiodarone Hcl 200 Mg Tablet 200 Mg PO Vitals/I & O Vital Sign - Last 24 Hours 07/04/16 07/04/16 07/04/16 07/04/16 12:20 15:00 16:11 17:25 Temp 98.2 98.2 Pulse 68 60 Resp 18 B/P 119/62 138/74 Pulse Ox 97 O2 Delivery Nasal Cannula Nasal Cannula Nasal Cannula O2 Flow Rate 1.0 2.0 1.0 07/04/16 07/04/16 07/04/16 07/04/16 19:57 19:59 20:00 23:05 Temp 98.1 98.4 98.1 98.4 Pulse 60 83 Resp 20 20 B/P 119/62 140/70 Pulse Ox 97 100 98 O2 Delivery Nasal Cannula Nasal Cannula Nasal Cannula Nasal Cannula O2 Flow Rate 1.0 1.0 2.0 2.0 07/05/16 07/05/16 07/05/16 07/05/16 03:45 07:00 07:45 09:13 Temp 98.4 98.3 98.4 98.3 Pulse 59 60 61 Resp 20 20 B/P 124/70 140/70 140/70 Pulse Ox 98 97 97 O2 Delivery Nasal Cannula Nasal Cannula Nasal Cannula O2 Flow Rate 2.0 2.0 1.0 07/05/16 09:14 Pulse 61 B/P 140/70 Intake and Output 07/04/16 07/04/16 07/05/16 15:00 23:00 07:00 Intake Total 450 ml 240 ml 540 ml Output Total 450 ml 200 ml Balance 0 ml 40 ml 540 ml KENNA NORTON MD Jul 05, 2016 10:26
[2016-07-05 11:00] VITALS: BP 107/59
--- NOTE | 2016-07-05 11:46 | PDOC ---
CARDIO Progress Notes Date and Time Date of Service 07/05/2016 Time of Evaluation 1139 Subjective Subjective: No Chest Pain, No Palpitations, No Dizziness, Other (seated in chair) Vitals Vitals Vital Signs Date Time Temp Pulse Resp B/P Pulse Ox O2 Delivery O2 Flow Rate FiO2 07/05/16 09:14 61 140/70 07/05/16 08:00 Nasal Cannula 1.0 07/05/16 07:45 97 07/05/16 07:00 98.3 20 98.3 Weight Weight [ ] Input and Output Intake and Output Intake and Output 07/05/16 07:00 Intake Total 1230 ml Output Total 650 ml Balance 580 ml Intake Oral 980 ml IV Total 250 ml Output Urine Total 650 ml # Bowel Movements 3 Laboratory Labs Laboratory Tests Test 07/04/16 13:03 07/04/16 16:51 07/04/16 20:54 07/05/16 05:00 Glucose (Fingerstick) 199mg/dL (70-99) 245mg/dL (70-99) 323mg/dL (70-99) Sodium Level 145mmol/L (136-145) Potassium Level 4.0mmol/L (3.5-5.1) Chloride Level 110mmol/L (98-107) Carbon Dioxide Level 30mmol/L (21-32) Anion Gap 5 (6-14) Blood Urea Nitrogen 32mg/dL (7-20) Creatinine 0.9mg/dL (0.6-1.0) Estimated GFR (Cockcroft-Gault) 72.4 BUN/Creatinine Ratio 36 (6-20) Glucose Level 203mg/dL (70-99) Calcium Level 8.4mg/dL (8.5-10.1) Total Bilirubin 0.4mg/dL (0.2-1.0) Aspartate Amino Transf (AST/SGOT) 25U/L (15-37) Alanine Aminotransferase (ALT/SGPT) 38U/L (14-59) Alkaline Phosphatase 44U/L (46-116) Total Protein 5.3g/dL (6.4-8.2) Albumin 1.6g/dL (3.4-5.0) Albumin/Globulin Ratio 0.4 (1.0-1.7) Microbiology Micro Microbiology 07/02/16 Blood Culture - Preliminary, Resulted NO GROWTH AFTER 3 DAYS 06/29/16 Urine Culture - Final, Complete 06/29/16 Urine Culture Result 1 (MAIKOL) - Final, Complete 06/29/16 Antimicrobic Susceptibility - Final, Complete Review of Systems Constitutional: yes: no symptom reported Ears/Nose/Throat: Yes: no symptom reported Eyes: Yes: no symptom reported Pulmonary: Yes no symptom reported Cardiovascular: Yes no symptom reported Gastrointestional: Yes: no symptom reported Genitourinary: Yes: no symptom reported Skin: Yes no symptom reported Physical Exam HEENT: Neck Supple W Full Motion Chest: Symmetric, Other (well healed ICD site in left pectoral region ) LUNGS: Other (bibasilar crackles) Heart: S1S2, RRR, murmurs (2/6 systolic ), other (tele: bi-V paced with intermittent atrial pacing) Abdomen: Soft N/T Extremities: No Calf Tenderness, Other (trace LE edema ) Neurology: alert, follow commands Assessment Assessment 1. Acute on chronic systolic HF stable on oral diuretic therapy and aldosterone agonist echo with LVEF depressed @ 20% with mild diastolic dysfunction continue beta-blockers and would try to uptitrate in the outpatient setting ? 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 Acute respiratory failure influenza B pneumonia per pulm 3. ANIKET with CKD per nephrology 4. HTN labile readings continue meds 7. Hx AFIB Maintaining SR. Continue Amio Agreeable with transfer to [facility] Follow up with Dr. Mosley in about 2 weeks LAMONT GILLESPIE APRN Jul 05, 2016 11:46
--- NOTE | 2016-07-05 12:00 | PDOC ---
PULMONARY PROGRESS NOTES Subjective PT NOT MORE SOA, MORE ALERT Vitals Vital Signs Date Time Temp Pulse Resp B/P Pulse Ox O2 Delivery O2 Flow Rate FiO2 07/05/16 11:45 97 Room Air 07/05/16 09:14 61 140/70 07/05/16 08:00 1.0 07/05/16 07:00 98.3 20 98.3 ROS: No Nausea, No Chest Pain, No Abdominal Pain General: Alert Lungs: Clear Cardiovascular: S1, S2, Other (DECREASE BS ON RIGHT) Abdomen: Soft Neuro Exam: Alert Extremities: No Edema Skin: Warm Labs Laboratory Tests Test 07/03/16 12:00 07/03/16 17:09 07/03/16 20:42 07/04/16 02:52 Glucose (Fingerstick) 153mg/dL (70-99) 164mg/dL (70-99) 265mg/dL (70-99) White Blood Count 9.4x10^3/uL (4.0-11.0) Red Blood Count 4.48x10^6/uL (3.50-5.40) Hemoglobin 12.3g/dL (12.0-15.5) Hematocrit 38.5% (36.0-47.0) Mean Corpuscular Volume 86fL (79-100) Mean Corpuscular Hemoglobin 28pg (25-35) Mean Corpuscular Hemoglobin Concent 32g/dL (31-37) Red Cell Distribution Width 17.2% (11.5-14.5) Platelet Count 132x10^3/uL (140-400) Neutrophils (%) (Auto) 94% (31-73) Lymphocytes (%) (Auto) 3% (24-48) Monocytes (%) (Auto) 3% (0-9) Eosinophils (%) (Auto) 0% (0-3) Basophils (%) (Auto) 0% (0-3) Neutrophils # (Auto) 8.8x10^3uL (1.8-7.7) Lymphocytes # (Auto) 0.3x10^3/uL (1.0-4.8) Monocytes # (Auto) 0.3x10^3/uL (0.0-1.1) Eosinophils # (Auto) 0.0x10^3/uL (0.0-0.7) Basophils # (Auto) 0.0x10^3/uL (0.0-0.2) Segmented Neutrophils % 87% (35-66) Band Neutrophils % 5% (0-9) Lymphocytes % 4% (24-48) Monocytes % 4% (0-10) Toxic Vacuolation Present Platelet Estimate Decreased (ADEQUATE) Anisocytosis Slight Sodium Level 146mmol/L (136-145) Potassium Level 4.0mmol/L (3.5-5.1) Chloride Level 110mmol/L (98-107) Carbon Dioxide Level 27mmol/L (21-32) Anion Gap 9 (6-14) Blood Urea Nitrogen 39mg/dL (7-20) Creatinine 1.1mg/dL (0.6-1.0) Estimated GFR (Cockcroft-Gault) 57.4 BUN/Creatinine Ratio 35 (6-20) Glucose Level 254mg/dL (70-99) Calcium Level 8.8mg/dL (8.5-10.1) Total Bilirubin 0.4mg/dL (0.2-1.0) Aspartate Amino Transf (AST/SGOT) 22U/L (15-37) Alanine Aminotransferase (ALT/SGPT) 42U/L (14-59) Alkaline Phosphatase 46U/L (46-116) Total Protein 5.7g/dL (6.4-8.2) Albumin 1.8g/dL (3.4-5.0) Albumin/Globulin Ratio 0.5 (1.0-1.7) Test 07/04/16 07:39 07/04/16 13:03 07/04/16 16:51 07/04/16 20:54 Glucose (Fingerstick) 188mg/dL (70-99) 199mg/dL (70-99) 245mg/dL (70-99) 323mg/dL (70-99) Test 07/05/16 05:00 Sodium Level 145mmol/L (136-145) Potassium Level 4.0mmol/L (3.5-5.1) Chloride Level 110mmol/L (98-107) Carbon Dioxide Level 30mmol/L (21-32) Anion Gap 5 (6-14) Blood Urea Nitrogen 32mg/dL (7-20) Creatinine 0.9mg/dL (0.6-1.0) Estimated GFR (Cockcroft-Gault) 72.4 BUN/Creatinine Ratio 36 (6-20) Glucose Level 203mg/dL (70-99) Calcium Level 8.4mg/dL (8.5-10.1) Total Bilirubin 0.4mg/dL (0.2-1.0) Aspartate Amino Transf (AST/SGOT) 25U/L (15-37) Alanine Aminotransferase (ALT/SGPT) 38U/L (14-59) Alkaline Phosphatase 44U/L (46-116) Total Protein 5.3g/dL (6.4-8.2) Albumin 1.6g/dL (3.4-5.0) Albumin/Globulin Ratio 0.4 (1.0-1.7) Laboratory Tests Test 07/04/16 13:03 07/04/16 16:51 07/04/16 20:54 07/05/16 05:00 Glucose (Fingerstick) 199mg/dL (70-99) 245mg/dL (70-99) 323mg/dL (70-99) Sodium Level 145mmol/L (136-145) Potassium Level 4.0mmol/L (3.5-5.1) Chloride Level 110mmol/L (98-107) Carbon Dioxide Level 30mmol/L (21-32) Anion Gap 5 (6-14) Blood Urea Nitrogen 32mg/dL (7-20) Creatinine 0.9mg/dL (0.6-1.0) Estimated GFR (Cockcroft-Gault) 72.4 BUN/Creatinine Ratio 36 (6-20) Glucose Level 203mg/dL (70-99) Calcium Level 8.4mg/dL (8.5-10.1) Total Bilirubin 0.4mg/dL (0.2-1.0) Aspartate Amino Transf (AST/SGOT) 25U/L (15-37) Alanine Aminotransferase (ALT/SGPT) 38U/L (14-59) Alkaline Phosphatase 44U/L (46-116) Total Protein 5.3g/dL (6.4-8.2) Albumin 1.6g/dL (3.4-5.0) Albumin/Globulin Ratio 0.4 (1.0-1.7) Medications Active Scripts Medications Dose Route/Sig Days Date Category Novolog Flexpen (Insulin Aspart) 100 Unit/1 Ml Insuln.pen 1 Unit SQ 06/30/16 Reported Singulair Tablet (Montelukast Sodium) 10 Mg Tablet 10 Mg PO HS 06/30/16 Reported Allopurinol 100 Mg Tablet 100 Mg PO QHS 06/30/16 Reported Vitamin D (Cholecalciferol (Vitamin D3)) 2,000 Unit Capsule 1 Cap PO DAILY 06/30/16 Reported Vitamin D (Cholecalciferol (Vitamin D3)) 5,000 Unit Capsule 2,000 Unit PO 06/30/16 Reported Torsemide 10 Mg Tablet 10 Mg PO 06/30/16 Reported Spironolactone 25 Mg Tablet 25 Mg PO DAILY 06/30/16 Reported Omeprazole 20 Mg Capsule.dr 20 Mg PO DAILY 06/30/16 Reported Lantus (Insulin Glargine,Hum.rec.anlog) 100 Unit/1 Ml Vial 40 Unit SQ HS 07/14/14 Rx Potassium Chloride 20 Meq Tab.er.prt 20 Meq PO EVERY OTHER DAY 07/14/14 Rx Lasix (Furosemide) 40 Mg Tablet 60 Mg PO DAILY 07/14/14 Rx Tylenol Extra Strength (Acetaminophen) 500 Mg Tablet 500 Mg PO PRN Q8HRS PRN 07/14/14 Rx Losartan Potassium 25 Mg Tablet 25 Mg PO DAILY 07/14/14 Rx Rulox Suspension (Mag Hydrox/Al Hydrox/Simeth) 355 Ml Oral.susp 60 Ml PO PRN Q2HR PRN 07/14/14 Rx Glucose (Dextrose) 4 Gm Tab.chew 12 Gm PO PRN PRN 07/14/14 Rx Bisacodyl 10 Mg Supp.rect 10 Mg RC PRN DAILY PRN 07/14/14 Rx Albuterol Sulfate Conc Neb Soln (Albuterol Sulfate) 2.5 Mg/0.5 Ml Vial.neb 2.5 Mg NEB PRN QID PRN 07/14/14 Rx Zyrtec (Cetirizine Hcl) 10 Mg Tablet 0.5 Tab PO DAILY 07/14/14 Rx Hydrocodone-Apap 7.5-325 (Hydrocodone Bit/Acetaminophen) 1 Each Tablet 1 Tab PO PRN Q6HRS PRN 02/21/14 Reported Aspirin 81 Mg Tab.chew 1 Tab PO DAILY 02/21/14 Reported Ventolin Hfa Inhaler (Albuterol Sulfate) 18 Gm Hfa.aer.ad 18 Gm IH PRN 06/25/13 Reported Advair 250-50 Diskus (Fluticasone/Salmeterol) 1 Each Disk.w.dev 1 Each IH BID 06/25/13 Reported Voltaren (Diclofenac Sodium) 100 Gm Gel..gram. 100 Gm TP 05/27/13 Reported One Daily (Multivitamin) 1 Each Tablet 1 Each PO 05/27/13 Reported Flonase (Fluticasone Propionate) 16 Gm [place].susp 16 Gm NS 05/27/13 Reported Amiodarone Hcl 200 Mg Tablet 200 Mg PO 05/27/13 Reported Impression . 1. Abnormal x-ray compatible with bilateral pulmonary infiltrates compatible with combination of pneumonia and congestive heart failure. 2. Hirai-vo-jchgxpg systolic congestive heart failure. 3. Right lower lobe consolidation and effusion, due to pneumonia, 4. Right lower lobe effusion. 5. Metabolic toxic encephalopathy. 6. Unqsj-jc-bieimjv renal failure. 7. Ischemic cardiomyopathy, ejection fraction of 40%. 8. Type 2 diabetes. 9. Protein malnutrition, present upon admission. 10. MRSA bacteremia Plan . 1. Concur with current broad-spectrum antibiotics PER ID 2. Reviewed Ct not enough for fluid to drain, mostly pneumonia and atelectasis 3. Diurese per Cardiology and Nephrology. 4. ABG noted 5. ok with transfer to LTAC for 4 weeks of antibiotics 6. speech eval today d/w family PJ SANDERS MD Jul 05, 2016 12:00
[2016-07-05] MEDS: VANCOMYCIN 1.25 GM in IV NORMAL SALINE 250ML 250 ML IV SCH (12:46)
== END 2016-07-05 14:00 | DRG 871 ==
LOC: ER 19:37 → 5 SOUTH 22:05 → 2 SOUTH 06-30 10:25 → 2 NORTH 06-30 15:27
PROVIDERS: ADMIT Internal Medicine; ATTEND Internal Medicine
DX: A41.9 Sepsis, unspecified organism (principal); J18.9 Pneumonia, unspecified organism; G92 Toxic encephalopathy; I50.41 Acute combined systolic (congestive) and diastolic (congestive) heart failure; J10.08 Influenza due to other identified influenza virus with other specified pneumonia; J15.6 Pneumonia due to other Gram-negative bacteria; J96.00 Acute respiratory failure, unspecified whether with hypoxia or hypercapnia; E43 Unspecified severe protein-calorie malnutrition; I13.0 Hypertensive heart and chronic kidney disease with heart failure and stage 1 through stage 4 chronic kidney disease, or unspecified chronic kidney disease; J44.0 Chronic obstructive pulmonary disease with (acute) lower respiratory infection; J98.11 Atelectasis; N17.9 Acute kidney failure, unspecified; N39.0 Urinary tract infection, site not specified; B95.62 Methicillin resistant Staphylococcus aureus infection as the cause of diseases classified elsewhere; B96.20 Unspecified Escherichia coli [E. coli] as the cause of diseases classified elsewhere; E11.22 Type 2 diabetes mellitus with diabetic chronic kidney disease; E78.5 Hyperlipidemia, unspecified; E89.0 Postprocedural hypothyroidism; F03.90 Unspecified dementia, unspecified severity, without behavioral disturbance, psychotic disturbance, mood disturbance, and anxiety; F32.9 Major depressive disorder, single episode, unspecified; F41.9 Anxiety disorder, unspecified; G89.29 Other chronic pain; H40.9 Unspecified glaucoma; I25.10 Atherosclerotic heart disease of native coronary artery without angina pectoris; I25.5 Ischemic cardiomyopathy; I48.91 Unspecified atrial fibrillation; K21.9 Gastro-esophageal reflux disease without esophagitis; K22.70 Barrett's esophagus without dysplasia; K29.60 Other gastritis without bleeding; K57.90 Diverticulosis of intestine, part unspecified, without perforation or abscess without bleeding; K76.0 Fatty (change of) liver, not elsewhere classified; M10.9 Gout, unspecified; M17.0 Bilateral primary osteoarthritis of knee; M47.816 Spondylosis without myelopathy or radiculopathy, lumbar region; Z95.810 Presence of automatic (implantable) cardiac defibrillator; E11.42 Type 2 diabetes mellitus with diabetic polyneuropathy; M77.9 Enthesopathy, unspecified; N18.3 Chronic kidney disease, stage 3 (moderate); R32 Unspecified urinary incontinence; S33.5XXA Sprain of ligaments of lumbar spine, initial encounter; W19.XXXA Unspecified fall, initial encounter; Z82.49 Family history of ischemic heart disease and other diseases of the circulatory system; Z83.3 Family history of diabetes mellitus; Z85.51 Personal history of malignant neoplasm of bladder; Z88.2 Allergy status to sulfonamides; Z88.8 Allergy status to other drugs, medicaments and biological substances; Z68.25 Body mass index [BMI] 25.0-25.9, adult; Z87.891 Personal history of nicotine dependence; Z90.710 Acquired absence of both cervix and uterus; Z96.651 Presence of right artificial knee joint
CPT/HCPCS: 36415; 36600; 71010; 71250; 72072; 72100; 80048; 80053; 80061; 80076; 80202; 81001; 82805; 82947; 83605; 83735; 83880; 84443; 85007; 85027; 87040; 87086; 87186; 87205; 87641; 87804; 93005; 93306; 94640; 94760; 96365; J0696; J1815; J1940; J2020; J2543; J2920; J3370; J7030; J7040; J7050; J7512; J7620; 92526; 92610; 97116; 97530; 97535; 99285-25

== ENCOUNTER → 2016-07-28 | Outpatient (CLI) | payer MEDICARE, OTHER ==
[2016-07-05 11:00] VITALS: BP 107/59
[~2016-07-28] MED LIST changes: +ALLO100T PO; +Bisacodyl RC; +CARV3.122 PO; +CHOL10002 PO; +CHOL2000 PO; +CHOL500051 PO; +CYAN10005 PO; +GUAI600T38 PO; +INSU100I17 SQ; +INSU100I27 SQ; +IPRA3AMP NEB; +LIDO700A4 TD; +MONT10TA6 PO; +MULT1TAB90 PO; +MUPI22OI2 NS; +OMEP20CA9 PO; +POLY15DR27 OU; +PRED-220 PO; +PRED20TA PO; +TORS10TA3 PO
--- NOTE | 2016-07-28 11:17 | RAD ---
CT of the chest without contrast, 07/28/2016: History: Follow-up lung nodule Noncontrast scans were obtained and compared to a study from 06/30/2016. The heart is enlarged. Transvenous pacing leads remain in place. There is mild calcific plaquing of the thoracic aorta without evidence of aneurysm. Scattered coronary artery calcifications are present. There is mild substernal extension of the left lobe of the thyroid gland. There are calcified mediastinal and hilar lymph nodes compatible with old granulomatous disease. No mediastinal adenopathy is evident. The previously seen right-sided pleural effusion has decreased in size. There is a small amount of residual pleural fluid. In some areas it appears to be partially loculated. Underlying right basilar atelectasis and consolidation has also improved. There is a 2 cm area of residual focal consolidation in the lateral aspect of the right lower lobe which has decreased in size since the previous study. There is a small peripheral low density process posteriorly which probably represents a loculated collection of pleural fluid. There is mild dependent atelectasis in the left lung. The left chest is otherwise unremarkable. There are moderate scattered degenerative changes in the spine. Mild loss of height of an upper thoracic vertebral body is unchanged. The liver is of higher than normal density demonstrating an internal CT number of approximately 100 Hounsfield units. This raises the possibility of iron deposition. IMPRESSION: 1. Improving small right pleural effusion with probable small residual loculated components. 2. Underlying right basilar atelectasis and consolidation has also improved. 3. Cardiomegaly with coronary artery calcifications. 4. Diffusely increased hepatic density raising the possibility of iron deposition. PQRS Compliance Statement: One or more of the following individualized dose reduction techniques were utilized for this examination: 1. Automated exposure control 2. Adjustment of the mA and/or kV according to patient size 3. Use of iterative reconstruction technique
== END | disposition home or self-care (01) ==
LOC: CT 09:59
PROVIDERS: ATTEND Internal Medicine
DX: R91.1 Solitary pulmonary nodule (principal)
CPT/HCPCS: 71250

== ENCOUNTER 2016-11-14 18:08 | Emergency (ER) | payer MEDICARE, OTHER ==
[~2016-11-14] VITALS: Ht 154.9 cm; Wt 59.0 kg
[~2016-11-14 18:08] MED LIST changes: +ASPI-630 PO; -ASPI81TA2 PO; +DICL100G18 TP; -DICL100G7 TP; -DICL1PAT4 TD; +FLECTOR1 EACH TD; -GUAI600T38 PO; +GUAI600T47 PO; -HYDR-2666 PO; +HYDR-2758 PO; -NYST1000 PO; +NYST100054 PO
[2016-11-14 18:15] VITALS: BP 117/64
--- NOTE | 2016-11-14 18:46 | PHYS DOC ---
Past Medical History Past Medical History: Anxiety, CHF, COPD, Depression, Diabetes-Type II, GERD, Glaucoma, Hypertension, Hypothyroid, Renal Disease, Other Additional Past Medical Histor: DJD Past Surgical History: Hysterectomy, Pacemaker, Other Additional Past Surgical Histo: thyroidectomy, rotator cuff repair Alcohol Use: None Drug Use: None Adult General Chief Complaint Chief Complaint: URINE CATHETER PROBLEM HPI HPI 86-year-old female who was referred to us by Dr. Angel's nurse practitioner for worsening urinary retention. The patient recently was this discharged from after having her Lasix increased to 60 mg daily. The patient currently has a follow-up appointment with a urologist at the [facility] on [address] Rivera. She was hoping that we could potentially place a urinary catheter for the patient. On discussion with the patient the patient reports increasing suprapubic abdominal pain that is mild nonradiating intermittent and associated with decreased urinary output. He denies any other complaints. She denies chest pain. Review of systems is negative for chest pain shortness of breath fevers chills nausea vomiting. She is feeling much better after her recent admission. All other review of systems is negative unless otherwise noted in history of present illness. Also, review of systems is negative for weakness in the legs. She denies back pain. She denies numbness in the legs. ED course: 86-year-old female presenting to the emergency department today with worsening urinary retention after recent hospitalization. Triage vital signs unremarkable. Bladder scan obtained which showed 400 mL of fluid. Medina catheter inserted which improved the patient's symptoms significantly. Patient does not have clinical symptomatology suggestive then admitted for acute myelopathy. Specifically, the patient does not have a clinical presentation suggestive of cauda equina syndrome. She denies back pain or any neurologic deficits in her legs. She denies perineal paresthesias. She was feeling much better on reexamination and desired to be discharged home. The patient has an outpatient appointment with urology. She was excluded discharged home to follow up with her PCP over the next 2-3 days if her symptoms continued or returned. The patient was then discharged home in stable condition to follow up with their primary care physician over the next 2-3 days. They were to return if their symptoms worsened or if they were concerned for any reason. [id number] discharge instructions and return precautions were given. Patient's questions were answered to their satisfaction. Patient is comfortable plan. Review of Systems Review of Systems SEE ABOVE. Allergies Allergies Allergies Coded Allergies Type Severity Reaction Last Updated Verified Sulfa (Sulfonamide Antibiotics) Allergy Severe 11/11/15 Yes Cephalexin Monohydrate Allergy Intermediate 11/11/15 Yes I S O L A T I O N *CONTACT* Allergy Unknown 07/01/16 Yes Physical Exam Physical Exam SEE ABOVE Constitutional: Well developed, well nourished, no acute distress, non-toxic appearance. [] HENT: Normocephalic, atraumatic, bilateral external ears normal, oropharynx moist, no oral exudates, nose normal. [] Eyes: PERRLA, EOMI, conjunctiva normal, no discharge. [] Neck: Normal range of motion, no tenderness, supple, no stridor. [] Cardiovascular:Heart rate regular rhythm, no murmur [] Lungs & Thorax: Bilateral breath sounds clear to auscultation [] Abdomen: After Medina catheter insertion the patient's abdomen is soft and nontender without rebound tenderness or guarding. Negative for McBurney's point. Negative Rodriguez sign. Skin: Warm, dry, no erythema, no rash. [] Back: No tenderness, no CVA tenderness. [] Extremities: No tenderness, no cyanosis, no clubbing, ROM intact, no edema. [] Neurologic: Alert and oriented X 3, normal motor function, normal sensory function, no focal deficits noted. [] Psychologic: Affect normal, judgement normal, mood normal. [] Current Patient Data Vital Signs Vital Signs Date Time Temp Pulse Resp B/P (MAP) Pulse Ox O2 Delivery O2 Flow Rate FiO2 11/14/16 18:15 97.5 68 16 117/64 (81) 98 Room Air 97.5 Lab Values Laboratory Tests Test 11/14/16 18:28 Urine Collection Type Unknown Urine Color Yellow Urine Clarity Clear Urine pH 5.5 Urine Specific [place] 1.010 Urine Protein Negative mg/dL (NEG-TRACE) Urine Glucose (UA) Negative mg/dL (NEG) Urine Ketones (Stick) Negative mg/dL (NEG) Urine Blood Negative (NEG) Urine Nitrite Positive (NEG) Urine Bilirubin Negative (NEG) Urine Urobilinogen Dipstick 0.2 mg/dL (0.2 mg/dL) Urine Leukocyte Esterase Negative (NEG) Urine RBC 0 /HPF (0-2) Urine WBC Occ /HPF (0-4) Urine Squamous Epithelial Cells Occ /LPF Urine Bacteria Moderate /HPF (0-FEW) Urine Hyaline Casts Few /HPF EKG EKG [] Radiology/Procedures Radiology/Procedures [] Course & Med Decision Making Course & Med Decision Making Pertinent Labs and Imaging studies reviewed. (See chart for details) [] Dragon Disclaimer Dragon Disclaimer This electronic medical record was generated, in whole or in part, using a voice recognition dictation system. Departure Departure Impression: Primary Impression: Urinary retention Additional Impression: UTI (urinary tract infection) Disposition: HOME, SELF-CARE Condition: STABLE Referrals: ADALID ANGEL MD (PCP) Patient Instructions: Urinary Retention, Acute, Female, [id number] Additional Instructions: Thank you for allowing us to participate in your care today. Followup with your primary care physician in 3 days if your symptoms do not improve and [facility] as scheduled. Call your Primary Doctor tomorrow and inform them of your visit today. If you do not have a primary care provider you can ask for a list of our primary care providers. Return to the emergency department you have any new or concerning findings. This should be evaluated by the primary care physician and any necessary consulting services for continued management within a few days after discharge. Return to emergency room if you have any new or concerning symptoms including but not limited to fever, chills, nausea, vomiting, intractable pain, any new rashes, chest pain, shortness of air, uncontrolled bleeding, difficulty breathing, and/or vision loss. Scripts Levofloxacin (LEVOFLOXACIN) 500 Mg Tablet 1 TAB PO DAILY, #7 TAB Prov: LUCY ESPARZA MD 11/14/16 Problem Qualifiers LUCY ESPARZA MD Nov 14, 2016 18:45
[2016-11-14 18:50] LABS: BILIRUBIN,URINE NEGATIVE (NEG); GLUCOSE,URINE NEGATIVE (NEG); NITRITE,URINE POSITIVE (NEG); PH,URINE 5.5; PROTEIN,URINE NEGATIVE (NEG-TRACE); UROBILINOGEN,URINE 0.2 mg/dL (0.2 mg/dL)
[2016-11-14 19:01] LABS: BACTERIA,URINE MODERATE /HPF (0-FEW); RBC,URINE 0 /HPF (0-2); SQUAMOUS EPITHELIAL CELL,UR OCC /LPF; WBC,URINE OCC /HPF (0-4)
[2016-11-14] MEDS ORDERED: LEVO500T8 PO (19:30)
== END 2016-11-14 19:55 | disposition home or self-care (01) ==
LOC: ER 18:08
DX: N39.0 Urinary tract infection, site not specified (principal); F32.9 Major depressive disorder, single episode, unspecified; F41.9 Anxiety disorder, unspecified; J44.9 Chronic obstructive pulmonary disease, unspecified; K21.9 Gastro-esophageal reflux disease without esophagitis; E11.39 Type 2 diabetes mellitus with other diabetic ophthalmic complication; H40.9 Unspecified glaucoma; E89.0 Postprocedural hypothyroidism; I11.0 Hypertensive heart disease with heart failure; I50.9 Heart failure, unspecified; Z88.2 Allergy status to sulfonamides; Z95.0 Presence of cardiac pacemaker; Z91.041 Radiographic dye allergy status; Z91.048 Other nonmedicinal substance allergy status
CPT/HCPCS: 51702; 81001; 87086; 87186; 99284

== ENCOUNTER 2016-12-05 16:13 | Emergency (ER) | payer OTHER ==
[~2016-12-05] VITALS: Ht 154.9 cm; Wt 56.7 kg
[~2016-12-05 16:13] MED LIST changes: +LEVO500T8 PO; +MULT-223 PO; -MULT-91 PO
[2016-12-05 18:42] VITALS: BP 135/65
[2016-12-05 18:48] LABS: BILIRUBIN,URINE NEGATIVE (NEG); GLUCOSE,URINE NEGATIVE (NEG); NITRITE,URINE NEGATIVE (NEG); PROTEIN,URINE NEGATIVE (NEG-TRACE); UROBILINOGEN,URINE 0.2 mg/dL (0.2 mg/dL)
[2016-12-05 19:00] LABS: RBC,URINE 0 /HPF (0-2)
[2016-12-05 19:01] LABS: BACTERIA,URINE 0 /HPF (0-FEW); WBC,URINE TNTC /HPF (0-4); YEAST,URINE PRESENT /HPF
[2016-12-05] MEDS ORDERED: CIPR250T PO (19:23)
--- NOTE | 2016-12-05 19:23 | PHYS DOC ---
Past Medical History Past Medical History: Anxiety, CHF, COPD, Depression, Diabetes-Type II, GERD, Glaucoma, Hypertension, Hypothyroid, Renal Disease, Other Additional Past Medical Histor: DJD Past Surgical History: Hysterectomy, Pacemaker, Other Additional Past Surgical Histo: thyroidectomy, rotator cuff repair Alcohol Use: None Drug Use: None Adult General Chief Complaint Chief Complaint: FLANK PAIN HPI HPI Patient is a 86 year old female brought to the ED by her daughter with urinary complaints. She was sent in by the doctor's office with the concern for urinary retention, possible UTI, may need a Medina catheter. Patient recently has had problems with urinary retention. She has had Medina catheter a couple of times. Sometimes she feels like she needs to urinate but she cannot. They are concerned that urinary retention may be contributing to UTIs. She was not able to urinate in the doctor's office evidently. Patient denies fever or chills, denies nausea or vomiting. Patient has some dementia but evidently lives alone and does a good job taking care of herself with some close attention from her daughter. PCP Review of Systems Review of Systems Constitutional: Denies fever or chills [] Respiratory: Denies cough or shortness of breath [] Cardiovascular: Denies chest pain GI: Denies abdominal pain, nausea, vomiting, bloody stools or diarrhea [] : As in history of present illness Current Medications Current Medications Current Medications Medications (Trade) Dose Ordered Sig/Priscila Start Time Stop Time Status Last Admin Dose Admin Ciprofloxacin (Cipro) 250 mg 1X ONCE 12/05/16 19:30 12/05/16 19:32 DC 12/05/16 19:36 250 MG Allergies Allergies Allergies Coded Allergies Type Severity Reaction Last Updated Verified Sulfa (Sulfonamide Antibiotics) Allergy Severe 11/11/15 Yes Cephalexin Monohydrate Allergy Intermediate 11/11/15 Yes I S O L A T I O N *CONTACT* Allergy Unknown 07/01/16 Yes Physical Exam Physical Exam Constitutional: Well developed, well nourished, no acute distress, non-toxic appearance. Alert, mentating normally, warm and dry. HENT: Normocephalic, atraumatic, bilateral external ears normal, nose normal. [] Eyes: conjunctiva normal, no discharge. [] Neck: Normal range of motion, no stridor. [] Cardiovascular:Heart rate regular rhythm, no murmur [] Lungs & Thorax: Bilateral breath sounds clear to auscultation [] Abdomen: Bowel sounds normal, soft, no tenderness, no masses, no pulsatile masses. [] Skin: Warm, dry, no erythema, no rash. [] Extremities: No tenderness, no cyanosis, no clubbing, ROM intact, no edema. [] Neurologic: Alert and oriented X 3, normal motor function, normal sensory function, no focal deficits noted. [] Current Patient Data Vital Signs Vital Signs Date Time Temp Pulse Resp B/P (MAP) Pulse Ox O2 Delivery O2 Flow Rate FiO2 12/05/16 18:42 59 20 135/65 (88) 96 Room Air 12/05/16 16:35 98.0 98.0 Lab Values Laboratory Tests Test 12/05/16 18:36 Urine Collection Type Unknown Urine Color Yellow Urine Clarity Clear Urine pH 6.0 Urine Specific [place] 1.010 Urine Protein Negative mg/dL (NEG-TRACE) Urine Glucose (UA) Negative mg/dL (NEG) Urine Ketones (Stick) Negative mg/dL (NEG) Urine Blood Negative (NEG) Urine Nitrite Negative (NEG) Urine Bilirubin Negative (NEG) Urine Urobilinogen Dipstick 0.2 mg/dL (0.2 mg/dL) Urine Leukocyte Esterase Large (NEG) Urine RBC 0 /HPF (0-2) Urine WBC Tntc /HPF (0-4) Urine Bacteria 0 /HPF (0-FEW) Urine Hyaline Casts Moderate /HPF Urine Yeast Present /HPF Microbiology 12/05/16 Urine Culture - Final, Complete 12/05/16 Urine Culture Result 1 (MAIKOL) - Final, Complete EKG EKG [] Radiology/Procedures Radiology/Procedures [] Course & Med Decision Making Course & Med Decision Making Pertinent Labs and Imaging studies reviewed. (See chart for details) 86-year-old female sent by her doctor's office for the concern of urinary retention, may need a Medina catheter. A bladder scan was done with 3-400 mL in her bladder. The patient sat on the commode and was not able to have any urine output whatsoever. The nursing staff made several efforts to have the patient have an opportunity to urinate and she was not able to do so. Therefore, a Medina catheter was placed and the patient and her daughter were educated on use of the Medina catheter. The patient does have a urology appointment coming up. They are comfortable with the plan for urology follow-up. Urinalysis is concerning for UTI, she was started on Cipro. [] Dragon Disclaimer Dragon Disclaimer This electronic medical record was generated, in whole or in part, using a voice recognition dictation system. Departure Departure Impression: Primary Impression: Acute urinary retention Additional Impression: UTI (urinary tract infection) Disposition: 01 HOME, SELF-CARE Condition: STABLE Referrals: ADALID WRIGHT MD (PCP) Patient Instructions: Urinary Retention, Acute, Female, [id number], Urinary Tract Infection, [id number] Additional Instructions: Be sure to keep the catheter bag below the level of your bladder so urine will drain downhill into the bag. Drink plenty of fluids. I have prescribed an antibiotic for urinary tract infection, you were given first dose here in the emergency department, take every 12 hours. Call your doctor for follow-up later this week, also call urology office and let them know what is going on and see if they can move you up for an appointment and testing. Scripts Ciprofloxacin Hcl (CIPROFLOXACIN HCL) 250 Mg Tablet 1 TAB PO BID for UTI, #14 TAB Prov: ABIGAIL RICHMOND MD 12/05/16 Problem Qualifiers ABIGAIL RICHMOND MD Dec 05, 2016 19:23
[2016-12-05] MEDS ORDERED: CIPROFLOXACIN HCL 250 MG TABLET. PO ONE (19:30)
[2016-12-27] MEDS ORDERED: POTA20TA84 PO (00:40)
[2016-12-27] MEDS ORDERED: DONE10TA7 PO (00:40)
[2016-12-27] MEDS ORDERED: ATOR40TA59 PO (00:40)
[2016-12-29] MEDS ORDERED: POTA20TA84 PO (09:36)
[2016-12-29] MEDS ORDERED: INSU100I27 SQ (09:36)
== END 2016-12-05 19:27 | disposition home or self-care (01) ==
LOC: ER 16:13
DX: N39.0 Urinary tract infection, site not specified (principal); R33.9 Retention of urine, unspecified; I13.0 Hypertensive heart and chronic kidney disease with heart failure and stage 1 through stage 4 chronic kidney disease, or unspecified chronic kidney disease; N18.9 Chronic kidney disease, unspecified; I50.9 Heart failure, unspecified; J44.9 Chronic obstructive pulmonary disease, unspecified; K21.9 Gastro-esophageal reflux disease without esophagitis; F41.9 Anxiety disorder, unspecified; E11.39 Type 2 diabetes mellitus with other diabetic ophthalmic complication; H40.9 Unspecified glaucoma; E03.9 Hypothyroidism, unspecified; F32.9 Major depressive disorder, single episode, unspecified; E89.0 Postprocedural hypothyroidism; Z88.2 Allergy status to sulfonamides; Z88.1 Allergy status to other antibiotic agents; Z91.041 Radiographic dye allergy status
CPT/HCPCS: 51702; 81001; 87086; 99284

== ENCOUNTER 2017-01-29 09:58 | Emergency (ER) | payer OTHER ==
[~2017-01-29 09:58] MED LIST changes: +CIPR250T PO; +DONE10TA7 PO; +POTA20TA84 PO
[2017-01-29 10:37] LABS: BILIRUBIN,URINE NEGATIVE (NEG); GLUCOSE,URINE NEGATIVE (NEG); NITRITE,URINE NEGATIVE (NEG); PH,URINE 6.5; PROTEIN,URINE 30 mg/dL (NEG-TRACE)
[2017-01-29 10:52] LABS: BACTERIA,URINE FEW /HPF (0-FEW)
--- NOTE | 2017-01-29 12:42 | PHYS DOC ---
Past Medical History Past Medical History: Anxiety, CHF, COPD, Dementia, Depression, Diabetes-Type II, GERD, Glaucoma, Hypertension, Hypothyroid, Renal Disease, Other Additional Past Medical Histor: DJD Past Surgical History: Hysterectomy, Pacemaker, Other Additional Past Surgical Histo: thyroidectomy, rotator cuff repair Alcohol Use: None Drug Use: None Adult General Chief Complaint Chief Complaint: PAIN ON URINATION [facility] Patient is a 86 year old female with chief complaint of dysuria. The patient was sent from a longterm facility. The patient reports dysuria overnight. The patient denies fevers or chills. The patient denies significant abdominal pain. Patient denies flank pain. The patient had her [place] replaced 3 days ago and since then she's been having pain with urination from the [place]. Review of Systems Review of Systems Constitutional: Denies fever or chills [] Eyes: Denies change in visual acuity, redness, or eye pain [] HENT: Denies nasal congestion or sore throat [] Respiratory: Denies cough or shortness of breath [] Cardiovascular: No additional information not addressed in HPI [] GI: Denies abdominal pain, nausea, vomiting, bloody stools or diarrhea [] : History for dysuria reports no hematuria Musculoskeletal: Denies back pain or joint pain [] Integument: Denies rash or skin lesions [] Neurologic: Denies headache, focal weakness or sensory changes [] Endocrine: Denies polyuria or polydipsia [] Current Medications Current Medications Current Medications Medications (Trade) Dose Ordered Sig/Priscila Start Time Stop Time Status Last Admin Dose Admin Acetaminophen (Tylenol) 1,000 mg 1X ONCE 01/29/17 13:30 01/29/17 13:31 DC 01/29/17 13:42 1,000 MG Allergies Allergies Allergies Coded Allergies Type Severity Reaction Last Updated Verified Sulfa (Sulfonamide Antibiotics) Allergy Severe 11/11/15 Yes Cephalexin Monohydrate Allergy Intermediate 11/11/15 Yes I S O L A T I O N *CONTACT* Allergy Unknown 07/01/16 Yes Physical Exam Physical Exam Constitutional: Well developed, well nourished, no acute distress, non-toxic appearance. [] HENT: Normocephalic, atraumatic, bilateral external ears normal, oropharynx moist, no oral exudates, nose normal. [] Eyes: PERRLA, EOMI, conjunctiva normal, no discharge. [] Neck: Normal range of motion, no tenderness, supple, no stridor. [] Cardiovascular:Heart rate regular rhythm, no murmur [] Lungs & Thorax: Bilateral breath sounds clear to auscultation [] Abdomen: Bowel sounds normal, soft, no tenderness, no masses, no pulsatile masses. [] Skin: Warm, dry, no erythema, no rash. [] Back: No tenderness, no CVA tenderness. [] Extremities: No tenderness, no cyanosis, no clubbing, ROM intact, no edema. [] Neurologic: Alert and oriented X 3, normal motor function, normal sensory function, no focal deficits noted. [] Psychologic: Affect normal, judgement normal, mood normal. [] Current Patient Data Vital Signs Vital Signs Date Time Temp Pulse Resp B/P (MAP) Pulse Ox O2 Delivery O2 Flow Rate FiO2 01/29/17 10:00 97.6 81 20 127/82 (97) 98 Room Air 97.6 Lab Values Laboratory Tests Test 01/29/17 10:27 01/29/17 13:00 Urine Collection Type U cath Urine Color Yellow Urine Clarity Cloudy Urine pH 6.5 Urine Specific [place] 1.020 Urine Protein 30 mg/dL (NEG-TRACE) Urine Glucose (UA) Negative mg/dL (NEG) Urine Ketones (Stick) Negative mg/dL (NEG) Urine Blood Trace (NEG) Urine Nitrite Negative (NEG) Urine Bilirubin Negative (NEG) Urine Urobilinogen Dipstick 1.0 mg/dL (0.2 mg/dL) Urine Leukocyte Esterase Large (NEG) Urine RBC 3-5 /HPF (0-2) Urine WBC 11-20 /HPF (0-4) Urine Bacteria Few /HPF (0-FEW) White Blood Count 7.7 x10^3/uL (4.0-11.0) Red Blood Count 4.78 x10^6/uL (3.50-5.40) Hemoglobin 12.8 g/dL (12.0-15.5) Hematocrit 38.5 % (36.0-47.0) Mean Corpuscular Volume 81 fL (79-100) Mean Corpuscular Hemoglobin 27 pg (25-35) Mean Corpuscular Hemoglobin Concent 33 g/dL (31-37) Red Cell Distribution Width 20.3 % (11.5-14.5) H Platelet Count 280 x10^3/uL (140-400) Neutrophils (%) (Auto) 58 % (31-73) Lymphocytes (%) (Auto) 30 % (24-48) Monocytes (%) (Auto) 8 % (0-9) Eosinophils (%) (Auto) 3 % (0-3) Basophils (%) (Auto) 0 % (0-3) Neutrophils # (Auto) 4.5 x10^3uL (1.8-7.7) Lymphocytes # (Auto) 2.3 x10^3/uL (1.0-4.8) Monocytes # (Auto) 0.6 x10^3/uL (0.0-1.1) Eosinophils # (Auto) 0.3 x10^3/uL (0.0-0.7) Basophils # (Auto) 0.0 x10^3/uL (0.0-0.2) Platelet Estimate Pending Sodium Level 142 mmol/L (136-145) Potassium Level 4.5 mmol/L (3.5-5.1) Chloride Level 109 mmol/L (98-107) H Carbon Dioxide Level 22 mmol/L (21-32) Anion Gap 11 (6-14) Blood Urea Nitrogen 26 mg/dL (7-20) H Creatinine 1.1 mg/dL (0.6-1.0) H Estimated GFR (Cockcroft-Gault) 57.3 BUN/Creatinine Ratio 24 (6-20) H Glucose Level 60 mg/dL (70-99) L Calcium Level 8.9 mg/dL (8.5-10.1) Total Bilirubin 0.6 mg/dL (0.2-1.0) Aspartate Amino Transferase (AST) 36 U/L (15-37) Alanine Aminotransferase (ALT) 45 U/L (14-59) Alkaline Phosphatase 85 U/L (46-116) Total Protein 6.6 g/dL (6.4-8.2) Albumin 2.9 g/dL (3.4-5.0) L Albumin/Globulin Ratio 0.8 (1.0-1.7) L Laboratory Tests 01/29/17 13:00 Laboratory Tests 01/29/17 13:00 EKG EKG [] Radiology/Procedures Radiology/Procedures [] Course & Med Decision Making Course & Med Decision Making Pertinent Labs and Imaging studies reviewed. (See chart for details) The patient reports that she is feeling better now. I suggested we send her home with doxycycline. The patient is agreeable to this plan.[] Dragon Disclaimer Dragon Disclaimer This electronic medical record was generated, in whole or in part, using a voice recognition dictation system. Departure Departure Impression: Primary Impression: Cystitis Disposition: HOME, SELF-CARE Admitting Physician: Adalid Wright Condition: GOOD Referrals: ADALID WRIGHT MD (PCP) Patient Instructions: Urinary Tract Infection Additional Instructions: Please of ER physician Dr. Alison Wright in one to 7 days. Return the emergency Department for any concerning. Scripts Doxycycline Monohydrate (DOXYCYCLINE MONOHYDRATE) 100 Mg Capsule 100 MG PO BID for 7 Days, #14 CAP Prov: ELDA CARMEN MD 01/29/17 ELDA CARMEN MD Jan 29, 2017 12:42
[2017-01-29 13:20] LABS: BASO % 0 % (0-3); EOS % 3 % (0-3); HEMATOCRIT 38.5 % (36.0-47.0); HEMOGLOBIN 12.8 g/dL (12.0-15.5); LYMPH # 2.3 x10^3/uL (1.0-4.8); LYMPH % 30 % (24-48); MEAN CORPUSCULAR HEMOGLOBIN 27 pg (25-35); MEAN CORPUSCULAR HGB CONC 33 g/dL (31-37); MEAN CORPUSCULAR VOLUME 81 fL (79-100); MONO % 8 % (0-9); NEUT % 58 % (31-73); PLATELET COUNT 280 x10^3/uL (140-400); RED BLOOD COUNT 4.78 x10^6/uL (3.50-5.40); RED CELL DISTRIBUTION WIDTH 20.3 % (11.5-14.5); WHITE BLOOD COUNT 7.7 x10^3/uL (4.0-11.0)
[2017-01-29 13:21] LABS: CALCIUM 8.9 mg/dL (8.5-10.1); CREATININE 1.1 mg/dL (0.6-1.0); GFR 57.3; POTASSIUM 4.5 mmol/L (3.5-5.1)
[2017-01-29] MEDS ORDERED: ACETAMINOPHEN 500 MG TABLET PO ONE (13:30)
[2017-01-29 13:35] LABS: ALBUMIN 2.9 g/dL (3.4-5.0); ALBUMIN/GLOBULIN RATIO 0.8 (1.0-1.7); TOTAL BILIRUBIN 0.6 mg/dL (0.2-1.0); TOTAL PROTEIN 6.6 g/dL (6.4-8.2)
[2017-01-29 14:18] LABS: PLT ESTIMATE ADEQUATE (ADEQUATE)
[2017-01-29] MEDS ORDERED: DOXY100C14 PO (14:18)
[2017-01-29 14:19] LABS: ANISOCYTOSIS MOD; OVALOCYTES FEW; POIKILOCYTOSIS SLIGHT; SCHISTOCYTES OCC; TARGET CELLS FEW
[2017-01-29 14:29] VITALS: BP 110/60
--- NOTE | 2017-01-31 14:49 | VNOTE ---
CALL BACK NOTE CALL BACK Microbiology 01/29/17 Urine Culture - Final, Complete 01/29/17 Urine Culture Result 1 (MAIKOL) - Final, Complete 01/29/17 Antimicrobic Susceptibility - Final, Complete Call placed to patient's contact information. Spoke with patient regarding urine culture. Patient's antibiotic changed to Macrobid 100 mg tablets, take 1 tablet by mouth twice a day 7 days. Dispensed 14 tablets, no refills. Patient' s prescription called into [phone]. Patients prescription will be delivered. CLAUDIO WEBSTER Jan 31, 2017 14:49
--- NOTE | 2017-02-02 11:28 | VNOTE ---
CALL BACK NOTE CALL BACK Microbiology 01/29/17 Urine Culture - Final, Complete 01/29/17 Urine Culture Result 1 (MAIKOL) - Final, Complete 01/29/17 Antimicrobic Susceptibility - Final, Complete Patient lives at the [facility]. Larry the nurse that taking care of the patient today has called and requested a copy of the prescription information as this is required by the assisted living facility. Patient's information has been faxed to them. CRIS CLARK APRN Feb 02, 2017 11:28
== END 2017-01-29 14:55 | disposition home or self-care (01) ==
LOC: ER 09:58
DX: N30.90 Cystitis, unspecified without hematuria (principal); I11.0 Hypertensive heart disease with heart failure; I50.9 Heart failure, unspecified; J44.9 Chronic obstructive pulmonary disease, unspecified; K21.9 Gastro-esophageal reflux disease without esophagitis; E11.39 Type 2 diabetes mellitus with other diabetic ophthalmic complication; H40.9 Unspecified glaucoma; E03.9 Hypothyroidism, unspecified; Z90.710 Acquired absence of both cervix and uterus; Z90.49 Acquired absence of other specified parts of digestive tract; Z88.0 Allergy status to penicillin; Z88.1 Allergy status to other antibiotic agents
CPT/HCPCS: 36415; 80053; 81001; 85025; 87086; 87186; 99284

== ENCOUNTER → 2017-04-13 | Outpatient (CLI) | payer OTHER ==
[2017-02-17 11:00] VITALS: BP 122/56
[~2017-04-13] MED LIST changes: +DOXY100C14 PO
== END | disposition home or self-care (01) ==
LOC: PMGWOUND 09:10
PROVIDERS: ATTEND Emergency Medicine Undersea and Hyperbaric Medicine
DX: E11.621 Type 2 diabetes mellitus with foot ulcer (principal); L97.421 Non-pressure chronic ulcer of left heel and midfoot limited to breakdown of skin; E11.43 Type 2 diabetes mellitus with diabetic autonomic (poly)neuropathy; E11.22 Type 2 diabetes mellitus with diabetic chronic kidney disease; I13.0 Hypertensive heart and chronic kidney disease with heart failure and stage 1 through stage 4 chronic kidney disease, or unspecified chronic kidney disease; N18.3 Chronic kidney disease, stage 3 (moderate); I50.40 Unspecified combined systolic (congestive) and diastolic (congestive) heart failure; E11.39 Type 2 diabetes mellitus with other diabetic ophthalmic complication; H40.9 Unspecified glaucoma; E78.5 Hyperlipidemia, unspecified; J44.9 Chronic obstructive pulmonary disease, unspecified; I25.10 Atherosclerotic heart disease of native coronary artery without angina pectoris; G89.29 Other chronic pain; M54.5 Low back pain; M25.562 Pain in left knee; F32.9 Major depressive disorder, single episode, unspecified; K21.9 Gastro-esophageal reflux disease without esophagitis; M19.019 Primary osteoarthritis, unspecified shoulder; M81.0 Age-related osteoporosis without current pathological fracture; F01.50 Vascular dementia, unspecified severity, without behavioral disturbance, psychotic disturbance, mood disturbance, and anxiety; I27.20 Pulmonary hypertension, unspecified; I25.2 Old myocardial infarction; Z86.79 Personal history of other diseases of the circulatory system; Z90.710 Acquired absence of both cervix and uterus; Z96.651 Presence of right artificial knee joint; Z95.0 Presence of cardiac pacemaker; Z87.891 Personal history of nicotine dependence; Z79.4 Long term (current) use of insulin
CPT/HCPCS: 99214

== ENCOUNTER → 2017-04-20 | Outpatient (CLI) | payer OTHER ==
[2017-02-17 11:00] VITALS: BP 122/56
== END | disposition home or self-care (01) ==
LOC: PMGWOUND 10:00
PROVIDERS: ATTEND Emergency Medicine Undersea and Hyperbaric Medicine
DX: E11.621 Type 2 diabetes mellitus with foot ulcer (principal); L97.421 Non-pressure chronic ulcer of left heel and midfoot limited to breakdown of skin; E11.43 Type 2 diabetes mellitus with diabetic autonomic (poly)neuropathy; E11.22 Type 2 diabetes mellitus with diabetic chronic kidney disease; I13.0 Hypertensive heart and chronic kidney disease with heart failure and stage 1 through stage 4 chronic kidney disease, or unspecified chronic kidney disease; N18.3 Chronic kidney disease, stage 3 (moderate); I50.40 Unspecified combined systolic (congestive) and diastolic (congestive) heart failure; E11.39 Type 2 diabetes mellitus with other diabetic ophthalmic complication; H40.9 Unspecified glaucoma; E78.5 Hyperlipidemia, unspecified; J44.9 Chronic obstructive pulmonary disease, unspecified; I25.10 Atherosclerotic heart disease of native coronary artery without angina pectoris; G89.29 Other chronic pain; M54.5 Low back pain; M25.562 Pain in left knee; F32.9 Major depressive disorder, single episode, unspecified; K21.9 Gastro-esophageal reflux disease without esophagitis; M19.019 Primary osteoarthritis, unspecified shoulder; M81.0 Age-related osteoporosis without current pathological fracture; F01.50 Vascular dementia, unspecified severity, without behavioral disturbance, psychotic disturbance, mood disturbance, and anxiety; I27.20 Pulmonary hypertension, unspecified; I25.2 Old myocardial infarction; Z86.79 Personal history of other diseases of the circulatory system; Z90.710 Acquired absence of both cervix and uterus; Z96.651 Presence of right artificial knee joint; Z95.0 Presence of cardiac pacemaker; Z87.891 Personal history of nicotine dependence; Z79.4 Long term (current) use of insulin
CPT/HCPCS: 99214

== ENCOUNTER → 2017-05-18 | Outpatient (CLI) | payer OTHER | END | disposition home or self-care (01) | LOC: PMGWOUND 10:00 | DX: E11.621 Type 2 diabetes mellitus with foot ulcer (principal); L97.421 Non-pressure chronic ulcer of left heel and midfoot limited to breakdown of skin; L84 Corns and callosities; E11.43 Type 2 diabetes mellitus with diabetic autonomic (poly)neuropathy; E11.22 Type 2 diabetes mellitus with diabetic chronic kidney disease; I13.0 Hypertensive heart and chronic kidney disease with heart failure and stage 1 through stage 4 chronic kidney disease, or unspecified chronic kidney disease; N18.3 Chronic kidney disease, stage 3 (moderate); I50.40 Unspecified combined systolic (congestive) and diastolic (congestive) heart failure; E11.39 Type 2 diabetes mellitus with other diabetic ophthalmic complication; H40.9 Unspecified glaucoma; E78.5 Hyperlipidemia, unspecified; J44.9 Chronic obstructive pulmonary disease, unspecified; I25.10 Atherosclerotic heart disease of native coronary artery without angina pectoris; G89.29 Other chronic pain; M54.5 Low back pain; M25.562 Pain in left knee; F32.9 Major depressive disorder, single episode, unspecified; K21.9 Gastro-esophageal reflux disease without esophagitis; M19.019 Primary osteoarthritis, unspecified shoulder; M81.0 Age-related osteoporosis without current pathological fracture; F01.50 Vascular dementia, unspecified severity, without behavioral disturbance, psychotic disturbance, mood disturbance, and anxiety; I27.20 Pulmonary hypertension, unspecified; I25.2 Old myocardial infarction; Z86.79 Personal history of other diseases of the circulatory system; Z90.710 Acquired absence of both cervix and uterus; Z96.651 Presence of right artificial knee joint; Z95.0 Presence of cardiac pacemaker; Z87.891 Personal history of nicotine dependence; Z79.4 Long term (current) use of insulin | CPT/HCPCS: 73630; 97597 ==

== ENCOUNTER → 2017-06-01 | Outpatient (CLI) | payer OTHER | END | disposition home or self-care (01) | LOC: PMGWOUND 10:00 | DX: E11.621 Type 2 diabetes mellitus with foot ulcer (principal); L97.421 Non-pressure chronic ulcer of left heel and midfoot limited to breakdown of skin; L84 Corns and callosities; E11.43 Type 2 diabetes mellitus with diabetic autonomic (poly)neuropathy; E11.22 Type 2 diabetes mellitus with diabetic chronic kidney disease; I13.0 Hypertensive heart and chronic kidney disease with heart failure and stage 1 through stage 4 chronic kidney disease, or unspecified chronic kidney disease; N18.3 Chronic kidney disease, stage 3 (moderate); I50.40 Unspecified combined systolic (congestive) and diastolic (congestive) heart failure; E11.39 Type 2 diabetes mellitus with other diabetic ophthalmic complication; H40.9 Unspecified glaucoma; I25.10 Atherosclerotic heart disease of native coronary artery without angina pectoris; E78.5 Hyperlipidemia, unspecified; J44.9 Chronic obstructive pulmonary disease, unspecified; G89.29 Other chronic pain; M54.5 Low back pain; M25.562 Pain in left knee; K21.9 Gastro-esophageal reflux disease without esophagitis; F32.9 Major depressive disorder, single episode, unspecified; M19.019 Primary osteoarthritis, unspecified shoulder; M81.0 Age-related osteoporosis without current pathological fracture; F01.50 Vascular dementia, unspecified severity, without behavioral disturbance, psychotic disturbance, mood disturbance, and anxiety; I27.20 Pulmonary hypertension, unspecified; I25.2 Old myocardial infarction; Z86.79 Personal history of other diseases of the circulatory system; Z90.710 Acquired absence of both cervix and uterus; Z96.651 Presence of right artificial knee joint; Z95.0 Presence of cardiac pacemaker; Z87.891 Personal history of nicotine dependence; Z79.4 Long term (current) use of insulin | CPT/HCPCS: 99214 ==

== ENCOUNTER → 2017-06-15 | Outpatient (CLI) | payer OTHER | END | disposition home or self-care (01) | LOC: PMGWOUND 09:45 | DX: E11.621 Type 2 diabetes mellitus with foot ulcer (principal); L97.421 Non-pressure chronic ulcer of left heel and midfoot limited to breakdown of skin; E11.43 Type 2 diabetes mellitus with diabetic autonomic (poly)neuropathy; E11.22 Type 2 diabetes mellitus with diabetic chronic kidney disease; I13.0 Hypertensive heart and chronic kidney disease with heart failure and stage 1 through stage 4 chronic kidney disease, or unspecified chronic kidney disease; N18.3 Chronic kidney disease, stage 3 (moderate); I50.40 Unspecified combined systolic (congestive) and diastolic (congestive) heart failure; E11.39 Type 2 diabetes mellitus with other diabetic ophthalmic complication; H40.9 Unspecified glaucoma; I25.10 Atherosclerotic heart disease of native coronary artery without angina pectoris; E78.5 Hyperlipidemia, unspecified; J44.9 Chronic obstructive pulmonary disease, unspecified; G89.29 Other chronic pain; M54.5 Low back pain; M25.562 Pain in left knee; L84 Corns and callosities; K21.9 Gastro-esophageal reflux disease without esophagitis; F32.9 Major depressive disorder, single episode, unspecified; M19.019 Primary osteoarthritis, unspecified shoulder; M81.0 Age-related osteoporosis without current pathological fracture; F01.50 Vascular dementia, unspecified severity, without behavioral disturbance, psychotic disturbance, mood disturbance, and anxiety; I27.20 Pulmonary hypertension, unspecified; I25.2 Old myocardial infarction; Z86.79 Personal history of other diseases of the circulatory system; Z90.710 Acquired absence of both cervix and uterus; Z96.651 Presence of right artificial knee joint; Z95.0 Presence of cardiac pacemaker; Z87.891 Personal history of nicotine dependence; Z79.4 Long term (current) use of insulin | CPT/HCPCS: 99214 ==

== ENCOUNTER 2017-07-26 10:05 | Inpatient (IN) | payer OTHER ==
[2017-07-26 10:45] LABS: ADD MAN DIFF? NO
[2017-07-26 10:50] LABS: BASO % 1 % (0-3); EOS # 0.2 x10^3/uL (0.0-0.7); EOS % 3 % (0-3); HEMATOCRIT 36.8 % (36.0-47.0); HEMOGLOBIN 11.6 g/dL (12.0-15.5); LYMPH # 1.2 x10^3/uL (1.0-4.8); LYMPH % 22 % (24-48); MEAN CORPUSCULAR HEMOGLOBIN 25 pg (25-35); MEAN CORPUSCULAR HGB CONC 31 g/dL (31-37); MEAN CORPUSCULAR VOLUME 78 fL (79-100); MONO # 0.7 x10^3/uL (0.0-1.1); MONO % 13 % (0-9); NEUT # 3.5 x10^3uL (1.8-7.7); NEUT % 62 % (31-73); PLATELET COUNT 193 x10^3/uL (140-400); RED BLOOD COUNT 4.69 x10^6/uL (3.50-5.40); RED CELL DISTRIBUTION WIDTH 20.8 % (11.5-14.5); WHITE BLOOD COUNT 5.7 x10^3/uL (4.0-11.0)
[2017-07-26 11:21] LABS: BARBITURATES NEG (NEG); BENZODIAZEPINES NEG (NEG); BILIRUBIN,URINE SMALL (NEG); CANNABINOIDS NEG (NEG); CLARITY,URINE CLOUDY; COCAINE NEG (NEG); COLOR,URINE AMBER; GLUCOSE,URINE NEGATIVE (NEG); METHADONE NEG (NEG); NITRITE,URINE NEGATIVE (NEG); OPIATES POS (NEG); PH,URINE 5.5; PHENCYCLIDINE NEG (NEG); PROTEIN,URINE 30 mg/dL (NEG-TRACE)
[2017-07-26 11:23] LABS: AMPHETAMINE/METHAMPHETAMINE NEG (NEG); ETHANOL, URINE NEG (NEG)
[2017-07-26 11:32] LABS: BACTERIA,URINE MANY /HPF (0-FEW); RBC,URINE 0 /HPF (0-2)
[2017-07-26 11:52] LABS: ANISOCYTOSIS PRESENT; HYPOCHROMIA PRESENT; MICROCYTOSIS PRESENT; PLT ESTIMATE ADEQUATE (ADEQUATE)
[2017-07-26 11:53] LABS: BIZZARE CELLS PRESENT; POLYCHROMASIA PRESENT; SCHISTOCYTES FEW
[2017-07-26 12:12] LABS: LACTIC ACID 1.6 mmol/L (0.4-2.0)
[2017-07-26 12:13] LABS: AMMONIA 33 mcmol/L (11-34)
[2017-07-26 12:21] LABS: ANION GAP 12 (6-14); BLOOD UREA NITROGEN 34 mg/dL (7-20); CALCIUM 8.7 mg/dL (8.5-10.1); CARBON DIOXIDE 25 mmol/L (21-32); CHLORIDE 110 mmol/L (98-107); CREATININE 1.8 mg/dL (0.6-1.0); GFR 32.4; GLUCOSE 103 mg/dL (70-99); POTASSIUM 4.1 mmol/L (3.5-5.1); SODIUM 147 mmol/L (136-145)
[2017-07-26 12:24] LABS: ALBUMIN 2.9 g/dL (3.4-5.0); ALK PHOS 81 U/L (46-116); ALT (SGPT) 22 U/L (14-59); AST (SGOT) 28 U/L (15-37); DIRECT BILIRUBIN 0.5 mg/dL (0.0-0.2); LIPASE 151 U/L (73-393); MAGNESIUM 2.4 mg/dL (1.8-2.4); TOTAL BILIRUBIN 1.1 mg/dL (0.2-1.0); TOTAL PROTEIN 6.3 g/dL (6.4-8.2)
[2017-07-26 12:26] LABS: CKMB INDEX 0.6 % (0-4); CKMB MASS 1.2 ng/mL (0.0-3.6); CREATINE KINASE 210 U/L (26-192)
[2017-07-26 12:26] LABS: NT-PRO BNP 7371 pg/mL (0-449)
[2017-07-26] MEDS ORDERED: levOFLOXacin PER PHARMACY. MC (14:00)
[2017-07-26] MEDS ORDERED: ACETAMINOPHEN 500 MG TABLET PO (15:45)
[2017-07-26] MEDS ORDERED: BISACODYL 10 MG SUPP.RECT. PR (15:45)
[2017-07-26] MEDS ORDERED: HYDROcodone/APAP 5/325MG 1 TAB TABLET PO (15:45)
[2017-07-26] MEDS ORDERED: POLYVINYL ALCOHOL 1.4% OPHTH SOLUTION 15ML BOTTLE. OU (15:45)
[2017-07-26] MEDS ORDERED: MAGNESIUM HYDROXIDE 2,400 MG/30 ML ORAL.SUSP. PO (15:45)
[2017-07-26] MEDS: IPRATRPIUM/ALBUTEROL 0.5/2.5MG 3 ML NEBU. NEB ×2 (16:27→19:56)
[2017-07-26 16:51] LABS: POC GLUCOSE 119 mg/dL (70-99)
[2017-07-26] MEDS: FLUTICASONE 50MCG/NASAL SPRAY 16GM BOTTLE. NS (17:00)
[2017-07-26] MEDS: ASPIRIN CHEWABLE 81 MG TABLET. PO (17:00)
[2017-07-26] MEDS: PANTOPRAZOLE 40 MG TABLET.DR. PO (17:00)
[2017-07-26] MEDS: CHOLECALCIFEROL (VITAMIN D3) 1,000 UNIT TABLET PO (17:00)
[2017-07-26] MEDS: CETIRIZINE HCL 10 MG TABLET. PO (17:00)
[2017-07-26] MEDS: MULTIVITAMIN with MINERAL TABLET. PO (17:00)
[2017-07-26] MEDS: DICLOFENAC SODIUM 1% TOPICAL GEL 100GM TUBE. TP ×2 (17:00→21:00)
[2017-07-26] MEDS: DONEPEZIL HCL 5 MG TABLET. PO (17:00)
[2017-07-26] MEDS: SPIRONOLACTONE 25 MG TABLET PO (17:00)
[2017-07-26] MEDS: AMIODARONE HCL 200 MG TABLET. PO (17:00)
[2017-07-26] MEDS: POTASSIUM CHLORIDE 10 MEQ TABLET.ER. PO (17:29)
[2017-07-26] MEDS: BUMETANIDE 1 MG TABLET. PO (17:29)
[2017-07-26] MEDS: POLYETHYLENE GLYCOL 3350 17 GM PACKET. PO (17:30)
[2017-07-26] MEDS: CARVEDILOL 3.125 MG TABLET. PO (18:06)
[2017-07-26 20:48] LABS: POC GLUCOSE 138 mg/dL (70-99)
[2017-07-26] MEDS: INSULIN DETEMIR 300 UNITS/3 ML INSULN.PEN. SQ (21:00)
[2017-07-26] MEDS: LACTOBACILLUS RHAMNOSUS GG 1 CAPSULE. PO (21:15)
[2017-07-26] MEDS: MONTELUKAST SODIUM 10 MG TABLET. PO (21:16)
[2017-07-26] MEDS: ATORVASTATIN CALCIUM 40 MG TABLET. PO (21:16)
[2017-07-26] MEDS: ALLOPURINOL 100 MG TABLET. PO (21:16)
[2017-07-26] MEDS: ACETAMINOPHEN 500 MG TABLET PO (21:16)
[2017-07-26] MEDS: TAMSULOSIN 0.4 MG CAP.ER.24H. PO (21:16)
[2017-07-27] MEDS: IPRATRPIUM/ALBUTEROL 0.5/2.5MG 3 ML NEBU. NEB ×4 (07:27→19:56)
[2017-07-27 08:21] LABS: POC GLUCOSE 123 mg/dL (70-99)
[2017-07-27] MEDS: BUMETANIDE 1 MG TABLET. PO (08:48)
[2017-07-27] MEDS: POLYETHYLENE GLYCOL 3350 17 GM PACKET. PO (09:00)
[2017-07-27 09:11] LABS: ADD MAN DIFF? NO
[2017-07-27 09:37] LABS: ANION GAP 8 (6-14); BLOOD UREA NITROGEN 32 mg/dL (7-20); CALCIUM 8.8 mg/dL (8.5-10.1); CARBON DIOXIDE 25 mmol/L (21-32); CHLORIDE 110 mmol/L (98-107); CREATININE 1.8 mg/dL (0.6-1.0); GFR 32.4; GLUCOSE 122 mg/dL (70-99); MAGNESIUM 2.3 mg/dL (1.8-2.4); POTASSIUM 4.4 mmol/L (3.5-5.1); SODIUM 143 mmol/L (136-145)
[2017-07-27 09:45] LABS: BASO % 1 % (0-3); EOS # 0.2 x10^3/uL (0.0-0.7); EOS % 3 % (0-3); HEMATOCRIT 37.2 % (36.0-47.0); HEMOGLOBIN 11.6 g/dL (12.0-15.5); LYMPH # 1.9 x10^3/uL (1.0-4.8); LYMPH % 32 % (24-48); MEAN CORPUSCULAR HEMOGLOBIN 25 pg (25-35); MEAN CORPUSCULAR HGB CONC 31 g/dL (31-37); MEAN CORPUSCULAR VOLUME 79 fL (79-100); MONO # 0.9 x10^3/uL (0.0-1.1); MONO % 15 % (0-9); NEUT # 3.1 x10^3uL (1.8-7.7); NEUT % 50 % (31-73); PLATELET COUNT 177 x10^3/uL (140-400); RED BLOOD COUNT 4.72 x10^6/uL (3.50-5.40); RED CELL DISTRIBUTION WIDTH 21.3 % (11.5-14.5); WHITE BLOOD COUNT 6.2 x10^3/uL (4.0-11.0)
[2017-07-27] MEDS: CHOLECALCIFEROL (VITAMIN D3) 1,000 UNIT TABLET PO (10:55)
[2017-07-27] MEDS: DONEPEZIL HCL 5 MG TABLET. PO (10:55)
[2017-07-27] MEDS: PANTOPRAZOLE 40 MG TABLET.DR. PO (10:55)
[2017-07-27] MEDS: ASPIRIN CHEWABLE 81 MG TABLET. PO (10:55)
[2017-07-27] MEDS: methylPREDNISolone SOD SUCC PF 40 MG/ML VIAL. IV (10:55)
[2017-07-27] MEDS: SPIRONOLACTONE 25 MG TABLET PO (10:56)
[2017-07-27] MEDS: CARVEDILOL 3.125 MG TABLET. PO ×2 (10:56→17:39)
[2017-07-27] MEDS: MULTIVITAMIN with MINERAL TABLET. PO (10:56)
[2017-07-27] MEDS: AMIODARONE HCL 200 MG TABLET. PO (10:56)
[2017-07-27] MEDS: LACTOBACILLUS RHAMNOSUS GG 1 CAPSULE. PO ×2 (10:56→21:40)
[2017-07-27] MEDS: ACETAMINOPHEN 500 MG TABLET PO ×2 (10:57→21:40)
[2017-07-27] MEDS: CYANOCOBALAMIN (VITAMIN B-12) 1,000 MCG TABLET. PO (10:57)
[2017-07-27] MEDS: CETIRIZINE HCL 10 MG TABLET. PO (10:57)
[2017-07-27] MEDS: POTASSIUM CHLORIDE 10 MEQ TABLET.ER. PO (10:58)
[2017-07-27] MEDS: FLUTICASONE 50MCG/NASAL SPRAY 16GM BOTTLE. NS (10:58)
[2017-07-27] MEDS: DICLOFENAC SODIUM 1% TOPICAL GEL 100GM TUBE. TP ×4 (11:01→21:39)
[2017-07-27] MEDS ORDERED: IPRATRPIUM/ALBUTEROL 0.5/2.5MG 3 ML NEBU. NEB (12:00)
[2017-07-27 12:50] LABS: POC GLUCOSE 138 mg/dL (70-99)
[2017-07-27 13:14] LABS: INFLUENZA A PATIENT NEGATIVE (NEGATIVE)
[2017-07-27 13:15] LABS: INFLUENZA B PATIENT NEGATIVE (NEGATIVE); OBC FLU VALID
[2017-07-27 17:40] LABS: POC GLUCOSE 135 mg/dL (70-99)
[2017-07-27 21:12] LABS: POC GLUCOSE 185 mg/dL (70-99)
[2017-07-27] MEDS: MONTELUKAST SODIUM 10 MG TABLET. PO (21:39)
[2017-07-27] MEDS: ATORVASTATIN CALCIUM 40 MG TABLET. PO (21:39)
[2017-07-27] MEDS: TAMSULOSIN 0.4 MG CAP.ER.24H. PO (21:40)
[2017-07-27] MEDS: ALLOPURINOL 100 MG TABLET. PO (21:40)
[2017-07-27] MEDS: INSULIN DETEMIR 300 UNITS/3 ML INSULN.PEN. SQ (21:46)
[2017-07-28 04:40] LABS: ADD MAN DIFF? NO
[2017-07-28 05:36] LABS: BASO % 1 % (0-3); EOS % 0 % (0-3); HEMATOCRIT 38.1 % (36.0-47.0); LYMPH # 0.6 x10^3/uL (1.0-4.8); LYMPH % 15 % (24-48); MEAN CORPUSCULAR HEMOGLOBIN 25 pg (25-35); MEAN CORPUSCULAR HGB CONC 32 g/dL (31-37); MEAN CORPUSCULAR VOLUME 79 fL (79-100); MONO # 0.1 x10^3/uL (0.0-1.1); MONO % 3 % (0-9); NEUT # 3.2 x10^3uL (1.8-7.7); NEUT % 81 % (31-73); PLATELET COUNT 187 x10^3/uL (140-400); RED BLOOD COUNT 4.83 x10^6/uL (3.50-5.40); RED CELL DISTRIBUTION WIDTH 20.9 % (11.5-14.5); WHITE BLOOD COUNT 3.9 x10^3/uL (4.0-11.0)
[2017-07-28 06:06] LABS: ANION GAP 10 (6-14); BLOOD UREA NITROGEN 29 mg/dL (7-20); CALCIUM 8.7 mg/dL (8.5-10.1); CARBON DIOXIDE 25 mmol/L (21-32); CHLORIDE 108 mmol/L (98-107); CREATININE 1.7 mg/dL (0.6-1.0); GFR 34.6; GLUCOSE 185 mg/dL (70-99); POTASSIUM 4.6 mmol/L (3.5-5.1); SODIUM 143 mmol/L (136-145)
[2017-07-28] MEDS: IPRATRPIUM/ALBUTEROL 0.5/2.5MG 3 ML NEBU. NEB ×4 (07:37→21:01)
[2017-07-28] MEDS: BUMETANIDE 1 MG TABLET. PO (07:56)
[2017-07-28 08:43] LABS: POC GLUCOSE 151 mg/dL (70-99)
[2017-07-28] MEDS: POLYETHYLENE GLYCOL 3350 17 GM PACKET. PO (09:00)
[2017-07-28] MEDS: LACTOBACILLUS RHAMNOSUS GG 1 CAPSULE. PO ×2 (10:32→20:48)
[2017-07-28] MEDS: ACETAMINOPHEN 500 MG TABLET PO ×2 (10:32→20:48)
[2017-07-28] MEDS: DICLOFENAC SODIUM 1% TOPICAL GEL 100GM TUBE. TP ×5 (10:32→21:00)
[2017-07-28] MEDS: CARVEDILOL 3.125 MG TABLET. PO ×2 (10:32→16:16)
[2017-07-28] MEDS: FLUTICASONE 50MCG/NASAL SPRAY 16GM BOTTLE. NS (10:32)
[2017-07-28] MEDS: CHOLECALCIFEROL (VITAMIN D3) 1,000 UNIT TABLET PO (10:33)
[2017-07-28] MEDS: POTASSIUM CHLORIDE 10 MEQ TABLET.ER. PO (10:33)
[2017-07-28] MEDS: CETIRIZINE HCL 10 MG TABLET. PO (10:33)
[2017-07-28] MEDS: SPIRONOLACTONE 25 MG TABLET PO (10:33)
[2017-07-28] MEDS: DONEPEZIL HCL 5 MG TABLET. PO (10:33)
[2017-07-28] MEDS: MULTIVITAMIN with MINERAL TABLET. PO (10:35)
[2017-07-28] MEDS: ASPIRIN CHEWABLE 81 MG TABLET. PO (10:35)
[2017-07-28] MEDS: CYANOCOBALAMIN (VITAMIN B-12) 1,000 MCG TABLET. PO (10:35)
[2017-07-28] MEDS: AMIODARONE HCL 200 MG TABLET. PO (10:35)
[2017-07-28] MEDS: PANTOPRAZOLE 40 MG TABLET.DR. PO (10:36)
[2017-07-28 12:01] LABS: POC GLUCOSE 187 mg/dL (70-99)
[2017-07-28] MEDS: BUDESONIDE 0.5 MG/2 ML NEBU. NEB ×2 (12:46→21:00)
[2017-07-28] MEDS: methylPREDNISolone SOD SUCC PF 40 MG/ML VIAL. IV (13:52)
[2017-07-28 17:05] LABS: POC GLUCOSE 180 mg/dL (70-99)
[2017-07-28] MEDS: ATORVASTATIN CALCIUM 40 MG TABLET. PO (20:48)
[2017-07-28] MEDS: ALLOPURINOL 100 MG TABLET. PO (20:48)
[2017-07-28] MEDS: TAMSULOSIN 0.4 MG CAP.ER.24H. PO (20:48)
[2017-07-28] MEDS: MONTELUKAST SODIUM 10 MG TABLET. PO (20:48)
[2017-07-28] MEDS: INSULIN DETEMIR 300 UNITS/3 ML INSULN.PEN. SQ (20:52)
[2017-07-29 04:25] LABS: BASO # 0.1 x10^3/uL (0.0-0.2); BASO % 1 % (0-3); EOS % 0 % (0-3); HEMOGLOBIN 12.3 g/dL (12.0-15.5); LYMPH # 0.9 x10^3/uL (1.0-4.8); LYMPH % 9 % (24-48); MEAN CORPUSCULAR HEMOGLOBIN 25 pg (25-35); MEAN CORPUSCULAR HGB CONC 32 g/dL (31-37); MEAN CORPUSCULAR VOLUME 78 fL (79-100); MONO # 0.4 x10^3/uL (0.0-1.1); MONO % 4 % (0-9); NEUT # 8.7 x10^3uL (1.8-7.7); NEUT % 86 % (31-73); PLATELET COUNT 182 x10^3/uL (140-400); RED BLOOD COUNT 5.01 x10^6/uL (3.50-5.40); WHITE BLOOD COUNT 10.1 x10^3/uL (4.0-11.0)
[2017-07-29 04:28] LABS: ADD MAN DIFF? YES
[2017-07-29 04:41] LABS: ANION GAP 9 (6-14); BLOOD UREA NITROGEN 35 mg/dL (7-20); CARBON DIOXIDE 23 mmol/L (21-32); CHLORIDE 109 mmol/L (98-107); CREATININE 1.6 mg/dL (0.6-1.0); GFR 37.2; GLUCOSE 160 mg/dL (70-99); POTASSIUM 4.9 mmol/L (3.5-5.1); SODIUM 141 mmol/L (136-145)
[2017-07-29] MEDS: IPRATRPIUM/ALBUTEROL 0.5/2.5MG 3 ML NEBU. NEB ×4 (07:37→21:26)
[2017-07-29] MEDS: BUDESONIDE 0.5 MG/2 ML NEBU. NEB ×2 (07:38→21:26)
[2017-07-29 08:18] LABS: POC GLUCOSE 133 mg/dL (70-99)
[2017-07-29] MEDS: POLYETHYLENE GLYCOL 3350 17 GM PACKET. PO (09:00)
[2017-07-29] MEDS: FLUTICASONE 50MCG/NASAL SPRAY 16GM BOTTLE. NS (10:04)
[2017-07-29] MEDS: POTASSIUM CHLORIDE 10 MEQ TABLET.ER. PO (10:05)
[2017-07-29] MEDS: LACTOBACILLUS RHAMNOSUS GG 1 CAPSULE. PO ×2 (10:07→20:01)
[2017-07-29] MEDS: MULTIVITAMIN with MINERAL TABLET. PO (10:07)
[2017-07-29] MEDS: SPIRONOLACTONE 25 MG TABLET PO (10:07)
[2017-07-29] MEDS: CARVEDILOL 3.125 MG TABLET. PO ×2 (10:07→17:26)
[2017-07-29] MEDS: CYANOCOBALAMIN (VITAMIN B-12) 1,000 MCG TABLET. PO (10:07)
[2017-07-29] MEDS: CHOLECALCIFEROL (VITAMIN D3) 1,000 UNIT TABLET PO (10:07)
[2017-07-29] MEDS: CETIRIZINE HCL 10 MG TABLET. PO (10:08)
[2017-07-29] MEDS: AMIODARONE HCL 200 MG TABLET. PO (10:08)
[2017-07-29] MEDS: BUMETANIDE 1 MG TABLET. PO (10:08)
[2017-07-29] MEDS: DONEPEZIL HCL 5 MG TABLET. PO (10:08)
[2017-07-29] MEDS: ASPIRIN CHEWABLE 81 MG TABLET. PO (10:08)
[2017-07-29] MEDS: DICLOFENAC SODIUM 1% TOPICAL GEL 100GM TUBE. TP ×4 (10:09→21:00)
[2017-07-29] MEDS: PANTOPRAZOLE 40 MG TABLET.DR. PO (10:20)
[2017-07-29] MEDS: ACETAMINOPHEN 500 MG TABLET PO ×2 (10:20→20:01)
[2017-07-29 10:21] LABS: % ATYL 1 % (0-0); % BANDS 1 % (0-9); % LYMPHS 8 % (24-48); % MONOS 3 % (0-10); % SEGS 87 % (35-66); PLT ESTIMATE ADEQUATE (ADEQUATE)
[2017-07-29 10:35] LABS: ANISOCYTOSIS MARKED; HYPOCHROMIA PRESENT; POIKILOCYTOSIS MARKED; POLYCHROMASIA PRESENT
[2017-07-29 10:36] LABS: SPHEROCYTES OCC; TARGET CELLS PRESENT
[2017-07-29 10:37] LABS: ACANTHOCYTES FEW; BIZZARE CELLS PRESENT; BURR CELLS MOD; OVALOCYTES PRESENT; SCHISTOCYTES MOD
[2017-07-29 10:38] LABS: TOXIC VACUOLATION PRESENT
[2017-07-29 11:39] LABS: POC GLUCOSE 147 mg/dL (70-99)
[2017-07-29 16:47] LABS: POC GLUCOSE 126 mg/dL (70-99)
[2017-07-29] MEDS: methylPREDNISolone SOD SUCC PF 40 MG/ML VIAL. IV (17:10)
[2017-07-29 19:55] LABS: POC GLUCOSE 177 mg/dL (70-99)
[2017-07-29] MEDS: MONTELUKAST SODIUM 10 MG TABLET. PO (20:01)
[2017-07-29] MEDS: TAMSULOSIN 0.4 MG CAP.ER.24H. PO (20:01)
[2017-07-29] MEDS: ATORVASTATIN CALCIUM 40 MG TABLET. PO (20:01)
[2017-07-29] MEDS: INSULIN DETEMIR 300 UNITS/3 ML INSULN.PEN. SQ (20:02)
[2017-07-29] MEDS: ALLOPURINOL 100 MG TABLET. PO (20:03)
[2017-07-29 20:04] LABS: POC GLUCOSE 110 mg/dL (70-99)
[2017-07-30 05:35] LABS: ADD MAN DIFF? NO
[2017-07-30 06:02] LABS: BASO # 0.1 x10^3/uL (0.0-0.2); BASO % 1 % (0-3); EOS % 0 % (0-3); HEMATOCRIT 39.5 % (36.0-47.0); HEMOGLOBIN 12.3 g/dL (12.0-15.5); LYMPH % 9 % (24-48); MEAN CORPUSCULAR HEMOGLOBIN 24 pg (25-35); MEAN CORPUSCULAR HGB CONC 31 g/dL (31-37); MEAN CORPUSCULAR VOLUME 79 fL (79-100); MONO # 0.7 x10^3/uL (0.0-1.1); MONO % 6 % (0-9); NEUT # 8.8 x10^3uL (1.8-7.7); NEUT % 84 % (31-73); PLATELET COUNT 179 x10^3/uL (140-400); RED BLOOD COUNT 5.02 x10^6/uL (3.50-5.40); RED CELL DISTRIBUTION WIDTH 21.3 % (11.5-14.5); WHITE BLOOD COUNT 10.6 x10^3/uL (4.0-11.0)
[2017-07-30 06:27] LABS: ANION GAP 11 (6-14); BLOOD UREA NITROGEN 41 mg/dL (7-20); CALCIUM 8.8 mg/dL (8.5-10.1); CARBON DIOXIDE 23 mmol/L (21-32); CHLORIDE 108 mmol/L (98-107); CREATININE 1.8 mg/dL (0.6-1.0); GFR 32.4; GLUCOSE 128 mg/dL (70-99); POTASSIUM 4.9 mmol/L (3.5-5.1); SODIUM 142 mmol/L (136-145)
[2017-07-30 06:36] LABS: POC GLUCOSE 115 mg/dL (70-99)
[2017-07-30] MEDS: IPRATRPIUM/ALBUTEROL 0.5/2.5MG 3 ML NEBU. NEB ×4 (08:28→18:24)
[2017-07-30] MEDS: BUDESONIDE 0.5 MG/2 ML NEBU. NEB ×2 (08:28→18:24)
[2017-07-30] MEDS: CHOLECALCIFEROL (VITAMIN D3) 1,000 UNIT TABLET PO (09:33)
[2017-07-30] MEDS: POLYETHYLENE GLYCOL 3350 17 GM PACKET. PO (09:33)
[2017-07-30] MEDS: LACTOBACILLUS RHAMNOSUS GG 1 CAPSULE. PO ×2 (09:34→20:02)
[2017-07-30] MEDS: CYANOCOBALAMIN (VITAMIN B-12) 1,000 MCG TABLET. PO (09:34)
[2017-07-30] MEDS: POTASSIUM CHLORIDE 10 MEQ TABLET.ER. PO (09:34)
[2017-07-30] MEDS: MULTIVITAMIN with MINERAL TABLET. PO (09:34)
[2017-07-30] MEDS: BUMETANIDE 1 MG TABLET. PO (09:34)
[2017-07-30] MEDS: CETIRIZINE HCL 10 MG TABLET. PO (09:35)
[2017-07-30] MEDS: ASPIRIN CHEWABLE 81 MG TABLET. PO (09:35)
[2017-07-30] MEDS: ACETAMINOPHEN 500 MG TABLET PO ×2 (09:35→20:03)
[2017-07-30] MEDS: DONEPEZIL HCL 5 MG TABLET. PO (09:35)
[2017-07-30] MEDS: PANTOPRAZOLE 40 MG TABLET.DR. PO (09:35)
[2017-07-30] MEDS: CARVEDILOL 3.125 MG TABLET. PO ×3 (09:38→17:39)
[2017-07-30] MEDS: SPIRONOLACTONE 25 MG TABLET PO (09:38)
[2017-07-30] MEDS: DICLOFENAC SODIUM 1% TOPICAL GEL 100GM TUBE. TP ×4 (09:43→18:18)
[2017-07-30] MEDS: AMIODARONE HCL 200 MG TABLET. PO (09:43)
[2017-07-30] MEDS: FLUTICASONE 50MCG/NASAL SPRAY 16GM BOTTLE. NS (09:43)
[2017-07-30] MEDS: methylPREDNISolone SOD SUCC PF 40 MG/ML VIAL. IV (11:07)
[2017-07-30 11:42] LABS: POC GLUCOSE 176 mg/dL (70-99)
[2017-07-30 16:37] LABS: POC GLUCOSE 133 mg/dL (70-99)
[2017-07-30] MEDS: TAMSULOSIN 0.4 MG CAP.ER.24H. PO (20:02)
[2017-07-30] MEDS: ALLOPURINOL 100 MG TABLET. PO (20:02)
[2017-07-30] MEDS: ATORVASTATIN CALCIUM 40 MG TABLET. PO (20:02)
[2017-07-30] MEDS: MONTELUKAST SODIUM 10 MG TABLET. PO (20:03)
[2017-07-30 20:45] LABS: POC GLUCOSE 156 mg/dL (70-99)
[2017-07-30] MEDS: INSULIN DETEMIR 300 UNITS/3 ML INSULN.PEN. SQ (21:03)
[2017-07-31 06:20] LABS: ANION GAP 9 (6-14); BLOOD UREA NITROGEN 50 mg/dL (7-20); CALCIUM 8.9 mg/dL (8.5-10.1); CARBON DIOXIDE 24 mmol/L (21-32); CHLORIDE 107 mmol/L (98-107); GFR 28.7; GLUCOSE 151 mg/dL (70-99); POTASSIUM 5.3 mmol/L (3.5-5.1); SODIUM 140 mmol/L (136-145)
[2017-07-31 07:38] LABS: POC GLUCOSE 135 mg/dL (70-99)
[2017-07-31] MEDS: IPRATRPIUM/ALBUTEROL 0.5/2.5MG 3 ML NEBU. NEB ×2 (07:40→13:10)
[2017-07-31] MEDS: BUDESONIDE 0.5 MG/2 ML NEBU. NEB (07:40)
[2017-07-31] MEDS: ASPIRIN CHEWABLE 81 MG TABLET. PO (08:00)
[2017-07-31] MEDS: SPIRONOLACTONE 25 MG TABLET PO (08:00)
[2017-07-31] MEDS: ACETAMINOPHEN 500 MG TABLET PO (08:55)
[2017-07-31] MEDS: CHOLECALCIFEROL (VITAMIN D3) 1,000 UNIT TABLET PO (08:55)
[2017-07-31] MEDS: CYANOCOBALAMIN (VITAMIN B-12) 1,000 MCG TABLET. PO (08:56)
[2017-07-31] MEDS: CETIRIZINE HCL 10 MG TABLET. PO (08:56)
[2017-07-31] MEDS: MULTIVITAMIN with MINERAL TABLET. PO (08:56)
[2017-07-31] MEDS: POLYETHYLENE GLYCOL 3350 17 GM PACKET. PO (08:56)
[2017-07-31] MEDS: LACTOBACILLUS RHAMNOSUS GG 1 CAPSULE. PO (08:56)
[2017-07-31] MEDS: DONEPEZIL HCL 5 MG TABLET. PO (08:56)
[2017-07-31] MEDS: PANTOPRAZOLE 40 MG TABLET.DR. PO (08:56)
[2017-07-31] MEDS: AMIODARONE HCL 200 MG TABLET. PO (08:57)
[2017-07-31] MEDS: BUMETANIDE 1 MG TABLET. PO (08:58)
[2017-07-31] MEDS: CARVEDILOL 3.125 MG TABLET. PO (08:59)
[2017-07-31] MEDS: DICLOFENAC SODIUM 1% TOPICAL GEL 100GM TUBE. TP (09:15)
[2017-07-31] MEDS: FLUTICASONE 50MCG/NASAL SPRAY 16GM BOTTLE. NS (09:15)
[2017-07-31] MEDS: IV NORMAL SALINE 1000ML BAG 500 ML IV (09:15)
== END 2017-07-31 14:20 | disposition home or self-care (01) | DRG 193 ==
LOC: ER 10:05 → 2 SOUTH 11:53
PROVIDERS: Internal Medicine
DX: J18.9 Pneumonia, unspecified organism (principal); J96.20 Acute and chronic respiratory failure, unspecified whether with hypoxia or hypercapnia; L89.312 Pressure ulcer of right buttock, stage 2; G92 Toxic encephalopathy; E44.0 Moderate protein-calorie malnutrition; I13.0 Hypertensive heart and chronic kidney disease with heart failure and stage 1 through stage 4 chronic kidney disease, or unspecified chronic kidney disease; E11.22 Type 2 diabetes mellitus with diabetic chronic kidney disease; E87.5 Hyperkalemia; I50.42 Chronic combined systolic (congestive) and diastolic (congestive) heart failure; R18.8 Other ascites; J44.0 Chronic obstructive pulmonary disease with (acute) lower respiratory infection; J98.11 Atelectasis; N18.4 Chronic kidney disease, stage 4 (severe); N39.0 Urinary tract infection, site not specified; I27.29 Other secondary pulmonary hypertension; D64.9 Anemia, unspecified; B34.9 Viral infection, unspecified; D72.819 Decreased white blood cell count, unspecified; E66.9 Obesity, unspecified; E78.5 Hyperlipidemia, unspecified; E87.6 Hypokalemia; E89.0 Postprocedural hypothyroidism; F01.50 Vascular dementia, unspecified severity, without behavioral disturbance, psychotic disturbance, mood disturbance, and anxiety; H40.9 Unspecified glaucoma; Z88.7 Allergy status to serum and vaccine; Z88.8 Allergy status to other drugs, medicaments and biological substances; I25.10 Atherosclerotic heart disease of native coronary artery without angina pectoris; I25.2 Old myocardial infarction; J20.9 Acute bronchitis, unspecified; K21.9 Gastro-esophageal reflux disease without esophagitis; K29.70 Gastritis, unspecified, without bleeding; K44.9 Diaphragmatic hernia without obstruction or gangrene; K57.90 Diverticulosis of intestine, part unspecified, without perforation or abscess without bleeding; K76.0 Fatty (change of) liver, not elsewhere classified; K80.20 Calculus of gallbladder without cholecystitis without obstruction; M48.061 Spinal stenosis, lumbar region without neurogenic claudication; M79.7 Fibromyalgia; M81.0 Age-related osteoporosis without current pathological fracture; Z82.49 Family history of ischemic heart disease and other diseases of the circulatory system; Z87.01 Personal history of pneumonia (recurrent); Z87.440 Personal history of urinary (tract) infections; Z87.891 Personal history of nicotine dependence; Z90.710 Acquired absence of both cervix and uterus; Z96.651 Presence of right artificial knee joint; F19.90 Other psychoactive substance use, unspecified, uncomplicated; F32.9 Major depressive disorder, single episode, unspecified; F41.9 Anxiety disorder, unspecified; K29.60 Other gastritis without bleeding; M10.9 Gout, unspecified; M19.90 Unspecified osteoarthritis, unspecified site; M51.36 Other intervertebral disc degeneration, lumbar region; N28.9 Disorder of kidney and ureter, unspecified; R32 Unspecified urinary incontinence; M54.5 Low back pain; Z88.2 Allergy status to sulfonamides
CPT/HCPCS: 36415; 70450; 71045; 71250; 76770; 80048; 80076; 80307; 81001; 82140; 82553; 82962; 83605; 83690; 83735; 83880; 84484; 85007; 85025; 87040; 87086; 87186; 87804; 87804-59; 93005; 94640; 94760; 97116-GP; 97162-GP; 97166-GO; 97530-GP; 99285; 99285-25; J1815; J1956; J2920; J7030; J7620; J7626

== ENCOUNTER 2017-10-15 11:57 | Emergency (ER) | payer OTHER ==
[2017-10-15] MEDS: IV NORMAL SALINE 500ML BAG 500 ML IV (13:01)
[2017-10-15 13:46] LABS: ADD MAN DIFF? NO
[2017-10-15 13:57] LABS: ANION GAP 8 (6-14); BLOOD UREA NITROGEN 33 mg/dL (7-20); BUN/CREATININE RATIO 19 (6-20); CALCIUM 8.5 mg/dL (8.5-10.1); CARBON DIOXIDE 27 mmol/L (21-32); CHLORIDE 107 mmol/L (98-107); CREATININE 1.7 mg/dL (0.6-1.0); GFR 34.6; GLUCOSE 116 mg/dL (70-99); POTASSIUM 4.4 mmol/L (3.5-5.1); SODIUM 142 mmol/L (136-145)
[2017-10-15 14:01] LABS: INR 1.4 (0.8-1.1); PROTHROMBIN TIME PATIENT 16.1 SEC (11.7-14.0)
[2017-10-15 14:03] LABS: ALBUMIN 2.8 g/dL (3.4-5.0); ALBUMIN/GLOBULIN RATIO 0.8 (1.0-1.7); ALK PHOS 107 U/L (46-116); ALT (SGPT) 28 U/L (14-59); AST (SGOT) 25 U/L (15-37); BASO # 0.1 x10^3/uL (0.0-0.2); BASO % 2 % (0-3); EOS # 0.2 x10^3/uL (0.0-0.7); EOS % 3 % (0-3); HEMATOCRIT 38.8 % (36.0-47.0); HEMOGLOBIN 12.1 g/dL (12.0-15.5); LYMPH # 1.8 x10^3/uL (1.0-4.8); LYMPH % 32 % (24-48); MEAN CORPUSCULAR HEMOGLOBIN 24 pg (25-35); MEAN CORPUSCULAR HGB CONC 31 g/dL (31-37); MEAN CORPUSCULAR VOLUME 77 fL (79-100); MONO # 0.5 x10^3/uL (0.0-1.1); MONO % 9 % (0-9); NEUT # 3.1 x10^3uL (1.8-7.7); NEUT % 55 % (31-73); PLATELET COUNT 193 x10^3/uL (140-400); RED BLOOD COUNT 5.06 x10^6/uL (3.50-5.40); RED CELL DISTRIBUTION WIDTH 22.9 % (11.5-14.5); TOTAL BILIRUBIN 0.7 mg/dL (0.2-1.0); TOTAL PROTEIN 6.4 g/dL (6.4-8.2); WHITE BLOOD COUNT 5.6 x10^3/uL (4.0-11.0)
[2017-10-15 14:05] LABS: TROPONINI 0.019 ng/mL (0.000-0.055)
[2017-10-15 14:13] LABS: PLT ESTIMATE ADEQUATE (ADEQUATE); POLYCHROMASIA SLIGHT
[2017-10-15 14:14] LABS: ANISOCYTOSIS MOD; HYPOCHROMIA SLIGHT; SCHISTOCYTES FEW
[2017-10-15 15:02] LABS: BILIRUBIN,URINE NEGATIVE (NEG); CLARITY,URINE CLEAR; COLOR,URINE YELLOW; GLUCOSE,URINE NEGATIVE (NEG); NITRITE,URINE NEGATIVE (NEG); PH,URINE 5.5; PROTEIN,URINE NEGATIVE (NEG-TRACE)
[2017-10-15 15:10] LABS: BACTERIA,URINE MANY /HPF (0-FEW); HYALINE CASTS, URINE OCCASIONAL /HPF; RBC,URINE 0 /HPF (0-2); SQUAMOUS EPITHELIAL CELL,UR FEW /LPF; WBC,URINE RARE /HPF (0-4)
== END 2017-10-15 16:25 | disposition home or self-care (01) ==
LOC: ER 11:57
DX: R53.1 Weakness (principal); M54.2 Cervicalgia; M25.511 Pain in right shoulder; M25.551 Pain in right hip; F03.90 Unspecified dementia, unspecified severity, without behavioral disturbance, psychotic disturbance, mood disturbance, and anxiety; J44.9 Chronic obstructive pulmonary disease, unspecified; I13.0 Hypertensive heart and chronic kidney disease with heart failure and stage 1 through stage 4 chronic kidney disease, or unspecified chronic kidney disease; E11.22 Type 2 diabetes mellitus with diabetic chronic kidney disease; N18.9 Chronic kidney disease, unspecified; I50.9 Heart failure, unspecified; E03.9 Hypothyroidism, unspecified; K21.9 Gastro-esophageal reflux disease without esophagitis; H40.9 Unspecified glaucoma; E11.39 Type 2 diabetes mellitus with other diabetic ophthalmic complication; Z88.2 Allergy status to sulfonamides; Z90.710 Acquired absence of both cervix and uterus; Z95.0 Presence of cardiac pacemaker; Z88.1 Allergy status to other antibiotic agents
CPT/HCPCS: 36415; 70450; 71045; 72125; 73030; 73502; 80053; 81001; 84484; 85025; 85610; 96360; 99285-25; J7040